=== PATIENT | female | born 1975 ===

== ENCOUNTER 2024-03-19 05:33 | Emergency (ER) | payer OTHER, SELFPAY ==
--- NOTE | ~2024-03-19 | US_ITS ---
EXAMINATION: US OBSTETRICAL ULTRASOUND CLINICAL INFORMATION: Pain. Rule out ectopic . COMPARISON: None available. LMP: 01/27/2024 . Gestational age by maternal dates is 7 weeks 3 days . Estimated date of delivery by maternal dates is 11/02/2024. TECHNIQUE: Transabdominal and transvaginal pelvic ultrasound was performed. Transvaginal exam performed for better visualization of the uterus and ovaries. FINDINGS: The uterus is anteverted and measures 9.5 x 5.2 x 6.9 cm in dimension. The endometrium is abnormally thickened measuring 2.9 cm with small cystic areas. No intrauterine is seen. There is a linear echogenic density in the posterior myometrium of the uterine body compatible with patient history of a broken IUD. No other focal uterine lesion. The right ovary is normal and measures 2.2 x 0.8 x 2 cm. The left ovary measures 3.5 x 2.3 x 2.2 cm. There is a complex left ovarian cyst that measures 2.4 x 0.9 x 1.2 cm. This is irregularly-shaped and a 4 x 6 mm echogenic solid component. Ectopic cannot be excluded. There is no fluid in the pelvis. US/US OB pelvic and transvaginal IMPRESSION: No intrauterine seen. Abnormally thickened heterogeneous endometrium. 2.4 x 0.9 x 1.2 cm complex left ovarian cyst. Ectopic cannot be excluded. Correlation with serial quantitative beta hCG and short-term imaging follow-up recommended. Broken IUD in the posterior uterine body myometrium.
[2024-03-19 05:45] VITALS: BP 129/73; PULSE 79; RESP 16; TEMP 36.7; O2SAT 97; BMI 25.1
--- NOTE | 2024-03-19 06:39 | ED.ABDPAIN ---
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 Admits to 3 episodes of diarrhea since this time. Endorses associated decreased PO intake secondary to nausea. Denies known sick contacts. Denies recent travel. Denies recent abx use. Endorses history appendectomy. No other abdominal surgeries. LMP 01/27/24. Denies fever, chills, vomiting, hematemesis, hematochezia, melena, bright red blood per rectum, dysuria, flank pain, hematuria. bowling alley attendant utilized throughout visit to communicate with patient. Related Data Previous Rx's ?Medication ?Instructions ?Recorded pyridoxine (vitamin B6) 25 mg 25 mg PO TID PRN nausea and 03/19/24 tablet vomiting #10 tabs vancomycin 125 mg capsule 125 mg PO Q6H 10 days #40 caps 03/20/24 Allergies Allergy/AdvReac Type Severity Reaction Status Date / Time No Known Allergies Allergy Verified 03/20/24 04:38 Review of Systems Review of Systems Constitutional: No fever, chills, fatigue, night sweats, weight changes ENT/Mouth: No ear pain, hearing loss, nasal congestion, sinus pain, rhinorrhea, sore throat Eyes: No eye pain, swelling, redness, vision changes, discharge Cardio: No chest pain, palpitations, CARRERA, orthopnea, peripheral edema Pulm: No SOB, cough, sputum, wheezing, dyspnea, hemoptysis GI: No vomiting, hematemesis, constipation, hematochezia, melena, +abdominal pain, +nausea, +diarrhea : No irregular bleeding, dysuria, frequency, urgency, hesitancy, hematuria, flank pain, urinary flow changes, urinary incontinence or retention MSK: No back pain, neck pain, joint pain, myalgias Skin: No lesions, rashes Neuro: No weakness, numbness, paresthesias, LOC, dizziness, headache Psych: No anxiety/panic, depression, SI/HI, AH/VH All other systems reviewed and are negative. [facility] Past Medical History Attestation statement: The following information was validated with the patient. Source: old records reviewed and nursing notes reviewed Social History Social History Advance Directives: No Advance Directives Information Provided: Yes Do you have a plan to hurt others: No Plan Physical Exam ED Vital Signs: Vital Signs - 24 hr 03/19/24 05:45 Temperature 98.0 F Pulse Rate 79 Respiratory Rate 16 Blood Pressure 129/73 Pulse Oximetry 97 Oxygen Delivery Method Room Air BMI result Body Mass Index 25.1 Vital signs stable, afebrile Const General: cooperative, healthy appearing, comfortable and no acute distress Orientation/consciousness: patient oriented x3 Limitations: no limitations HENMT Head: Yes normal to inspection, Yes No palpable skull fracture present, Yes normocephalic and Yes atraumatic Eyes General: appearance normal, both eyes and all related structures Conjunctivae: conjunctivae normal Sclerae: sclerae normal Pupils: Equal, round and reactive pupils present Neck Neck: Yes normal visual inspection, Yes full ROM, Yes no lymphadenopathy and Yes no meningeal signs Resp Effort & Inspection: normal respiratory effort and able to speak in complete sentences Auscultation: clear to auscultation bilaterally Cardio Rate: regular rate Rhythm: regular rhythm GI Other: Abdomen soft, nondistended, mildly tender to palpation of the suprapubic abdomen, no rebound tenderness or guarding, normoactive bowel sounds x4. Other: Sensitive exam performed with Tiffany archives technician present in room to cement side laster. External genitalia is normal in appearance without lesions, swelling, masses or tenderness. Vaginal canal is pink and moist without lesions or discharge. Cervix is non-tender without lesions or erosions. Uterus is anteflexed, non-tender and normal in size. Ovaries are non-tender without palpable masses or enlargement. No cervical motion tenderness on bimanual exam. General: Yes no CVA tenderness Back/Spine/Pelvis Back: no CVA tenderness Skin General skin exam: no rashes or lesions noted Neuro General: patient oriented x3 and no meningeal signs Cranial nerves: Yes Equal, round and reactive pupils present Extrem General: Yes normal to inspection Course Course Course Narrative: 0815-- CBC without leukocytosis or left shift. No anemia. H&H stable. Chemistry without acute electrolyte abnormality requiring intervention. Normal renal function. Normal liver function. Lipase WNL. she has tested negative for covid and flu. Quantitative beta HCG noted to be 10. On questioning, patient states that over the last 6 months her period has been irregular. Her last menstrual period was on January 26. She did not get her period this month. She does report chance of . I did discuss this with my attending physician Dr. Locke who recommends pelvic/transvaginal US to r/o intrauterine vs ectopic. > awaiting UA. 0950-- pelvic/transvaginal ultrasound without evidence of intrauterine visualized. There is abnormally thickened heterogeneous endometrium. There is a 2.4 x 0.9 x 1.2 cm complex ovarian cyst. Ectopic can not be excluded. Correlation with serial beta HCGs and short-term imaging follow-up is recommended. There is note of broken IUD within the posterior uterine body of the myometrium. Patient tells me she had IUD placed approximately 12 years ago. The IUD broke off of the string when her physician was attempting to remove the IUD 5 years ago and there have been no further attempts at removing the IUD. she has had no issues with it up to this point. > these findings were discussed with on-call bed laborer, Dr. Tidwell who has also reviewed US results. He is recommending pelvic with cultures for BV/ trich/ CT/NG. UA pending. > on re-evaluation, patient reports improvement in pain with tylenol. 1035-- Pelvic exam performed with [facility] in room to cement side laster. exam unremarkable. no CMT to suggest PID. no visible IUD string from cervical os. Cultures for trich/BV/CT/NG sent. UA negative for infection/ blood. > discussed further with Dr. Tidwell who will be down to the ED to evaluate patient. 1214-- All lab, urine, and ultrasound results were discussed with patient by both Dr. Tidwell and I. > doctor Tidwell would like to have patient follow-up in his office in 48 hours for repeat HCG. He has placed an outpatient order for this. We discussed worrisome signs and symptoms and when to return to the ED including fever, heavy vaginal bleeding. Regarding retained IUD, patient will continue to follow-up with OB Gy[facility] outpatient for this. Regarding complex ovarian cyst on left ovary identified by ultrasound, patient has suprapubic tenderness likely secondary to this. Dr. Tidwell will discuss treatment options for this in his office in 48 hours. > given unremarkable workup in the ED, I suspect viral gastroenteritis as cause of patient's diarrhea. she reports significant improvement in abdominal pain with tylenol. Will send patient home with vitamin B6 for nausea. Advised to take tylenol as needed for discomfort. Patient has remained stable throughout ED visit today. All questions answered at this time. Patient is agreeable with disposition and stable for discharge. Medical Decision Making Medical Decision Making [facility] [place] Narrative: 49 year old Libyan speaking female presents to the ED today for evaluation of intermittent suprapubic abdominal pain, nausea, and diarrhea which began abruptly at 0200 this morning. Vital signs stable. Afebrile. She is nontoxic appearing in no acute distress. Skin warm, dry, intact. Abdomen is soft, nondistended, mildly tender to palpation of the suprapubic abdomen without rebound tenderness or guarding. Normoactive bowel sounds x4. No CVAT bilaterally. On pelvic exam, External genitalia is normal in appearance without lesions, swelling, masses or tenderness. Vaginal canal is pink and moist without lesions or discharge. Cervix is non-tender without lesions or erosions. Uterus is anteflexed, non-tender and normal in size. Ovaries are non-tender without palpable masses or enlargement. No cervical motion tenderness on bimanual exam. Differential diagnosis includes viral syndrome, gastroenteritis, diverticulosis/diverticulitis, anemia, electrolyte abnormality, urinary tract infection, renal colic, nephrolithiasis, early , ectopic , falsely elevated HCG due to perimenopause. Unlikely appendicitis, cholecystitis, pancreatitis, SBO, ischemic bowel. Plan for labs, UA, CT, pain control, re-evaluation. Differential Diagnosis Differential Diagnoses: The differential diagnosis associated with the presentation includes as above. Admission/Observation Consideration of admission/observation: Escalation of care including admission/observation considered Admission considered on presentation. Consult Healthcare Provider Management of the patient was discussed with: Pharmacy Helper (Dr. Tidwell, OBGYN) Lab Data MDM Lab Attestation statement: I reviewed the patient's lab results. as above. 03/19/24 06:47 03/19/24 06:47 Labs: Lab Results 03/19/24 03/19/24 03/19/24 Range/Units 06:47 07:29 09:45 WBC 8.9 (4.8-10.8) X10*3/uL RBC 4.53 (4.20-5.50) X10*6/uL Hgb 13.4 (12.0-16.0) g/dl Hct 39.8 (37.0-47.0) % MCV 87.9 (80.0-98.0) fL MCH 29.6 (27.0-33.0) pg MCHC 33.7 (31.0-35.0) g/dl RDW 13.6 (11.0-16.0) % Plt Count 229 (160-400) X10*3/uL MPV 8.9 L (9.4-12.3) fL Immature Gran % (Auto) 0.2 (0.0-0.4) % Neut % (Auto) 73.6 H (45-73) % Lymph % (Auto) 16.1 L (20-40) % Carlton % (Auto) 8.0 (2-11) % Eos % (Auto) 1.7 (0-4) % Baso % (Auto) 0.4 (0-2) % Lymph # (Auto) 1.4 (1.2-4.9) X10*3/uL Carlton # (Auto) 0.7 (0.1-1.2) X10*3/uL Eos # (Auto) 0.2 (0.0-0.4) X10*3/uL Baso # (Auto) 0.0 (0.0-0.2) X10*3/uL Abs Immat Gran (auto) 0.02 (0.00-0.03) X10*3/uL Absolute Neuts (auto) 6.5 (2.0-8.3) x10*3/uL Absolute Nucleated RBC 0.000 (0.0-0.012) X10*3/uL Nucleated RBC % (auto) 0.0 (0.0-0.2) /100WBC Sodium 139 (135-145) mmol/L Potassium 3.9 (3.3-5.1) mmol/L Chloride 110 H (96-108) mmol/L Carbon Dioxide 21 L (22-29) mmol/L Anion Gap 12 (12-20) BUN 12 (9-16) mg/dL Creatinine 0.65 (0.5-1.4) mg/dL Estim Creat Clear Calc 94.2 Estimated GFR > 60 Random Glucose 108 (60-115) mg/dL Calcium 8.8 (8.4-10.2) mg/dL Magnesium 1.7 (1.6-2.6) mg/dL Total Bilirubin 0.7 (0.0-1.0) mg/dL AST 18 (5-31) U/L ALT 17 (0-31) U/L Alkaline Phosphatase 63 (39-117) U/L Total Protein 6.8 (6.5-8.0) g/dL Albumin 3.8 (3.5-5.0) g/dL Lipase 25 (8-78) U/L Beta HCG, Quant 10 mIU/mL Urine Color Yellow Urine Appearance Clear Urine pH 6.0 (5.0-9.0) Ur Specific [place] <= 1.005 (1.005-1.025) Urine Protein Negative (Neg-Trace) mg/dL Urine Glucose (UA) Negative (Negative) mg/dL Urine Ketones Negative (Negative) mg/dL Urine Blood Negative (Negative) Urine Nitrite Negative (Negative) Ur Leukocyte Esterase Negative (Negative) Urine Test NEGATIVE (NEGATIVE) Chlam trachomat DNA PCR (Not Detect.) COVID-19 (SONI) Negative (Negative) COVID-19 Clin Com See Note Influenza Type A (PRESTON) Negative (Negative) Influenza Type B (PRESTON) Negative (Negative) Influenza A & B Note See Note N.gonorrhoeae DNA (PCR) (Not Detect.) T. vaginalis (PCR) (Not Detect) Bact Vaginosis (PCR) (Negative) C. krusei/glabrata (PCR) (Not Detect) Ruthie group (PCR) (Not Detect) 03/19/24 Range/Units 10:18 WBC (4.8-10.8) X10*3/uL RBC (4.20-5.50) X10*6/uL Hgb (12.0-16.0) g/dl Hct (37.0-47.0) % MCV (80.0-98.0) fL MCH (27.0-33.0) pg MCHC (31.0-35.0) g/dl RDW (11.0-16.0) % Plt Count (160-400) X10*3/uL MPV (9.4-12.3) fL Immature Gran % (Auto) (0.0-0.4) % Neut % (Auto) (45-73) % Lymph % (Auto) (20-40) % Carlton % (Auto) (2-11) % Eos % (Auto) (0-4) % Baso % (Auto) (0-2) % Lymph # (Auto) (1.2-4.9) X10*3/uL Carlton # (Auto) (0.1-1.2) X10*3/uL Eos # (Auto) (0.0-0.4) X10*3/uL Baso # (Auto) (0.0-0.2) X10*3/uL Abs Immat Gran (auto) (0.00-0.03) X10*3/uL Absolute Neuts (auto) (2.0-8.3) x10*3/uL Absolute Nucleated RBC (0.0-0.012) X10*3/uL Nucleated RBC % (auto) (0.0-0.2) /100WBC Sodium (135-145) mmol/L Potassium (3.3-5.1) mmol/L Chloride (96-108) mmol/L Carbon Dioxide (22-29) mmol/L Anion Gap (12-20) BUN (9-16) mg/dL Creatinine (0.5-1.4) mg/dL Estim Creat Clear Calc Estimated GFR Random Glucose (60-115) mg/dL Calcium (8.4-10.2) mg/dL Magnesium (1.6-2.6) mg/dL Total Bilirubin (0.0-1.0) mg/dL AST (5-31) U/L ALT (0-31) U/L Alkaline Phosphatase (39-117) U/L Total Protein (6.5-8.0) g/dL Albumin (3.5-5.0) g/dL Lipase (8-78) U/L Beta HCG, Quant mIU/mL Urine Color Urine Appearance Urine pH (5.0-9.0) Ur Specific [place] (1.005-1.025) Urine Protein (Neg-Trace) mg/dL Urine Glucose (UA) (Negative) mg/dL Urine Ketones (Negative) mg/dL Urine Blood (Negative) Urine Nitrite (Negative) Ur Leukocyte Esterase (Negative) Urine Test (NEGATIVE) Chlam trachomat DNA PCR NOT DETECTED (Not Detect.) COVID-19 (SONI) (Negative) COVID-19 Clin Com Influenza Type A (PRESTON) (Negative) Influenza Type B (PRESTON) (Negative) Influenza A & B Note N.gonorrhoeae DNA (PCR) NOT DETECTED (Not Detect.) T. vaginalis (PCR) NOT DETECTED (Not Detect) Bact Vaginosis (PCR) NEGATIVE (Negative) C. krusei/glabrata (PCR) NOT DETECTED (Not Detect) Ruthie group (PCR) DETECTED A (Not Detect) Independent Interpretation I performed an independent interpretation of an: Ultrasound Interpretation: pelvic us without IUP, agree with ragiologist's interpretation. Radiology Impression Discussion of test interpretation with radiology: I have reviewed the radiologist's reading. Radiologist Impression: EXAMINATION: US OBSTETRICAL ULTRASOUND CLINICAL INFORMATION: Pain. Rule out ectopic . COMPARISON: None available. LMP: 01/27/2024 . Gestational age by maternal dates is 7 weeks 3 days . Estimated date of delivery by maternal dates is 11/02/2024. TECHNIQUE: Transabdominal and transvaginal pelvic ultrasound was performed. Transvaginal exam performed for better visualization of the uterus and ovaries. FINDINGS: The uterus is anteverted and measures 9.5 x 5.2 x 6.9 cm in dimension. The endometrium is abnormally thickened measuring 2.9 cm with small cystic areas. No intrauterine is seen. There is a linear echogenic density in the posterior myometrium of the uterine body compatible with patient history of a broken IUD. No other focal uterine lesion. The right ovary is normal and measures 2.2 x 0.8 x 2 cm. The left ovary measures 3.5 x 2.3 x 2.2 cm. There is a complex left ovarian cyst that measures 2.4 x 0.9 x 1.2 cm. This is irregularly-shaped and a 4 x 6 mm echogenic solid component. Ectopic cannot be excluded. There is no fluid in the pelvis. US/US OB pelvic and transvaginal IMPRESSION: No intrauterine seen. Abnormally thickened heterogeneous endometrium. 2.4 x 0.9 x 1.2 cm complex left ovarian cyst. Ectopic cannot be excluded. Correlation with serial quantitative beta hCG and short-term imaging follow-up recommended. Broken IUD in the posterior uterine body myometrium. Independent Historian Clinical information obtained from an independent historian. History obtained from or confirmed by: Spouse () External Record Review External record reviewed: Inpatient record, Office record, Outpatient record, Prior outpatient labs, Prior outpatient radiology, Primary care record and Outside ED record Prescription Management I considered prescription management with: Other (vit b6) Social Determinants Patient?s care significantly limited by Social Determinants of Health including: Other Social Determinant of Health Medications Administered Discontinued Medications Generic Name Dose Route Start Last Admin Trade Name Freq PRN Reason Stop Dose Admin Acetaminophen 975 mg 03/19/24 07:59 03/19/24 08:07 Acetaminophen 325 Mg Tablet PO 03/19/24 08:00 975 mg ONCE ONE Administration Sodium Chloride 1,000 mls @ 999 mls/hr 03/19/24 06:45 03/19/24 08:08 Ns IV 03/19/24 07:45 Infused .Q1H1M DONNA Infusion Critical Care Time Critical Care Time Critical Care Time: No Discharge Plan Discharge Clinical Impression: Pelvic pain with positive beta-human chorionic gonadotropin (BhCG) in female, Complex cyst of left ovary, Retained intrauterine contraceptive device (IUD) Patient Disposition: Home, Self-Care Instructions: Ectopic (DC), Ovarian Cyst (ED), Pelvic Pain in Women (ED) Additional Instructions: Your labs today are reassuring. You tested negative for covid and flu. During your pelvic exam, cultures were sent to the lab to check for STDs. You will be contacted with any positive results. Your urine is negative for infection, blood and . Your blood hcg ( hormone) was elevated to 10 today. You were evaluated by OBGYN Dr. Tidwell and have plans to follow up in his office out patient in 48 hours to repeat these levels. As discussed, your pelvic/transvaginal ultrasound shows a complex cyst on your left ovary and a retained IUD within the uterine wall. It is possible that this cyst is causing your lower abdominal pain. Dr. Tidwell will be following up with you outpatient in 48 hours to discussed treatment options. You have been provided with the contact information for his office if you need to get in touch with them. Vitamin B6 has been sent to your pharmacy for you to take as needed for nausea. You may also take Tylenol at home for pain/ discomfort. As discussed, please return with new or worsening symptoms of increasing abdominal pain, fevers, heavy vaginal bleeding. In the case of an emergency call 911. Prescriptions: New pyridoxine (vitamin B6) 25 mg tablet 25 mg PO TID PRN (Reason: nausea and vomiting) Qty: 10 0RF No Action vancomycin 125 mg capsule 125 mg PO Q6H 10 Days Qty: 40 0RF Referrals: Herb Tidwell MD [Physician] - 2 days (beta hcg 10. repeat levels in 48 hours.) Interventions: ED Discharge Assessment Last Done: 03/19/24 12:29 Discharge Date/Time: 03/19/24 12:30 Print Language: Libyan
[2024-03-19] MEDS: 0.9 % Sodium Chloride 1,000 ML 999 ML IV (06:49)
[2024-03-19 06:51] LABS: Basophils Percent Auto 0.4 % (0-2); Eosinophils Absolute Auto 0.2 X10*3/uL (0.0-0.4); Eosinophils Percent Auto 1.7 % (0-4); Hematocrit 39.8 % (37.0-47.0); Hemoglobin 13.4 g/dl (12.0-16.0); Imm Gran Abs Auto 0.02 X10*3/uL (0.00-0.03); Imm Gran Pct Auto 0.2 % (0.0-0.4); Lymphocytes Absolute Auto 1.4 X10*3/uL (1.2-4.9); Lymphocytes Percent Auto 16.1 % (20-40); MANUAL DIFF FLAG NO; Mean Corpuscular HGB Conc 33.7 g/dl (31.0-35.0); Mean Corpuscular Hemoglobin 29.6 pg (27.0-33.0); Mean Corpuscular Volume 87.9 fL (80.0-98.0); Mean Platelet Volume 8.9 fL (9.4-12.3); Monocytes Absolute Auto 0.7 X10*3/uL (0.1-1.2); Neutrophils Absolute Auto 6.5 x10*3/uL (2.0-8.3); Neutrophils Percent Auto 73.6 % (45-73); Platelet Count 229 X10*3/uL (160-400); Red Blood Count 4.53 X10*6/uL (4.20-5.50); Red Cell Distribution Width 13.6 % (11.0-16.0); White Blood Count 8.9 X10*3/uL (4.8-10.8)
--- OUTSIDE RECORDS SUMMARY | 2024-03-19 07:03 | XMS_ITS | Patient Health Record ---
Author Organization [facility] Address [address], [place] [id number] Care Team Providers Care Integration Architect Name Role Phone Terry Vasquez Primary Care Provider [phone] [facility], Nursing Unavailable [phone] CardonaZayda holloway Unavailable [phone] [facility], [facility] Unavailable [phone] CasUlises finkeliza Unavailable [phone] ALLERGIES No Known Allergies RESULTS Component Value Reference Range Notes CBC Reviewed date:09/01/2023 07:57:02 PM Interpretation:Normal Performing Lab: Notes/Report: WBC 8.5 4.8-10.8 x10-3/uL RBC 4.6 3.8-4.8 x10-6/uL HEMOGLOBIN 13.9 11.5-16.0 g/dL HEMATOCRIT 42.3 35-47 % MCV 91.4 79-98 fL MCH 30.0 27-32 pg MCHC 32.9 32-37 g/dL RDW 14.0 11-15 % PLT COUNT 262 130-400 x10-3/uL MEAN PLATELET VOLUME 10.2 7-11 fL NRBC % AUTO 0.0 <1 % NRBC # AUTO 0.00 <0.1 x10-3/uL LIPID PROFILE Reviewed date:09/15/2023 09:57:06 AM Interpretation:LDL 141; ASCVD 1% Performing Lab: Notes/Report: CHOLESTEROL 221 0-200 mg/dL TRIGLYCERIDES 72 0-150 mg/dL HDL CHOLESTEROL 66 >40 mg/dL LDL CALCULATED 141 0-100 mg/dL TC-HDLC RATIO 3.4 0-4.4 mg/dL QUANTIFERON(R)-TB GOLD PLUS, 1 TUBE Reviewed date:02/25/2024 03:25:35 PM Interpretation:Negative Performing Lab:NL2, [facility] [id number] [id number] Reji Alcazar Notes/Report: NON-FASTING QUANTIFERON(R)-TB GOLD PLUS, 1 TUBE NEGATIVE NEGATIVE Negative test result. M. tuberculosis complex infection unlikely. NIL 0.02 MITOGEN-NIL >10.00 TB1-NIL 0.00 TB2-NIL 0.00 The Nil tube value reflects the background interferon gamma immune response of the patient's blood sample. This value has been subtracted from the patient's displayed TB and Mitogen results. Lower than expected results with the Mitogen tube prevent false-negative Quantiferon readings by detecting a patient with a potential immune suppressive condition and/or suboptimal pre-analytical specimen handling. The TB1 Antigen tube is coated with the M. tuberculosis-specific antigens designed to elicit responses from TB antigen primed CD4+ helper T-lymphocytes. The TB2 Antigen tube is coated with the M. tuberculosis-specific antigens designed to elicit responses from TB antigen primed CD4+ helper and CD8+ cytotoxic T-lymphocytes. 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 Dereck carrero Ligia 01/27/2024 03:03:50 PM > [facility] told pt [facility] are not taking new pt, so , [facility] went [facility] and they did the Eye exam and set the glasses and contacts. Referral Priority Routine IMMUNIZATIONS Vaccine Route Administration Date Status Comme nts hepatitis B IM Intramuscular 09/16/2021 Administered Tdap IM Intramuscular 12/20/2019 Administered Moderna Covid-19 Vaccine Administration - First Dose (Single Dose 100MCG/0.5ML 1ST) IM Intramuscular 02/18/2021 Administered Moderna Covid-19 Vaccine Administration - Second Dose (Single Dose 100 MCG/0.5ML 2ND) IM Intramuscular 03/19/2021 Administered Moderna Covid-19 Booster Administration - Third Dose (Single Dose 50 mcg/0.25 mL IM Intramuscular 12/03/2021 Administered Influenza IM Intramuscular 08/18/2023 Administered PCV 20 IM Intramuscular 08/18/2023 Administered Hepatitis B (20 or more) IM Intramuscular 09/01/2023 Administered Hepatitis B (20 or more) IM Intramuscular 02/02/2024 Administered [facility] [id number] SOCIAL HISTORY Sex Assigned At : Social History Observation Description Sex Assigned At Unknown PROBLEMS Problem Type ICD Code Onset Dates Problem Status W/U Status Risk SNOMED Code Notes Problem Body mass index [BMI] 28.0-28.9, adult (Z68.28) Active confirmed Body mass index 25-29 - overweight (787666581) Problem Presence of spectacles and contact lenses (Z97.3) Active confirmed Abnormal vision (7302432) Problem Keratoconus, stable, 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) Active confirmed Keratoconus, stable condition (297096488) VITAL SIGNS Temperature 98.4 degrees Fahrenheit 08/18/2023 Blood pressure diastolic 75 08/18/2023 Oximetry 98 08/18/2023 Height 60 in 08/18/2023 Blood pressure systolic 124 08/18/2023 Weight 144.8 lbs 08/18/2023 BMI 28.28 kg/m2 08/18/2023 Encounters Encounter Location Date Provider Diagnosis [address] [id number] 07/16/2023 Lauren Carr Encounter for screening for infectious and parasitic diseases, unspecified Z11.[address] [id number] 08/18/2023 Zayda Cardona [address] [id number] 05/29/2023 Nursing [facility] Other specified counseling Z71.[address] [id number] 08/18/2023 Terry Vasquez Encounter for screening for COVID-19 Z11.52 ; Encounter for general adult medical examination without abnormal findings Z00.00 ; Encounter for screening for depression Z13.31 ; Encounter for screening mammogram for malignant neoplasm of breast Z12.31 ; Presence of spectacles and contact lenses Z97.3 ; Encounter for immunization Z23 and Body mass index [BMI] 28.0-28.9, adult Z68.[address] [id number] 09/01/2023 Nursing [facility] Body mass index [BMI] 28.0-28.9, adult Z68.28 and Encounter for immunization Z23 [address] [id number] 02/02/2024 Nursing [facility] Encounter for immunization Z23 [address] [id number] 02/11/2024 [facility] Encounter for screening for respiratory tuberculosis Z11.1 [facility] [address] [place] [id number] 06/15/[address] [id number] 08/28/2023 Terry Vasquez [address] [id number] 02/11/2024 [facility] Encounter for screening for respiratory tuberculosis Z11.[address] [id number] 02/16/2024 [facility] ASSESSMENTS Encounter Date Diagnosis Assessment Notes Treatment Notes Treatment Clinical Notes 07/16/2023 Encounter for screening for infectious and parasitic diseases, unspecified (ICD-10 - Z11.9) Covid screening is negative. Discussed in detail with patient how to practice social distancing by avoiding public spaces and crowds now, wearing a mask in public to keep nose and mouth covered, and washing hands frequently especially before eating and after using the bathroom. Return to clinic if you develop any symtpoms of concern to be rescreened or go to the emergency room if you are having concerning symptoms for COVID-19. 05/29/2023 Other specified counseling (ICD-10 - Z71.89) Medical and social history reviewed and documented in ECW. pt do not report any issues or concerns at time of call. MIIS reviewed immunizations updated in chart. pt informed clinic staff will contact pt by phone to schedule appt with care provider. pt encouraged to contact office if any medical problems arise prior to schedule appt 08/18/2023 Encounter for general adult medical examination without abnormal findings (ICD-10 - Z00.00) [facility] ststus good. We will gte records form [facility] before doing any further labs here. Same with PAP OProvided basic advice and system guidance 08/18/2023 Encounter for screening for COVID-19 (ICD-10 - Z11.52) Covid screening is negative. Discussed in detail with patient how to practice social distancing by avoiding public spaces and crowds now, wearing a mask in public to keep nose and mouth covered, and washing hands frequently especially before eating and after using the bathroom. Return to clinic if you develop any symtpoms of concern to be rescreened or go to the emergency room if you are having concerning symptoms for COVID-19. 09/01/2023 Body mass index [BMI] 28.0-28.9, adult (ICD-10 - Z68.28) 02/02/2024 Encounter for immunization (ICD-10 - Z23) Screening performed for vaccine contraindications prior to administration. See scanned document. VIS reviewed. No contraindications for vaccine administration. Hepatitis B #3 vaccine given per protocol. No adverse outcome with administration of vaccine. Hepatitis B immunization complete. 02/11/2024 Encounter for screening for respiratory tuberculosis (ICD-10 - Z11.1) 02/11/2024 Encounter for screening for respiratory tuberculosis (ICD-10 - Z11.1) 08/18/2023 Encounter for screening for depression (ICD-10 - Z13.31) PHQ-9 assessed score was 1 - not interested in referral to [facility] mental health 09/01/2023 Encounter for immunization (ICD-10 - Z23) 08/18/2023 Encounter for screening mammogram for malignant neoplasm of breast (ICD-10 - Z12.31) had some sort of benign biopsy 06/09. Ordereing screening mammo but hope to get records soon 08/18/2023 Presence of spectacles and contact lenses (ICD-10 - Z97.3) insurance an issue. She will contact [address] [place] [address] eye care first 08/18/2023 Encounter for immunization (ICD-10 - Z23) flu vax; Hep B2 08/18/2023 Body mass index [BMI] 28.0-28.9, adult (ICD-10 - Z68.28) Would love to see her drop afew p[ouds. right now not interetsed but shjeis active 05/29/2023 Other mental health referral offer pt declined NOTE : TIME SPENT ON VISIT: 45 mins 08/18/2023 Other 09/01/2023 Other Diagnostic labs drawn as ordered per protocol using aseptic technique. We will attempt to reach you by telephone to discuss the test results. If we cannot reach you by telephone, we will mail you your results to the address we have on file. In all cases, results will be reviewed at your next office visit. We will contact you sooner if you have a telephone or address where we can reach you for abnormal test results requiring immediate action. Labs drawn by: CB 02/11/2024 Other Diagnostic labs drawn as ordered per protocol using aseptic technique. We will attempt to reach you by telephone to discuss the test results. If we cannot reach you by telephone, we will mail you your results to the address we have on file. In all cases, results will be reviewed at your next office visit. We will contact you sooner if you have a telephone or address where we can reach you for abnormal test results requiring immediate action. Labs drawn by: .BRANDO pt signed a Realease form to fax the results to the office of immigration that is requesting this lab. PLAN OF TREATMENT Pending Test Test Name Order Date David Screening Digital 08/18/2023 Next Appt Details Provider Name:Terry Vasquez, 08/23/2024 03:20:00 PM, [address] [place] [address], [place], [place], [id number], Insurance Providers Payer Name Payer Address Payer Phone Subscriber Number Group Number Insured Name Patient Relationship to Insured Coverage Start Date Coverage End Date [place] Medicaid Limited [address] [place], [place] [id number] MITRA ALANIS Self - patient is the insured 3 MEDICAL (GENERAL) HISTORY Surgical History Surgery Date(Month/Year) appendectomy 06/2009
[2024-03-19 07:18] LABS: Alanine Aminotransferase 17 U/L (0-31); Albumin Level 3.8 g/dL (3.5-5.0); Alkaline Phosphatase 63 U/L (39-117); Anion Gap 12 (12-20); Aspartate Amino Transferase 18 U/L (5-31); Bilirubin Total 0.7 mg/dL (0.0-1.0); Blood Urea Nitrogen 12 mg/dL (9-16); Calcium 8.8 mg/dL (8.4-10.2); Carbon Dioxide 21 mmol/L (22-29); Chloride 110 mmol/L (96-108); Creatinine Clr Calc Pharmacy 94.2; Estimated Glomerular Filt Rate > 60; Glucose Random 108 mg/dL (60-115); Lipase 25 U/L (8-78); Magnesium 1.7 mg/dL (1.6-2.6); Potassium 3.9 mmol/L (3.3-5.1); Sodium 139 mmol/L (135-145); Total Protein 6.8 g/dL (6.5-8.0)
[2024-03-19 07:21] LABS: HCG Quantitative 10 mIU/mL
[2024-03-19 07:48] LABS: COVID-19 Test Negative (Negative); IDNOW Serial# 08D9AD1C
[2024-03-19 07:50] LABS: IDNOW Serial# 152EDE1D
[2024-03-19 07:51] LABS: Influenza A Negative (Negative); Influenza B2 Negative (Negative)
[2024-03-19] MEDS: Acetaminophen 325 MG TABLET 975 MG PO (08:07)
--- NOTE | 2024-03-19 09:46 | PM.GYNCN ---
EMPLOYEE COMMUNICATIONS INTERN - CN: HPI Data of Consult Consult date: 03/19/24 Primary Care Provider: Unknown Physician Consult Narrative Narrative: I was consulted on Bea Haro who is a 49 year old female presented to emergency room with intermittent suprapubic pelvic pain associated with nausea, and diarrhea which began abruptly at 0200 a.m and she had 3 episodes of diarrhea since this time. No fever, chills, vomiting, no vaginal discharge or bleeding or any other symptoms. The patient gives a history of an IUD inserted 12 years ago an attempt for removal and depth with retained portion of the IUD 5 years ago since then the patient did not have any symptoms. LMP 4/10. In the emergency. HCG was 10 cc:: CC: OB [facility] Social History Social History Smoked in Last 30 Days: No Use of substances other than those prescribed or required for medical reasons: No Advance Directives: No Do you have a plan to hurt others: No Plan Meds Allergies Allergy/AdvReac Type Severity Reaction Status Date / Time No Known Allergies Allergy Verified 03/19/24 05:46 [employer]OYEE [employer] INTERN Physical Exam Vitals Vital signs: Temp Pulse Resp BP Pulse Ox O2 Del Method 98.0 F 79 16 129/73 97 Room Air 03/19/24 05:45 03/19/24 05:45 03/19/24 05:45 03/19/24 05:45 03/19/24 05:45 03/19/24 05:45 BMI result Body Mass Index 25.1 Abdomen Auscultation/Inspection/Palpation: Normal bowel sounds, Soft, Non-distended and No tenderness Female Genitalia (Pelvic) Bladder/Urethra: Normal meatus Vulva: No lesions Vagina: Nontender Cervix: Grossly normal and No cervical motion tenderness Uterus: Normal size and Nontender Adnexa/Parametria: Adnexal Tenderness: None, Adnexal Mass: None and Parametrial Tenderness: None EMPLOYEE COMMUNICATIONS INTERN - Results Labs 03/19/24 06:47 03/19/24 06:47 Labs: Short CBC 03/19/24 Range/Units 06:47 WBC 8.9 (4.8-10.8) X10*3/uL Hgb 13.4 (12.0-16.0) g/dl Hct 39.8 (37.0-47.0) % Plt Count 229 (160-400) X10*3/uL BMP 03/19/24 06:47 Sodium 139 Potassium 3.9 Chloride 110 H Carbon Dioxide 21 L BUN 12 Creatinine 0.65 Calcium 8.8 Liver Function 03/19/24 Range/Units 06:47 Total Bilirubin 0.7 (0.0-1.0) mg/dL AST 18 (5-31) U/L ALT 17 (0-31) U/L Alkaline Phosphatase 63 (39-117) U/L Albumin 3.8 (3.5-5.0) g/dL Imaging US - abdomen: Radiologist's impression: ITS Impressions Pelvic/Transvag US 03/19/24 08:37 IMPRESSION: No intrauterine seen. Abnormally thickened heterogeneous endometrium. 2.4 x 0.9 x 1.2 cm complex left ovarian cyst. Ectopic cannot be excluded. Correlation with serial quantitative beta hCG and short-term imaging follow-up recommended. Broken IUD in the posterior uterine body myometrium. Assessment and Plan (1) Elevated serum hCG: Status: Acute Discussed with the patient hCG level is 10, the differential diagnosis includes early , ectopic , or falsely elevated hCG due to elevated LH possibly due to perimenopause . Instructions given to patient to Repeat hCG in 48 hours( outpatient order placed), to call or come to the emergency room in case of any of the following occurs: persistent or worsening of her pain, fever above 100.4, heavy vaginal bleeding and to schedule a follow-up appointment in the office for an evaluation within 48 hours with an hCG quantitative level. The phone number of the office was given to the patient, explained to the patient the importance of follow-up in 48 hours in an effort to make an accurate diagnosis in timely manner , prevent any delay in the treatment and its potential negative consequences including ruptured ectopic . All questions answered, the patient verbalized understanding. (2) Complex ovarian cyst: Status: Acute Discussed with the patient the complex ovarian cyst by ultrasound. Discussed with the patient the Ultrasound findings, the main limitation of transvaginal ultrasonography alone as a diagnostic tool to distinguish benign from malignant masses relates to its lack of specificity and low positive predictive value for cancer. The differential diagnosis discussed with the patient includes the following but not limited to: benign and malignant gynecological and non-gynecological causes. Will discuss options of treatment in the office in 2 days. (3) IUD mechanical complication: Status: Acute Discussed with the patient that there are limited data on the consequences of leaving a broken IUD fragment in situ, including abnormal bleeding, pain, infertility, and infection. If asymptomatic patients counseled the patient that exterminator termite sequela of leaving an IUD fragment in utero has unknown possible future consequences. If the patient desires removal Options for removal of retained fragments include manual vacuum aspiration, an IUD hook, narrow tip forceps, and hysteroscopic-assisted extraction . For myometrial IUD fragments that cannot be easily removed with hysteroscopy, review of the medical literature showed that one author advises leaving the fragment in place as it is unlikely to impact fertility, although the data to inform this approach are limited. The patient decided to think about the different options of treatment and will get back to me next visit.
[2024-03-19 09:58] LABS: Appearance Urine Clear; Color Urine Yellow; Glucose Urine UA Negative (Negative); Leukocyte Esterase Urine Negative (Negative); Nitrite Urine Negative (Negative); Specific Gravity - Urine <= 1.005 (1.005-1.025); Urine Blood Negative (Negative); Urine Ketones Negative (Negative); Urine Protein Negative (Neg-Trace)
[2024-03-19 10:03] LABS: UPreg QC Valid YES; Urine Pregnancy NEGATIVE (NEGATIVE)
[2024-03-19 11:56] LABS: Bacterial Vaginosis PCR NEGATIVE (Negative); Candida Group PCR DETECTED (Not Detect); Candida glab krusei PCR NOT DETECTED (Not Detect); Trichomonas vaginalis PCR NOT DETECTED (Not Detect)
[2024-03-19 12:29] VITALS: BP 129/73; PULSE 79; RESP 18; TEMP 36.6; O2SAT 97
[2024-03-19 12:30] LABS: CT PCR NOT DETECTED (Not Detect.); NG PCR NOT DETECTED (Not Detect.)
== END 2024-03-19 12:30 | disposition home or self-care (01) ==
PROVIDERS: Physician Assistant Medical; Emergency Provider Emergency Medicine
DX: R10.2 Pelvic and perineal pain (principal); R79.89 Other specified abnormal findings of blood chemistry; N83.292 Other ovarian cyst, left side; T19.3XXA Foreign body in uterus, initial encounter; T83.39XA Other mechanical complication of intrauterine contraceptive device, initial encounter; Y82.8 Other medical devices associated with adverse incidents; Y92.9 Unspecified place or not applicable
CPT/HCPCS: 0352U; 0353U; 36415; 76801; 76817; 80053; 81003; 81025; 83690; 83735; 84702; 85025; 87502; 87635; 96360; 99284; 99285

== ENCOUNTER → 2024-03-19 06:56 | Outpatient (BNV) | payer OTHER, SELFPAY | PROVIDERS: Emergency Provider Emergency Medicine; Visit Provider Obstetrics & Gynecology | DX: R79.89 Other specified abnormal findings of blood chemistry (principal); N83.299 Other ovarian cyst, unspecified side; T83.39XA Other mechanical complication of intrauterine contraceptive device, initial encounter | CPT/HCPCS: 99283 ==

== ENCOUNTER 2024-03-20 04:13 | Emergency (ER) | payer OTHER, SELFPAY ==
--- NOTE | ~2024-03-20 | US_ITS ---
EXAMINATION: US ABDOMEN LIMITED CLINICAL INFORMATION: Epigastric and right upper quadrant pain. Rule out cholecystitis.. COMPARISON: None available. TECHNIQUE: Real-time imaging of the right upper quadrant abdominal viscera. FINDINGS: PANCREAS: Normal. LIVER: Small cysts in the left lobe measuring 6 mm and 8 x 10 mm. The liver is normal in size. The liver contour is normal. Liver echotexture is slightly increased. There is no intrahepatic biliary duct dilatation seen. GALLBLADDER: Normal. The gallbladder is physiologically distended without evidence of stones, sludge, polyps, wall thickening or pericholecystic fluid. COMMON BILE DUCT: Normal in caliber measuring 0.4 cm in diameter. RIGHT KIDNEY: Normal. No hydronephrosis. No renal calculi or focal parenchymal lesions. The kidney measures 10 cm in maximum dimension. FREE FLUID: None. US/US abdomen limited IMPRESSION: Normal-appearing gallbladder. Slightly echogenic liver probably representing fatty infiltration. Small liver cysts.
[2024-03-20 04:38] VITALS: BP 126/70; PULSE 76; RESP 18; TEMP 37.2; O2SAT 98; BMI 24.3
[2024-03-20 07:32] VITALS: BP 106/66; PULSE 74; RESP 17; TEMP 37.1; O2SAT 100
[2024-03-20 08:53] LABS: MANUAL DIFF FLAG NO
[2024-03-20 09:08] LABS: Basophils Percent Auto 0.4 % (0-2); Eosinophils Absolute Auto 0.1 X10*3/uL (0.0-0.4); Eosinophils Percent Auto 1.9 % (0-4); Hematocrit 41.1 % (37.0-47.0); Imm Gran Abs Auto 0.04 X10*3/uL (0.00-0.03); Imm Gran Pct Auto 0.6 % (0.0-0.4); Lymphocytes Absolute Auto 1.9 X10*3/uL (1.2-4.9); Lymphocytes Percent Auto 27.4 % (20-40); Mean Corpuscular HGB Conc 34.1 g/dl (31.0-35.0); Mean Corpuscular Hemoglobin 29.5 pg (27.0-33.0); Mean Corpuscular Volume 86.7 fL (80.0-98.0); Mean Platelet Volume 9.1 fL (9.4-12.3); Monocytes Absolute Auto 0.7 X10*3/uL (0.1-1.2); Monocytes Percent Auto 9.9 % (2-11); Neutrophils Percent Auto 59.8 % (45-73); Platelet Count 241 X10*3/uL (160-400); Red Blood Count 4.74 X10*6/uL (4.20-5.50); Red Cell Distribution Width 13.5 % (11.0-16.0); White Blood Count 6.7 X10*3/uL (4.8-10.8)
[2024-03-20 09:11] LABS: Alanine Aminotransferase 24 U/L (0-31); Alkaline Phosphatase 65 U/L (39-117); Anion Gap 15 (12-20); Aspartate Amino Transferase 27 U/L (5-31); Bilirubin Total 0.6 mg/dL (0.0-1.0); Blood Urea Nitrogen 5 mg/dL (9-16); Calcium 8.7 mg/dL (8.4-10.2); Carbon Dioxide 23 mmol/L (22-29); Chloride 108 mmol/L (96-108); Creatinine Clr Calc Pharmacy 94.2; Estimated Glomerular Filt Rate > 60; Glucose Random 104 mg/dL (60-115); Potassium 3.5 mmol/L (3.3-5.1); Sodium 142 mmol/L (135-145); Total Protein 7.2 g/dL (6.5-8.0)
--- NOTE | 2024-03-20 11:10 | ED_ITS ---
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 >3 episodes of diarrhea yesterday which has continued today. Denies known sick contacts. Denies reent travel. Denies recent abx. Endorses history appendectomy. No other abdominal surgeries. LMP 01/27/24. Denies fever, chills, vomiting, hematemesis, hematochezia, melena, bright red blood per rectum, dysuria, flank pain, hematuria. Related Data Previous Rx's ?Medication ?Instructions ?Recorded pyridoxine (vitamin B6) 25 mg 25 mg PO TID PRN nausea and 03/19/24 tablet vomiting #10 tabs vancomycin 125 mg capsule 125 mg PO Q6H 10 days #40 caps 03/20/24 Allergies Allergy/AdvReac Type Severity Reaction Status Date / Time No Known Allergies Allergy Verified 03/21/24 09:20 Review of Systems Review of Systems Constitutional: No fever, chills, fatigue, night sweats, weight changes ENT/Mouth: No ear pain, hearing loss, nasal congestion, sinus pain, rhinorrhea, sore throat Eyes: No eye pain, swelling, redness, vision changes, discharge Cardio: No chest pain, palpitations, CARRERA, orthopnea, peripheral edema Pulm: No SOB, cough, sputum, wheezing, dyspnea, hemoptysis GI: No nausea, vomiting, hematemesis, constipation, hematochezia, melena, + abdominal pain, +diarrhea : No irregular bleeding, dysuria, frequency, urgency, hesitancy, hematuria, flank pain, urinary flow changes, urinary incontinence or retention MSK: No back pain, neck pain, joint pain, myalgias Skin: No lesions, rashes Neuro: No weakness, numbness, paresthesias, LOC, dizziness, headache Psych: No anxiety/panic, depression, SI/HI, AH/VH All other systems reviewed and are negative. [facility] Past Medical History Attestation statement: The following information was validated with the patient. Source: old records reviewed and nursing notes reviewed Physical Exam ED Vital Signs: Vital Signs - 24 hr 03/20/24 04:38 03/20/24 07:32 03/20/24 12:05 Temperature 99 F 98.7 F 97.7 F Pulse Rate 76 74 70 Respiratory Rate 18 17 18 Blood Pressure 126/70 106/66 111/64 Pulse Oximetry 98 100 97 Oxygen Delivery Method Room Air Room Air Room Air BMI result Body Mass Index 24.3 vital signs stable Const General: cooperative, healthy appearing, comfortable and no acute distress Orientation/consciousness: patient oriented x3 Limitations: no limitations HENMT Head: Yes normal to inspection, Yes No palpable skull fracture present, Yes normocephalic and Yes atraumatic Eyes General: appearance normal, both eyes and all related structures Pupils: Equal, round and reactive pupils present Neck Neck: Yes normal visual inspection, Yes full ROM, Yes no lymphadenopathy and Yes no meningeal signs Resp Effort & Inspection: normal respiratory effort and able to speak in complete sentences Auscultation: clear to auscultation bilaterally Cardio Rate: regular rate Rhythm: regular rhythm GI Other: abdomen soft, nondistended, ttp of ruq and epigastric region without rebound or guarding, normoactive bs x4 Inspection: Yes normal to inspection General: Yes no CVA tenderness Back/Spine/Pelvis Back: no CVA tenderness Skin General skin exam: no rashes or lesions noted Neuro General: patient oriented x3, gait normal and no meningeal signs Cranial nerves: Yes Equal, round and reactive pupils present Extrem General: Yes normal to inspection Course Course Course Narrative: 1450-- cbc without leukocytosis or left shift. no anemia. h&h stable. chemistry without acute electrolyte abnormality requiring intervention. lipase wnl, unlikely pancreatitis. normal bilirubin. RUQ US unremarkable. cdiff gene positive. gi panel positive for EAEC and enterotoxigenic e. Discussed all findings with patient. > I did reach out to Dr. Tidwell regarding treatment of cdiff. she was noted to have an elevated bhcg yesterday (bhcg 10). her pelvic ultrasound did not demonstrate IUP. she has an appointment scheduled with OBGYN tomorrow for serial bHCG although unlikely. repeat bhcg today unchanged. I also reached out to ID (Dr. Salmeron) who recommends treatment wtih vanco as is unlikely. > I did discuss all side effects of taking vanco during possible first trimester as it has been shown to cross the placenta - we discussed effects including sensorineural hearing loss, nephrotoxicity. she verbalized understanding and would like to be treated with vancomycin. rx sent to pharmacy for treatment of cdiff. she is tolerating PO intake at this time. > Patient has remained stable throughout ED visit today. Discussed worrisome signs and symptoms and when to return to the ED. All questions answered at this time. Patient is agreeable with disposition and stable for discharge. Medical Decision Making Medical Decision Making MDM Narrative: 49 year old Gabonese speaking female presents to the ED today for evaluation of continued abdominal pain and diarrhea x 2 days. VSS. Afebrile. Nontoxic appearing and in NAD. Skin warm, dry, intact. Abdomen is soft, nondistended, TTP of RUQ and epigastric region. no rebound tenderness or guarding. no masses. normoactive bs x4. no cvat b/l. Differential diagnosis includes viral gastroenteritis, diverticulosis/ diverticulitis, cholecystitis, biliary colic, infectious diarrhea, cdiff, uti. unlikely SBO, toxic megacolon, ischemic bowel, appendicitis. Plan for labs, GI panel/ c diff test, RUQ US, UA. Differential Diagnosis Differential Diagnoses: The differential diagnosis associated with the presentation includes as above. Admission/Observation Not indicated. Consult Healthcare Provider Management of the patient was discussed with: Permit Specialist (Dr. Tidwell (OBGYN), Dr. Potts (ID)) Lab Data [facility] Lab Attestation statement: I reviewed the patient's lab results. as above. 03/20/24 08:38 03/20/24 08:38 Labs: Lab Results 03/20/24 03/20/24 Range/Units 08:38 11:25 WBC 6.7 (4.8-10.8) X10*3/uL RBC 4.74 (4.20-5.50) X10*6/uL Hgb 14.0 (12.0-16.0) g/dl Hct 41.1 (37.0-47.0) % MCV 86.7 (80.0-98.0) fL MCH 29.5 (27.0-33.0) pg MCHC 34.1 (31.0-35.0) g/dl RDW 13.5 (11.0-16.0) % Plt Count 241 (160-400) X10*3/uL MPV 9.1 L (9.4-12.3) fL Immature Gran % (Auto) 0.6 H (0.0-0.4) % Neut % (Auto) 59.8 (45-73) % Lymph % (Auto) 27.4 (20-40) % [place] % (Auto) 9.9 (2-11) % Eos % (Auto) 1.9 (0-4) % Baso % (Auto) 0.4 (0-2) % Lymph # (Auto) 1.9 (1.2-4.9) X10*3/uL [place] # (Auto) 0.7 (0.1-1.2) X10*3/uL Eos # (Auto) 0.1 (0.0-0.4) X10*3/uL Baso # (Auto) 0.0 (0.0-0.2) X10*3/uL Abs Immat Gran (auto) 0.04 H (0.00-0.03) X10*3/uL Absolute Neuts (auto) 4.0 (2.0-8.3) x10*3/uL Absolute Nucleated RBC 0.000 (0.0-0.012) X10*3/uL Nucleated RBC % (auto) 0.0 (0.0-0.2) /100WBC Sodium 142 (135-145) mmol/L Potassium 3.5 (3.3-5.1) mmol/L Chloride 108 (96-108) mmol/L Carbon Dioxide 23 (22-29) mmol/L Anion Gap 15 (12-20) BUN 5 L (9-16) mg/dL Creatinine 0.65 (0.5-1.4) mg/dL Estim Creat Clear Calc 94.2 Estimated GFR > 60 Random Glucose 104 (60-115) mg/dL Calcium 8.7 (8.4-10.2) mg/dL Magnesium 1.9 (1.6-2.6) mg/dL Total Bilirubin 0.6 (0.0-1.0) mg/dL AST 27 (5-31) U/L ALT 24 (0-31) U/L Alkaline Phosphatase 65 (39-117) U/L Total Protein 7.2 (6.5-8.0) g/dL Albumin 4.0 (3.5-5.0) g/dL Lipase 17 (8-78) U/L Beta HCG, Quant 10 mIU/mL Urine Color Yellow Urine Appearance Clear Urine pH 6.0 (5.0-9.0) Ur Specific [place] <= 1.005 (1.005-1.025) Urine Protein Negative (Neg-Trace) mg/dL Urine Glucose (UA) Negative (Negative) mg/dL Urine Ketones Negative (Negative) mg/dL Urine Blood Large (3+) H (Negative) Urine Nitrite Negative (Negative) Ur Leukocyte Esterase Negative (Negative) Urine RBC >20 H (0-2) /HPF Urine WBC 0-5 (0-5) /HPF Ur Squamous Epith Cells 0-2 (0-2) /HPF Urine Bacteria None Seen (None Seen) Hyaline Casts 0-2 (0-2) /LPF Urine Test NEGATIVE (NEGATIVE) Stl C. cayetanensis PCR Not Detected (Not Detect.) Stool Rotavirus A PCR Not Detected (Not Detect.) Stl Adenov F 40/41 PCR Not Detected (Not Detect.) Stool Astrovirus (PCR) Not Detected (Not Detect.) Stool Campylobacter PCR Not Detected (Not Detect.) Stool Cryptosporidium PCR Not Detected (Not Detect.) Stl Sh Tox Pr E STEC PCR Not Detected (Not Detect.) Stool E coli O157 PCR Not applicable (Not Detect.) Stl Enterotoxigenic E PCR Detected A (Not Detect.) Stool EPEC (PCR) Not Detected (Not Detect.) Stool EAEC (PCR) Detected A (Not Detect.) Stl E. histolytica PCR Not Detected (Not Detect.) Stool Giardia Lamblia PCR Not Detected (Not Detect.) Stl P. shigelloides PCR Not Detected (Not Detect.) Stool Salmonella PCR Not Detected (Not Detect.) Stool Sapovirus (PCR) Not Detected (Not Detect.) Stl Shigella/EIEC PCR Not Detected (Not Detect.) St Y.enterocolitica PCR Not Detected (Not Detect.) Stool Vibrio (PCR) Not Detected (Not Detect.) Stl Vibrio cholerae PCR Not Detected (Not Detect.) Stl Norovirus GI/GII PCR Not Detected (Not Detect.) C. difficile Tox B Gene POSITIVE A* (Negative) C. difficile Toxin A&B Negative (Negative) C. difficile Interpret SEE NOTE Independent Interpretation I performed an independent interpretation of an: Ultrasound Interpretation: RUQ US without thickening of the GB wall, agree with radiologist's interpretation. Radiology Impression Discussion of test interpretation with radiology: I have reviewed the radiologist's reading. Radiologist Impression: EXAMINATION: US ABDOMEN LIMITED CLINICAL INFORMATION: Epigastric and right upper quadrant pain. Rule out cholecystitis.. COMPARISON: None available. TECHNIQUE: Real-time imaging of the right upper quadrant abdominal viscera. FINDINGS: PANCREAS: Normal. LIVER: Small cysts in the left lobe measuring 6 mm and 8 x 10 mm. The liver is normal in size. The liver contour is normal. Liver echotexture is slightly increased. There is no intrahepatic biliary duct dilatation seen. GALLBLADDER: Normal. The gallbladder is physiologically distended without evidence of stones, sludge, polyps, wall thickening or pericholecystic fluid. COMMON BILE DUCT: Normal in caliber measuring 0.4 cm in diameter. RIGHT KIDNEY: Normal. No hydronephrosis. No renal calculi or focal parenchymal lesions. The kidney measures 10 cm in maximum dimension. FREE FLUID: None. US/US abdomen limited IMPRESSION: Normal-appearing gallbladder. Slightly echogenic liver probably representing fatty infiltration. Small liver cysts. Independent Historian Clinical information obtained from an independent historian. History obtained from or confirmed by: Spouse () External Record Review External record reviewed: Inpatient record, Office record, Outpatient record, Prior outpatient labs, Prior outpatient radiology, Primary care record and Outside ED record Prescription Management I considered prescription management with: Pain Medication and Antibiotic (vanco) Social Determinants Patient?s care significantly limited by Social Determinants of Health including: Other Social Determinant of Health Medications Administered Discontinued Medications Generic Name Dose Route Start Last Admin Trade Name Freq PRN Reason Stop Dose Admin Acetaminophen 975 mg 03/20/24 11:13 03/20/24 11:18 Acetaminophen 325 Mg Tablet PO 03/20/24 11:14 975 mg ONCE ONE Administration Critical Care Time Critical Care Time Critical Care Time: No Discharge Plan Discharge Clinical Impression: C. difficile diarrhea Patient Disposition: Home, Self-Care Instructions: C. Diff (Clostridioides Difficile) Infection (ED) Additional Instructions: Your labs today are reassuring. The ultrasound of your gallbladder does not show acute infection. Your stool returned positive for a bacteria called c diff (clostridium dificile toxin). Treatment for this is with antibiotics. Vancomycin is an antibiotic that has been sent to your pharmacy for you to take twice a day for 10 days. As discussed, this antibiotic has been shown to cross the placenta during . Keep your follow up appointment with Dr. Tidwell tomorrow for repeat hcg. Make sure you are staying hydrated. You may take supplemental probiotics to help normalize the bacteria within your intestines. Cdiff is very contagious. Practice good hand hygiene and make sure you are keeping things sanitary at home. May take Tylenol at home as needed for pain/discomfort. Return with new or worsening symptoms. The case of an emergency call 911. Prescriptions: New vancomycin 125 mg capsule 125 mg PO Q6H 10 Days Qty: 40 0RF No Action pyridoxine (vitamin B6) 25 mg tablet 25 mg PO TID PRN (Reason: nausea and vomiting) Qty: 10 0RF Referrals: [facility] G[facility] [Provider Group] [facility] [place] Family Medicine [Provider Group] [facility] [place] Primary CareJose G [Provider Group] [facility] [place] Primary CareJimmy [Provider Group] Interventions: ED Discharge Assessment Last Done: 03/20/24 15:23 Discharge Date/Time: 03/20/24 15:23 Print Language: Gabonese
[2024-03-20] MEDS: Acetaminophen 325 MG TABLET 975 MG PO (11:18)
[2024-03-20 11:33] LABS: Appearance Urine Clear; Color Urine Yellow; Glucose Urine UA Negative (Negative); Leukocyte Esterase Urine Negative (Negative); Nitrite Urine Negative (Negative); Specific Gravity - Urine <= 1.005 (1.005-1.025); UMIC TRIGGER UACC YES; Urine Blood Large (3+) (Negative); Urine Ketones Negative (Negative); Urine Protein Negative (Neg-Trace)
[2024-03-20 11:38] LABS: Bacteria Urine None Seen (None Seen); Hyaline Casts Urine 0-2 /LPF (0-2); RBC Urine >20 /HPF (0-2); Squamous Epithelial Cell Urine 0-2 /HPF (0-2); WBC Urine 0-5 /HPF (0-5)
[2024-03-20 11:39] LABS: UPreg QC Valid YES; Urine Pregnancy NEGATIVE (NEGATIVE)
[2024-03-20 12:05] VITALS: BP 111/64; PULSE 70; RESP 18; TEMP 36.5; O2SAT 97
[2024-03-20 13:19] LABS: Lipase 17 U/L (8-78); Magnesium 1.9 mg/dL (1.6-2.6)
[2024-03-20 13:26] LABS: Adenovirus F 40/41 Not Detected (Not Detect.); Astrovirus Not Detected (Not Detect.); Campylobacter Not Detected (Not Detect.); Cryptosporidium Not Detected (Not Detect.); Cyclospora cayetanensis Not Detected (Not Detect.); E. coli EAEC Detected (Not Detect.); E. coli EPEC Not Detected (Not Detect.); E. coli ETEC Detected (Not Detect.); E. coli STEC Not Detected (Not Detect.); Entamoeba histolytica Not Detected (Not Detect.); Giardia lamblia Not Detected (Not Detect.); Norovirus GI/GII Not Detected (Not Detect.); Plesiomonas shigelloides Not Detected (Not Detect.); Rotavirus A Not Detected (Not Detect.); Salmonella Not Detected (Not Detect.); Sapovirus Not Detected (Not Detect.); Shigella sp./EIEC Not Detected (Not Detect.); Vibrio Not Detected (Not Detect.); Vibrio Cholerae Not Detected (Not Detect.); Yersinia enterocolitica Not Detected (Not Detect.)
[2024-03-20 13:27] LABS: HCG Quantitative 10 mIU/mL
[2024-03-20 13:49] LABS: CDIFF Internal ctrl Dots and bkg OK (V); CDiff Toxin Negative (Negative)
[2024-03-20 13:54] LABS: CDiff Gene PCR POSITIVE (Negative)
[2024-03-20 15:08] VITALS: BP 113/72; PULSE 71; RESP 18; TEMP 36.8; O2SAT 97
[2024-03-20 15:23] VITALS: BP 113/72; PULSE 71; RESP 18; TEMP 36.8; O2SAT 97
--- OUTSIDE RECORDS SUMMARY | 2024-03-25 08:55 | XMS_ITS | Patient Health Record ---
Author Organization [facility] Address [address], [place] [id number] Care Team Providers Care Lithographic Proofer Apprentice Name Role Phone Terry Vasquez Primary Care Provider [facility], Nursing Unavailable [phone] CardonaZayda holloway Unavailable [phone] [facility], CHW Unavailable [phone] CasUlises finkeliza Unavailable [phone] ALLERGIES No Known Allergies RESULTS Component Value [...] 03:25:35 PM Interpretation:Negative Performing Lab:NL2, [facility] [id number] [id number] Reji Alcazar Notes/Report: NON-FASTING QUANTIFERON(R)-TB GOLD PLUS, [...] T-lymphocytes. For additional information, please refer to [email or web address]/faq/[email or web address] (This link is being provided for informational/ educational purposes only.) CBC Reviewed date:03/22/2024 05:14:04 PM Interpretation:Normal Performing Lab: Notes/Report: Normal HEMATOCRIT 41 HEMOGLOBIN 14.0 MCH MCHC MCV 87 MEAN PLATELET VOLUME NRBC # AUTO DIFF NRBC % AUTO DIFF PLT COUNT 241 RBC RDW WBC 6.7 BASIC METABOLIC PANEL Reviewed date:03/22/2024 05:15:23 PM Interpretation:Normal Performing Lab: Notes/Report: Normal GLUCOSE 104 UREA NITROGEN (BUN) 5 CREATININE 0.65 eGFR NON-AFR. GREEK eGFR BUN/CREATININE RATIO SODIUM 142 POTASSIUM 3.5 CHLORIDE 108 CARBON DIOXIDE 23 CALCIUM EGFR CLOSTRIDIUM DIFFICILE TOXIN/ GDH W/REFL TO PCR Reviewed date:03/22/2024 05:16:12 PM Interpretation:Positive Performing Lab: Notes/Report: Positive SOURCE: stool CLOSTRIDIUM DIFFICILE POS US Abdomen Reviewed date:03/22/2024 05:17:34 PM Interpretation:Positive Performing Lab: Notes/Report: Positive REASON FOR REFERRAL Reason Will follow up with [facility] - pt given info to see if they take her insurance Says contacts have to be renewed every 6 months Diagnosis 1 Presence of spectacl es and contact lenses (Z97.3) Referral Organization [facility] Referring Provider First Name Terry Referring Provider Last Name Zaybrooke Referring Provider Speciality Internal M edicine Referred Provider Specialty Cell Operation Supervisor General Notes TravisClaudian 01/21/2024 09:02:20 PM > does pt still have limited insurance?, Chyna Adame 01/26/2024 11:33:41 AM > Yes., Joanna Harden 01/27/2024 10:43:35 AM > called pt to see if she had an appt with them and no answer. lvmDereck Ligia 01/27/2024 03:03:50 PM > [facility] told pt they are not taking new pt, so , she went to [facility] ([facility]) and they did the Eye exam and [...] (20 or more) IM Intramuscular 02/02/2024 Administered [facility] [id number] SOCIAL HISTORY Sex Assigned At : Social History Observation Description Sex Assigned At Unknown PROBLEMS Problem Type ICD Code Onset Dates Problem Status W/U Status Risk SNOMED Code Notes Problem Body mass index [BMI] 28.0-28.9, adult (Z68.28) Active confirmed Body mass index 25-29 - overweight (583733060) Problem Presence of spectacles and contact lenses (Z97.3) Active confirmed Abnormal vision (7191581) Problem Keratoconus, stable, 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) Active confirmed Keratoconus, stable condition (088521494) VITAL SIGNS Temperature 98.4 degrees Fahrenheit 08/18/2023 Blood pressure diastolic 75 08/18/2023 Oximetry 98 08/18/2023 Height 60 in 08/18/2023 Blood pressure systolic 124 08/18/2023 Weight 144.8 lbs 08/18/2023 BMI 28.28 kg/m2 08/18/2023 Encounters Encounter Location Date Provider Diagnosis [address] [id number] 07/16/2023 Lauren Carr Encounter for screening for infectious and parasitic diseases, unspecified Z11.[address] [id number] 08/18/2023 Zayda Cardona [address] [id number] 05/29/2023 Nursing [facility] Other specified counseling Z71.[address] [id number] 08/18/2023 Terry Vasquez Encounter for screening for COVID-19 Z11.52 ; Encounter for general adult medical examination without abnormal findings Z00.00 ; Encounter for screening for depression Z13.31 ; Encounter for screening mammogram for malignant neoplasm of breast Z12.31 ; Presence of spectacles and contact lenses Z97.3 ; Encounter for immunization Z23 and Body mass index [BMI] 28.0-28.9, adult Z68.[address] [id number] 09/01/2023 Nursing [facility] Body mass index [BMI] 28.0-28.9, adult Z68.28 and Encounter for immunization Z23 [address] [id number] 02/02/2024 Nursing [facility] Encounter for immunization Z23 [address] [id number] 02/11/2024 W [facility] Encounter for screening for respiratory tuberculosis Z11.[facility] [address] [place] [id number] 06/15/[address] [id number] 08/28/2023 Terry Vasquez [address] [id number] 02/11/2024 Nursing [facility] Encounter for screening for respiratory tuberculosis Z11.1 [facility] [address], [place] [id number] 02/16/[address] [id number] 03/21/2024 Terry Vasquez ASSESSMENTS Encounter Date Diagnosis Assessment Notes Treatment [...] examination without abnormal findings (ICD-10 - Z00.00) [facility] good. We will gte records form [place] before doing any further labs here. Same [...] 1 - not interested in referral to [facility] mental health 09/01/2023 Encounter for immunization (ICD-10 - Z23) 08/18/2023 Encounter for screening mammogram for malignant neoplasm of breast (ICD-10 - Z12.31) had some sort of benign biopsy 06/09. Ordereing screening mammo but hope to get records soon 08/18/2023 Presence of spectacles and contact lenses (ICD-10 - Z97.3) insurance an issue. She will contact [address] [place] [address] eye care first 08/18/2023 Encounter for immunization [...] 08/18/2023 Next Appt Details Provider Name:Terry Vasquez, 04/08/2024 10:40:00 AM, [address] [place] [address], [phone], Provider Name:Terry Vasquez, 08/23/2024 03:20:00 PM, [address] [place] [address], [id number], Insurance Providers Payer Name Payer Address Payer Phone Subscriber Number Group Number Insured Name Patient Relationship to Insured Coverage Start Date Coverage End Date [place] Medicaid Limited [address] [place], [place] [id number] MITRA ALANIS Self - patient is the insured 3 MEDICAL (GENERAL) HISTORY Surgical History Surgery Date(Month/Year) appendectomy 06/2009
== END 2024-03-20 15:23 | disposition home or self-care (01) ==
PROVIDERS: Physician Assistant Medical; Emergency Provider Emergency Medicine
DX: A04.72 Enterocolitis due to Clostridium difficile, not specified as recurrent (principal); R10.11 Right upper quadrant pain; R10.13 Epigastric pain; R19.7 Diarrhea, unspecified
CPT/HCPCS: 36415; 76705; 80053; 81001; 81025; 83690; 83735; 84702; 85025; 87324; 87493; 87507; 99283; 99284

== ENCOUNTER 2024-03-21 08:19 | Outpatient (REF) | payer OTHER, SELFPAY ==
[2024-03-21 09:35] LABS: HCG Quantitative 8 mIU/mL
== END 2024-03-21 08:20 | disposition home or self-care (01) ==
LOC: HO.LAB 08:19
PROVIDERS: Visit Provider Obstetrics & Gynecology
DX: R79.89 Other specified abnormal findings of blood chemistry (principal); N83.299 Other ovarian cyst, unspecified side; N93.9 Abnormal uterine and vaginal bleeding, unspecified; T83.39XD Other mechanical complication of intrauterine contraceptive device, subsequent encounter
CPT/HCPCS: 36415; 84702; 99212

== ENCOUNTER 2024-03-21 09:11 | Outpatient (AMB) | payer OTHER, SELFPAY ==
--- NOTE | 2024-03-21 09:20 | A.OFFVIS_ITS ---
Vital Signs 03/21/24 09:40 Height 5 in Weight 146 lb BMI 4105.5 BP 120/76 Blood Pressure Location Lt brachial Position Sitting Intake Visit Reasons: HCG Follow up per Allergies No Known Allergies Allergy (Verified 03/21/24 09:20) Is last menstrual period known: Yes Last menstrual period: 03/20/24 HPI Comments Details: The patient is presenting for follow-up after emergency room visit. The patient went to the ER on 03/19/2024 complaining of intermittent suprapubic pelvic pain associated with nausea, and diarrhea which began abruptly at 0200 a.m and she had 3 episodes of diarrhea since this time. No fever, chills, vomiting, no vaginal discharge or bleeding or any other symptoms. The patient gives a history of an IUD inserted 12 years ago an attempt for removal and depth with retained portion of the IUD 5 years ago since then the patient did not have any symptoms. LMP 4/10. In the emergency. HCG was 10. GC/CT were negative Pelvic ultrasound done in the emergency room showed the following: The uterus is anteverted and measures 9.5 x 5.2 x 6.9 cm in dimension. The endometrium is abnormally thickened measuring 2.9 cm with small cystic areas. No intrauterine is seen. There is a linear echogenic density in the posterior myometrium of the uterine body compatible with patient history of a broken IUD. No other focal uterine lesion. The right ovary is normal and measures 2.2 x 0.8 x 2 cm. The left ovary measures 3.5 x 2.3 x 2.2 cm. There is a complex left ovarian cyst that measures 2.4 x 0.9 x 1.2 cm. This is irregularly-shaped and a 4 x 6 mm echogenic solid component. Ectopic cannot be excluded. There is no fluid in the pelvis. The patient was counseled about the differential diagnosis of a mildly elevated hCG and was asked to follow-up in the office in 48 hours, today with repeat hCG which was done today and is 8 The patient went to the emergency room yesterday with the same complaints was diagnosed with C diff diarrhea and was treated with vancomycin. Since then the patient's diarrhea and her abdominal/pelvic discomfort has improved markedly . PFSH Female Reproductive History Menstrual Duration of menses: 3-5 days Date of last menstrual period: 03/20/24 control method: none Total pregnancies: 5 Full term: 4 Number of Living Children: 4 Ab spontaneous: 1 Physical Exam GI Palpation (GI): Soft to palpation and nontender Assessment & Plan Assessment & Plan (1) Elevated serum hCG: Code(s): R79.89 - Other specified abnormal findings of blood chemistry Category: Medical Plan: Discussed with the patient the results of hCG being 8, will repeat hCG with FSH/ LH in 48 hours. Differential diagnosis discussed with the patient of elevated hCG included but not limited to early , SAB, ectopic or false elevated hCG to to elevated LH in perimenopause . Instructions given to the patient to call or go to emergency room in case of pelvic pain and or vaginal bleeding and schedule a follow-up appointment in 48 hours (2) Complex ovarian cyst: Code(s): N83.299 - Other ovarian cyst, unspecified side Category: Medical Plan: Discussed with the patient the complex ovarian cyst by ultrasound. Discussed with the patient the Ultrasound findings, the main limitation of transvaginal ultrasonography alone as a diagnostic tool to distinguish benign from malignant masses relates to its lack of specificity and low positive predictive value for cancer. The differential diagnosis discussed with the patient includes the following but not limited to: benign and malignant gynecological and non-gynecological causes. Will order ovarian cancer tumor markers including CA 125, CA 19-9, CEA and pelvic MRI Instructions given the patient to schedule a 2 week follow-up MRI appointment. All questions were answered & the patient verbalized understanding and agreed with the plan. (3) IUD mechanical complication: Comment: History of broken IUD with retained fragment Code(s): T83.39XA - Other mechanical complication of intrauterine contraceptive device, initial encounter Category: Medical Plan: Will order pelvic MRI to evaluate the location of the IUD in the endometrium or myometrium and possibility of its removal. (4) Abnormal uterine bleeding (AUB): Code(s): N93.9 - Abnormal uterine and vaginal bleeding, unspecified Category: Medical Plan: CBC, TSH, FSH/LH, prolactin, HCG, ordered. Discussed with the patient the different causes of abnormal bleeding including thyroid disorders, uterine and ovarian pathology, endometrial hyperplasia, carcinoma and other potential causes. Discussed with the patient the work up including CBC (to r/o anemia), TSH, prolactin, pelvic Ultrasound, endometrial biopsy to r/o endometrial pathology. All questions answered and the patient verbalized understanding. Instructed the patient to schedule an appointment for an endometrial biopsy with co testing in 2 weeks. Orders: Orders Carbohydrate Antigen 19-9 Today N83.299 - Other ovarian cyst, unspecified side Carcinoembryonic Antigen Today N83.299 - Other ovarian cyst, unspecified side HCG Quantitative 03/23/24 R79.89 - Other specified abnormal findings of blood chemistry HCG Quantitative Today R79.89 - Other specified abnormal findings of blood chemistry CA-125 Today N83.299 - Other ovarian cyst, unspecified side MR pelvis wo/w con Today N83.299 - Other ovarian cyst, unspecified side Lutenizing Hormone Today R79.89 - Other specified abnormal findings of blood chemistry Follicle Stimulating Hormone Today R79.89 - Other specified abnormal findings of blood chemistry TSH reflex Free T4 Today N91.2 - Amenorrhea, unspecified Prolactin Today N91.2 - Amenorrhea, unspecified MM screening mammo BI Today Z12.31 - Encounter for screening mammogram for malignant neoplasm of breast Coding Level of Care Code Est Pt Level 3 (45743) Diagnoses Elevated serum hCG R79.89 Complex ovarian cyst N83.299 IUD mechanical complication T83.39XA Abnormal uterine bleeding (AUB) N93.9
[2024-03-21 09:40] VITALS: BP 120/76; BMI 4105.5
== END 2024-03-21 10:09 | disposition home or self-care (01) ==
LOC: HO.HWS 09:12
PROVIDERS: Visit Provider Obstetrics & Gynecology
DX: R79.89 Other specified abnormal findings of blood chemistry (principal); N83.299 Other ovarian cyst, unspecified side; T83.39XA Other mechanical complication of intrauterine contraceptive device, initial encounter; N93.9 Abnormal uterine and vaginal bleeding, unspecified
CPT/HCPCS: 99213

== ENCOUNTER 2024-03-23 13:58 | Outpatient (REF) | payer OTHER, SELFPAY ==
[2024-03-23 15:33] LABS: Carcinoembryonic Antigen < 1.73 ng/mL; HCG Quantitative < 2 mIU/mL; TSH reflex Free T4 0.82 uIU/mL (0.32-4.0)
[2024-03-24 11:48] LABS: Carbohydrate Antigen 19-9 19 U/mL (<34)
[2024-03-24 13:52] LABS: Follicle Stimulating Hormone 27.6 mIU/mL; Lutenizing Hormone 6.2 mIU/mL
[2024-03-26 10:08] LABS: CA-125 40 U/mL (<35)
== END 2024-03-23 13:59 | disposition home or self-care (01) ==
LOC: HO.LAB 13:58
PROVIDERS: Visit Provider Obstetrics & Gynecology
DX: N83.299 Other ovarian cyst, unspecified side (principal); N91.2 Amenorrhea, unspecified; R79.89 Other specified abnormal findings of blood chemistry
CPT/HCPCS: 36415; 82378; 83001; 83002; 84146; 84443; 84702; 86301; 86304; 99212

== ENCOUNTER 2024-03-23 14:56 | Outpatient (AMB) | payer OTHER, SELFPAY ==
[2024-03-23 15:42] VITALS: BP 118/74
--- NOTE | 2024-03-23 15:42 | MHC.OFFVIS ---
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 HCG was done on 03/20 and 03/19 was 10, went down to 8 on 03/21, and today hCG is less than 2. The patient is doing well with no complaint Review of Systems Const All systems reviewed & are unremarkable except as noted in HPI and below Reports as per HPI and Reports no additional complaints GI Reports no additional complaints Reports no additional complaints Physical Exam Vital Signs: Last Vital Signs BP 118/74 03/23/24 15:42 Assessment & Plan Assessment & Plan (1) Elevated serum hCG: Code(s): R79.89 - Other specified abnormal findings of blood chemistry Category: Medical Plan: Discussed with the patient the results of hCG being less than 2, instructions given the patient to call in case of vaginal bleeding, pelvic pain or any other concerns, follow-up in 2 weeks for EMB . All questions answered, the patient verbalized understanding Coding Level of Care Code Est Pt Level 3 (64654) Diagnoses Elevated serum hCG R79.89
== END 2024-03-23 15:46 | disposition home or self-care (01) ==
PROVIDERS: Visit Provider Obstetrics & Gynecology
DX: R79.89 Other specified abnormal findings of blood chemistry (principal)
CPT/HCPCS: 99213

== ENCOUNTER 2024-03-28 16:07 | Outpatient (AMB) | payer OTHER, SELFPAY ==
--- NOTE | 2024-03-28 16:09 | A.OFFVIS_ITS ---
Vital Signs 03/28/24 16:11 Height 5 ft Weight 146 lb BMI 28.5 BP 116/72 Intake Visit Reasons: Labs results River Driver Required: Yes River Driver Language: Insulation And Flooring Assembler Name: Toya NIETO Information Interpreted: non-clinical & clinical Project Management Specialist: Project Management Specialist Present (Toya) Accompanied by: Allergies No Known Allergies Allergy (Verified 03/28/24 16:12) Is last menstrual period known: Yes Last menstrual period: 03/20/24 Post menopausal: No HPI Comments Details: Presenting to discuss the results of ovarian cancer tumor markers to MRI was ordered but not done yet. CA 125 was elevated at 40, CEA and CA 19-9 within normal. PFSH Female Reproductive History Menstrual Date of last menstrual period: 03/20/24 control method: none Review of Systems Const All systems reviewed & are unremarkable except as noted in HPI and below Reports as per HPI and Reports no additional complaints GI Reports no additional complaints Reports no additional complaints Physical Exam Vital Signs: Last Vital Signs BP 116/72 03/28/24 16:11 BMI result Body Mass Index 28.5 Assessment & Plan Assessment & Plan (1) Complex ovarian cyst: Comment: elevated Ca 125 Code(s): N83.299 - Other ovarian cyst, unspecified side Category: Medical Plan: Discussed with the patient the results CEA and CA 19-9 in normal and the results of of CA 125 being elevated, differential diagnosis includes but not limited to ovarian cancer, other benign clinical liaison and non clinical liaison conditions. Will proceed with MRI of the pelvis with and without contrast. Instructions given the patient to schedule an MRI and a follow-up appointment. All questions answered, the patient verbalized understanding Orders: Orders MR pelvis wo/w con Today N83.299 - Other ovarian cyst, unspecified side Coding Level of Care Code Est Pt Level 3 (96617) Diagnoses Complex ovarian cyst N83.299
--- OUTSIDE RECORDS SUMMARY | 2024-03-28 16:10 | XMS_ITS | Patient Health Record ---
Author Organization [facility] Address [address] [place] [address], [place] [id number] Care Team Providers Care Metal Room Dental Technician Name Role Phone Terry Vasquez Primary Care Provider [phone] [facility], Nursing Unavailable [phone] CardonaZayda holloway Unavailable [phone] [facility], CHW Unavailable [phone] CasUlises finkeliza Unavailable [phone] ALLERGIES No Known Allergies RESULTS Component Value [...] 03:25:35 PM Interpretation:Negative Performing Lab:NL2, [facility] [id number] [id number] Reji Alcazar Notes/Report: NON-FASTING QUANTIFERON(R)-TB GOLD PLUS, [...] T-lymphocytes. For additional information, please refer to https://education.Loogla.CamioCam/faq/[email or web address] (This link is being provided for informational/ [...] NITROGEN (BUN) 5 CREATININE 0.65 eGFR NON-AFR. LUXEMBOURGER eGFR BUN/CREATININE RATIO SODIUM 142 POTASSIUM 3.5 CHLORIDE 108 CARBON DIOXIDE 23 CALCIUM EGFR CLOSTRIDIUM DIFFICILE TOXIN/ GDH W/REFL TO PCR Reviewed date:03/22/2024 05:16:12 PM Interpretation:Positive Performing Lab: Notes/Report: Positive SOURCE: stool CLOSTRIDIUM DIFFICILE POS US Abdomen Reviewed date:03/22/2024 05:17:34 PM Interpretation:Positive Performing Lab: Notes/Report: Positive REASON FOR REFERRAL Reason [facility] pt given info to see if they take her insurance Says contacts have to be renewed every 6 months Diagnosis 1 Presence of spectacl es and contact lenses (Z97.3) Referral Organization [facility] Referring Provider First Name Terry Referring Provider Last Name Zaybrooke Referring Provider Speciality Internal M edicine Referred Provider Specialty Elevators Inspector General Notes TravisClaudian 01/21/2024 09:02:20 PM > does pt still have limited insurance?, Chyna Adame 01/26/2024 11:33:41 AM > Yes., Joanna Harden 01/27/2024 10:43:35 AM > called pt to see if she had an appt with them and no answer. lvmDereck Ligia 01/27/2024 03:03:50 PM > [facility] told pt they are not taking new pt, so , she went to [facility] ([facility]) and they did the Eye exam [...] (20 or more) IM Intramuscular 02/02/2024 Administered [facility] [id number] SOCIAL HISTORY Sex Assigned At : Social History Observation Description Sex Assigned At Unknown PROBLEMS Problem Type ICD Code Onset Dates Problem Status W/U Status Risk SNOMED Code Notes Problem Body mass index [BMI] 28.0-28.9, adult (Z68.28) Active confirmed Body mass index 25-29 - overweight (896067607) Problem Presence of spectacles and contact lenses (Z97.3) Active confirmed Abnormal vision (6901193) Problem Keratoconus, stable, 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) Active confirmed Keratoconus, stable condition (465131230) VITAL SIGNS Temperature 98.4 degrees Fahrenheit 08/18/2023 Blood pressure diastolic 75 08/18/2023 Oximetry 98 08/18/2023 Height 60 in 08/18/2023 Blood pressure systolic 124 08/18/2023 Weight 144.8 lbs 08/18/2023 BMI 28.28 kg/m2 08/18/2023 Encounters Encounter Location Date Provider Diagnosis [address] [id number] 07/16/2023 Lauren Carr Encounter for screening for infectious and parasitic diseases, unspecified Z11.[address] [id number] 08/18/2023 Zayda Cardona [address] [id number] 05/29/2023 Nursing [facility] Other specified counseling Z71.[address] [id number] 08/18/2023 Terry Vasquez Encounter for screening for COVID-19 Z11.52 ; Encounter for general adult medical examination without abnormal findings Z00.00 ; Encounter for screening for depression Z13.31 ; Encounter for screening mammogram for malignant neoplasm of breast Z12.31 ; Presence of spectacles and contact lenses Z97.3 ; Encounter for immunization Z23 and Body mass index [BMI] 28.0-28.9, adult Z68.[address] [id number] 09/01/2023 Nursing [facility] Body mass index [BMI] 28.0-28.9, adult Z68.28 and Encounter for immunization Z23 [address] [id number] 02/02/2024 Nursing [facility] Encounter for immunization Z23 [address] [id number] 02/11/2024 W [facility] Encounter for screening for respiratory tuberculosis Z11.1 [facility] [address] [place] [id number] 06/15/[address] [id number] 08/28/2023 Terry Vasquez [address] [id number] 02/11/2024 Nursing [facility] Encounter for screening for respiratory tuberculosis Z11.1 [facility] [address] [place], [place] [id number] 02/16/[address] [id number] 03/21/2024 Terry Vasquez ASSESSMENTS Encounter Date Diagnosis [...] examination without abnormal findings (ICD-10 - Z00.00) [facility] We will gte records form [place] before doing any further labs here. Same [...] 1 - not interested in referral to [facility] mental health 09/01/2023 Encounter for immunization (ICD-10 - Z23) 08/18/2023 Encounter for screening mammogram for malignant neoplasm of breast (ICD-10 - Z12.31) had some sort of benign biopsy 06/09. Ordereing screening mammo but hope to get records soon 08/18/2023 Presence of spectacles and contact lenses (ICD-10 - Z97.3) insurance an issue. She will contact [address] [place] [address] eye care first 08/18/2023 Encounter for immunization [...] Details Provider Name:Terry Vasquez, 04/08/2024 10:40:00 AM, [address] [place] [address], [id number], Provider Name:Terry Vasquez, 08/23/2024 03:20:00 PM, [address] [place] [address], [id number], Insurance Providers Payer Name Payer Address Payer Phone Subscriber Number Group Number Insured Name Patient Relationship to Insured Coverage Start Date Coverage End Date [place] Medicaid Limited [address] [place], [place] [id number] MITRA ALANIS Self - patient is the insured 3 MEDICAL (GENERAL) HISTORY Surgical History Surgery Date(Month/Year) appendectomy 06/2009
[2024-03-28 16:11] VITALS: BP 116/72; BMI 28.5
== END 2024-03-29 09:15 | disposition home or self-care (01) ==
LOC: HO.HWS 16:07
PROVIDERS: Visit Provider Obstetrics & Gynecology
DX: N83.299 Other ovarian cyst, unspecified side (principal)
CPT/HCPCS: 99213

== ENCOUNTER → 2024-03-28 16:07 | Outpatient (BNVA) | payer OTHER, SELFPAY | PROVIDERS: Visit Provider Obstetrics & Gynecology | DX: N83.299 Other ovarian cyst, unspecified side (principal) | CPT/HCPCS: 99212 ==

== ENCOUNTER 2024-04-07 09:05 | Outpatient (AMB) | payer OTHER, SELFPAY ==
--- NOTE | 2024-04-07 09:07 | MHC.OFFVIS ---
Vital Signs 04/07/24 09:08 Height 5 ft Weight 146 lb BMI 28.5 BP 120/64 Blood Pressure Location Lt brachial Position Sitting Intake Visit Reasons: EMB/co-test per Allergies No Known Allergies Allergy (Verified 04/07/24 09:10) HPI Comments Details: Presenting for EMB and co testing. MRI scheduled Review of Systems Const All systems reviewed & are unremarkable except as noted in HPI and below Reports as per HPI and Reports no additional complaints GI Reports no additional complaints Reports no additional complaints Physical Exam Vital Signs: Last Vital Signs BP 120/64 04/07/24 09:08 BMI result Body Mass Index 28.5 Office Procedures Endometrial Biopsy Details: The patient was counseled regarding the indication and benefits of endometrial sampling to rule out endometrial pathology including not limited to endometrial hyperplasia or endometrial cancer and others; The alternatives (Either do nothing vs. hysteroscopy D&C) & the risks were discussed with the patient including but not limited: pain, uterine perforation, bleeding, infection, possible injury to bladder, bowel, ureter, possible need for blood transfusion with all its possible risks. The patient verbalized understanding all questions answered and signed consent. The patient was placed into the dorsal lithotomy position; a speculum was inserted in the vagina. Using aseptic technique for the procedure, the cervix was cleansed with Betadine. The anterior lip of the cervix was grasped with a single tooth tenaculum. The uterus was sounded to 9 cm with a 4 mm Pipelle was used. Tissues samples were obtained and placed in formalin, in a patient labeled container and sent to the pathology department. At the end of the procedure, there was minimal bleeding noted The patient tolerated the procedure well and was discharged in good condition with the following instructions: Nothing in the vagina until the bleeding stops. No sex until the bleeding stops, to call if any of the following occurs: fever (>100.4), flu-like symptoms, abdominal pain, heavy bleeding, four smelling vaginal discharge. The patient was instructed to schedule a Follow up appointment in 2 weeks to discuss pathology results of the biopsy and treatment options. This note was generated with a voice recognition program. Some errors may have been overlooked during the review of this note. Sometimes these errors may affect the content or meaning of a given sentence. [id number] Biopsy Results AMB Test Urine AMB Test Urine Negative Last Edit by Alondra Black CMA on 04/07/24 09:22 Assessment & Plan Assessment & Plan (1) Abnormal uterine bleeding (AUB): Comment: Thickened cystic endometrium by ultrasound Code(s): N93.9 - Abnormal uterine and vaginal bleeding, unspecified Category: Medical Plan: Co testing done. EMB done, see procedure note Orders: Orders AMB Endometrial Biopsy Today N93.9 - Abnormal uterine and vaginal bleeding, unspecified AMB HCG Urine Test Today Z32.02 - Encounter for test, result negative Coding Level of Care Code Procedure Only Diagnoses Abnormal uterine bleeding (AUB) N93.9 CPT Codes Endometrial Biopsy - CPT: 84325-Otdbnswpzaw Biopsy ([id number])
[2024-04-07 09:08] VITALS: BP 120/64; BMI 28.5
--- OUTSIDE RECORDS SUMMARY | 2024-04-14 06:10 | XMS_ITS | Patient Health Record ---
Author Organization [facility] Address [address] [place], [place] [id number] Care Team Providers Care Sider Name Role Phone Terry Vasquez Primary Care Provider [phone] [facility], Nursing Unavailable [phone] CardonaZayda holloway Unavailable [phone] [facility], CHW Unavailable [phone] CasUlises finkeliza Unavailable [phone] ALLERGIES No Known Allergies RESULTS Component Value [...] 03:25:35 PM Interpretation:Negative Performing Lab:NL2, [facility] [id number] [id number] Reji Alcazar Notes/Report: NON-FASTING QUANTIFERON(R)-TB GOLD [...] T-lymphocytes. For additional information, please refer to [email or web address].Dispop.CSL DualCom/[email or web address] (This link is being provided for informational/ [...] NITROGEN (BUN) 5 CREATININE 0.65 eGFR NON-AFR. KOSOVAN eGFR BUN/CREATININE RATIO SODIUM 142 POTASSIUM 3.5 CHLORIDE 108 CARBON DIOXIDE 23 CALCIUM EGFR CLOSTRIDIUM DIFFICILE TOXIN/ GDH W/REFL TO PCR Reviewed date:03/22/2024 05:16:12 PM Interpretation:Positive Performing Lab: Notes/Report: Positive SOURCE: stool CLOSTRIDIUM DIFFICILE POS US Abdomen Reviewed date:03/22/2024 05:17:34 PM Interpretation:Positive Performing Lab: Notes/Report: Positive REASON FOR REFERRAL Reason [facility] follow up [facility] - pt given info to see if they take her insurance Says contacts have to be renewed every 6 months Diagnosis 1 Presence of spectacl es and contact lenses (Z97.3) Referral Organization [facility] Referring Provider First Name Terry Referring Provider Last Name Zaybrooke Referring Provider Speciality Internal M edicine Referred Provider Specialty Manager Transmission General Notes TravisClaudian 01/21/2024 09:02:20 PM > does pt still have limited insurance?, Chyna Adame 01/26/2024 11:33:41 AM > Yes., Joanna Harden 01/27/2024 10:43:35 AM > called pt to see if she had an appt with them and no answer. lvmDereck Ligia 01/27/2024 03:03:50 PM > [facility] told pt they are not taking new pt, so , she went to [place] ([facility]) and they did the Eye exam [...] (20 or more) IM Intramuscular 02/02/2024 Administered [facility] [id number] Tdap Unknown 03/27/2010 Administered H1N1 Influenza Unknown 10/26/2009 Administered Influenza Unknown 02/11/2018 Administered Afluria Unknown 02/07/2019 Administered Flu-IIV4, p-free Unknown 07/25/2022 Administered SOCIAL HISTORY Sex Assigned At : Social History Observation Description Sex Assigned At Unknown PROBLEMS Problem Type ICD Code Onset Dates Problem Status W/U Status Risk SNOMED Code Notes Problem Body mass index [BMI] 28.0-28.9, adult (Z68.28) Active confirmed Body mass ind ex 25-29 - overweight (614718341) Problem Presence of spectacles and contact lenses (Z97.3) Active confirmed Abnormal vision (9133811) Problem Keratoconus, stable, 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) Active confirmed Keratoconus, stable condition (190099954) Problem Abnormal level of hormones in specimens from other organs, systems and tissues (R89.1) Active confirmed Hormone abnormality (52831239) VITAL SIGNS Temperature 98.4 degrees Fahrenheit 04/08/2024 Blood pressure diastolic 77 04/08/2024 Oximetry 97 04/08/2024 Height 60 in 04/08/2024 Blood pressure systolic 116 04/08/2024 Weight 143.4 lbs 04/08/2024 BMI 28 kg/m2 04/08/2024 Encounters Encounter Location Date Provider Diagnosis [address] [id number] 07/16/2023 Lauren Carr Encounter for screening for infectious and parasitic diseases, unspecified Z11.[address] [id number] 08/18/2023 Zayda Cardona [address] [id number] 05/29/2023 Nursing [facility] Other specified counseling Z71.[address] [id number] 08/18/2023 Terry Vasquez Encounter for screening for COVID-19 Z11.52 ; Encounter for general adult medical examination without abnormal findings Z00.00 ; Encounter for screening for depression Z13.31 ; Encounter for screening mammogram for malignant neoplasm of breast Z12.31 ; Presence of spectacles and contact lenses Z97.3 ; Encounter for immunization Z23 and Body mass index [BMI] 28.0-28.9, adult Z68.[address] [id number] 09/01/2023 Nursing [facility] Body mass index [BMI ] 28.0-28.9, adult Z68.28 and Encounter for immunization Z23 [address] [id number] 02/02/2024 Nursing [facility] Encounter for immunization Z23 [address] [id number] 02/11/2024 [facility] Encounter for screening for respiratory tuberculosis Z11.[address] [id number] 04/08/2024 Terry Vasquez Encounter for screening for COVID-19 Z11.52 ; Abnormal level of hormones in specimens from other organs, systems and tissues R89.1 and Infectious gastroenteritis and colitis, unspecified [facility] [address] [place] [id number] 06/15/[address] [id number] 04/08/[address] [id number] 08/28/[address] [id number] 02/11/2024 [facility] Encounter for screening for respiratory tuberculosis Z11.[address] [id number] 02/16/[address] [id number] 03/21/2024 Terry Vasquez ASSESSMENTS Encounter Date Diagnosis [...] examination without abnormal findings (ICD-10 - Z00.00) [facility] stsbahmanus good. We will gte records form [facility] before doing any further labs here. Same [...] screening for respiratory tuberculosis (ICD-10 - Z11.1) 04/08/2024 Abnormal level of hormones in specimens from other organs, systems and tissues (ICD-10 - R89.1) Interestingstory and we do not have whole oicture. Was gynthinking about choriocarcinoma? or other. We are reqeusting records to be of any assisatnce to her. does not suggets familial syndrome support 04/08/2024 Encounter for screening for COVID-19 (ICD-10 - [...] you are having concerning symptoms for COVID-19. 02/11/2024 Encounter for screening for respiratory tuberculosis (ICD-10 - Z11.1) 08/18/2023 Encounter for screening for depression (ICD-10 - Z13.31) PHQ-9 assessed score was 1 - not interested in referral to [facility] mental health 09/01/2023 Encounter for immunization (ICD-10 - Z23) 04/08/2024 Infectious gastroenteritis and colitis, unspecified (ICD-10 - A09) c. dif better Says also had it 08/18/2023 Encounter for screening mammogram for malignant neoplasm of breast (ICD-10 - Z12.31) had some sort of benign biopsy 06/09. Ordereing screening mammo but hope to get records soon 08/18/2023 Presence of spectacles and contact lenses (ICD-10 - Z97.3) insurance an issue. She will contact [address] [place] [address] eye care first 08/18/2023 Encounter for immunization [...] results requiring immediate action. Labs drawn by: .LF pt signed a Realease form to fax the results to the office of immigration that is requesting this lab. 04/08/2024 Other will await PAP nd mammo from [facility] Pending Test Test Name Order Date David Screening Digital 08/18/2023 Next Appt Details Provider Name:Terry Vasquez, 08/23/2024 03:20:00 PM, [address] [facility], [place], [place], [id number], Insurance Providers Payer Name Payer Address Payer Phone Subscriber Number Group Number Insured Name Patient Relationship to Insured Coverage Start Date Coverage End Date [place] [employer] [address] [place], [place] [id number] MITRA ALANIS Self - patient is the insured 3 MEDICAL (GENERAL) HISTORY Surgical History Surgery Date(Month/Year) appendectomy 06/2009
--- OUTSIDE RECORDS SUMMARY | 2024-04-14 06:10 | XMS_ITS | Continuity of Care Document ---
Author Organization [facility] Address [address] [place] [id number] Care Team Providers Care E Commerce Web Developer Name Role Phone Not on Staff, PCP Primary Care Physician Unavail able Encounter [facility] Date(s): 04/24/23 - 04/24/[address] [address]- Discharge Disposition: A-D/C Walkout Attending Physician: Not on Staff, Attending MD Admitting Physician: Not on Staff, Admitting MD Referring Physician: Not on Staff, Referring MD Vital Signs Most recent to oldest [Reference Range]: 1 2 Height 153 cm (04/24/23 7:56 PM) Weight 64.5 kg (04/24/23 7:56 PM) Oxygen Saturation [94-100 %] 100 % (04/24/23 7:56 PM) 99 % (04/24/23 7:52 PM) Pulse Rate [55-90 bpm] 75 bpm (04/24/23 7:56 PM) 84 bpm (04/24/23 7:52 PM) Body Mass Index [18.5-24.99 kg/m2] 27.55 kg/m2 *H* (04/24/23 7:56 PM) Blood Pressure [90-138/55-84 mm Hg] 117/ 80mm Hg (04/24/23 7:56 PM) Respiratory Rate [16-30 br/min] 18 br/mi n (04/24/23 7:56 PM) Temperature [96.8-100.4 DegF] 99.1 DegF (04/24/23 7:56 PM) Mode of Delivery (Oxygen) Room air (04/24/23 7:56 PM) Blood pressure sites Arm, left (04/24/23 7:56 PM) Temperature Route Oral (04/24/23 7:56 PM) Weight Obtained Via Patient/family state d (7/7/23 7:56 PM) Patient Care team information Care Team Personnel Name: Not on Staff, PCP Position: S Physician (General Medicine) Member Role: PCP
== END 2024-04-07 09:33 | disposition home or self-care (01) ==
LOC: HO.HWS 09:05
PROVIDERS: Visit Provider Obstetrics & Gynecology
DX: N93.9 Abnormal uterine and vaginal bleeding, unspecified (principal); Z32.02 Encounter for pregnancy test, result negative
CPT/HCPCS: 58100

== ENCOUNTER 2024-04-07 09:05 | Outpatient (REF) | payer OTHER, SELFPAY ==
[2024-04-12 10:44] LABS: HPV mRNA E6/E7 Not Detected (Not Detected)
== END 2024-04-07 09:06 | disposition home or self-care (01) ==
LOC: HO.LNP 09:05
PROVIDERS: Visit Provider Obstetrics & Gynecology
DX: N93.9 Abnormal uterine and vaginal bleeding, unspecified (principal)
CPT/HCPCS: 58100; 81025; 87624; 88142; 88175; 88305

== ENCOUNTER 2024-04-08 08:57 | Outpatient (REF) | payer OTHER, SELFPAY ==
--- NOTE | ~2024-04-08 | MR_ITS ---
EXAMINATION: MRI PELVIS WITH AND WITHOUT CONTRAST CLINICAL INFORMATION: Reason for Exam N83.299 - Other ovarian cyst, unspecified side COMPARISON: OB ultrasound 03/19/2024 TECHNIQUE: Multiple routine MRI sequences through the pelvis were obtained before and after the uneventful administration of 6.5 mL of Gadavist gadolinium-based IV contrast. FINDINGS: UTERUS: Anteverted uterus has a normal configuration and is normal in size. Endometrium is uniform and measures 1.2 cm in thickness. Junctional zone is normal in signal and thickness. No focal uterine mass seen. CERVIX: Nabothian cysts in the cervix. VAGINA: Unremarkable. OVARIES: The ovaries are unremarkable. No suspicious solid or cystic adnexal lesion. KIDNEYS AND VISUALIZED UPPER ABDOMEN: Two normally positioned kidneys are seen. No hydronephrosis. VISUALIZED GI TRACT: Unremarkable. BLADDER: Unremarkable. PELVIC FREE FLUID: No free fluid or ascites. LYMPH NODES: No pathologically enlarged lymph nodes. OSSEOUS STRUCTURES: No acute or suspicious osseous abnormalities. SOFT TISSUES: Nonspecific soft tissue stranding in the right gluteal soft tissues. MR/MR pelvis wo/w con IMPRESSION: 1. Unremarkable appearance of the ovaries. No suspicious solid or cystic adnexal lesion. 2. Endometrium is uniform and measures 1.2 cm in thickness. 3. Nonspecific soft tissue stranding in the right gluteal soft tissues, differential considerations could include but are not limited to soft tissue hematoma or scarring.
[2024-04-08] MEDS: gadobutroL 7.5 ML VIAL IVPUSH (10:28)
== END 2024-04-08 08:58 | disposition home or self-care (01) ==
LOC: HO.MRI 08:57
PROVIDERS: Visit Provider Obstetrics & Gynecology
DX: N83.299 Other ovarian cyst, unspecified side (principal)
CPT/HCPCS: 72197; A9585

== ENCOUNTER 2024-04-12 08:06 | Outpatient (REF) | payer OTHER, SELFPAY ==
--- NOTE | ~2024-04-12 | MM_ITS ---
EXAMINATION: MM SCREENING DIGITAL BREAST TOMOSYNTHESIS, BILATERAL CLINICAL INFORMATION: Screening. Asymptomatic. COMPARISON: Mammography: This study is compared with prior exams dating back to 2019. TECHNIQUE: Digital breast tomosynthesis is performed in both the craniocaudal and mediolateral oblique views along with computer-aided detection (CAD). Synthesized 2D images are generated from the tomosynthesis. FINDINGS: The breasts are heterogeneously dense, which may obscure small masses (ACR BI-RADS breast composition Category c). There are no significant masses, abnormal calcifications, or other abnormalities. There is a biopsy tissue marker in the left breast. MM/MM tomosynthesis screening BI IMPRESSION: No mammographic evidence of malignancy. ASSESSMENT: BI-RADS BI-RADS 2 - Benign Findings RECOMMENDATION: Routine annual mammography screening. 1 year F/U This examination should not preclude the clinical evaluation of a suspicious palpable abnormality. This patient's information was entered into a reminder system with a target due date for their next mammogram.
== END 2024-04-12 08:07 | disposition home or self-care (01) ==
LOC: HO.MAMMO 08:06
PROVIDERS: Visit Provider Obstetrics & Gynecology
DX: Z12.31 Encounter for screening mammogram for malignant neoplasm of breast (principal)
CPT/HCPCS: 77063; 77067

== ENCOUNTER → 2024-04-12 08:15 | Outpatient (BNV) | payer OTHER, SELFPAY | PROVIDERS: Visit Provider Radiology Diagnostic Radiology | DX: Z12.31 Encounter for screening mammogram for malignant neoplasm of breast (principal) | CPT/HCPCS: 77063; 77067 ==

== ENCOUNTER 2024-04-27 10:42 | Outpatient (AMB) | payer OTHER, SELFPAY ==
--- NOTE | 2024-04-27 11:28 | MHC.OFFVIS ---
Vital Signs 04/27/24 11:29 Height 5 ft Weight 145 lb 8.081 oz BMI 28.4 Intake Visit Reasons: EMB/MRI results Atmospheric Chemist Required: Yes Atmospheric Chemist Language: Solvent Recoverer Services: Atmospheric Chemist Present (in person) Atmospheric Chemist Name: Toya NIETO Information Interpreted: non-clinical & clinical Accompanied by: Self / Same As Patient Allergies No Known Allergies Allergy (Verified 04/27/24 11:29) HPI Comments Details: The patient is presenting for follow-up to discuss the results of her abnormal uterine bleeding workup and options of treatment. The following workup was done.: H&H= 14/41.1 TSH, prolactin, hCG, GC and chlamydia were negative. FSH/LH was 27.6/6.2, FSH in the menopausal range Endometrial biopsy pathology showed the following: Endometrium, biopsy: Benign proliferative endometrium with focal ectatic vessels; no atypia or carcinoma Mammogram was done on 04/12/2024, the report is still pending Pelvic ultrasound showed the following: IMPRESSION: No intrauterine seen. Abnormally thickened heterogeneous endometrium. 2.4 x 0.9 x 1.2 cm complex left ovarian cyst. Ectopic cannot be excluded. Correlation with serial quantitative beta hCG and short-term imaging follow-up recommended. Broken IUD in the posterior uterine body myometrium. CA 125 came back at 40, CEA and CA 19-9 was within normal Pelvic MRI of the pelvis showed the following: IMPRESSION: 1. Unremarkable appearance of the ovaries. No suspicious solid or cystic adnexal lesion. 2. Endometrium is uniform and measures 1.2 cm in thickness. 3. Nonspecific soft tissue stranding in the right gluteal soft tissues, differential considerations could include but are not limited to soft tissue hematoma or scarring. ADDENDUMAgain seen is a linear low attenuation lesion in the posterior myometrium measuring 1.4 cm which may correspond to the previously seen IUD fragment, better characterized on pelvic ultrasound. Review of Systems Const All systems reviewed & are unremarkable except as noted in HPI and below Reports as per HPI and Reports no additional complaints GI Reports no additional complaints Reports no additional complaints Physical Exam Vital Signs: BMI result Body Mass Index 28.4 Assessment & Plan Assessment & Plan (1) Abnormal uterine bleeding (AUB): Comment: perimenopause, proliferative endo Code(s): N93.9 - Abnormal uterine and vaginal bleeding, unspecified Category: Medical Plan: Co testing done. Discussed with the patient the results of the work up done and options of treatment including but not limited to BCP's, cyclic Progesterone, Mirena IUD, endometrial ablation and hysterectomy. All pros, cons, risks and benefits of each option were discussed with the patient and the patient decided to go ahead with cyclic Provera, so a more detailed discussion re: Progesterone treatment including mechanism of action, benefits (regular menses, endometrial protection form unopposed estrogen and reduction in the risk of endometrial hyperplasia and/or cancer ...), risks (Thrombosis, mood changes, weight gain, breast soreness, ? increased breast ca, others). Instructions were given to use a back- up method for contraception since this is not a method control, take the medication 1 tablet daily starting day 15-24 and to schedule a 3 months follow-up appointment; patient verbalized understanding and agreed with the plan. (2) IUD mechanical complication: Comment: History of broken IUD with retained fragment Code(s): T83.39XA - Other mechanical complication of intrauterine contraceptive device, initial encounter Category: Medical Plan: Discussed with the patient that there are limited data on the consequences of leaving an IUD fragment in situ, including abnormal bleeding, pain, infertility, and infection. If asymptomatic patients counseled the patient that termite technician sequela of leaving an IUD fragment in utero has unknown possible future consequences. If the patient desires removal Options for removal of retained fragments for myometrial IUD fragments that cannot be easily removed with hysteroscopy, review of the medical literature showed that one author advises leaving the fragment in place as it is unlikely to impact fertility, although the data to inform this approach are limited. Alternative management options discussed with the patient included referral to a minimally invasive gynecologic surgeon for an attempt to remove hysteroscopically the retained IUD arm embedded in the endometrium/myometrium or hysterectomy, discussed with the patient the pros being to decrease unknown future risk including bleeding pain or infection, but the risks of hysteroscopy include but not limited to risk of infection, bleeding, uterine perforation and injury of the bladder, bowel, ureter, blood vessels, possible need for laparoscopy or hysterectomy. In addition discussed with the patient the risks of hysterectomy include but not limited to bleeding, infection, risk of injury to bladder, bowel, ureter, blood vessels, the patient decided to think about it and get back to us (3) Complex ovarian cyst: Comment: elevated Ca 125 Code(s): N83.299 - Other ovarian cyst, unspecified side Category: Medical Plan: Discussed with the patient the results of the tumor markers normal CA 19-9 and CEA but mildly elevated CA 125 and the results of the MRI showing no abnormalities in bilateral ovaries and resolution of the complex ovarian cyst. Discussed with the patient the possible cause of falsely elevated CA 125 including but not limited Tiara benign gynecological conditions, non gynecologic conditions, menstruations, and others. Explained to the patient that In the presence of normal bilateral ovaries the risk of ovarian pathology is negligible. All questions answered, the patient verbalized understanding. Orders: Orders PAP Smear Today N93.9 - Abnormal uterine and vaginal bleeding, unspecified Medications: New medroxyprogesterone (Provera) start Provera 1 tablet daily from day 15-24 cyclically every months, day 1 being 1st day of menses 10 mg PO DAILY 10 days 30 tabs 0RF Coding Level of Care Code Est Pt Level 3 (76558) Diagnoses Abnormal uterine bleeding (AUB) N93.9 IUD mechanical complication T83.39XA Complex ovarian cyst N83.299
[2024-04-27 11:29] VITALS: BMI 28.4
== END 2024-04-27 12:01 | disposition home or self-care (01) ==
LOC: HO.HWS 10:42
PROVIDERS: Visit Provider Obstetrics & Gynecology
DX: N93.9 Abnormal uterine and vaginal bleeding, unspecified (principal); T83.39XA Other mechanical complication of intrauterine contraceptive device, initial encounter; N83.299 Other ovarian cyst, unspecified side
CPT/HCPCS: 99213

== ENCOUNTER 2024-04-27 10:42 | Outpatient (REF) | payer OTHER, SELFPAY | END 2024-04-27 10:43 | disposition home or self-care (01) | LOC: HO.LNP 10:42 | PROVIDERS: Visit Provider Obstetrics & Gynecology | DX: Z12.4 Encounter for screening for malignant neoplasm of cervix (principal); N93.9 Abnormal uterine and vaginal bleeding, unspecified; N83.299 Other ovarian cyst, unspecified side; T83.39XA Other mechanical complication of intrauterine contraceptive device, initial encounter | CPT/HCPCS: 88175; 99212 ==

== ENCOUNTER 2024-05-11 15:18 | Outpatient (REF) | payer OTHER, SELFPAY ==
[2024-05-11 19:10] LABS: Lipase 22 U/L (8-78)
[2024-05-11 19:19] LABS: TSH reflex Free T4 1.03 uIU/mL (0.32-4.0)
[2024-05-11 19:40] LABS: Folate 13.5 ng/mL (> or = 4.0); Vitamin B12 560 pg/mL (200-900)
[2024-05-12 20:09] LABS: Transglutaminase Ab IgG <1.0 U/mL; Transglutaminase IgA <1.0 U/mL
[2024-05-15 16:33] LABS: Vitamin D 25-OH, D2 <4 ng/mL; Vitamin D 25-OH, D3 22 ng/mL; Vitamin D 25-OH, Total 22 ng/mL (30-100)
== END 2024-05-11 15:19 | disposition home or self-care (01) ==
LOC: HO.LAB 15:18
PROVIDERS: Visit Provider Nurse Practitioner Family
DX: R10.9 Unspecified abdominal pain (principal); E55.9 Vitamin D deficiency, unspecified; R19.7 Diarrhea, unspecified; R14.0 Abdominal distension (gaseous); K21.9 Gastro-esophageal reflux disease without esophagitis; K59.01 Slow transit constipation; Z86.19 Personal history of other infectious and parasitic diseases
CPT/HCPCS: 36415; 82306; 82607; 82746; 83690; 84443; 86364; 99202

== ENCOUNTER 2024-05-11 15:18 | Outpatient (AMB) | payer OTHER, SELFPAY ==
--- NOTE | 2024-05-11 15:21 | A.OFFVIS_ITS ---
Vital Signs 05/11/24 15:37 Height 5 ft Weight 145 lb 8.081 oz BMI 28.4 BP 126/78 Blood Pressure Location Rt brachial Position Sitting Pulse 76 Pulse Source Pulse Oximeter Pulse Oximetry (%) 98 Oxygen Delivery Method Room Air Intake Visit Reasons: ER F/U Intake Note: Bea presents in office today for a scheduled initial assessment. CC; Pt was seen in ED on - 03/20/2024 for abdominal pain. Pt was diagnosed with c.diff following + test results including GI panel. RUQ US was unremarkable per radiology. Pt had been rx'd vancomycin for treatment of c.diff. Pt states that their pain is gone, however; they are finding difficulties with constipation now. Pt states that they are typically having bowel movements approximately every 2-3 days. Pt states that, when they do have a movement, it is typically very small. Pt also has hx of gastritis within the last 4 years which was diagnosed by their primary care provider. It has been well controlled up until the last few months. Pt had been taking omeprazole but has not been able to get it rx'd recently. Pt also reports having sx related to GERD which involve possible dysphagia and a feeling of choking. Retail Merchandising Specialist Required: Yes Retail Merchandising Specialist Services: Retail Merchandising Specialist Present Retail Merchandising Specialist Name: Elizabeth Davenport460 Information Interpreted: non-clinical & clinical Accompanied by: Self / Same As Patient Allergies No Known Allergies Allergy (Verified 05/11/24 15:23) HPI HPI ER F/U: Details: 49-year-old female with past medical history of GERD, history of H pylori infection, history of C diff, postprandial abdominal bloating, is here today for initial consultation. Patient was seen in the ER back in March where was found to have C diff. and Enterococcus infection. Patient was sent home on vancomycin and she finished the treatment. Patient reports that recently she has been more constipated. Bowel movements every 2-3 days. Occasional abdominal pain in the left lower quadrant if no bowel movement. Patient also reports abdominal bloating. Patient denies any melena, hematochezia. Patient reports history of H pylori. Patient was on omeprazole, however unable to get a prescription from pharmacy. Patient reports occasional acid reflux without dyspepsia, dysphagia or odynophagia. [facility] Medical History (Updated 05/11/24 @ 15:54 by [facility] History of Helicobacter pylori infection History of Clostridioides difficile infection Dysphagia GERD (gastroesophageal reflux disease) Gastritis Surgical History (Updated 05/11/24 @ 15:23 by TESS Martinez) Hx of appendectomy Family History (Updated 05/11/24 @ 15:32 by TESS Martinez) Mother Hepatic cancer Father Bladder cancer Social History (Updated 05/11/24 @ 15:35 by TESS Martinez) Alcohol intake: never Patient Tobacco Use Status: Never used Tobacco Review of Systems Const Denies weight gain and Denies weight loss ENT Reports no additional complaints, Denies dysphagia and Denies odynophagia Card Reports no additional complaints Resp Reports no additional complaints GI Reports abdominal pain (If no bowel movement for few days), Denies belching, Denies melena, Reports bloating, Denies change in bowel habits, Reports constipation, Denies dysphagia, Denies excessive flatus, Reports dyspepsia, Reports heartburn, Denies diarrhea, Denies loose stools, Denies nausea, Denies odynophagia and Denies vomiting Reports no additional complaints Musc Reports no additional complaints Neuro Reports no additional complaints Psych Reports no additional complaints Endo Reports no additional complaints Physical Exam Vital Signs: Last Vital Signs Pulse 76 05/11/24 15:37 BP 126/78 05/11/24 15:37 Pulse Ox 98 05/11/24 15:37 Oxygen Delivery Method Room Air 05/11/24 15:37 BMI result Body Mass Index 28.4 Const General: healthy appearing, no acute distress and well developed Nutritional Appearance: well nourished Orientation/consciousness: patient oriented x3 Resp Effort & Inspection: normal respiratory effort, able to speak in complete sentences, no tracheal deviation and symmetric chest movement Auscultation: clear to auscultation bilaterally Cardio Rate: regular rate GI Inspection: Yes normal to inspection and No distended Palpation (GI): Soft to palpation, not firm, nontender and No hepatosplenomegaly present Auscultation: normal bowel sounds General: Yes no CVA tenderness Back/Spine/Pelvis Back: no CVA tenderness Skin General skin exam: elasticity normal, turgor normal and dry skin Neuro General: patient oriented x3 Psych Appearance: grossly normal Mental Status: mental status grossly normal Results Reviewed Results Reviewed: ABDOMINAL ULTRASOUND IMPRESSION: Normal-appearing gallbladder. Slightly echogenic liver probably representing fatty infiltration. Small liver cysts. Laboratory Tests 03/20/24 03/20/24 08:38 11:25 WBC 6.7 RBC 4.74 Hgb 14.0 Hct 41.1 Stl Enterotoxigenic E PCR Detected A Stool EAEC (PCR) Detected A C. difficile Tox B Gene POSITIVE A* C. difficile Toxin A&B Negative Assessment & Plan Assessment & Plan (1) Postprandial abdominal bloating: Code(s): R14.0 - Abdominal distension (gaseous) Category: Medical (2) History of Clostridioides difficile infection: Code(s): Z86.19 - Personal history of other infectious and parasitic diseases Category: Medical (3) History of Helicobacter pylori infection: Code(s): Z86.19 - Personal history of other infectious and parasitic diseases Category: Medical (4) GERD (gastroesophageal reflux disease): Code(s): K21.9 - Gastro-esophageal reflux disease without esophagitis Qualifiers: Esophagitis presence: esophagitis presence not specified Qualified Code(s): K21.9 - Gastro-esophageal reflux disease without esophagitis (5) Constipation: Code(s): K59.00 - Constipation, unspecified Qualifiers: Constipation type: slow transit constipation Qualified Code(s): K59.01 - Slow transit constipation Plan H pylori breath test, will check transglutaminase to rule out celiac. Lipase. Patient does report epigastric pain postprandially. Check vitamin-D, B12, folate. Will recheck C diff although unlikely as patient does have constipation right now. Will check thyroid study as well. Patient will start taking pantoprazole in the morning half an hour before breakfast. Avoid dietary triggers and late night snacking. Staying upright for minimum 3 hours after meals discussed with patient. Patient will start taking senna. Increase fluid intake and activity to promote better bowel motility. Patient will return to the office in 2-3 months, sooner on as needed basis. She is agreeable to this plan and verbalizes understanding of instructions. She was given the opportunity to ask questions and all questions answered. Thank you for allowing me to participate in her care Orders: Orders H Pylori Breath Test 05/12/24 K21.9 - Gastro-esophageal reflux disease without esophagitis Transglutaminase Ab IgG 05/11/24 R10.9 - Unspecified abdominal pain Transglutaminase IgA 05/11/24 R10.9 - Unspecified abdominal pain Lipase 05/11/24 R10.9 - Unspecified abdominal pain Vitamin D 25-OH (D2 and D3) 05/11/24 E55.9 - Vitamin D deficiency, unspecified Vitamin B12 and Folate 05/11/24 R19.7 - Diarrhea, unspecified CDiff Gene PCR 05/12/24 R19.7 - Diarrhea, unspecified TSH reflex Free T4 05/11/24 K59.00 - Constipation, unspecified Medications: New sennosides (Natural Senna Laxative) 17.2 mg (2 x 8.6 mg) PO BEDTIME 180 tabs 3RF constipation K59.00 - Constipation, unspecified pantoprazole take one tablet half an hour before breakfast 40 mg PO DAILY 30 tabs 2RF K21.9 - Gastro-esophageal reflux disease without esophagitis Coding Level of Care Code New Pt Level 4 (87879) Diagnoses Postprandial abdominal bloating R14.0 History of Clostridioides difficile infection Z86.19 History of Helicobacter pylori infection Z86.19 Gastroesophageal reflux disease, unspecified whether esophagitis present K21.9 Esophagitis presence: esophagitis presence not specified Slow transit constipation K59.01 Constipation type: slow transit constipation Time Spent (min) 45 Comment 30 minutes spent with patient and additional 15 minutes spent reviewing her records
[2024-05-11 15:37] VITALS: BP 126/78; PULSE 76; O2SAT 98; BMI 28.4
== END 2024-05-11 16:20 | disposition home or self-care (01) ==
PROVIDERS: Visit Provider Nurse Practitioner Family
DX: R14.0 Abdominal distension (gaseous) (principal); Z86.19 Personal history of other infectious and parasitic diseases; K21.9 Gastro-esophageal reflux disease without esophagitis; K59.01 Slow transit constipation
CPT/HCPCS: 99204

== ENCOUNTER 2024-05-12 12:28 | Outpatient (REF) | payer OTHER, SELFPAY ==
[2024-05-12 13:31] LABS: CDiff Gene PCR NEGATIVE (Negative)
[2024-05-13 11:31] LABS: H Pylori Breath Test Negative (Negative)
== END 2024-05-12 12:29 | disposition home or self-care (01) ==
LOC: HO.LNP 12:28
PROVIDERS: Visit Provider Nurse Practitioner Family
DX: R19.7 Diarrhea, unspecified (principal); K21.9 Gastro-esophageal reflux disease without esophagitis
CPT/HCPCS: 83013; 87493

== ENCOUNTER 2024-08-02 14:53 | Outpatient (AMB) | payer OTHER, SELFPAY ==
[2024-08-02 14:55] VITALS: BP 118/76; BMI 28.4
--- NOTE | 2024-08-02 14:55 | MHC.OFFVIS ---
Vital Signs 08/02/24 14:55 Height 5 ft Weight 145 lb 8.081 oz BMI 28.4 BP 118/76 Intake Visit Reasons: 3 month follow up medication Water Softener Service Supervisor Required: Yes Water Softener Service Supervisor Language: Finding Fastener Services: Water Softener Service Supervisor Present (in person) Water Softener Service Supervisor Name: Toya NIETO Information Interpreted: non-clinical & clinical Appellate Conferee: Appellate Conferee Present Accompanied by: Self / Same As Patient Allergies No Known Allergies Allergy (Verified 05/11/24 15:23) Is last menstrual period known: Yes Last menstrual period: 08/16/20 Post menopausal: No Patient : No Do you need a note to return to daycare/school/sports/work: Yes (for surgery on thursday) HPI Comments Details: The patient is presenting 3 months post Provera trial. Took Provera in March did not have a menstrual cycle till end of June Pelvic ultrasound in 04/10 showed the endometrium is abnormally thickened measuring 2.9 cm with small cystic areas. FSH/LH 27.6/6.2 PFSH Medical History (Updated 08/02/24 @ 15:28 by Herb Tidwell MD) History of Helicobacter pylori infection History of Clostridioides difficile infection Dysphagia GERD (gastroesophageal reflux disease) Gastritis Surgical History (Updated 05/11/24 @ 15:23 by TESS Martinez) Hx of appendectomy Family History (Updated 05/11/24 @ 15:32 by TESS Martinez) Mother Hepatic cancer Father Bladder cancer Social History (Updated 05/11/24 @ 15:35 by TESS Martinez) Alcohol intake: never Patient Tobacco Use Status: Never used Tobacco Female Reproductive History Menstrual Date of last menstrual period: 08/16/20 Total pregnancies: 2 Full term: 2 Review of Systems Card Reports as per HPI and Reports no additional complaints Resp Reports as per HPI and Reports no additional complaints GI Reports as per HPI and Reports no additional complaints Reports as per HPI Physical Exam Vital Signs: Last Vital Signs BP 118/76 08/02/24 14:55 BMI result Body Mass Index 28.4 Const General: cooperative, healthy appearing and comfortable Resp Effort & Inspection: normal respiratory effort Auscultation: clear to auscultation bilaterally Percussion: percussion normal Cardio Palpation: normal PMI Rate: regular rate Rhythm: regular rhythm Heart sounds: no murmurs and no rubs Peripheral pulses: Peripheral pulses 2+ throughout GI Inspection: Yes normal to inspection Palpation (GI): Soft to palpation, nontender, no guarding, not rigid and No hepatosplenomegaly present Percussion: Yes normal to percussion Auscultation: normal bowel sounds Rectal Exam - Female: deferred Assessment & Plan Assessment & Plan (1) Abnormal uterine bleeding (AUB): Comment: Persistent AUB on cyclic Provera Perimenopause, proliferative endo abn endo by us Code(s): N93.9 - Abnormal uterine and vaginal bleeding, unspecified Category: Medical Plan: Since AUB is persistent on cyclic Provera, the patient is perimenopausal with elevated FSH in the menopausal range and LH in the premenopausal range with the abnormal endometrial finding by ultrasound recommended hysteroscopy D&C possible polypectomy/myomectomy as the next step in the management Discussed with the patient the procedure , all benefits and risks including but not limited to inability to complete the procedure , insufficient endometrial tissue for a complete evaluation of the endometrial cavity , bleeding, infection, possible need for blood transfusion with all its risk ( HIV,syphilis, Hepatitis, anaphylaxis shock, others..), injury to bladder, rectum, possible need for laparoscopy/laparotomy or hysterectomy. The patient verbalized understanding and signed the consent. Instructions given the patient to stay NPO after midnight the day prior to the procedure and to take only the specific medication (s) discussed the morning of the surgical procedure and to schedule a 2 week postoperative appointment Coding Level of Care Code Est Pt Level 3 (15463) Diagnoses Abnormal uterine bleeding (AUB) N93.9
== END 2024-08-02 15:36 | disposition home or self-care (01) ==
PROVIDERS: Visit Provider Obstetrics & Gynecology
DX: N93.9 Abnormal uterine and vaginal bleeding, unspecified (principal)
CPT/HCPCS: 99213

== ENCOUNTER → 2024-08-02 14:53 | Outpatient (BNVA) | payer OTHER, SELFPAY | PROVIDERS: Visit Provider Obstetrics & Gynecology | DX: N93.9 Abnormal uterine and vaginal bleeding, unspecified (principal) | CPT/HCPCS: 99212 ==

== ENCOUNTER 2024-08-10 11:35 | Outpatient (AMB) | payer OTHER, SELFPAY ==
--- NOTE | 2024-08-10 11:43 | A.OFFVIS_ITS ---
Vital Signs 08/10/24 11:50 Height 5 ft Weight 145 lb 15.136 oz BMI 28.5 BP 116/70 Blood Pressure Location Rt brachial Position Sitting Pulse 70 Pulse Source Pulse Oximeter Pulse Oximetry (%) 98 Oxygen Delivery Method Room Air Intake Visit Reasons: f/u GERD Intake Note: Relevant Flags or Indicators ? Requires Commercial Shrimping Captain? Ez Figueredo presents in office today for a scheduled FUV CC; Since last visit; labs ordered ? done as of 04/2024. Rx ordered ? no. Diagnostics/images ordered -- None Relevant GI Sx as reported per pt? Bloating -- Excessive gas production ? Hx of any recent surgeries? None Pt has been taking the pantoprazole, and senna with very positive therapeutic effect. Commercial Shrimping Captain Required: Yes Commercial Shrimping Captain Services: Commercial Shrimping Captain Present Commercial Shrimping Captain Name: [id number] - Cheyanne Information Interpreted: non-clinical & clinical Accompanied by: Self / Same As Patient Allergies No Known Allergies Allergy (Verified 08/10/24 11:45) HPI HPI f/u GERD: Details: LAST VISIT Postprandial abdominal bloating History of Clostridioides difficile infection History of Helicobacter pylori infection GERD (gastroesophageal reflux disease) Constipation Plan H pylori breath test, will check transglutaminase to rule out celiac. Lipase. Patient does report epigastric pain postprandially. Check vitamin-D, B12, folate. Will recheck C diff although unlikely as patient does have constipation right now. Will check thyroid study as well. Patient will start taking pantoprazole in the morning half an hour before breakfast. Avoid dietary triggers and late night snacking. Staying upright for minimum 3 hours after meals discussed with patient. Patient will start taking senna. Increase fluid intake and activity to promote better bowel motility. Patient will return to the office in 2-3 months, sooner on as needed basis. She is agreeable to this plan and verbalizes understanding of instructions. She was given the opportunity to ask questions and all questions answered. ? Thank you for allowing me to participate in her care Orders Orders H Pylori Breath Test 05/12/24 K21.9 Transglutaminase Ab IgG 05/11/24 R10.9 Transglutaminase IgA 05/11/24 R10.9 Lipase 05/11/24 R10.9 Vitamin D 25-OH (D2 and D3) 07/24/24 E55.9 Vitamin B12 and Folate 05/11/24 R19.7 CDiff Gene PCR 05/12/24 R19.7 TSH reflex Free T4 05/11/24 K59.00 Medications New sennosides (Natural Senna Laxative) 17.2 mg (2 x 8.6 mg) PO BEDTIME 180 tabs 3RF constipation K59.00 pantoprazole take one tablet half an hour before breakfast 40 mg PO DAILY 30 tabs 2RF K21.9 TODAY'S VISIT Patient is here today for follow-up and to discuss lab results. Lab results discussed with patient. Everything came back normal except for low vitamin-D level. Negative H pylori testing. Patient is taking pantoprazole and reports that her symptoms for the most part are suppressed. Patient does admit that occasionally she will have epigastric pain depending on what she eats and when she is constipated. Patient states that she is taking senna, however she does not feel like she empties well. Sometimes no bowel movement for 4-5 days and that is when she has worsening cramping as well as abdominal bloating. Patient denies any melena, hematochezia, unintentional weight loss or ribbon like stools. Patient denies dyspepsia, dysphagia or odynophagia. Patient reports that she will have procedure next month hysteroscopy D&C for abnormal vaginal bleeding, thickened and cystic endometrium. [facility] Medical History History of Helicobacter pylori infection History of Clostridioides difficile infection Dysphagia GERD (gastroesophageal reflux disease) Gastritis Surgical History Hx of appendectomy Family History Mother Hepatic cancer Father Bladder cancer Social History Alcohol intake: never Patient Tobacco Use Status: Never used Tobacco Review of Systems Const Denies weight gain and Denies weight loss ENT Reports no additional complaints, Denies dysphagia and Denies odynophagia Card Reports no additional complaints Resp Reports no additional complaints GI Reports abdominal pain (If no bowel movement for few days), Denies belching, Denies melena, Reports bloating, Denies change in bowel habits, Denies constipation, Denies dysphagia, Denies excessive flatus, Reports dyspepsia, Reports heartburn, Denies diarrhea, Denies loose stools, Denies nausea, Denies odynophagia and Denies vomiting Reports no additional complaints Musc Reports no additional complaints Neuro Reports no additional complaints Psych Reports no additional complaints Endo Reports no additional complaints Physical Exam Vital Signs: Last Vital Signs Pulse 70 08/10/24 11:50 BP 116/70 08/10/24 11:50 Pulse Ox 98 08/10/24 11:50 Oxygen Delivery Method Room Air 08/10/24 11:50 BMI result Body Mass Index 28.5 Const General: healthy appearing, no acute distress and well developed Nutritional Appearance: well nourished Orientation/consciousness: patient oriented x3 Resp Effort & Inspection: normal respiratory effort, able to speak in complete sentences, no tracheal deviation and symmetric chest movement Auscultation: clear to auscultation bilaterally Cardio Rate: regular rate GI Inspection: Yes normal to inspection and No distended Palpation (GI): Soft to palpation, not firm, nontender and No hepatosplenomegaly present Auscultation: normal bowel sounds General: Yes no CVA tenderness Back/Spine/Pelvis Back: no CVA tenderness Skin General skin exam: elasticity normal, turgor normal and dry skin Neuro General: patient oriented x3 Psych Appearance: grossly normal Mental Status: mental status grossly normal Results Reviewed Results Reviewed: Laboratory Tests 05/11/24 16:49 Lipase 22 Vitamin B12 560 25-OH Vitamin D Total 22 L Folate 13.5 TSH 1.03 Tiss Transglutamin IgG <1.0 Tiss Transglutamin IgA <1.0 Assessment & Plan Assessment & Plan (1) Postprandial abdominal bloating: Code(s): R14.0 - Abdominal distension (gaseous) Category: Medical (2) History of Clostridioides difficile infection: Code(s): Z86.19 - Personal history of other infectious and parasitic diseases Category: Medical (3) History of Helicobacter pylori infection: Code(s): Z86.19 - Personal history of other infectious and parasitic diseases Category: Medical (4) GERD (gastroesophageal reflux disease): Code(s): K21.9 - Gastro-esophageal reflux disease without esophagitis Qualifiers: Esophagitis presence: esophagitis presence not specified Qualified Code(s): K21.9 - Gastro-esophageal reflux disease without esophagitis (5) Constipation: Code(s): K59.00 - Constipation, unspecified Qualifiers: Constipation type: slow transit constipation Qualified Code(s): K59.01 - Slow transit constipation Plan Patient will continue on pantoprazole daily. Avoid dietary triggers and late ni ght snacking. Staying upright for minimum 3 hours after meals discussed with patient. Patient's constipation could be related to her pelvic floor abnormality, caleb is not working, will send a script for Dulcolax. Increase fluid intake and activity to promote better bowel motility. Patient will follow-up in 3 months, sooner on as needed basis. She is agreeable to this plan and verbalizes understanding of instructions. She was given the opportunity to ask questions and all questions answered. Thank you for allowing me to participate in her care Medications: New bisacodyl (Dulcolax (bisacodyl)) 10 mg (2 x 5 mg) PO BEDTIME 180 tabs 4RF Refilled cholecalciferol (vitamin D3) 50 mcg PO DAILY 90 caps 3RF R79.89 - Other specified abnormal findings of blood chemistry Discontinued sennosides Discontinued Reason: Doctor's Order 17.2 mg (2 x 8.6 mg) PO BEDTIME 180 tabs 3RF constipation K59.00 - Constipation, unspecified Coding Level of Care Code Est Pt Level 4 (75087) Diagnoses Postprandial abdominal bloating R14.0 History of Clostridioides difficile infection Z86.19 History of Helicobacter pylori infection Z86.19 Gastroesophageal reflux disease, unspecified whether esophagitis present K21.9 Esophagitis presence: esophagitis presence not specified Slow transit constipation K59.01 Constipation type: slow transit constipation Time Spent (min) 35 Comment 20 minutes spent with patient and additional 15 minutes spent reviewing her records
[2024-08-10 11:50] VITALS: BP 116/70; PULSE 70; O2SAT 98; BMI 28.5
== END 2024-08-10 12:32 | disposition home or self-care (01) ==
PROVIDERS: Visit Provider Nurse Practitioner Family
DX: R14.0 Abdominal distension (gaseous) (principal); Z86.19 Personal history of other infectious and parasitic diseases; K21.9 Gastro-esophageal reflux disease without esophagitis; K59.01 Slow transit constipation
CPT/HCPCS: 99214

== ENCOUNTER → 2024-08-10 11:35 | Outpatient (BNVA) | payer OTHER, SELFPAY | PROVIDERS: Visit Provider Nurse Practitioner Family | DX: K21.9 Gastro-esophageal reflux disease without esophagitis (principal); K59.01 Slow transit constipation; R14.0 Abdominal distension (gaseous); Z86.19 Personal history of other infectious and parasitic diseases | CPT/HCPCS: 99212 ==

== ENCOUNTER 2024-08-26 08:45 | Day surgery (SDC) | payer OTHER, SELFPAY ==
--- NOTE | 2024-08-24 14:05 | P.CONAN_ITS ---
Documented by User: Nessa Molina NP 08/24/24 14:06 HPI - Anesthesia Eval Consult details Narrative: 49yo F for D&C Hysteroscopy,possible myomectomy,possible polypectomy, [facility] Active Problems Active Problems: All Active Problems History of Helicobacter pylori infection (Acute) History of Clostridioides difficile infection (Acute) Postprandial abdominal bloating (Acute) Abnormal uterine bleeding (AUB) (Acute) IUD mechanical complication (Acute) Complex ovarian cyst (Acute) Elevated serum hCG (Acute) Past Medical History Medical History History of Helicobacter pylori infection History of Clostridioides difficile infection Dysphagia GERD (gastroesophageal reflux disease) Gastritis Family History Family History Mother Hepatic cancer Father Bladder cancer Surgical History Surgical History Hx of appendectomy Social History Social History Are you a primary patient centered care specialist to a significant other at home: No Do you presently have visiting nurse or other home services: No Alcohol intake: never Patient Tobacco Use Status: Never used Tobacco Meds Allergies Allergy/AdvReac Type Severity Reaction Status Date / Time No Known Allergies Allergy Verified 08/26/24 09:23 Assessment and Plan Assessment Anesthesia Assessment: Chart Reviewed Documented by User: Jean Claude Putnam MD 08/26/24 10:19 [facility] Past Medical History Medical History History of Helicobacter pylori infection History of Clostridioides difficile infection Dysphagia GERD (gastroesophageal reflux disease) Gastritis Patient : No Family History Family History Mother Hepatic cancer Father Bladder cancer Family history of problems with anesthesia: No Surgical History Surgical History Hx of appendectomy History of Problems with Anesthesia: No Social History Social History Are you a primary patient centered care specialist to a significant other at home: No Do you presently have visiting nurse or other home services: No Alcohol intake: never Patient Tobacco Use Status: Never used Tobacco Meds Allergies Allergy/AdvReac Type Severity Reaction Status Date / Time No Known Allergies Allergy Verified 08/26/24 09:23 Exam Airway Mallampati Class: II TM Dist: <=3cm Neck ROM: Full Denture: Upper and Lower Heart: ok Lungs: ok Assessment and Plan Assessment Anesthesia Assessment: Anesthesia Plan Discussed Final Anesthetic Review Family History of Problems with Anesthesia: No History of Problems with Anesthesia: No NPO: Yes ASA Class: II Final Preanesthetic Review: No Changes in Pt Med Stat, Meds/Allgs Chart Reviewed, Consent Obtained/Reviewed and Anes Risks/Benef Reviewed Patient Risk: Low Procedure Risk: Low Anesthetic Plan Anesthetic Plan: GA and Agree w/ Assess. and Plan Disposition: Standard PACU
[2024-08-24 14:22] VITALS: BMI 28.4
[2024-08-26 09:25] VITALS: BMI 28.7
[2024-08-26 09:48] LABS: UPreg QC Valid YES; Urine Pregnancy NEGATIVE (NEGATIVE)
[2024-08-26] MEDS: Lactated Ringers 1,000 ML 100 ML IVCONT (09:48)
[2024-08-26 09:50] VITALS: BP 117/64; PULSE 60; RESP 14; TEMP 36.4; O2SAT 98
--- NOTE | 2024-08-26 10:10 | MHC.SHP ---
Pre-Procedural Eval Section A - 24 Hr Update-Section A only Date of Service: 08/26/24 Section B - Complete if H&P > 30 days Chief Complaint: Abnormal uterine and vaginal bleeding, unspecified Allergies: Allergies Allergy/AdvReac Type Severity Reaction Status Date / Time No Known Allergies Allergy Verified 08/26/24 09:23 Plan I have reviewed the history and physical and performed a pertinent physical examination on my patient. No changes have occurred unless specified. Time Spent With Patient Time: Total time managing care of this patient today ____ minutes.
[2024-08-26 11:03] VITALS: BP 104/70; PULSE 64; RESP 14; TEMP 36.4; O2SAT 97
--- NOTE | 2024-08-26 11:07 | P.OP_ITS ---
Operative Note Operative Note Date of Service: 08/26/24 Narrative: Preop Diagnosis: Abnormal uterine bleeding Operation: Diagnostic Hysteroscopy, Dilataion & Curettage and polypectomy Post Op Diagnosis: Endometrial Polyp QBL: Minimal Anesthesia: GLMA Surgeon: Herb Tidwell MD Munitions Factory Worker: None Complication: None Pathology: Endometrial Scrapings, Endometrial polyp Procedure: The patient was put in the dorsal lithotomy position, scrubbed, and draped in the usual manner. A sterile speculum was inserted in the patient's vagina. The anterior lip of the cervix was grasped with a single tooth tenaculum. The cervix was dilated up to 5 mm, then the scope was inserted in the patient's uterus. Inspection revealed endometrial polyp. The Myosure Reach device was used; it was introduced through the operative channel and polypectomy done with no complications. The scope was then taken out from the uterine cavity, sharp curettings was carried on with minimal to moderate amount of tissues retrieved. At the end of the procedure, all instruments were taken out of the patient uterine and vaginal cavity. The single tooth tenaculum was removed and homeostasis was assured using pressure,. The patient tolerated the procedure well and was transferred to the PACU in a stable condition.
--- NOTE | 2024-08-26 11:07 | PM.OP ---
Brief Operative Note Date of Service: 08/26/24 Pre-op diagnosis: Abnormal uterine bleeding Post-op diagnosis: same (Endometrial polyp) Procedure: Hysteroscopy D&C, Polypectomy Surgeon: Herb Tidwell MD Anesthesia: GLMA Was an Professional Programmer Analyst used for this Procedure?: No Estimated blood loss (mL): 0 Pathology: other (Endometrial Scrapping. Polyp) Condition: stable Disposition: PACU
[2024-08-26 11:08] VITALS: BP 103/64; PULSE 65; RESP 14; O2SAT 97
[2024-08-26 11:13] VITALS: BP 106/65; PULSE 56; RESP 16; O2SAT 97
[2024-08-26 11:18] VITALS: BP 109/67; PULSE 61; RESP 16; O2SAT 98
[2024-08-26 11:33] VITALS: BP 114/59; PULSE 55; RESP 16; TEMP 36.6; O2SAT 99
--- NOTE | 2024-08-26 12:03 | PC.NURSE ---
tube bender services present during discharge paperwork.
== END 2024-08-26 12:04 | disposition home or self-care (01) ==
PROVIDERS: Visit Provider Obstetrics & Gynecology
PROC: 0UDB8ZZ Extraction of Endometrium, Via Natural or Artificial Opening Endoscopic (ICD-10-PCS; CPT 58558; principal; 2024-08-26 10:30)
DX: N93.9 Abnormal uterine and vaginal bleeding, unspecified (principal); N84.0 Polyp of corpus uteri; Z79.899 Other long term (current) drug therapy; Z86.19 Personal history of other infectious and parasitic diseases; Z98.890 Other specified postprocedural states
CPT/HCPCS: 58558; 81025; 88305; J1885; J2003; J2371; J2405; J2704; J3010

== ENCOUNTER → 2024-08-26 08:45 | Outpatient (BNV) | payer OTHER, SELFPAY | PROVIDERS: Visit Provider Obstetrics & Gynecology | DX: N84.0 Polyp of corpus uteri (principal); N93.9 Abnormal uterine and vaginal bleeding, unspecified | CPT/HCPCS: 58558 ==

== ENCOUNTER 2024-09-27 09:44 | Outpatient (AMB) | payer OTHER, SELFPAY ==
--- NOTE | 2024-09-27 09:46 | A.OFFVIS_ITS ---
Intake Visit Reasons: post op Dusting And Brushing Machine Operator Required: Yes Dusting And Brushing Machine Operator Language: Face Worker Services: Dusting And Brushing Machine Operator Present (in person) Dusting And Brushing Machine Operator Name: EMILIA Smith Information Interpreted: non-clinical & clinical Meat Packager: Meat Packager Present (EMILIA Smith) Accompanied by: Self / Same As Patient Allergies No Known Allergies Allergy (Verified 09/27/24 09:47) HPI Comments Details: The patient is presenting post hysteroscopy D&C no complaints minimal vaginal bleeding no feverishness chills or abdominal pain. The pathology showed the following: A. Endometrial polyp, resection: Fragments of benign endometrial polyp and fragments of benign proliferative endometrium; no atypia or carcinoma. B. Endometrium, curettage: Benign proliferative endometrium, fragments of benign endometrial polyp, and scant benign endocervical glandular mucosa; no atypia or carcinoma Intraoperative finding endometrial polyp The following workup was done.: H&H= 14/41.1 TSH, prolactin, hCG, GC and chlamydia were negative. FSH/LH= elevated at 27.6 / 6.2 Endometrial biopsy pathology showed no evidence of hyperplasia and/or malignancy. Mammogram was BI-RADS 1 Pelvic ultrasound showed the following: The uterus is anteverted and measures 9.5 x 5.2 x 6.9 cm in dimension. The endometrium is abnormally thickened measuring 2.9 cm with small cystic areas. No intrauterine is seen. There is a linear echogenic density in the posterior myometrium of the uterine body compatible with patient history of a broken IUD. No other focal uterine lesion. The right ovary is normal and measures 2.2 x 0.8 x 2 cm. The left ovary measures 3.5 x 2.3 x 2.2 cm. There is a complex left ovarian cyst that measures 2.4 x 0.9 x 1.2 cm. This is irregularly-shaped and a 4 x 6 mm echogenic solid component. Ectopic cannot be excluded. There is no fluid in the pelvis. Pelvic MRI followed showed the following: IMPRESSION: 1. Unremarkable appearance of the ovaries. No suspicious solid or cystic adnexal lesion. 2. Endometrium is uniform and measures 1.2 cm in thickness. 3. Nonspecific soft tissue stranding in the right gluteal soft tissues, differential considerations could include but are not limited to soft tissue hematoma or scarring. The patient took Provera since 04/11 had regular menstrual cycles for 2 months and then had amenorrhea afterwards [facility] Medical History History of Helicobacter pylori infection History of Clostridioides difficile infection Dysphagia GERD (gastroesophageal reflux disease) Gastritis Surgical History Hx of appendectomy Family History Mother Hepatic cancer Father Bladder cancer Social History Are you a primary career services coordinator to a significant other at home: No Do you presently have visiting nurse or other home services: No Alcohol intake: never Patient Tobacco Use Status: Never used Tobacco Review of Systems Const All systems reviewed & are unremarkable except as noted in HPI and below Reports as per HPI and Reports no additional complaints GI Reports no additional complaints Reports no additional complaints Assessment & Plan Assessment & Plan (1) Abnormal uterine bleeding (AUB): Comment: Perimenopause, proliferative endo abn endo by us s/p polypectomy Code(s): N93.9 - Abnormal uterine and vaginal bleeding, unspecified Category: Medical Plan: Discussed with the patient the results of the work up done and options of treatment including but not limited to BCP's, cyclic Progesterone, Mirena IUD, endometrial ablation and hysterectomy. All pros, cons, risks and benefits of each option were discussed with the patient and the patient decided to go ahead with cyclic Provera, so a more detailed discussion re: Progesterone treatment including mechanism of action, benefits (regular menses, endometrial protection form unopposed estrogen and reduction in the risk of endometrial hyperplasia and/or cancer ...), risks (Thrombosis, mood changes, weight gain, breast soreness, ? increased breast ca, others). Instructions were given to use a back- up method for contraception since this is not a method control, take the medication 1 tablet daily starting day 15-24 and to schedule a 3 months follow- up appointment; patient verbalized understanding and agreed with the plan. Medications: New medroxyprogesterone (Provera) start Provera 1 tablet daily from day 15-24 cyclically every months, day 1 being 1st day of menses 10 mg PO DAILY 10 days 30 tabs 0RF Coding Level of Care Code Est Pt Level 3 (39979) Diagnoses Abnormal uterine bleeding (AUB) N93.9
--- OUTSIDE RECORDS SUMMARY | 2024-09-28 19:33 | XMS_ITS | Patient Health Record ---
Author Organization [facility] Address [address], [place] [id number] Care Team Providers Care Completions Engineer Name Role Phone Terry Vasquez Primary Care Provider [facility], Nursing Unavailable [phone] [facility], CHW Unavailable [phone] Allergies No Known Allergies Results Component Value Reference Range Notes BASIC METABOLIC PANEL Reviewed date:09/22/2024 05:28:49 PM Interpretation:Normal Performing Lab: Notes/Report: Sodium 139 133-145 mmol/L Potassium 4.3 3.5-5.5 mmol/L Chloride 109 96-110 mmol/L CO2 26 21-32 mmol/L Anion Gap 4 3-11 Glucose 120 70-100 mg/dL BUN 10 5-25 mg/dL Creatinine 0.72 0.50-1.10 mg/dL eGFR 103 >=60 mL/min/1.73m2 Calculati on based on the?Chronic Kidney Disease Epidemiology Collaboration (CKD-EPI) equation refit?without adjustment for race. BUN/Creatinine Ratio 13.9 Calcium 9.2 8.5-10.5 mg/dL VITAMIN D 25 HYDROXY Reviewed date:09/23/2024 10:44:36 AM Interpretation:28.5 Performing Lab: Notes/Report: Vit D, 25-Hydroxy 28.5 30.0-80.0 ng/mL QUANTIFERON(R)-TB GOLD PLUS, 1 TUBE Reviewed date:02/25/2024 03:25:35 PM Interpretation:Negative Performing Lab:NL2, [facility] [id number] [id number] Reji Alcazar Notes/Report: NON-FASTING QUANTIFERON(R)-TB GOLD [...] T-lymphocytes. For additional information, please refer to https://education.drop.io/faq/LLO622 (This link is being provided for informational/ educational purposes only.) CBC Reviewed date:03/22/2024 05:14:04 PM Interpretation:Normal Performing Lab: Notes/Report: Normal HEMATOCRIT 41 HEMOGLOBIN 14.0 MCV 87 PLT COUNT 241 WBC 6.7 BASIC METABOLIC PANEL Reviewed date:03/22/2024 05:15:23 PM Interpretation:Normal Performing Lab: Notes/Report: Normal GLUCOSE 104 UREA NITROGEN (BUN) 5 CREATININE 0.65 SODIUM 142 POTASSIUM 3.5 CHLORIDE 108 CARBON DIOXIDE 23 CLOSTRIDIUM DIFFICILE TOXIN/ GDH W/REFL TO PCR Reviewed date:03/22/2024 05:16:12 PM Interpretation:Positive Performing Lab: Notes/Report: Positive SOURCE: stool CLOSTRIDIUM DIFFICILE POS US Abdomen Reviewed date:03/22/2024 05:17:34 PM Interpretation:Positive Performing Lab: Notes/Report: Positive Reason For Referral No Information Medications Medication SIG (Take, Route, Frequency, Duration) Notes Start Date End Date Status naproxen 375 mg 1 tab(s) orally 2 ti mes a day for 21 days 09/20/2024 Active ofloxacin ophthalmic 0.3% 1 gtt in left eye 4 times a day for 5 days 09/20/2024 Active Vitamin D3 10 mcg 1 tab(s) orally once a day Active Immunizations Vaccine Route Administration Date Status Comme nts [...] (20 or more) IM Intramuscular 02/02/2024 Administered [facility] 99408-217-63 Tdap Unknown 03/27/2010 Administered H1N1 Influenza Unknown 10/26/2009 Administered Influenza Unknown 02/11/2018 Administered Afluria Unknown 02/07/2019 Administered Flu-IIV4, p-free Unknown 07/25/2022 Administered Influenza IM Intramuscular 09/22/2024 Administered Problems Problem Type SNOMED Code ICD Code Onset Dates Problem Status W/U Status Risk Notes Problem Keratoconus, stable condition (118010105) Keratoconus, stable, 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) Active confirmed Problem Conductive hearing loss, bilateral (322740158) Conductive hearing loss, bilateral (H90.0) Active confirmed Problem Hormone abnormality (62572571) Abnormal level of hormones in specimens from other organs, systems and tissues (R89.1) Active confirmed Problem Abnormal vision (6833344) Presence of spectacles and contact lenses (Z97.3) Active confirmed Problem Body mass index 25-29 - overweight (082558099) Body mass index [BMI] 28.0-28.9, adult (Z68.28) Active confirmed Vital Signs Temperature 97.3 degrees Fahrenheit 09/22/2024 Blood pressure diastolic 75 09/20/2024 Oximetry 99 09/20/2024 Height 60 in 09/22/2024 Blood pressure systolic 117 09/20/2024 Weight 147.4 lbs 09/20/2024 BMI 28.78 kg/m2 09/20/2024 Encounters Encounter Location Date Provider Diagnosis [address] [id number] 02/02/2024 Nursing [facility] Encounter for immunization Z23 [address] [id number] 02/11/2024 [facility] Encounter for screening for respiratory tuberculosis Z11.[address] [id number] 04/08/2024 Terry Vasquez Encounter for screening for COVID-19 Z11.52 ; Abnormal level of hormones in specimens from other organs, systems and tissues R89.1 and Infectious gastroenteritis and colitis, unspecified A09 [address] [id number] 09/20/2024 Terry Vasquez Abnormal level of hormones in specimens from other organs, systems and tissues R89.1 ; Injury of conjunctiva and corneal abrasion without foreign body, left eye, initial encounter S05.02XA ; Encounter for screening for COVID-19 Z11.52 ; Other bursitis, not elsewhere classified, left ankle and foot M71.572 and Leiomyoma of uterus, unspecified D25.[address] [id number] 09/22/2024 Nursing [facility] Encounter for screening for COVID-19 Z11.52 and Encounter for screening, unspecified Z13.[address] [id number] 09/22/2024 Nursing [facility] Encounter for immunization Z23 [address] [id number] 02/11/2024 Nursing [facility] Encounter for screening for respiratory tuberculosis Z11.[address] [id number] 02/16/[address] [id number] 03/21/2024 Terry Vasquez [address] [id number] 04/08/2024 Terry Vasquez Assessments Encounter Date Diagnosis (ICD Code) Assessment Notes Treatment Notes Treatment Clinical Notes 02/02/2024 Encounter for immunization (ICD-10 - Z23) [...] to be of any assisatnce to her. FH does not suggets familial syndrome support 04/08/2024 [...] you are having concerning symptoms for COVID-19. 09/20/2024 Abnormal level of hormones in specimens from other organs, systems and tissues (ICD-10 - R89.1) w/u at obstetrics gyn 09/20/2024 Injury of conjunctiva and corneal abrasion without foreign body, left eye, initial encounter (ICD-10 - S05.02XA) conjunctivalbrasion scondary to lens in keratoconus Oflox gtts and she is to call [facility] first thing tomorrow 09/22/2024 Encounter for screening, unspecified (ICD-10 - Z13.9) Diagnostic labs drawn as ordered per protocol [...] test results requiring immediate action. Labs drawn by:TRIN[facility] . Reviewed by: . 09/22/2024 Encounter for screening for COVID-19 (ICD-10 - [...] you are having concerning symptoms for COVID-19. Covid screening is negative. Discussed in detail [...] you are having concerning symptoms for COVID-19. 09/22/2024 Encounter for immunization (ICD-10 - Z23) Screening performed for vaccine contraindications prior to administration. See scanned document. VIS reviewed. No contraindications for vaccine administration. Infuenza vaccine given per protocol. No adverse outcome with administration of vaccine. 02/11/2024 Encounter for screening for respiratory tuberculosis (ICD-10 - Z11.1) 04/08/2024 Infectious gastroenteritis and colitis, unspecified (ICD-10 - A09) c. dif better Says also had it 09/20/2024 Encounter for screening for COVID-19 (ICD-10 - [...] you are having concerning symptoms for COVID-19. 09/20/2024 Other bursitis, not elsewhere classified, left ankle and foot (ICD-10 - M71.572) I dpubt gout and looks more like bursal inflammation at MTP. Start SNSIAd, ice and f/u i a mnth 09/20/2024 Leiomyoma of uterus, unspecified (ICD-10 - D25.9) sonds lie fibroid but bx pendign-sees obstetrics gyn in a week 02/11/2024 Other Diagnostic labs drawn as ordered [...] Other will await PAP nd mammo from [facility] 09/20/2024 Other 09/22/2024 Other Plan Of Treatment Pending Test Test Name Order Date David Screening Digital 08/18/2023 Next Appt Details Provider Name:Terry Vasquez, 11/11/2024 09:20:00 AM, [address] [place] [address], [phone], Insurance Providers Payer Name Payer Address Payer Phone Subscriber Number Group Number Insured Name Patient Relationship to Insured Coverage Start Date Coverage End Date [place] Limited [address] [place], [place] [id number] MITRA ALANIS Self - patient is the insured 3 Medical (General) History Surgical History Surgery Date(Month/Year) appendectomy 06/2009
--- OUTSIDE RECORDS SUMMARY | 2024-09-28 19:33 | XMS_ITS ---
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; hearing; keratoconus, Symptom screening by [facility] staff pre entrance to clinic Medications Medication SIG (Take, Route, Frequency, Duration) Notes Start Date End Date Status Vitamin D3 10 mcg 1 tab(s) orally once a day Active ofloxacin ophthalmic 0.3% 1 gtt in left eye 4 times a day for 5 days 09/20/2024 Active naproxen 375 mg 1 tab(s) orally 2 ti mes a day for 21 days 09/20/2024 Active Problems Problem Type SNOMED Code ICD Code Onset Dates Problem Status W/U Status Risk Notes Problem Conductive hearing loss, bilateral (146573798) Conductive hearing loss, bilateral (H90.0) Active confirmed Vital Signs Temperature 97.8 degrees Fahrenheit 09/20/20 24 Height 60 in 09/20/2024 Weight 147.4 lbs 09/20/2024 BMI 28.78 kg/m2 09/20/2024 Oximetry 99 09/20/2024 Blood pressure systolic 117 09/20/20 24 Blood pressure diastolic 75 024 Encounters Encounter Location Date Provider Diagnosis [address] [id number] 09/20/2024 Terry Vasquez Abnormal level of hormones in specimens from other organs, systems and tissues R89.1 ; Injury of conjunctiva and corneal abrasion without foreign body, left eye, initial encounter S05.02XA ; Encounter for screening for COVID-19 Z11.52 ; Other bursitis, not elsewhere classified, left ankle and foot M71.572 and Leiomyoma of uterus, unspecified D25.9 Assessments Encounter Date Diagnosis (ICD Code) Assessment Notes Treatment Notes Treatment Clinical Notes 09/20/2024 Abnormal level of hormones in specimens from other organs, systems and tissues (ICD-10 - R89.1) 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 09/20/2024 Injury of conjunctiva and corneal abrasion without foreign body, left eye, initial encounter (ICD-10 - S05.02XA) conjunctivalbrasion scondary to lens in keratoconus Oflox gtts and she is to call [facility] first thing tomorrow 09/20/2024 Encounter for screening for COVID-19 (ICD-10 [...] D25.9) sonds lie fibroid but bx pendign-sees meat department manager in a week 09/20/2024 Other Plan Of Treatment Medication Medication Name Sig Start Date Stop Date Notes ofloxacin ophthalmic 0.3% 1 gtt in left eye 4 times a day for 5 days 09/20/2024 naproxen 375 mg 1 tab(s) orally 2 ti mes a day for 21 days 09/20/2024 Treatment Notes Assessment Notes Abnormal level of hormones i n specimens from other organs, systems and tissues 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 Discussed in detail with [...] you are having concerning symptoms for COVID-19. Other bursitis, not elsewher e classified, left ankle and foot I dpubt gout and looks more like bursal inflammation at MTP. Start SNSIAd, ice and f/u i a mnth Leiomyoma of uterus, unspecified sonds l ie fibroid but bx pendign-sees meat department manager in a week Next Appt Details Follow Up: 4 Weeks, Reason: AB: foot Provider Name:Terry Pedro, 11/11/2024 09:20:00 AM, [address] [place] [address], [place], [place], [phone], Progress Notes * MARGARET ALANIS: [birth year] (49 yo F)Acc No.[id number]:09/20/2024 Progress Notes Patient:?MITRA ALANIS Provider:?Terry Vasquez MD :1975???Age:49 Y???Sex:Female D ate:09/20/2024 Address:[address] [place], [place] [phone] Subjective: * Chief Complaints: * ???1. office: CPE. 2. 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 3. 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 4. Symptom screening by [facility] staff pre entrance to clinic. * HPI: ???General:? Symptom Screen: - Fever in the last 1 week? Patient denies - New or worsening cough in the last 1 week? Patient denies. - Contact will known COVID exposure in last 5 days? Patient denies -new rash within last 3 weeks? Patient denies - Have you received the COVID-19 vaccine? - Have you received COVID-19 booster? - Have you been tested positive for COVID -19 in the last 7 days? If so where and why? RN/MA: pt went to meat department manager on 08/26/2024 for a procedure, she have a f/u appt with them on 09/27/2024 for the results for the biopsia .? pt went 2 weeks ago to an appt with Rosario for a pain in her L eye and redness, pt said it was better but get worst again last thursday .? pt also wants to be check on her L foot, she said she went for X rays at [facility] around 3 wks ago and she was schedule to see an ortho there but they didnt take her due to insurance issues. AB: seen with translator/interpreter. 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 Hurt all? 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 Using some rub on her foot EYE: 2-3 months ago or so went to hospital with irritated left eye and sent to [facility].? Rx an ointment at first.? small incision and rx eye drops and got better. 4 days ago started again with redness left eye and some photophobia.? (relatively new) Has lens for keratoconus that she has to wear. Asked her about vision:? 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 for 15 days for mentruatiopn but took only briefly as had no further menses.? US in March probably fibroid.? (??)? So last month had biopsy and goes back for results on 09/27.? LMP last month-probably normal.? Lower back also some pain - lower vertebrae.?? HEARING:Slight loss on testing? in [place].? Not enough for device. * ROS:?No acute C/P no acute SOB, No problem with urine, No heartburn or abdominal pain. Endorses being able to climb one fight of stairs without stopping due to SOB, Mood: stable, appetite: good, sleeping well. Denies new skin rashes. * Medical History:? * Surgical History:?appendecto my 06/2009. * Family History:?Mother: dece ased 72 yrs, diabetes.?Father: 78 yrs, bladder cancer.?1 brother(s) , 3 sister(s) . 4 son(s) - healthy. .? 1 brother and 1 sister with diabetes. * Social History:?Housing/living arrangements: Feels safe with current living arrangement. ???SDoH Screening?Entered Date?05/29/2023 ?How is this screening being conducted today??By phone ?What is your housing situation today??I have housing lives with with and children ?Think about the place you live. Do you have problems with any of the following? (Check all that apply)?None of the above ?Within the past 12 months, you worried that your food would run out before you got money to buy more?Never true ?Within the past 12 months, the food you bought just didn't last and you didn't have enough money to get more?Never true ?In the past 12 months, has lack of transportation kept you from medical appointments, meetings, work or from getting things needed for daily living? (Check all that apply)?No ?In the past 12 months has the [place], gas, oil, or water [employer] threatened to shut off services in your home??No ?Do you want help finding or keeping work or a job??Yes, help finding work ???Tobacco Use Assessment MU?Annual Tobacco assessment completed?05/29/2023 nonsmoker ?Tobacco assessment completed?05/29/2023 ?Dip use?05/29/2023 no ?Vaping?05/29/2023 no ???Drug use?Date of history:?05/29/2023 Denies ???Opiate Use Hx?Ever taken opiates?No ???Alcohol Use: denies. ???Sexual Orientation?Heterosexual?05/29/2023 ???Sexual Health history?Sexual History completed on:?05/29/2023 ?Identifies as currently having sexual contact?Yes ?Identifies sexual preference as?Men ?Number of sexual partners in the last year?1 ?Number of lifetime sexual partners?one ?What types of protection do you use with your partner(s) against STI/?pull out/rhythm/timing ?What type of control do you currenlty use?none ?Last tested for STIs?Tested within the last three months ?Offered STI testing today?05/29/2023 accepts ???Mental Health: No hx of mental health issues, Denies mental health treatment. ???School?Last grade completed?6 elementary school ?Reading/Writing competent?Date: 05/29/2023 ???Work Hx: Unemployed. ???Income: No income. ???Legal issues/Incarcerations: denies. ???PCP/last visit: last visit 09/2022 at [facility]. ???Transportation: Pt has access to vehicle. ???Marital Status: . ???Next of Kin/Emerg. Contact & Community Supports: Emergency contact: . ???Family relationships/conflicts: denies. ???Childhood experience?In fostercare/DYS for a portion of childhood?No ?Victim of physical abuse?No ?Victim of sexual abuse?No ?Adults at home using drugs/drinking excessivly?No ?Witness to violence/DV in childhood?No ???Children: son(s) 4. ???Mormonism: Denominational. ???Social hx: Born in: [facility]. * Medications:?Taking Vitamin D3 10 mcg tablet 1 tab(s) orally once a day , Medication List reviewed and reconciled with the patient Objective: * Vitals:?BP Generic: 117/75, Ht: 60, Wt: 147.4, BMI:28.78, HR: 78, Oxygen sat %: 99, Temp: 97.8. * Physical Examination:?VS noted nervous left foot has pain with 1st MTP motion; slight valgus; redness superior and medial area with some tenderness left eye injected peirlimbal inferolaterally PERRLA; consensual normal EOMI photohobic left fluorosecein revels small area upake on corneal left at 5:00 mild tenderness left lumbar SLR neg decreased lumbar extension' flexion normal. Assessment: * Assessment: 1.?Injury of conjunctiva and corneal abrasion without foreign body, left eye, initial encounter - S05.02XA (Primary)???2.?Abnormal level of hormones in specimens from other organs, systems and tissues - R89.1???3.?Encounter for screening for COVID-19 - Z11.52???4.?Other bursitis, not elsewhere classified, left ankle and foot - M71.572???5.?Leiomyoma of uterus, unspecified - D25.9??? 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 3.?Encounter for screening f or COVID-19? Notes:Covid screening is negative. Discussed in detail with [...] if you are having concerning symptoms for COVID-19.?? 4.?Other bursitis, not elsew here classified, left ankle and foot? Start naproxen tablet, 375 mg, 1 tab(s), orally, 2 times a day, 21 days, 42 Tablet, Refills 0.?? Notes: I dpubt gout and looks more like bursal inflammation at MTP. Start SNSIAd, ice and f/u i a mnth?? 5.?Leiomyoma of uterus, unsp ecified? Notes: sonds lie fibroid but bx pendign-sees meat department manager in a week?? * Procedure Codes:?T1015 CLINI C VST/ENCOUNTER ALL-INCLUSIVE, 90903 Non Billable Level 4 * Follow Up:?4 Weeks (Reason: AB: foot) * Images: Billing Information: * Visit Code:? * Procedure Codes:? T1015 CLINIC VST/ENCOUNTER ALL-INCLUSIVE. 63899 Non Billable Level 4. Care Plan Details* * Sign off status: Completed Addendum: * ? true * Provider:?Terry Vasquez MD Date:?2023 Generated for Ed ferrari/Mike/eTkarthiksmitting on:?09/28/2024 07:32 PM EST
--- OUTSIDE RECORDS SUMMARY | 2024-09-28 19:33 | XMS_ITS ---
Author Organization [facility] Address [address] [place] [phone] Care Team Providers Care Director Of Corporate Sponsorships Name Role Phone Terry Vasquez Primary Care Provider [phone] [facility], Nursing [facility] [phone] REASON FOR VISIT Flu Vac Medications Medication SIG (Take, Route, Frequency, Duration) [...] Vaccine Route Administration Date Status Comme nts Influenza IM Intramuscular 09/22/2024 Administered Encounters Encounter Location Date Provider Diagnosis [address] [id number] 09/22/2024 Nursing [facility] Encounter for immunization Z23 Assessments Encounter Date Diagnosis (ICD Code) Assessment Notes Treatment Notes Treatment Clinical Notes 09/22/2024 Encounter for immunization (ICD-10 - Z23) Screening performed for vaccine contraindications prior to administration. See scanned document. VIS reviewed. No contraindications for vaccine administration. Infuenza vaccine given per protocol. No adverse outcome with administration of vaccine. Plan Of Treatment Treatment Notes Assessment Notes Encounter for immunization Screening per formed for vaccine contraindications prior to administration. See scanned document. VIS reviewed. No contraindications for vaccine administration. Infuenza vaccine given per protocol. No adverse outcome with administration of vaccine. Next Appt Details Follow Up: prn, Reason: Provider Name:Terry Pedro, 11/11/2024 09:20:00 AM, [address] [place] [address], [phone], Progress Notes * MITRA ALANISDOB: [birth year] (49 yo F)Acc No.[id number]:09/22/2024 Immunization Visit Patient:?MITRA ALANIS Provider:?Provider [facility] :1975???Age:49 Y???Sex:Female D ate:09/22/2024 Address:[address] [place], [place] [phone] Pcp:Terry Vasquez Subjective: * Chief Complaints: * ???1. Flu Vac. * HPI: ???General:? Client in for labs earlier then returned for Flu vac. * Medical History:? * Medications:?Taking Vitamin D3 10 mcg tablet 1 tab(s) orally once a day , Taking ofloxacin ophthalmic 0.3% solution 1 gtt in left eye 4 times a day , Taking naproxen 375 mg tablet 1 tab(s) orally 2 times a day Objective: * Vitals:? Assessment: * Assessment: 1.?Encounter for immunizatio n - Z23??? Plan: * Treatment: * Immunizations:? Influenza : 0.5 mL (Route: Intramuscular) given by Shaneka Edwards (Encounter for immunization) * Procedure Codes:?05447 Influ [facility] [id number], 48449 Admin single vacc * Follow Up:?prn * Images: Billing Information: * Visit Code:? * Procedure Codes:? 16321 Influenza, [facility] [id number]. 68831 ADMIN SINGLE VACC. * Sign off status: Completed true * Provider:?Provider [facility] Date:?09/22/2024 Generated for Ed ferrari/Mike/eTransmitting on:?09/28/2024 07:32 PM EST
--- OUTSIDE RECORDS SUMMARY | 2024-09-28 19:33 | XMS_ITS ---
Author Organization [facility] Address [address] [place], [place] [id number] Care Team Providers Care Art Preparator Name Role Phone ZayTerry cox Primary Care Provider [phone] [facility], Nursing Unavailable [phone] REASON FOR VISIT office: lab drawn, Symptom screening by [facility] staff pre entrance to clinic, Symptom screening by [facility] staff pre entrance to clinic Medications Medication SIG (Take, Route, Frequency, Duration) Notes Start Date End Date Status ofloxacin ophthalmic 0.3% 1 gtt in left eye 4 times a day for 5 days 09/20/2024 Active Vitamin D3 10 mcg 1 tab(s) orally once a day Active naproxen 375 mg 1 tab(s) orally 2 ti mes a day for 21 days 09/20/2024 Active Vital Signs Temperature 97.3 degrees Fahrenheit 09/22/20 24 Height 60 in 09/22/2024 Encounters Encounter Location Date Provider Diagnosis [address] [id number] 09/22/2024 Nursing [facility] Encounter for screening for COVID-19 Z11.52 and Encounter for screening, unspecified Z13.9 Assessments Encounter Date Diagnosis (ICD Code) Assessment Notes Treatment Notes Treatment Clinical Notes 09/22/2024 Encounter for screening for COVID-19 (ICD-10 [...] concerning symptoms for COVID-19. 09/22/2024 Encounter for screening, unspecified (ICD-10 - [...] drawn by:TRINH . Reviewed by: . 09/22/2024 Other Plan Of Treatment Treatment Notes Assessment Notes Encounter for screening for COVID-19 Cov id [...] you are having concerning symptoms for COVID-19. Encounter for screening, unspecified Veda gnostic labs drawn as ordered per protocol using [...] Labs drawn by:TRINH . Reviewed by: . Next Appt Details Follow Up: prn, Reason: Provider Name:Terry Vasquez, 11/11/2024 09:20:00 AM, [address] [place], [place], [id number], Progress Notes * MITRA ALANISDOB: [birth year] (49 yo F)Acc No.[id number]:09/22/2024 Progress Notes Patient:?MITRA ALANIS Provider:?Provider [facility] :1975???Age:49 Y???Sex:Female D ate:09/22/2024 Address:[address] [place], [place] [id number] Pcp:Terry Vasquez Subjective: * Chief Complaints: * ???1. Office: lab drawn. 2. Symptom screening by [facility] staff pre entrance to clinic. 3. Symptom screening by [facility] staff pre entrance to clinic. * HPI: ???General:? Symptom Screen: - Fever in the last 1 week? Patient denies - New or worsening cough in the last 1 week? Patient denies. - Contact will known COVID exposure in last 5 days? Patient denies -new rash within last 3 weeks? Patient denies - Have you received the COVID-19 vaccine?x2 - Have you received COVID-19 booster?x1 - Have you been tested positive for COVID -19 in the last 7 days? If so where and why? RN/MA:. * Medications:?Taking Vitamin D3 10 mcg tablet 1 tab(s) orally once a day , Taking ofloxacin ophthalmic 0.3% solution 1 gtt in left eye 4 times a day , Taking naproxen 375 mg tablet 1 tab(s) orally 2 times a day , Medication List reviewed and reconciled with the patient Objective: * Vitals:?Ht: 60, Temp: 97.3. Assessment: * Assessment: 1.?Encounter for screening f or COVID-19 - Z11.52 (Primary)???2.?Encounter for screening, unspecified - Z13.9??? Plan: * Treatment: 2.?Encounter for screening, unspecified? Notes: Diagnostic labs drawn as ordered per protocol [...] action. Labs drawn by:TRINH . Reviewed by: .?? * Procedure Codes:?97640 VENIP UNCT, ROUTINE*, 45552 SPECIMEN HANDLING * Follow Up:?prn * Images: Billing Information: * Visit Code:? * Procedure Codes:? 18313 VENIPUNCT, ROUTINE*. 85109 SPECIMEN HANDLING. * Sign off status: Completed Addendum: * ? true * Provider:?Provider [facility] Date:?09/22/2024 Generated for Ed ferrari/Mike/Pascualitting on:?09/28/2024 07:32 PM EST
== END 2024-09-27 10:00 | disposition home or self-care (01) ==
LOC: HO.HWS 09:44
PROVIDERS: Visit Provider Obstetrics & Gynecology
DX: N93.9 Abnormal uterine and vaginal bleeding, unspecified (principal)
CPT/HCPCS: 99213

== ENCOUNTER → 2024-09-27 09:44 | Outpatient (BNVA) | payer OTHER, SELFPAY | PROVIDERS: Visit Provider Obstetrics & Gynecology | DX: N93.9 Abnormal uterine and vaginal bleeding, unspecified (principal) | CPT/HCPCS: 99212 ==

== ENCOUNTER 2024-11-16 12:20 | Outpatient (AMB) | payer OTHER, SELFPAY ==
--- NOTE | 2024-11-16 12:22 | A.OFFVIS_ITS ---
Vital Signs 11/16/24 12:23 Height 5 ft Weight 145 lb 15.136 oz BMI 28.5 BP 90/50 L Blood Pressure Location Rt radial Position Sitting Pulse 70 Pulse Source Pulse Oximeter Pulse Oximetry (%) 98 Oxygen Delivery Method Room Air Intake Visit Reasons: gerd ibs constipation Intake Note: ESTABLISHED PATIENT for GERD mgmt Chief Complaint; Reflux has improved since last visit but still bothers her occasionally. Pt is taking medications as instructed and following dietary suggestions. No other GI concerns per pt. Child And Family Services Specialist Required: Yes Child And Family Services Specialist Services: Child And Family Services Specialist Present Child And Family Services Specialist Name: [id number] [place] Information Interpreted: clinical only Accompanied by: Self / Same As Patient Allergies No Known Allergies Allergy (Verified 11/16/24 12:23) HPI HPI gerd ibs constipation: Details: LAST VISIT Postprandial abdominal bloating History of Clostridioides difficile infection History of Helicobacter pylori infection GERD (gastroesophageal reflux disease) Constipation Plan Patient will continue on pantoprazole daily. Avoid dietary triggers and late night snacking. Staying upright for minimum 3 hours after meals discussed with patient. Patient's constipation could be related to her pelvic floor abnormality, caleb is not working, will send a script for Dulcolax. Increase fluid intake and activity to promote better bowel motility. Patient will follow- up in 3 months, sooner on as needed basis. She is agreeable to this plan and verbalizes understanding of instructions. She was given the opportunity to ask questions and all questions answered. ? Thank you for allowing me to participate in her care Medications New bisacodyl (Dulcolax (bisacodyl)) 10 mg (2 x 5 mg) PO BEDTIME 180 tabs 4RF Refilled cholecalciferol (vitamin D3) 50 mcg PO DAILY 90 caps 3RF R79.89 Discontinued sennosides Discontinued Reason: Doctor's Order 17.2 mg (2 x 8.6 mg) PO BEDTIME 180 tabs 3RF constipation K59.00 TODAY'S VISIT Patient is here today for follow-up. Patient reports that she is moving her bowels better now that she is taking Dulcolax. Patient is taking pantoprazole and her symptoms of acid reflux are suppressed for the most part. She however continues to have acid reflux and epigastric pain postprandially frequently. Previously took omeprazole and did not have good effects. History of H pylori and colitis per patient. Patient was treated and had upper endoscopy and colonoscopy done at [facility]. Will request medical records. Patient reports that she never saw GI provider, sent by her PCP at that time. Patient denies any dyspepsia, dysphagia or odynophagia. Denies melena, hematochezia, unintentional weight loss or ribbon like stools. [facility] Medical History History of Helicobacter pylori infection History of Clostridioides difficile infection Dysphagia GERD (gastroesophageal reflux disease) Gastritis Surgical History Hx of appendectomy Family History Mother Hepatic cancer Father Bladder cancer Social History Are you a primary medication care manager to a significant other at home: No Do you presently have visiting nurse or other home services: No Alcohol intake: never Patient Tobacco Use Status: Never used Tobacco Review of Systems Const Denies weight gain and Denies weight loss ENT Reports no additional complaints, Denies dysphagia and Denies odynophagia Card Reports no additional complaints Resp Reports no additional complaints GI Denies abdominal pain, Denies belching, Denies melena, Denies bloating, Denies change in bowel habits, Denies dysphagia, Denies excessive flatus, Denies dyspepsia, Denies heartburn, Denies diarrhea, Denies loose stools, Denies nausea, Denies odynophagia and Denies vomiting Musc Reports no additional complaints Neuro Reports no additional complaints Psych Reports no additional complaints Endo Reports no additional complaints Physical Exam Vital Signs: Last Vital Signs Pulse 70 11/16/24 12:23 BP 90/50 L 11/16/24 12:23 Pulse Ox 98 11/16/24 12:23 Oxygen Delivery Method Room Air 11/16/24 12:23 BMI result Body Mass Index 28.5 Const General: healthy appearing, no acute distress and well developed Nutritional Appearance: well nourished Orientation/consciousness: patient oriented x3 Resp Effort & Inspection: normal respiratory effort, able to speak in complete sentences, no tracheal deviation and symmetric chest movement Auscultation: clear to auscultation bilaterally Cardio Rate: regular rate GI Inspection: Yes normal to inspection and No distended Palpation (GI): Soft to palpation, not firm, nontender and No hepatosplenomegaly present Auscultation: normal bowel sounds General: Yes no CVA tenderness Back/Spine/Pelvis Back: no CVA tenderness Skin General skin exam: elasticity normal, turgor normal and dry skin Neuro General: patient oriented x3 Psych Appearance: grossly normal Mental Status: mental status grossly normal Assessment & Plan Assessment & Plan (1) Postprandial abdominal bloating: Code(s): R14.0 - Abdominal distension (gaseous) Category: Medical (2) History of Clostridioides difficile infection: Code(s): Z86.19 - Personal history of other infectious and parasitic diseases Category: Medical (3) History of Helicobacter pylori infection: Code(s): Z86.19 - Personal history of other infectious and parasitic diseases Category: Medical (4) GERD (gastroesophageal reflux disease): Code(s): K21.9 - Gastro-esophageal reflux disease without esophagitis Qualifiers: Esophagitis presence: esophagitis presence not specified Qualified Code(s): K21.9 - Gastro-esophageal reflux disease without esophagitis (5) Constipation: Code(s): K59.00 - Constipation, unspecified Qualifiers: Constipation type: slow transit constipation Qualified Code(s): K59.01 - Slow transit constipation Plan Medical records from [facility] requested, awaiting to review. Change PPI to Nexium. Avoid dietary triggers and late night snacking. Staying upright for minimum 3 hours after meals discussed with patient. Patient will continue taking Dulcolax daily. Increase fluid intake and activity to promote better bowel motility. Patient will return in 3 months, sooner on as needed basis. She is agreeable to this plan and verbalizes understanding of instructions. She was given the opportunity to ask questions and all questions answered. Thank you for allowing me to participate in her care Medications: New esomeprazole magnesium (Nexium) 40 mg PO DAILY 30 caps 5RF K21.9 - Gastro- esophageal reflux disease without esophagitis Discontinued pantoprazole Discontinued Reason: Doctor's Order 40 mg PO QAM 90 tabs 0RF K21.9 - Gastro-esophageal reflux disease without esophagitis Coding Level of Care Code Est Pt Level 4 (95946) Complex EM visit Add On G2211 Diagnoses Postprandial abdominal bloating R14.0 History of Clostridioides difficile infection Z86.19 History of Helicobacter pylori infection Z86.19 Gastroesophageal reflux disease, unspecified whether esophagitis present K21.9 Esophagitis presence: esophagitis presence not specified Slow transit constipation K59.01 Constipation type: slow transit constipation Time Spent (min) 35 Comment 20 minutes spent with patient and additional 15 minutes spent reviewing her records
[2024-11-16 12:23] VITALS: BP 90/50; PULSE 70; O2SAT 98; BMI 28.5
--- OUTSIDE RECORDS SUMMARY | 2024-11-16 14:37 | XMS_ITS | Encounter Summary ---
Author Organization [employer] Address [address] [place] [address] [address] [address] Care Team Providers Care Head Of Marketing Name Role Phone Vera Johnson PRINTING ROLLER POLISHER Primary Care Provider Corina Mcintyre PRINTING ROLLER POLISHER Primary Care Provider [phone] Encounter Details Date Type Department Care Team (Late st Contact Info) Description 02/23/2023 Orders Only [address] [address] Ban Rosa DMD [address] [place] [address] Social History Tobacco Use Types Packs/Day Years Used Date Smoking Tobacco: Never Smokeless Tobacco: Never Alcohol Use Standard Drinks/Week Comments Not Currently 0 (1 standard drink = 0.6 oz pur e alcohol) Comments Unknown Sex and Gender Information Value Date Recorded Sex Assigned at Female 08/15/2022 3:58 PM EDT Legal Sex Female 3:58 PM EDT Gender Identity Female 08/15/2022 3:58 PM EDT Sexual Orientation Straight 08/15/2022 3: 58 PM EDT COVID-19 Exposure Response Date Recorded In the last 10 days, have yo u been in contact with someone who was confirmed or suspected to have Coronavirus/COVID-19? No / Unsure 02/17/2023 2:30 PM EDT documented as of this encounter Plan of Treatment Not on file documented as of this encounter Visit Diagnoses Not on filedocumented in this encounter Care Teams Head Of Marketing Relationship Specialty Start Date End Date Vera Johnson NP PCP - General 06/25/22 09/01/23 Corian Shields NP [address] [place] [address] [address] [place] [address] PCP - General Family Medicine 09/02/23 documented as of this encounter
--- OUTSIDE RECORDS SUMMARY | 2024-11-16 14:37 | XMS_ITS | Patient Health Record ---
Author Organization [facility] Address [address] [place], [place] [id number] Care Team Providers Care Supervisor Grounds Name Role Phone Terry Vasquez Primary Care Provider [phone] [facility], Nursing Unavailable [phone] [facility], [facility] Unavailable [phone] Allergies No Known Allergies Results Component Value [...] 03:25:35 PM Interpretation:Negative Performing Lab:NL2, [facility] [id number] [id number] Reji Alcazar Notes/Report: NON-FASTING QUANTIFERON(R)-TB GOLD [...] T-lymphocytes. For additional information, please refer to https://education.BuyBox/faq/XBM427 (This link is being provided for informational/ [...] ti mes a day for 21 days Active Immunizations Vaccine Route Administration Date Status [...] (20 or more) IM Intramuscular 02/02/2024 Administered [facility] [id number] Tdap Unknown 03/27/2010 Administered H1N1 Influenza Unknown 10/26/2009 Administered Influenza Unknown 02/11/2018 Administered Afluria Unknown 02/07/2019 Administered Flu-IIV4, p-free Unknown 07/25/2022 Administered Influenza IM Intramuscular 09/22/2024 Administered Problems Problem Type SNOMED Code ICD Code Onset Dates Problem Status W/U Status Risk Notes Problem Keratoconus, stable condition (960387194) Keratoconus, stable, 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) Active confirmed Problem Conductive hearing loss, bilateral (084761102) Conductive hearing loss, bilateral (H90.0) Active confirmed Problem Hormone abnormality (21556235) Abnormal level of hormones in specimens from other organs, systems and tissues (R89.1) Active confirmed Problem Abnormal vision (8844004) Presence of spectacles and contact lenses (Z97.3) Active confirmed Problem Body mass index 25-29 - overweight (242878628) Body mass index [BMI] 28.0-28.9, adult (Z68.28) Active confirmed Vital Signs Temperature 97.3 degrees Fahrenheit 09/22/2024 Blood pressure diastolic 75 09/20/2024 Oximetry 99 09/20/2024 Height 60 in 09/22/2024 Blood pressure systolic 117 09/20/2024 Weight 147.4 lbs 09/20/2024 BMI 28.78 kg/m2 09/20/2024 Encounters Encounter Location Date Provider Diagnosis [address] [id number] 02/02/2024 Nursing [facility] Encounter for immunization Z23 [address] [id number] 02/11/2024 W [facility] Encounter for screening for respiratory tuberculosis Z11.[address] [id number] 04/08/2024 Terry Vasquez Encounter for screening for COVID-19 Z11.52 ; Abnormal level of hormones in specimens from other organs, systems and tissues R89.1 and Infectious gastroenteritis and colitis, unspecified A09 [address] [id number] 09/20/2024 Terry Vasquez Abnormal level of hormones in specimens from other organs, systems and tissues R89.1 ; Injury of conjunctiva and corneal abrasion without foreign body, left eye, initial encounter S05.02XA ; Encounter for screening for COVID-19 Z11.52 ; Other bursitis, not elsewhere classified, left ankle and foot M71.572 and Leiomyoma of uterus, unspecified D25.[address] [id number] 09/22/2024 Nursing [facility] Encounter for screening for COVID-19 Z11.52 and Encounter for screening, unspecified Z13.[address] [id number] 09/22/2024 Nursing [facility] Encounter for immunization Z23 [address] [id number] 02/11/2024 Nursing [facility] Encounter for screening for respiratory tuberculosis Z11.[address] [id number] 02/16/[address] [id number] 03/21/2024 Terry Vasquez [address] [id number] 04/08/2024 Terry Vasquez [address] [id number] 11/11/2024 Terry Vasquez Assessments Encounter Date Diagnosis (ICD [...] and tissues (ICD-10 - R89.1) w/u at obstetrician/gynecologist 09/20/2024 Injury of conjunctiva and corneal abrasion [...] gastroenteritis and colitis, unspecified (ICD-10 - A09) irvin wright better Says also had it 09/20/2024 Encounter [...] D25.9) sonds lie fibroid but bx pendign-sees obstetrician/gynecologist in a week 11/11/2024 Other 02/11/2024 Other Diagnostic labs drawn as ordered [...] Other will await PAP nd mammo from [facility] 09/20/2024 Other 09/22/2024 Other Plan Of Treatment Pending Test Test Name Order Date David Screening Digital 08/18/2023 Next Appt Details Provider Name:Terry Vasquez, 12/06/2024 03:20:00 PM, [facility] [place], [place], [id number], Insurance Providers Payer Name Payer Address Payer Phone Subscriber Number Group Number Insured Name Patient Relationship to Insured Coverage Start Date Coverage End Date [place] [employer] [address] [place], [place] [id number] MITRA ALANIS Self - patient is the insured 3 Medical (General) History Surgical History Surgery Date(Month/Year) appendectomy 06/2009
--- OUTSIDE RECORDS SUMMARY | 2024-11-16 14:37 | XMS_ITS | Clinical Summary ---
Author Organization [facility] Address [address] [place] [address] Phone Care Team Providers Care Software Quality Specialist Name Role Phone Physician, Pcp Unknown Primary Care Provider Sonya vailable Encounters Date Type Department Care Team Description 09/22/2024 Lab Requisition [facility] [address] [facility] [place] [address] [place] [phone] Terry Vasquez MD Abnormal level of hormones in specimens from other organs, systems and tissues from Last 3 Months Social History Tobacco Use Types Packs/Day Years Used Date Smoking Tobacco: Never Assessed Sex and Gender Information Value Date Recorded Sex Assigned at Not on file Gender Identity Not on file Sexual Orientation Not on file Job Start Date Occupation Industry Not on file Not on file Not on file Plan of Treatment Health Maintenance Due Date Last Done Comments Breast Cancer Screening 1975 DTaP,Tdap,and Td Vaccines (1 - Tdap) 1994 Hepatitis B Vaccines (1 of 3 - 19+ 3-dose series) 1994 Cervical Cancer Screening: P ap Smear 1996 Colorectal Cancer Screening: Colonoscopy 11/13/2023 Depression Screening 11/13/2023 HIV Screening 11/13/2023 Hepatitis C Screening 11/13/2023 Social Influencers of Health Screening 11/13/2023 COVID-19 Vaccine ( - 2023-2 5 season) 2024 Influenza Vaccine (#1) 2024 HIB Vaccines Aged Out No longer eligi ble based on patient's age to complete this topic HPV Vaccines Aged Out No longer eligi ble based on patient's age to complete this topic Hepatitis A Vaccines Aged Out No long er eligible based on patient's age to complete this topic IPV Vaccines Aged Out No longer eligi ble based on patient's age to complete this topic MMR Vaccines Aged Out No longer eligi ble based on patient's age to complete this topic Meningococcal ACWY Vaccine Aged Out N o longer eligible based on patient's age to complete this topic Pneumococcal Vaccine: Pediat rics (0 to 5 Years) and At-Risk Patients (6 to 64 Years) Aged Out No longer eligible b ased on patient's age to complete this topic RSV Immunization Patients Un brooke 20 months Aged Out No longer eligible b ased on patient's age to complete this topic Varicella Vaccines Aged Out No longer eligible based on patient's age to complete this topic Procedures Procedure Name Priority Date/Time Associated Diagnosis Comments VITAMIN D 25 HYDROXY Routine 09/22/2024 11:37 AM EST Abnormal level of hormones in specimens from other organs, systems and tissues BASIC METABOLIC PANEL Routine 09/22/2024 11:37 AM EST Abnormal level of hormones in specimens from other organs, systems and tissues from Last 3 Months Results * (ABNORMAL) Vitamin D 25 hydroxy (09/22/2024 11:37 AM EST) Vit D, 25-Hydroxy 28.5(L) 30.0 - 80.0 ng/mL LAB CHEMISTRY METHOD 09/22/2024 5:[address] [facility] Blood Venous blood specimen / Unknown 09/22/2024 11:37 AM EST 09/22/2024 4:24 PM EST Terry Vasquez MD LAB BLOOD ORDERABLES [facility] [address] [place] [address], * (ABNORMAL) Basic metabolic panel (09/22/2024 11:37 AM EST) Sodium 139 133 - 145 mmol/L LAB CHEMISTRY METHOD 09/22/2024 5:[address] [facility] Potassium 4.3 3.5 - 5.5 mmol/L LAB CHEMISTRY METHOD 09/22/2024 5:12 PM [facility] Chloride 109 96 - 110 mmol/L LAB CHEMISTRY METHOD 09/22/2024 5:12 PM [facility] CO2 26 21 - 32 mmol/L LAB CHEMISTRY METHOD 09/22/2024 5:12 PM [facility] Anion Gap 4 3 - 11 LAB CHEMISTRY METHOD 09/22/2024 5:12 PM [facility] Glucose 120(H) 70 - 100 mg/dL LAB CHEMISTRY METHOD 09/22/2024 5:12 PM [facility] BUN 10 5 - 25 mg/dL LAB CHEMISTRY METHOD 09/22/2024 5:12 PM [facility] Creatinine 0.72 0.50 - 1.10 mg/dL LAB CHEMISTRY METHOD 09/22/2024 5:12 PM [facility] eGFR 103 >=60 mL/min/1. 73m2 LAB CHEMISTRY METHOD 09/22/2024 5:12 PM [facility] Comment:Calculation based on the??Chronic Kidney Disease Epidemiology Collaboration (CKD-EPI) equation refit??without adjustment for race. BUN/Creatinine Ratio 13.9 LAB CHEMISTRY METHOD 09/22/2024 5:12 PM [facility] Calcium 9.2 8.5 - 10.5 mg/dL LAB CHEMISTRY METHOD 09/22/2024 5:12 PM [facility] Blood Venous blood specimen / Unknown 09/22/2024 11:37 AM EST 09/22/2024 4:24 PM EST Terry Vasquez MD LAB BLOOD ORDERABLES [facility] [address] [place] [address], from Last 3 Months Care Teams Software Quality Specialist Relationship Specialty Start Date End Date Physician, Pcp Unknown PCP - General 08/31/24
--- OUTSIDE RECORDS SUMMARY | 2024-11-16 14:37 | XMS_ITS ---
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 Medications Medication SIG (Take, Route, Frequency, Duration) Notes Start Date End Date Status ofloxacin ophthalmic 0.3% 1 gtt in left eye 4 times a day for 5 days 09/20/2024 Active Vitamin D3 10 mcg 1 tab(s) orally once a day Active naproxen 375 mg 1 tab(s) orally 2 ti mes a day for 21 days Active Encounters Encounter Location Date Provider Diagnosis [address] [id number] 11/11/2024 Terry Vasquez Encounter for screening for COVID-19 Z11.52 Assessments Encounter Date Diagnosis (ICD Code) Assessment Notes Treatment Notes Treatment Clinical Notes 11/11/2024 Encounter for screening for COVID-19 (ICD-10 - [...] you are having concerning symptoms for COVID-19. 11/11/2024 Other Plan Of Treatment Treatment Notes Assessment [...] you are having concerning symptoms for COVID-19. Next Appt Details Provider Name:Terry Vasquez, 12/06/2024 03:20:00 PM, [address] [place] [address], [phone], Progress Notes * ANNABELLECTBRYANDOB: [birth year] (49 yo F)Acc No.[id number]:11/11/2024 Progress Notes Patient:?ALANIS MITRA Provider:?Terry Vasquez MD :1975???Age:49 Y???Sex:Female D ate:11/11/2024 Address:[address] [place], [place] [id number] Subjective: * Chief Complaints: * ???1. Office: 1 mon f/u. 2. Symptom screening by [facility] staff pre entrance to clinic. 3. HUDDLE: COVID vax(MIISx3); doid she get rogerio done?(No-Has IndexTank) can she?; SDOH; PHQ-9. 4. 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 * HPI: ???General:? Symptom Screen: - Fever [...] If so where and why? RN/MA:. * ROS:?No acute C/P no acute SOB, [...] ?In the past 12 months has the [employer], gas, oil, or water BM[employer] threatened to shut off services in your [...] denies. ???PCP/last visit: last visit 09/2022 at [facility]. ???Transportation: Pt has access to vehicle. ???Marital Status: . ???Next of Kin/Emerg. Contact & Community Supports: Emergency contact: . ???Family relationships/conflicts: denies. ???Childhood experience?In fostercare/DYS for a portion of childhood?No ?Victim of physical abuse?No ?Victim of sexual abuse?No ?Adults at home using drugs/drinking excessivly?No ?Witness to violence/DV in childhood?No ???Children: son(s) 4. ???Druze: Faith. ???Social hx: Born in: [facility]. * Medications:?Taking Vitamin D3 10 mcg tablet 1 tab(s) orally once a day , Taking ofloxacin ophthalmic 0.3% solution 1 gtt in left eye 4 times a day , Taking naproxen 375 mg tablet 1 tab(s) orally 2 times a day * Allergies:?N.K.D.A. Objective: * Vitals:? Assessment: * Assessment: 1.?Encounter for screening f or COVID-19 - Z11.52 (Primary)??? Plan: * Treatment: * Images: Billing Information: * Visit Code:? * Procedure Codes:? Care Plan Details* * Electronic signature of Jackson Vasquez MD on 11/16/2024 at 02:37 PM EST Sign off status: Pending * Provider:?Terry Vasquez MD Date:?2024 Generated for Ed ferrari/Mike/Kim on:?11/16/2024 02:37 PM EST
--- OUTSIDE RECORDS SUMMARY | 2024-11-16 14:37 | XMS_ITS | Clinical Summary ---
Author Organization [facility] Address [address] [place] [address] [address] [place] [address] Care Team Providers Care Machine Adjuster Helper Name Role Phone Corina Shields CIVIL PROJECT ENGINEER Primary Care Provider Allergies No known active allergies Medications No known medications Active Problems Problem Noted Date Diagnosed Date Gastritis 06/24/2022 TMJ (temporomandibular joint disorder) Overview (11/04/2022): Last Assessment & Plan: Encouraged to continue use of mouth guard, will take time to adjust Counseled on reducing stressors as this can impact grinding at night Follow up prn Immunizations Name Administration Dates Next Due HepB-CpG 09/16/2021 Influenza injectable quadriv alent preservative free 07/25/2022 Influenza, IIV3, injectable 05/10/2019,0 02/11/2018,08/26/2014,2008,08/15/2008 Influenza, seasonal, injecta ble, preservative free 02/07/2019 Tdap 12/20/2019,03/27/2010 Social History Tobacco Use Types Packs/Day Years Used Date Smoking Tobacco: Never Smokeless Tobacco: Never Tobacco Cessation:Counseling Given: Not Answered Alcohol Use Standard Drinks/Week Comments Not Currently 0 (1 standard drink = 0.6 oz pur e alcohol) Comments Unknown Sex and Gender Information Value Date Recorded Sex Assigned at Female 08/15/2022 3:58 PM EDT Legal Sex Female 3:58 PM EDT Gender Identity Female 08/15/2022 3:58 PM EDT Sexual Orientation Straight 08/15/2022 3: 58 PM EDT Last Filed Vital Signs Vital Sign Reading Time Taken Comments Blood Pressure 120/79 11/04/2022 10:47 AM EST Pulse 86 11/04/2022 10:47 AM EST Temperature - - Respiratory Rate - - Oxygen Saturation 99% 07/25/2022 3:36 PM EDT Inhaled Oxygen Concentration - - Weight 64.9 kg (143 lb) 07/25/2022 3:36 PM EDT Height 149.9 cm (4' 11 ) 07/25/2022 3:36 PM EDT Body Mass Index 28.88 07/25/2022 3:36 PM EDT Plan of Treatment Health Maintenance Due Date Last Done Comments CT Colonography 1975 Colonoscopy 1975 Colorectal Cancer Screening 1975 Dental X-Ray: Bitewings 1975 Depression Screening 1975 FIT DNA/Cologuard 1975 FIT 1975 FOBT 1975 HIV Screening 1975 SDOH Screening 1975 Sigmoidoscopy 1975 Alcohol/Substance Use Screening 1987 Family Planning (PISQ) 1990 Hepatitis C Screening 1993 HPV/Cotest 2005 Hepatitis B Vaccines (2 of 2 - CpG 2-dose series) 10/14/2021 09/16/2021 Dental Oral Exam 05/05/2023 11/04/2022 Dental Prophylaxis 11/06/2023 05/05/2023, 11/04/2022 Tobacco Screening 05/05/2024 05/05/2023 Mammogram 05/13/2024 05/13/2022, 04/18, 03/28/2022, Additional history exists COVID-19 Vaccine ( season) 2024 12/03/2021, 03/19/2021, 02/18/2021 Influenza Vaccine (#1) 2024 , 05/10/2019, 02/07/2019, Additional history exists Zoster Vaccines (1 of 2) 2025 Cervical Cancer Screening 07/25/2025 Pap Smear 07/25/2025 07/25/2022 Dental X-Ray: Full Mouth 11/05/2025 11/04/2022 DTaP/Tdap/Td Vaccines (3 - Td or Tdap) 12/19/2029 12/20/2019, 03/27/2010 RSV Patients and Patients Aged 60 years or older (1 - 1-dose 75+ series) 2050 HIB Vaccines Aged Out No longer eligi [...] patient's age to complete this topic Meningococcal Vaccine Aged Out No flavia loki eligible based on patient's age to complete this topic Pneumococcal Vaccine: Pediatrics (0 to 5 Years) and At-Risk Patients (6 to 49) Years) Aged Out No longer eligible based on patient's age to complete this topic RSV under 20 months Aged Out No longe r eligible based on patient's age to complete this topic Rotavirus Vaccines Aged Out No longer eligible based on patient's age to complete this topic Procedures Procedure Name Priority Date/Time Associated Diagnosis Comments PROPHYLAXIS - ADULT Routine 05/05/2023 1 1:15 AM EDT PANORAMIC RADIOGRAPHIC IMAGE Routine 11/04/2022 10:45 AM EST Encounter for dental examination and cleaning with abnormal findings COMPREHENSIVE ORAL EVALUATION - NEW OR ESTABLISHED PATIENT Routine 11/04/2022 10:45 AM EST Encounter for dental examination and cleaning with abnormal findings ZZZ HISTORICAL FREDI LAB RESULT Routine 07/25/2022 4:05 PM EDT from Last 3 Months or Most Recently Relevant to Health Maintenance Results * HISTORICAL FREDI LAB RESULT (07/25/2022 4:05 PM EDT) Chlamydia Trachomatis RNA, TNA NOT DETECTED NOT DETECTED CONVERTED LEGACY LABS Neisseria Gonorrhoeae DNA, PCR NOT DETECTED NOT DETECTED CONVERTED LEGACY LABS trichomonal vaginitis NOT DETECTED NOT DETECTED CONVERTED LEGACY LABS pap smear, clinical information None given CONVERTED LEGACY LABS LMP (last menstrual period) onset date NONE GIVEN CONVERTED LEGACY LABS date of last PAP smear test NONE GIVEN CONVERTED LEGACY LABS Pap smear, previous biopsy NONE GIVEN CONVERTED LEGACY LABS Pap smear, source None given C ONVERTED LEGACY LABS PAP smear statement of adequacy Satisfactory for evaluation. Endocervical/bruce sformation zone component present. Age and/or menstrual status not provided CONVERTED LEGACY LABS Pap smear, thin prep, done Negative for intraepithelial lesion or malignancy. CONVERTED LEGACY LABS Pap smear comments This case could not be evaluated with computer assisted technology. The slide was manually screened according to routine procedures. CONVERTED LEGACY LABS Pap, packaging designer MXD, CT (ASCP) CT screening location: [place] [address] CONVERTED LEGACY LABS Pap smear review, packaging designer DCR, CT(ASCP) CT screening location: [place] [address] CONVERTED LEGACY LABS Human Papillomavirus test result Not Detected Not Detected CONVERTED LEGACY LABS 07/25/2022 4:0 5 PM EDT Vera Johnson NP HISTORICAL/NON ORDERABLE LABS F inal Result CONVERTED LEGACY LABS from Last 3 Months or Most Recently Relevant to Health Maintenance Insurance [employer] DENTAL - HSN PARTIAL (MEDICAID) Care Teams Machine Adjuster Helper Relationship Specialty Start Date End Date Corina Shields NP [address] [place] [address] [address] [place] [address] PCP - General Family Medicine 09/02/23
--- OUTSIDE RECORDS SUMMARY | 2024-11-16 14:38 | XMS_ITS | Encounter Summary ---
Author Organization [facility] [place] [address] Care Team Providers Care Glass Carrier Name Role Phone Physician, Pcp Unknown Primary Care Provider Sonya vailable Encounter Details Date Type Department Care Team (Late st Contact Info) Description 09/22/2024 Lab Requisition [facility] [address] [place] [phone] Terry Vasquez MD [address] [place] [address] Abnormal level of hormones in specimens from other organs, systems and tissues Social History Tobacco Use Types Packs/Day Years Used Date Smoking Tobacco: Never Assessed Sex and Gender Information Value Date Recorded Sex Assigned at Not on file Gender Identity Not on file Sexual Orientation Not on file Job Start Date Occupation Industry Not on file Not on file Not on file documented as of this encounter Plan of Treatment Not on file documented as of this encounter Procedures Procedure Name Priority Date/Time Associated Diagnosis Comments VITAMIN D 25 HYDROXY Routine 09/22/2024 11:37 AM EST Abnormal level of hormones in specimens from other organs, systems and tissues BASIC METABOLIC PANEL Routine 09/22/2024 11:37 AM EST Abnormal level of hormones in specimens from other organs, systems and tissues documented in this encounter Results * (ABNORMAL) Vitamin D 25 hydroxy (09/22/2024 11:37 AM EST) Vit D, 25-Hydroxy 28.5(L) 30.0 - 80.0 ng/mL LAB CHEMISTRY METHOD 09/22/2024 5:22 PM [facility] Blood Venous blood specimen / Unknown 09/22/2024 11:37 AM EST 09/22/2024 4:24 PM EST Terry Vasquez MD LAB BLOOD ORDERABLES [facility] [address] [place] [address], * (ABNORMAL) Basic metabolic panel (09/22/2024 11:37 AM EST) Sodium 139 133 - 145 mmol/L LAB CHEMISTRY METHOD 09/22/2024 5:12 PM [facility] Potassium 4.3 3.5 - 5.5 mmol/L LAB CHEMISTRY METHOD 09/22/2024 5:12 PM [facility] Chloride 109 96 - 110 mmol/L LAB CHEMISTRY METHOD 09/22/2024 5:12 PM [facility] CO2 26 21 - 32 mmol/L LAB CHEMISTRY METHOD 09/22/2024 5:12 PM [facility] Anion Gap 4 3 - 11 LAB CHEMISTRY METHOD 09/22/2024 5:12 PM [facility] Glucose 120(H) 70 - 100 mg/dL LAB CHEMISTRY METHOD 09/22/2024 5:12 PM [facility] BUN 10 5 - 25 mg/dL LAB CHEMISTRY METHOD 09/22/2024 5:12 PM [facility] Creatinine 0.72 0.50 - 1.10 mg/dL LAB CHEMISTRY METHOD 09/22/2024 5:12 PM [facility] eGFR 103 >=60 mL/min/1. 73m2 LAB CHEMISTRY METHOD 09/22/2024 5:12 PM [facility] Comment:Calculation based on the??Chronic Kidney Disease Epidemiology Collaboration (CKD-EPI) equation refit??without adjustment for race. BUN/Creatinine Ratio 13.9 LAB CHEMISTRY METHOD 09/22/2024 5:12 PM EST [facility] Calcium 9.2 8.5 - 10.5 mg/dL LAB CHEMISTRY METHOD 09/22/2024 5:12 PM EST [facility] Blood Venous blood specimen / Unknown 09/22/2024 11:37 AM EST 09/22/2024 4:24 PM EST Terry Vasquez MD LAB BLOOD ORDERABLES [facility] [address] [place] [address], documented in this encounter Visit Diagnoses Diagnosis Abnormal level of hormones in specimens from other organs, systems and tissues documented in this encounter Care Teams Glass Carrier Relationship Specialty Start Date End Date Physician, Pcp Unknown PCP - General 08/31/24 documented as of this encounter
--- OUTSIDE RECORDS SUMMARY | 2024-11-16 14:38 | XMS_ITS | Clinical Summary ---
Author Organization [facility] Address [address] [place] [address] Care Team Providers Care Press Setup Operator Name Role Phone Unavailable Primary Care Provider Unavailabl e Source Comments PLEASE NOTE, if this patient is a minor, it may be UNLAWFUL to discuss sensitive information that is contained in these records (such as FAMILY PLANNING, MENTAL HEALTH or SUBSTANCE ABUSE) with the minor patient's parent or other person without the patient's specific authorization.[facility] Allergies No known active allergies Medications naproxen (NAPROSYN) 500 mg tabletIndicatio ns:Shoulder impingement syndrome, right Take 1 Tab by mouth 2 (two) times daily with a meal 60 Tab 1 0 Active docusate sodium (COLACE) 100 mg capsuleIndicati ons:RLQ abdominal pain Take 1 Capsule by mouth once daily as needed for constipation 20 Capsule 1 Active acetaminophen (TYLENOL) 500 mg tabletIndicatio ns:RLQ abdominal pain Take 1 Tablet by mouth every 6 (six) hours as needed for pain 60 Tablet 1 Active hydrocortisone 2.5 % creamIndication s:External hemorrhoid Apply topically 2 (two) times daily 30 g 1 Active fexofenadine (ANDER) 180 mg tabletIndicatio ns:Allergic rhinitis, unspecified seasonality, unspecified trigger Take 1 Tablet by mouth once daily 90 Tablet 1 Active fluticasone propionate (FLONASE) 50 mcg/actuation nasal sprayIndication s:Allergic rhinitis, unspecified seasonality, unspecified trigger Place 1 [place] in both nostrils once daily 16 g 2 1 Active vitamin B complex capsuleIndicati ons:Restless leg syndrome Take 1 Capsule by mouth once daily 30 Capsule 1 Active multivitamin tabletIndicatio ns:Restless leg syndrome Take 1 Tablet by mouth once daily 30 Tablet 1 Active cholecalciferol , vitamin D3, (VITAMIN D3) 1,250 mcg (50,000 unit) tab tablet Take 1 Tablet by mouth once a week 12 Tablet 1 Active famotidine (PEPCID) 20 mg tabletIndicatio ns:Gastroesopha geal reflux disease without esophagitis TOME JOSE RAMON TABLETA DOS VECES AL YAMINI 180 Tablet 1 2 Active Active Problems Problem Noted Date Diagnosed Date Sensorineural hearing loss (SNHL) of both ears 1 11/19/2020 Overview (09/18/2021): Minimal Assessment & Plan (09/18/2021 1:54 PM EST): Aware to f/u with ENT if notices any decrease in hearing TMJ (temporomandibular joint disorder) 1 Assessment & Plan (09/18/2021 1:52 PM EST): Encouraged to continue use of mouth guard, will take time to adjust Counseled on reducing stressors as this can impact grinding at night Follow up prn Impingement syndrome of shoulder region 09/18/20 21 Assessment & Plan (09/18/2021 1:54 PM EST): 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 Pylori and trial omeprazole Discussed dietary modifications, lifestyle changes Follow up in 3 weeks History of COVID-19 10/06/2020 SAB (spontaneous ) 02/14/2019 Overview (02/25/2019): PLAN: Pt to RTO if pain does not improve 02/21/2019 - pt c/o pelvic and back pain since approx. yesterday. Bleeding has been improving. No other /GI sxs, no F/C, no other complaints. On PE, pain is best reproduced with palpation of the bladder. D/w pt empiric tx for possible UTI. Erx sent. Urine cx and SureSwab neg. 02/14/2019: office visit today, bleeding like a period 02/13/19: began having heavy bleeding and passing clots, ED eval revealed miscarriage Assessment & Plan (02/14/2019 5:10 PM EDT): -Appropriately sad today -Reviewed possible etiologies and explained the flu shot as cause was unlikely, see plan under Retained IUD -Asked about future fertility plans and she is uncertain at this time, advised no need to decide now. Recommended continuing PNV and waiting until next normal menstrual period before attempting -Pt expressed understanding and agreement with plan of care Carpal tunnel syndrome of right wrist 03/07/2018 Assessment & Plan (03/25/2018 3:22 PM EDT): S: pt reports improvement of CTS with PT, less pain bilaterally, using wrist splints but still has numbness and mild pain. Saw improvement with flexiril. O: see PE. A/P: continue PT, home exercises, NSAIDs for pain control and will see after ortho appointment. Assessment & Plan (03/07/2018 10:45 PM EDT): S: pt reports some increased dropping of objects, has never been given wrist splints, reports her decreased sensation and paresthesias occur over the entire palms and fingers (not isolated to the median nerve distribution). Feels mostly at night while sleeping. Had prior NCS showing CTS. O: see PE. A/P: rx for wrist splints sent, ortho referral to evaluate for steroid vs surgical intervention. Carpal tunnel syndrome of left wrist 03/07/2018 Assessment & Plan (03/25/2018 3:23 PM EDT): S: pt reports improvement of CTS with PT, less pain bilaterally, using wrist splints but still has numbness and mild pain. Saw improvement with flexiril. O: see PE. A/P: continue PT, home exercises, NSAIDs for pain control and will see after ortho appointment. Assessment & Plan (03/07/2018 10:45 PM EDT): S: pt reports some increased dropping of objects, has never been given wrist splints, reports her decreased sensation and paresthesias occur over the entire palms and fingers (not isolated to the median nerve distribution). Feels mostly at night while sleeping. Had prior NCS showing CTS. O: see PE. A/P: rx for wrist splints sent, ortho referral to evaluate for steroid vs surgical intervention. Keratoconus of both eyes 10/14/2016 Assessment & Plan (04/03/2020 1:26 PM EDT): Continues follow up with Dr. Mercedes Has appt with ophthalmology in May Aware to keep using contact lenses Mechanical breakdown of intrauterine contracepti ve device 08/17/2015 Overview (02/14/2019): 02/14/2019: pt wonders if this caused her SAB; noted on ED US 02/13 but not prior US on 01/24; Tim Joseph emailed to see if radiologist can compare US and comment 10/2017: US confirmation that there is still a piece of the IUD in the uterus>no need to attempt to remove it again if it is not causing issues per Dr. Wheeler 10/08/2017 using rhythm method. Today with new uterine ttp and discharge, tx'd presumptively for PID, obtain US, fu in one month for plan, discussed go to ED if fevers or worsening pain. hcg neg today PLAN: RTO for further discussion of contraceptive options at pt's convenience 11/06/15 - pt's partner changed mind about vasectomy, concerned that It will make me unable to have relations . D/w pt anatomy, physiology involved in vasectomy. Pt opted for Nuvaring for now and she will d/w partner again. 09/24/15 - D/w pt R/B/A of repeat attempted removal (would give Depo Provera or even Lupron to thin endometrium first), vs. Hysterectomy, vs. Expectant management. D/w pt rare, but possible risk of migration and subsequent rare risk of perforation of other intrabdominal structure such as intestines. Pt to consider options and discuss again. My recommendation was for expectant management due to inherent small but real risks with repeat procedures, that are probably larger than risk of further problems with IUD arm if left in-situ, although exact magnitude of different risks difficult to estimate. 09/18/15 - Dx Hysteroscopy - unable to visualize retained IUD arm - visualization was complicated by lush endometrium. Post-op plain film demonstrated what appears to be c/w arm in pelvis 08/17/15 - One arm broke during removal on (probably L arm) and is still inside the uterus. IUD was removed due to malposition found on U/S Assessment & Plan (02/14/2019 4:56 PM EDT): -informed pt that I was unsure as at the time of her visit, I had not seen the full US report -explained that given the change in size of her uterus that may have impacted the ability to visualize it and I would contact the radiologist for further information -recommended f/u to discuss further and she agrees Resolved Problems Problem Noted Date Diagnosed Date Resolved Date Abnormal mammogram of left breast 02/23/2019 11/06/2020 Overview (02/23/2019): ( ) F/U 02/23/19: Focal asymetry in left breast sub-areolar. Mammogram dept contacting the pt for f/u studies Hx of appendectomy 02/09/2019 Overview (02/09/2019): 2005 AMA>40 02/09/2019 04/03/2020 Overview (02/09/2019): [ ] BPPs at 36 wga 02/07/2019: counseled and declined aneuploidy screening. Told there's was a problem with her 3rd child and termination recommended, he's healthy. 02/07/2019 02/14/2019 Overview (02/14/2019): SAB 02/13/19 Routine PCP Mom: Kwame Medina MD PCP Baby: Regular OB provider: Expects: Circ: Support: Pain management: Feeding: PPBC: OB Checklist 02/07/2019 02/14/2019 Overview (02/09/2019): [] PHQ9 & SDH [x] Flu Vaccine [] Zika screen & counseling [x] Obesity added to problem list (or N/A) and early 1hr GTT done [x] Aspirin? (see .LOBASPIRINGUIDELINES) [x] Surgical History reviewed and added to the problem list [x] Genetic screen addressed. Details: declined [x] Genetics Screening results reviewed [] OB Intake & OB History reviewed (after CM entered) [x] OBPE heart/lungs @IPV [] Breast/pelvic [] TB Blood Test or PPD [] HIV results [] Initial labs reviewed [] Genetic carrier screening [] STU finalized in Dating module of chart [] OB Anatomy Survey ordered (13+) [] OB Anatomy Survey reviewed (18+) [] Tubal ligation addressed (24+) [] 26+ week labs ordered (26'0+) [] 26+ week labs reviewed [] TDaP (28+) [] Rhogam given if Rh neg (28) [] GBS sent (36'0+) [] Presentation confirmed (36+) by Subchorionic hematoma in first trimester 02/07/2019 02/14/2019 Overview (02/09/2019): 01/24/19: one episode of bleeding, hematoma noted on US Assessment & Plan (02/14/2019 5:05 PM EDT): -Reviewed with pt that this could be the cause of her SAB Adhesive capsulitis of right shoulder 03/07/2018 09/18/2021 Overview (11/06/2020): aw pain management on 11/02 for right shoulder adhesice capsulitis and subacromial bursitis. Given steroid injection in right subacromial space. Advised to cont with PT and chiropractor. Use OTC Bengay or BioFreeze. Repeat Corticosteroid injection in 3-4 months. Assessment & Plan (11/06/2020 1:01 PM EST): Some discomfort today;unable to tell if helping Has f/u appt in January Assessment & Plan (08/16/2020 2:10 PM EDT): Completed PT as directed, no improvement noted Hesitant to have steroid injection for pain, concerned about side effects, attempted to reassure however requesting a second opinion Rec to trial voltaren gel, alternate heat and ice Referral placed for ortho Assessment & Plan (03/07/2018 10:50 PM EDT): S: pt reports to have c/o chronic right shoulder pain described as achy and worse in all ROM, TTP over the lateral aspect but also with abduction. O: see PE. Negative NEERs/Hawkings signs A/P: shoulder not c/w impingement but still worrisome due to chronic pain and neuro symptoms. Pt to use tylenol, cyclobenzaprine, go to PT in preparation for orthopedic referral. Acute cystitis without hematuria 02/06/2017 03/25/2018 Assessment & Plan (02/06/2017 12:25 PM EDT): ASSESSMENT: UTI uncomplicated without evidence of pyelonephritis. 2-week hx of dysuria that have become severe PLAN: Treatment per orders - also push fluids, may use Pyridium OTC prn. Call or return to clinic prn if these symptoms worsen or fail to improve as anticipated. Gynecologic History 09/24/2015 02/12/20 18 Overview (09/24/2015): GynHx: 14/qmonth, reg/6-7d, nl paps, no STDs Immunizations Name Administration Dates Next Due Hep B,adult,adjuvanted (HEPLISAV) 09/16/2021 INFLUENZA VIRUS VACCINE P&EM IC FORMULATION 10/26/2009 INFLUENZA, SEASONAL, INJECTABLE 05/10/20 19,02/11/2018,08/26/2014,2008,08/15/2008 INFLUENZA, SEASONAL, INJECTA BLE, PRESERVATIVE FREE 02/07/2019 Moderna COVID-19 Vaccine, re d cap blue label, 12+ Primary Series 12/03/2021,03/19/2021,02/18/2021 TDAP 12/20/2019,03/27/2010 Family History Medical History Relation Name Comments Alzheimer's Disease Father Cancer Father urinary cancer Cancer Mother Cancer, pancrea tic Relationship: Mother Diabetes Mother D M Type II Rel ationship: Mother Vision Problems Mother Glaucoma Rel ationship: Mother Vision Problems Other Blindness Re lationship: Uncle Diabetes Sister Blindness Neg Glaucoma Neg Macular degeneration Neg Relation Name Status Comments Father Mother Other Sister Social History Tobacco Use Types Packs/Day Years Used Date Smoking Tobacco: Never Smokeless Tobacco: Never Tobacco Cessation:Counseling Given: No Alcohol Use Standard Drinks/Week Comments No 0 (1 standard drink = 0.6 oz pur e alcohol) Social Connections Answer Date Recorded Connectedness 0 06/25/2024 Financial Resource Strain Answer Date R ecorded Financial Resource Strain 0 2018 Stress Answer Date Recorded Stress 0 06/12/2019 Physical Activity Answer Date Recorded Physical Activity 0 06/12/2019 Food Insecurity Answer Date Recorded Food 0 11/06/2020 Transportation Needs Answer Date Record ed Transportation 0 11/06/2020 Housing Stability Answer Date Recorded Housing 0 11/06/2020 Safety and Environment Answer Date Delmar rded Safety 0 06/12/2019 Utilities Answer Date Recorded Utilities 0 11/06/2020 Employment Answer Date Recorded Stress 0 11/06/2020 Comments No Sex and Gender Information Value Date Recorded Sex Assigned at Female 10/07/2017 10:48 AM PST Legal Sex Female 8:34 PM PDT Gender Identity Female 10/07/2017 10:48 AM PST Sexual Orientation Straight 10/07/2017 10 :48 AM PST Last Filed Vital Signs Vital Sign Reading Time Taken Comments Blood Pressure 102/67 01/25/2022 8:49 AM EDT Pulse 71 01/25/2022 8:49 AM EDT Temperature 35.7 ??C (96.3 ??F) 01/25/2022 8:49 AM ED T Respiratory Rate 16 01/25/2022 8:49 AM EDT Oxygen Saturation 99% 11/19/2021 11:49 AM EST Inhaled Oxygen Concentration - - Weight 61.2 kg (135 lb) 01/25/2022 8:49 AM EDT Height 152 cm (4' 11.84 ) 11/19/2020 11:14 AM ES T Body Mass Index 26.51 11/19/2020 11:14 AM EST Plan of Treatment Health Maintenance Due Date Last Done Comments HPV Screening 1975 Hepatitis C Screening [address] Colonography 2020 FIT/gFOBT 2020 Fecal DNA 2020 Flexible Sigmoidoscopy 2020 Annual Preventive Care Visit 12/19/202012/2019, 07/28/2018, 12/19/2016, Additional history exists Pap Smear 07/27/2021 07/27/2018, 07/27/2018 Imm-Hepatitis B (2 of 2 - Cp G 2-dose series) 10/14/2021 09/16/2021 Relationship Safety Screening/Counseling 09/16/2022 09/16/2021, 12/20/2019, 02/11/2018 Hypertension Screening (#1) 01/25/2023 Cervical Cancer Screening 07/28/2023 Pap + HPV 07/28/2023 07/28/2018, 06/2018, 07/27/2018, Additional history exists Breast Cancer Screening (Mammogram) 05/13/2024 05/13/2022, 05/13/2022, 05/13/2022, Additional history exists Aed-MNGIW-83 ( season) 2024 12/03/2021, 03/19/2021, 02/18/2021 Imm-Influenza (#1) 2024 05/10/2019, 0 02/07/2019, 02/11/2018, Additional history exists Diabetes Screening 08/20/2024 08/20/2021, 0 07/11/2021, 04/15/2021, Additional history exists Alcohol and Drug Screen 10/19/2024 07/11/20 21, 11/06/2020, 11/06/2020, Additional history exists Depression Annual Screen 10/19/202407/11/2 021, 11/06/2020, 12/20/2019, Additional history exists Lipid Screening 12/19/2024 12/20/2019, 12/2019, 12/22/2016 Imm-DTaP/Tdap/Td (3 - Td or Tdap) 12/19/2029 020, 03/27/2010 Colonoscopy 08/26/2032 08/26/2022 Colorectal Cancer Screening 08/26/2032 HIV Screening Completed 02/11/2018 Hepatitis B Screening Completed 12/20/2019 Cervical Ablation/Cold-Knife Conization Discontinued Cervical Cryotherapy Discontinued Colposcopy Discontinued Endometrial Biopsy Discontinued Excision/Leep Discontinued HPV Genotyping Discontinued Vaginal Pap Discontinued Vulvoscopy Discontinued Procedures Procedure Name Priority Date/Time Associated Diagnosis Comments HISTORIC COLONOSCOPY 08/26/2022 3:00 AM EST HISTORIC MAMMOGRAM 05/13/2022 3: 00 AM EDT COMPREHENSIVE METABOLIC PANEL Routine 07/11/2021 11:20 AM EDT Nonintractable episodic headache, unspecified headache type HEPATITIS B SURFACE AG Routine 12/20/2019 3:51 PM EST Encounter for well adult exam without abnormal findings LIPID PANEL Routine 12/20/2019 3:51 PM EST Encounter for well adult exam without abnormal findings PAP WITH AGE-BASED SCREENING PROTOCOLS Routine 07/27/2018 8:00 PM EDT Encounter for Papanicolaou smear for cervical cancer screening HIV 1/2 AG & AB W/RFLX (4TH GEN) Routine 02/11/2018 3:41 PM EDT Screening examination for STD (sexually transmitted disease) from Last 3 Months or Most Recently Relevant to Health Maintenance Results * HISTORIC COLONOSCOPY (08/26/2022 3:00 AM EST) 08/26/2022 3:00 AM EST us Sidra Lockett NP PROCEDURES Final Result * HISTORIC MAMMOGRAM (05/13/2022 3:00 AM EDT) 05/13/2022 3:00 AM EDT Sidra Lockett SHEET TURNER IMG MAMMO Final Result * COMPREHENSIVE METABOLIC PANEL (07/11/2021 11:20 AM EDT) SODIUM 139 136 - 145 mmol/L [facility] POTASSIUM 4.3 3.6 - 5.1 mmol/L [facility] CHLORIDE 102 98 - 107 mmol/L [facility] CARBON DIOXIDE 27 22 - 32 mmol/L [facility] BUN 10 6 - 20 mg/dL [facility] CREATININE 0.61 0.4 - 1.0 mg/dL [facility] GLUCOSE 92 65 - 99 mg/dL [facility] ALBUMIN 4.4 3.5 - 5.2 g/dL [facility] TOTAL PROTEIN 7.2 6.1 - 8.1 g/dL [facility] CALCIUM 9.3 8.9 - 10.3 mg/dL [facility] ALK PHOS 66 32 - 100 U/L [facility] TOTAL BILIRUBIN 0.5 0.0 - 1.2 mg/dL [facility] AST 17 15 - 41 U/L [facility] ALT 24 10 - 35 U/L [facility] GLOBULIN 2.8 1.9 - 4.1 g/dL [facility] EGFR 109 60 - 128 mL/min/1.7 3m2 [facility] Comment:Estimated glomerular filtration rate calculated using the CKD-EPI equation. ANION GAP 10 3 - 17 mmol/L [facility] Comment:Processed and/or per formed at [address] [place] [address] Blood Blood / Unknown 07/11/2021 1 1:20 AM EDT Jose Bob MD LAB - BLOOD DRAW Final Resul t [address]?? [place] [address], [place] [phone] * HEPATITIS B SURFACE AG (12/20/2019 3:51 PM EST) Pathologist [facility] HBV SURFACE ANTIGEN Negative Negative [facility] Comment:Processed and/or per formed at [facility], [address] [place] [address] Blood specimen (specimen) Blood / Unknown 12/20/2019 3:51 PM EST Sidra Lockett NP LAB - BLOOD DRAW Final Result Performing Organization Address [facility]/ZIP Co de Phone Number [address]?? [place] [address], [place] [phone] * (ABNORMAL) LIPID PANEL (12/20/2019 3:51 PM EST) HDL 43 >39 mg/dL [facility] CHOLESTEROL 194 0 - 200 mg/dL [facility] TRIGLYCERIDE 233(H) 0 - 150 mg/dL [facility] LDL 104 40 - 130 mg/dL [facility] CARDIAC RISK RATIO 4.5 <5 [facility] NON HDL CHOL 151 mg/dL [facility] Comment: Reference Range: The non-HDL Cholesterol value should not exceed the desired LDL-C by more than 30 mg/dl. Processed and/or performed at [facility], [address] [place] [address] Blood specimen (specimen) Blood / Unknown 12/20/2019 3:51 PM EST Sidra Lockett NP LAB - BLOOD DRAW Final Result Performing Organization Address [facility] Co de Phone Number [address]?? [place] [address], [place] [phone] * PAP WITH AGE-BASED SCREENING PROTOCOLS (07/27/2018 8:00 PM EDT) COMMENT See Below [employer] Comment: This order for age-based cervical cancer and STI screening follows ACOG guidelines(PB 168, 140, LMD419). See individual assays for performing site location. Cytologic material (specimen) Cervix uteri structure / Unknown 07/27/2018 8:00 PM EDT 07/29/2018 2:33 AM EDT Narrative [employer] - 08/02/2018 11:43 AM EDT Performing Organization Information: [[id number]] ??: ??[facility], [address] [place] [phone] Director: TAYLOR PINEDO MD Lorenzo Adames CNM LAB - NO BLOOD DRAW Final Res ult Performing Organization Address [facility]/ZIP Co de Phone Number [employer] [address] [address], * HIV 1/2 AG & AB W/RFLX (4TH GEN) (02/11/2018 3:41 PM EDT) HIV AG/AB, 4TH GEN NON-REACT BRAYDEN NON-REACT BRAYDEN [employer] Comment: HIV-1 antigen and HIV-1/HIV-2 antibodies were not detected. There is no laboratory evidence of HIV infection. PLEASE NOTE: This information has been disclosed to you from records whose confidentiality may be protected by state law. ??If your state requires such protection, then the state law prohibits you from making any further disclosure of the information without the specific written consent of the person to whom it pertains, or as otherwise permitted by law. A general authorization for the release of medical or other information is NOT sufficient for this purpose. ?? For additional information please refer to http://education.[employer]/faq/GOQ114 (This link is being provided for informational/ educational purposes only.) The performance of this assay has not been clinically validated in patients less than 2 years old. Blood specimen (specimen) Blood / Unknown 02/11/2018 3:41 PM EDT 02/12/2018 4:15 AM EDT Narrative [employer] - 02/12/2018 7:33 AM EDT Performing Organization Information: [[id number]] ??: ??[facility], [address] [place] [phone] Director: TAYLOR PINEDO MD Kwame Medina MD LAB - BLOOD DRAW Final Result [facility] [address] [address], [place] from Last 3 Months or Most Recently Relevant to Health Maintenance
--- OUTSIDE RECORDS SUMMARY | 2024-11-16 14:38 | XMS_ITS ---
Author Organization [facility] Address [address] [place] [id number] Care Team Providers Care Tax Examining Technician Name Role Phone Terry Vasquez Primary Care Provider [facility], Nursing [facility] [phone] REASON FOR VISIT Flu Vac Medications Medication [...] Administered Encounters Encounter Location Date Provider Diagnosis [address] [id number] 09/22/2024 Nursing [facility] Encounter for immunization Z23 Assessments Encounter Date [...] Follow Up: prn, Reason: Provider Name:Terry Pedro, 12/06/2024 03:20:00 PM, [address] [place] [address], [phone], Progress Notes * MITRA ALANISDOB: [birth year] (49 yo F)Acc No.[id number]:09/22/2024 Immunization Visit Patient:?MITRA ALANIS Provider:?Provider [facility] :1975???Age:49 Y???Sex:Female D ate:09/22/2024 Address:[address] [place], [place] [phone] Pcp:Terry Vasquez Subjective: * Chief Complaints: * [...] Shaneka Edwards (Encounter for immunization) * Procedure Codes:?17893 Influ lucas [facility] [id number], [id number] Admin single vacc * Follow Up:?prn * Images: Billing Information: * Visit Code:? * Procedure Codes:? 32133 Influenza, [facility] [id number]. 94172 ADMIN SINGLE VACC. * Sign off status: Completed true * Provider:?Provider [facility] Date:?09/22/2024 Generated for Ed ferrari/Mike/eTransmitting on:?11/16/2024 02:37 PM EST
--- OUTSIDE RECORDS SUMMARY | 2024-11-16 14:38 | XMS_ITS ---
Author Organization [facility] Address [address] [place] [address] [phone] Care Team Providers Care Clerical Proofreader Name Role Phone Terry Vasquez Primary Care Provider [phone] REASON FOR VISIT Cancellation Note Encounters Encounter Location Date Provider Diagnosis [address] [id number] 11/11/2024 Terry Vasquez Plan Of Treatment Next Appt Details Provider Name:Terry Vasquez, 12/06/2024 03:20:00 PM, [address] [place] [address], [phone], Progress Notes * MITRA ALANISDOB: [birth year] (49 yo F)Acc No.[id number]:11/11/2024 Patient:?MITRA ALANIS :1975???Age:49 Y???Sex:Female Address:[address] [place] [address] * true * Date:? Generated for Ed ferrari/Mike/eTransmitting on:?11/16/2024 02:37 PM EST
== END 2024-11-16 13:26 | disposition home or self-care (01) ==
PROVIDERS: Visit Provider Nurse Practitioner Family
DX: R14.0 Abdominal distension (gaseous) (principal); Z86.19 Personal history of other infectious and parasitic diseases; K21.9 Gastro-esophageal reflux disease without esophagitis; K59.01 Slow transit constipation
CPT/HCPCS: 99214; G2211

== ENCOUNTER → 2024-11-16 12:20 | Outpatient (BNVA) | payer OTHER, SELFPAY | PROVIDERS: Visit Provider Nurse Practitioner Family | DX: K21.9 Gastro-esophageal reflux disease without esophagitis (principal); K58.1 Irritable bowel syndrome with constipation; K59.01 Slow transit constipation; R14.0 Abdominal distension (gaseous); Z86.19 Personal history of other infectious and parasitic diseases | CPT/HCPCS: 99212 ==

== ENCOUNTER 2025-01-24 15:34 | Outpatient (AMB) | payer OTHER, SELFPAY ==
--- NOTE | 2025-01-24 15:39 | MHC.OFFVIS ---
Vital Signs 01/24/25 15:50 Height 5 ft Weight 145 lb BMI 28.3 BP 120/70 Intake Visit Reasons: medication follow up Log Yard Derrick Operator Required: Yes Log Yard Derrick Operator Language: Skills Instructor Services: Log Yard Derrick Operator Present (in person) Log Yard Derrick Operator Name: Toya NIETO Information Interpreted: non-clinical & clinical Accompanied by: Self / Same As Patient Allergies No Known Allergies Allergy (Verified 01/24/25 15:51) HPI Comments Details: Presenting for Provera follow-up doing well with no complaints, taking Provera 10 mg p.o. q.d. day 15-24 cyclicly, her menstrual cycles are regular and light. [facility] Medical History History of Helicobacter pylori infection History of Clostridioides difficile infection Dysphagia GERD (gastroesophageal reflux disease) Gastritis Surgical History Hx of appendectomy Family History Mother Hepatic cancer Father Bladder cancer Social History Are you a primary family day care worker to a significant other at home: No Do you presently have visiting nurse or other home services: No Alcohol intake: never Patient Tobacco Use Status: Never used Tobacco Review of Systems Const All systems reviewed & are unremarkable except as noted in HPI and below Reports as per HPI and Reports no additional complaints GI Reports no additional complaints Reports no additional complaints Physical Exam Vital Signs: Last Vital Signs BP 120/70 01/24/25 15:50 BMI result Body Mass Index 28.3 Assessment & Plan Assessment & Plan (1) Abnormal uterine bleeding (AUB): Comment: Perimenopause, proliferative endo abn endo by us s/p polypectomy Code(s): N93.9 - Abnormal uterine and vaginal bleeding, unspecified Category: Medical Plan: Provera 10 mg p.o. q.d. day 15-24 sent to the patient's pharmacy, instructions given to patient to schedule next screening mammogram in 04/12 and to call in case of abnormal uterine bleeding. All questions answered the patient verbalized understand Medications: Refilled medroxyprogesterone (Provera) start Provera 1 tablet daily from day 15-24 cyclically every months, day 1 being 1st day of menses 10 mg PO DAILY 10 days 30 tabs 3RF Coding Level of Care Code Est Pt Level 3 (54807) Diagnoses Abnormal uterine bleeding (AUB) N93.9
[2025-01-24 15:50] VITALS: BP 120/70; BMI 28.3
--- OUTSIDE RECORDS SUMMARY | 2025-01-24 18:32 | XMS_ITS ---
Author Organization [facility] Address [address] [place] [address] [phone] Care Team Providers Care Vp Packaging Name Role Phone Terry Vasquez Primary Care Provider REASON FOR VISIT Cancellation Note Encounters Encounter Location Date Provider Diagnosis [address] [id number] 11/11/2024 Terry Vasquez Plan Of Treatment Next Appt Details Provider Name:Terry Vasquez, 02/14/2025 03:40:00 PM, [address] [place] [address], [phone], Progress Notes * MITRA ALANISDOB: [birth year] (49 yo F)Acc No.[id number]:11/11/2024 Patient:?MITRA ALANIS :1975???Age:49 Y???Sex:Female Address:[address] [place] [address] * true * Date:? Generated for Candidai vega/Mike/eTransmitting on:?01/24/2025 06:32 PM EDT
--- OUTSIDE RECORDS SUMMARY | 2025-01-24 18:32 | XMS_ITS | Clinical Summary ---
Author Organization [facility] Address [address] [place] [address] Phone Care Team Providers Care Energy Trading Analyst Name Role Phone Physician, Pcp Unknown Primary Care Provider Sonya vailable Social History Tobacco Use Types Packs/Day Years Used Date Smoking Tobacco: Never Assessed Comments Unknown Sex and Gender Information Value Date Recorded Sex Assigned at Female 12/16/2024 10:29 PM EST Legal Sex Female 9:01 PM EST Gender Identity Female 12/16/2024 10:29 PM EST Sexual Orientation Not on file Plan of Treatment Health [...] patient's age to complete this topic Meningococcal B Vaccine Aged Out No l onger eligible based on patient's age to complete [...] on patient's age to complete this topic Insurance [place] Care Teams Energy Trading Analyst Relationship Specialty Start Date End Date Physician, Pcp Unknown PCP - General 12/16/24
--- OUTSIDE RECORDS SUMMARY | 2025-01-24 18:32 | XMS_ITS | Clinical Summary ---
Author Organization [facility] Address [address] [place] [address] Care Team Providers Care Java Tech Lead Name Role Phone Unavailable Primary Care Provider [...] rhinitis, unspecified seasonality, unspecified trigger Place 1 [place] in both nostrils once daily 16 g [...] History of COVID-19 10/06/2020 SAB (spontaneous ) ([facility]) 02/14/2019 Overview (02/25/2019): PLAN: Pt to RTO [...] 3rd child and termination recommended, he's healthy. ([facility]) 02/07/2019 02/15/20 19 Overview (02/14/2019): SAB 02/13/19 Routine PCP Mom: [...] Presentation confirmed (36+) by Subchorionic hematoma in fir st trimester ([facility]) 02/07/2019 02/14/2019 Overview (02/09/2019): 01/24/19: one episode [...] 14/qmonth, reg/6-7d, nl paps, no STDs Immunizations Immunization Administration Dates Next Due Hep B,adult,adjuvanted (HEPLISAV) [...] Health Maintenance Due Date Last Done Comments Anxiety Screening 1975 HPV Screening 1975 Hepatitis C Screening 1975 [...] Screening 07/28/2023 Pap + HPV 07/28/2023 07/28/2018, 1006/2018, 07/27/2018, Additional history exists Breast Cancer Screening (Mammogram) 05/13/2024 05/13/2022, 05/13/2022, 05/13/2022, Additional history exists [id number] ( season) 2024 12/03/2021, 03/19/2021, 02/18/2021 Imm-Influenza (#1) 2024 05/10/2019, 0 02/07/2019, 02/11/2018, Additional history exists Diabetes Screening 08/20/2024 08/20/2021, 0 07/11/2021, 04/15/2021, Additional history exists Alcohol and Drug Screen 10/19/202420 21, 11/06/2020, 11/06/2020, Additional history exists Depression Annual Screen 10/19/2024 021, 11/06/2020, 12/20/2019, Additional history exists Lipid Screening 12/19/2024 12/20/2019, 12/2019, 12/22/2016 Imm-DTaP/Tdap/Td (3 - Td or Tdap) 12/19/2029 020, 03/27/2010 Colonoscopy 08/26/2032 08/26/2022 Colorectal Cancer Screening 08/26/2032 HIV Screening Completed 02/11/2018 Cervical Ablation/Cold-Knife Conization Discontinued Cervical Cryotherapy Discontinued Colposcopy Discontinued Endometrial Biopsy Discontinued Excision/Leep Discontinued HPV Genotyping Discontinued Vaginal Pap Discontinued Vulvoscopy Discontinued Procedures Procedure Name Priority Date/Time Associated Diagnosis Comments HISTORIC COLONOSCOPY 08/26/2022 3:00 AM EST HISTORIC MAMMOGRAM 05/13/2022 3: 00 AM EDT COMPREHENSIVE METABOLIC PANEL Routine 07/11/2021 11:20 AM EDT Nonintractable episodic headache, unspecified headache type LIPID PANEL Routine 12/20/2019 3:51 PM EST [...] 3:00 AM EDT) 05/13/2022 3:00 AM EDT us Sidra Lockett NP IMG MAMMO Final Result * COMPREHENSIVE METABOLIC PANEL (07/11/2021 11:20 AM EDT) SODIUM 139 136 - 145 mmol/L [facility] POTASSIUM 4.3 3.6 - 5.1 mmol/L [facility] CHLORIDE 102 98 - 107 mmol/L [facility] CARBON DIOXIDE 27 22 - 32 mmol/L [facility] BUN 10 6 - 20 mg/dL [facility] CREATININE 0.61 0.4 - 1.0 mg/dL [facility] GLUCOSE 92 65 - 99 mg/dL [facility] ALBUMIN 4.4 3.5 - 5.2 g/dL [facility] TOTAL PROTEIN 7.2 6.1 - 8.1 g/dL [facility] CALCIUM 9.3 8.9 - 10.3 mg/dL [facility] ALK PHOS 66 32 - 100 U/L [facility] TOTAL BILIRUBIN 0.5 0.0 - 1.2 mg/dL [facility] AST 17 15 - 41 U/L [facility] ALT 24 10 - 35 U/L [facility] GLOBULIN 2.8 1.9 - 4.1 g/dL [facility] EGFR 109 60 - 128 mL/min/1.7 3m2 [facility] Comment:Estimated glomerular filtration rate calculated using the CKD-EPI equation. ANION GAP 10 3 - 17 mmol/L [facility] Comment:Processed and/or per formed at [address] [place] [address] Blood Blood / Unknown 07/11/2021 1 1:20 AM EDT us Jose Bob MD LAB - BLOOD DRAW Final Resul t [address]?? [facility] [place] [address], [place] [phone] * (ABNORMAL) LIPID PANEL (12/20/2019 3:51 PM EST) HDL 43 >39 mg/dL [facility] CHOLESTEROL 194 0 - 200 mg/dL [facility] TRIGLYCERIDE 233(H) 0 - 150 mg/dL [facility] LDL 104 40 - 130 mg/dL [facility] CARDIAC RISK RATIO 4.5 <5 [facility] NON HDL CHOL 151 mg/dL [facility] Comment: Reference Range: The non-HDL Cholesterol value should not exceed the desired LDL-C by more than 30 mg/dl. Processed and/or performed at [facility], [address] [place] [address] Blood specimen (specimen) Blood / Unknown 12/20/2019 3:51 PM EST us Sidra Lockett NP LAB - BLOOD DRAW Final Result [address] [place] [address], [place] [phone] * PAP WITH AGE-BASED SCREENING PROTOCOLS (07/27/2018 8:00 PM EDT) COMMENT See Below [facility] Comment: This order for age-based cervical cancer and STI screening follows ACOG guidelines(PB 168, 140, ETH081). See individual assays for performing site location. Cytologic material (specimen) Cervix uteri structure / Unknown 07/27/2018 8:00 PM EDT 07/29/2018 2:33 AM EDT Narrative [facility] - 08/02/2018 11:43 AM EDT Performing Organization Information: [927] ??: ??[employer], [address] [place] [address],[address], [place] [address] Director: TAYLOR PINEDO MD us Lorenzo Adames CNM LAB - NO BLOOD DRAW Final Res ult [facility] [address] [place] [address], * HIV 1/2 AG & AB W/RFLX (4TH GEN) (02/11/2018 3:41 PM EDT) HIV AG/AB, 4TH GEN NON-REACT BRAYDEN NON-REACT BRAYDEN [facility] Comment: HIV-1 antigen and HIV-1/HIV-2 antibodies were [...] ?? For additional information please refer to http://education.[employer]/faq/TKP406 (This link is being provided for informational/ educational purposes only.) The performance of this assay has not been clinically validated in patients less than 2 years old. Blood specimen (specimen) Blood / Unknown 02/11/2018 3:41 PM EDT 02/12/2018 4:15 AM EDT Narrative [facility] - 02/12/2018 7:33 AM EDT Performing Organization Information: [927] ??: ??[employer], [address] [place] [address],[address], [place] [address] Director: TAYLOR PINEDO MD Kwame Medina MD LAB - BLOOD DRAW Final Result [facility] [address] [place] [address], from Last 3 Months or Most Recently Relevant to Health Maintenance
--- OUTSIDE RECORDS SUMMARY | 2025-01-24 18:32 | XMS_ITS ---
Author Organization [facility] Address [address] [place] [phone] Care Team Providers Care Conveyor Installer Name Role Phone ZayNaif coxw Primary Care Provider REASON FOR VISIT Office; f/u, Symptom screening by [facility] staff pre entrance to clinic, HUDDLE: COVID vaxl; SDOH; PHQ-9, VIST: discuss lipids; eye care Encounters Encounter Location Date Provider Diagnosis [address] [id number] 12/06/2024 Terry Vasquez Encounter for screening for COVID-19 Z11.52 Assessments Encounter Date Diagnosis (ICD Code) Assessment Notes Treatment Notes Treatment Clinical Notes 12/06/2024 Encounter for screening for COVID-19 (ICD-10 - [...] you are having concerning symptoms for COVID-19. 12/06/2024 Other Plan Of Treatment Treatment Notes Assessment [...] COVID-19. Next Appt Details Provider Name:Terry Vasquez, 02/14/2025 03:40:00 PM, [address] [facility], [place], [place], [phone], Progress Notes * MITRA ALANISDOB: [birth year] (49 yo F)Acc No.[id number]:12/06/2024 Progress Notes Patient:?MITRA ALANIS Provider:?Terry Vasquez MD :1975???Age:49 Y???Sex:Female D ate:12/06/2024 Address:[address] [place], [place] [phone] Subjective: * Chief Complaints: * ???1. Office; f/u. 2. Sympto m screening by [facility] staff pre entrance to clinic. 3. HUDDLE: COVID vaxl; SDOH; PHQ-9. 4. VIST: discuss lipids; eye care. * HPI: ???General:? Symptom Screen: - Fever [...] Denies new skin rashes. * Medical History:? Objective: * Vitals:? Assessment: * Assessment: 1.?Encounter for screening f or COVID-19 - Z11.52 (Primary)??? Plan: * Treatment: * Images: Billing Information: * Visit Code:? * Procedure Codes:? Care Plan Details* * Electronic signature of Andmonica Vasquez MD on 01/24/2025 at 06:31 PM EDT Sign off status: Pending * Provider:?Terry Vasquez MD Date:?2024 Generated for Ed ferrari/Mike/Kim on:?01/24/2025 06:31 PM EDT
--- OUTSIDE RECORDS SUMMARY | 2025-01-24 18:32 | XMS_ITS | Clinical Summary ---
Author Organization [facility] Address [address] [place] [address] 7 [place] [address] Care Team Providers Care Telesales Manager Name Role Phone Unavailable Primary Care Provider Unavailabl e Allergies No known active allergies Medications No known medications Active Problems Problem Noted Date Diagnosed Date Gastritis 06/24/2022 TMJ (temporomandibular joint disorder) 1 Overview (11/04/2022): Last Assessment & Plan: Encouraged [...] Planning (PISQ) 1990 Hepatitis C Screening 1993 Hepatitis A Vaccines (1 of 2 - Risk 2-dose series) 1994 HPV/Cotest 2005 Hepatitis B Vaccines (2 of [...] to routine procedures. CONVERTED LEGACY LABS Pap, log hauler MXD, CT (ASCP) CT screening location: [address] [address] CONVERTED LEGACY LABS Pap smear review, log hauler DCR, CT(ASCP) CT screening location: [address] [address] CONVERTED LEGACY LABS Human Papillomavirus test result Not Detected Not Detected CONVERTED LEGACY LABS 07/25/2022 4:05 PM EDT Vera Johnson CATHODE WASHER HISTORICAL/NON ORDERABLE LABS F inal Result CONVERTED LEGACY LABS from Last 3 Months or Most Recently Relevant to Health Maintenance Insurance [employer] DENTAL - HSN PARTIAL (MEDICAID)
--- OUTSIDE RECORDS SUMMARY | 2025-01-24 18:32 | XMS_ITS ---
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, Symptom screening by [facility] staff pre entrance to clinic Problems Problem Type SNOMED Code ICD Code Onset Dates Problem Status W/U Status Risk Notes Problem Fatty liver (352978658) Fatty (change of) liver, not elsewhere classified (K76.0) Active confirmed Encounters Encounter Location Date Provider Diagnosis [address] [id number] 12/30/2024 Terry Vasquez Fatty (change of) liver, not elsewhere classified K76.0 and Encounter for screening for COVID-19 Z11.52 Assessments Encounter Date Diagnosis (ICD Code) Assessment Notes Treatment Notes Treatment Clinical Notes 12/30/2024 Fatty (change of) liver, not elsewhere classified (ICD-10 - K76.0) 12/30/2024 Encounter for screening for COVID-19 (ICD-10 - [...] you are having concerning symptoms for COVID-19. 12/30/2024 Other Plan Of Treatment Treatment Notes Assessment [...] you are having concerning symptoms for COVID-19. Pending Test Test Name Order Date CBC 12/30/2024 COMPREHENSIVE METABOLIC PANEL 12/30/2024 Next Appt Details Provider Name:Terry Pedro, 02/14/2025 03:40:00 PM, [address] [place] [address], [phone], Progress Notes * MITRA ALANISDOB: [birth year] (49 yo F)Acc No.[id number]:12/30/2024 Progress Notes Patient:?MITRA ALANIS Provider:?Terry Vasquez MD :1975???Age:49 Y???Sex:Female D ate:12/30/2024 Address:[address] [place], [place] [phone] Subjective: * Chief Complaints: * ???1. Office; f/u. 2. HUDDLE : COVID vax(MIIS x3); SDOH; PHQ-9; mammogram; labs today. 3. 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 4. Symptom screening by [facility] staff pre entrance to clinic. * HPI: [...] ?In the past 12 months has the [employer], gas, oil, or water [employer] threatened to shut off services in your [...] denies. ???PCP/last visit: last visit 09/2022 at [facility]. ???Transportation: Pt has access to vehicle. ???Marital Status: . ???Next of Kin/Emerg. Contact & Community Supports: Emergency contact: . ???Family relationships/conflicts: denies. ???Childhood experience?In fostercare/DYS for a portion of childhood?No ?Victim of physical abuse?No ?Victim of sexual abuse?No ?Adults at home using drugs/drinking excessivly?No ?Witness to violence/DV in childhood?No ???Children: son(s) 4. ???Anabaptist: Muslim. ???Social hx: Born in: [facility]. * Allergies:?N.K.D.A. Objective: * Vitals:? Assessment: * Assessment: 1.?Fatty (change of) liver, not elsewhere classified - K76.0 (Primary)???2.?Encounter for screening for COVID-19 - Z11.52??? Plan: * Treatment: 2.?Encounter for screening f or COVID-19? Notes:Covid screening [...] you are having concerning symptoms for COVID-19.?? * Images: Billing Information: * Visit Code:? * Procedure Codes:? Care Plan Details* * Electronic signature of Andr parag Vasquez MD on 01/24/2025 at 06:31 PM EDT Sign off status: Pending * Provider:?Terry Vasquez MD Date:?2024 Generated for Ed ferrari/Mike/eTransmitting on:?01/24/2025 06:31 PM EDT
--- OUTSIDE RECORDS SUMMARY | 2025-01-24 18:32 | XMS_ITS | Patient Health Record ---
Author Organization [facility] Address [address] [place], [place] [phone] Care Team Providers Care Metallographic Technician Name Role Phone Terry Vasquez Primary Care Provider [facility], Nursing Unavailable [phone] [facility], CH[facility] Unavailable [phone] Allergies No Known Allergies Results Component Value [...] 03:25:35 PM Interpretation:Negative Performing Lab:NL2, [facility] [id number] [id number] Reji Alcazar Notes/Report: NON-FASTING QUANTIFERON(R)-TB GOLD [...] T-lymphocytes. For additional information, please refer to https://education.[employer]/faq/HAJ043 (This link is being provided for informational/ [...] (20 or more) IM Intramuscular 02/02/2024 Administered [facility] [id number] Tdap Unknown 03/27/2010 Administered H1N1 Influenza Unknown 10/26/2009 Administered Influenza Unknown 02/11/2018 Administered Afluria Unknown 02/07/2019 Administered Flu-IIV4, p-free Unknown 07/25/2022 Administered Influenza IM Intramuscular 09/22/2024 Administered Problems Problem Type SNOMED Code ICD Code Onset Dates Problem Status W/U Status Risk Notes Problem Keratoconus, stable condition (087453389) Keratoconus, stable, 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) Active confirmed Problem Conductive hearing loss, bilateral (095694151) Conductive hearing loss, bilateral (H90.0) Active confirmed Problem Fatty liver (899139664) Fatty (change of) liver, not elsewhere classified (K76.0) Active confirmed Problem Hormone abnormality (56196369) Abnormal level of hormones in specimens from other organs, systems and tissues (R89.1) Active confirmed Problem Abnormal vision (7644671) Presence of spectacles and contact lenses (Z97.3) Active confirmed Problem Body mass index 25-29 - overweight (818644052) Body mass index [BMI] 28.0-28.9, adult (Z68.28) Active confirmed Vital Signs Temperature 97.3 degrees Fahrenheit 09/22/2024 Blood pressure diastolic 75 09/20/2024 Oximetry 99 09/20/2024 Height 60 in 09/22/2024 Blood pressure systolic 117 09/20/2024 Weight 147.4 lbs 09/20/2024 BMI 28.78 kg/m2 09/20/2024 Encounters Encounter Location Date Provider Diagnosis [address] [id number] 02/02/2024 Nursing [facility] Encounter for immunization Z23 [address] [id number] 02/11/2024 [facility] Encounter for screening for respiratory tuberculosis Z11.[address] [id number] 04/08/2024 Terry Vasquez Encounter for screening for COVID-19 Z11.52 ; Abnormal level of hormones in specimens from other organs, systems and tissues R89.1 and Infectious gastroenteritis and colitis, unspecified A09 [address] [id number] 09/20/2024 Terry Vasquez Abnormal level of hormones in specimens from other organs, systems and tissues R89.1 ; Injury of conjunctiva and corneal abrasion without foreign body, left eye, initial encounter S05.02XA ; Encounter for screening for COVID-19 Z11.52 ; Other bursitis, not elsewhere classified, left ankle and foot M71.572 and Leiomyoma of uterus, unspecified D25.[address] [id number] 09/22/2024 Nursing [facility] Encounter for screening for COVID-19 Z11.52 and Encounter for screening, unspecified Z13.[address] [id number] 09/22/2024 [facility] Encounter for immunization Z23 [address] [id number] 02/11/2024 [facility] Encounter for screening for respiratory tuberculosis Z11.[address] [id number] 02/16/[address] [id number] 03/21/2024 Terry Vasquez [address] [id number] 04/08/2024 Terry Vasquez [address] [id number] 11/11/2024 Terry Vasquez Assessments Encounter Date Diagnosis [...] and tissues (ICD-10 - R89.1) w/u at integrity director 09/20/2024 Injury of conjunctiva and corneal abrasion [...] gastroenteritis and colitis, unspecified (ICD-10 - A09) cAna María dif better Says also had it 09/20/2024 [...] D25.9) sonds lie fibroid but bx pendign-sees integrity director in a week 11/11/2024 Other 12/06/2024 Other 12/30/2024 Other 02/11/2024 Other Diagnostic labs drawn as [...] will await PAP nd mammo from [facility] 09/20/2024 Other 09/22/2024 Other Plan Of Treatment Pending Test Test Name Order Date David Screening Digital 08/18/2023 Next Appt Details Provider Name:Terry Vasquez, 02/14/2025 03:40:00 PM, [address] [place] [address], [place], [place], [phone], Insurance Providers Payer Name Payer Address Payer Phone Subscriber Number Group Number Insured Name Patient Relationship to Insured Coverage Start Date Coverage End Date [place] [employer] [address] [place], [place] [id number] MITRA ALANIS Self - patient is the insured 3 Medical (General) History Surgical History Surgery Date(Month/Year) appendectomy 06/2009
--- OUTSIDE RECORDS SUMMARY | 2025-01-24 18:32 | XMS_ITS | Encounter Summary ---
Author Organization [email or web address] Address [address] [place] [address], [place] [address] Care Team Providers Care Manager Research Development Name Role Phone Vera Johnson TYPO MACHINE OPERATOR Primary Care Provider Corina Mcintyre TYPO MACHINE OPERATOR Primary Care Provider [phone] Encounter Details Date Type Department Care Team (Late st Contact Info) Description 02/23/2023 Orders Only [address] [address] Ban Rosa DMD [address] [place] [address] Social History Tobacco Use Types Packs/Day Years [...] on filedocumented in this encounter Care Teams Manager Research Development Relationship Specialty Start Date End Date Vera Johnson NP PCP - General 06/25/22 09/01/23 Corina Shields NP [address] [place] [address] [address] [place] [address] PCP - General Family Medicine 09/02/23 01/19/25 documented as of this encounter
--- OUTSIDE RECORDS SUMMARY | 2025-01-24 18:32 | XMS_ITS | Encounter Summary ---
Author Organization [facility] [place] [address] Care Team Providers Care Director Trial Name Role Phone Physician, Pcp Unknown Primary Care Provider Sonya vailable Encounter Details Date Type Department Care Team (Late st Contact Info) Description 09/22/2024 Lab Requisition [facility] - Main Lab [address] [facility] [place] [phone] Terry Vasquez MD [address] [place] [address] Abnormal level of hormones in specimens from other organs, systems and tissues Social History Tobacco Use Types Packs/Day Years Used Date Smoking Tobacco: Never Assessed Comments Unknown Sex and Gender Information Value Date Recorded Sex Assigned at Female 12/16/2024 10:29 PM EST Legal Sex Female 9:01 PM EST Gender Identity Female 12/16/2024 10:29 PM EST Sexual Orientation Not on file documented as of this [...] ng/mL LAB CHEMISTRY METHOD 09/22/2024 5:22 PM [facility] Blood Venous blood specimen / Unknown 09/22/2024 11:37 AM EST 09/22/2024 4:24 PM EST us Terry Vasquez MD LAB BLOOD ORDERABLES Final Re sult [facility] [address] [place] [address], [place] [phone] * (ABNORMAL) Basic metabolic panel (09/22/2024 11:37 AM EST) Sodium 139 133 - 145 mmol/L LAB CHEMISTRY METHOD 09/22/2024 5:12 PM [facility] Potassium 4.3 3.5 - 5.5 mmol/L LAB CHEMISTRY METHOD 09/22/2024 5:12 PM [facility] Chloride 109 96 - 110 mmol/L LAB CHEMISTRY METHOD 09/22/2024 5:12 PM [facility] CO2 26 21 - 32 mmol/L LAB CHEMISTRY METHOD 09/22/2024 5:12 PM [facility] Anion Gap 4 3 - 11 LAB CHEMISTRY METHOD 09/22/2024 5:12 PM [facility] Glucose 120(H) 70 - 100 mg/dL LAB CHEMISTRY METHOD 09/22/2024 5:12 PM [facility] BUN 10 5 - 25 mg/dL LAB CHEMISTRY METHOD 09/22/2024 5:12 PM [facility] Creatinine 0.72 0.50 - 1.10 mg/dL LAB CHEMISTRY METHOD 09/22/2024 5:12 PM [facility] eGFR 103 >=60 mL/min/1. 73m2 LAB CHEMISTRY METHOD 09/22/2024 5:12 PM [facility] Comment:Calculation based on the??Chronic Kidney Disease Epidemiology Collaboration (CKD-EPI) equation refit??without adjustment for race. BUN/Creatinine Ratio 13.9 LAB CHEMISTRY METHOD 09/22/2024 5:[address] [facility] Calcium 9.2 8.5 - 10.5 mg/dL LAB CHEMISTRY METHOD 09/22/2024 5:[address] [facility] Blood Venous blood specimen / Unknown 09/22/2024 11:37 AM EST 09/22/2024 4:24 PM EST us Terry Vasquez MD LAB BLOOD ORDERABLES Final Re sult [facility] [address] [place] [address], documented in this encounter Visit Diagnoses Diagnosis Abnormal level of hormones in specimens from other organs, systems and tissues documented in this encounter Care Teams Director Trial Relationship Specialty Start Date End Date Physician, Pcp Unknown PCP - General 12/16/24 documented as of this encounter
== END 2025-01-24 15:57 | disposition home or self-care (01) ==
LOC: HO.HWS 15:34
PROVIDERS: Visit Provider Obstetrics & Gynecology
DX: N93.9 Abnormal uterine and vaginal bleeding, unspecified (principal)
CPT/HCPCS: 99213

== ENCOUNTER → 2025-01-24 15:34 | Outpatient (BNVA) | payer OTHER, SELFPAY | PROVIDERS: Visit Provider Obstetrics & Gynecology | DX: N93.9 Abnormal uterine and vaginal bleeding, unspecified (principal) | CPT/HCPCS: 99212 ==

== ENCOUNTER 2025-02-13 15:37 | Outpatient (AMB) | payer OTHER, SELFPAY ==
[2025-02-13 15:41] VITALS: BP 114/68; PULSE 74; O2SAT 97; BMI 28.5
--- NOTE | 2025-02-13 15:41 | A.OFFVIS_ITS ---
Vital Signs 02/13/25 15:41 Height 5 ft Weight 146 lb BMI 28.5 BP 114/68 Blood Pressure Location Rt brachial Position Sitting Pulse 74 Pulse Source Pulse Oximeter Pulse Oximetry (%) 97 Oxygen Delivery Method Room Air Intake Visit Reasons: GERD, history of Hpylori & C diff, abd cramping. Intake Note: ESTABLISHED PATIENT for GERD, fecal abn, and abd cramping. Chief Complaint; Medications are still working well per pt. Pt denies any GI sx or concerns at this time. Cellophane Press Operator Required: Yes Cellophane Press Operator Services: Cellophane Press Operator Present Cellophane Press Operator Name: [facility] Zina Tee [id number] Information Interpreted: clinical only Accompanied by: Self / Same As Patient Allergies No Known Allergies Allergy (Verified 02/13/25 15:45) HPI HPI GERD, history of Hpylori & C diff, abd cramping.: Details: LAST VISIT: Postprandial abdominal bloating History of Clostridioides difficile infection History of Helicobacter pylori infection GERD (gastroesophageal reflux disease) Constipation Plan Medical records from [facility] requested, awaiting to review. Change PPI to Nexium. Avoid dietary triggers and late night snacking. Staying upright for minimum 3 hours after meals discussed with patient. Patient will continue taking Dulcolax daily. Increase fluid intake and activity to promote better bowel motility. Patient will return in 3 months, sooner on as needed basis. She is agreeable to this plan and verbalizes understanding of instructions. She was given the opportunity to ask questions and all questions answered. ? Thank you for allowing me to participate in her care Medications New esomeprazole magnesium (Nexium) 40 mg PO DAILY 30 caps 5RF K21.9 Discontinued pantoprazole Discontinued Reason: Doctor's Order 40 mg PO QAM 90 tabs 0RF K21.9 TODAY'S VISIT: Patient is here today for follow-up. Patient is accompanied by her patient reports that her symptoms of acid reflux and dyspepsia have been controlled with Nexium. Patient no longer is having any epigastric pain or trouble swallowing. Patient is taking Dulcolax daily and reports that she is able to move her bowels better, however she still feels like she is unable to empty her bowels well. She continues to have a postprandial abdominal bloating worse in the afternoon. Patient reports that this happens with almost anything that she eats. Patient denies melena, hematochezia, unintentional weight loss or ribbon like stools. Patient denies dyspepsia, dysphagia odynophagia. Patient usually eats Lithuanian food. She reports that she is drinking a fair amount of water. Denies any abdominal pain or cramping. [facility] Medical History History of Helicobacter pylori infection History of Clostridioides difficile infection Dysphagia GERD (gastroesophageal reflux disease) Gastritis Surgical History Hx of appendectomy Family History Mother Hepatic cancer Father Bladder cancer Social History Are you a primary intensive care nurse to a significant other at home: No Do you presently have visiting nurse or other home services: No Alcohol intake: never Patient Tobacco Use Status: Never used Tobacco Review of Systems Const Denies weight gain and Denies weight loss ENT Reports no additional complaints, Denies dysphagia and Denies odynophagia Card Reports no additional complaints Resp Reports no additional complaints GI Denies abdominal pain, Denies belching, Denies melena, Denies bloating, Denies change in bowel habits, Denies dysphagia, Denies excessive flatus, Denies dyspepsia, Denies heartburn, Denies diarrhea, Denies loose stools, Denies nausea, Denies odynophagia and Denies vomiting Reports no additional complaints Musc Reports no additional complaints Neuro Reports no additional complaints Psych Reports no additional complaints Endo Reports no additional complaints Physical Exam Vital Signs: Last Vital Signs Pulse 74 02/13/25 15:41 BP 114/68 02/13/25 15:41 Pulse Ox 97 02/13/25 15:41 Oxygen Delivery Method Room Air 02/13/25 15:41 BMI result Body Mass Index 28.5 Const General: healthy appearing, no acute distress and well developed Nutritional Appearance: well nourished Orientation/consciousness: patient oriented x3 Resp Effort & Inspection: normal respiratory effort, able to speak in complete sentences, no tracheal deviation and symmetric chest movement Auscultation: clear to auscultation bilaterally Cardio Rate: regular rate GI Inspection: Yes normal to inspection and No distended Palpation (GI): Soft to palpation, not firm, nontender and No hepatosplenomegaly present Auscultation: normal bowel sounds General: Yes no CVA tenderness Back/Spine/Pelvis Back: no CVA tenderness Skin General skin exam: elasticity normal, turgor normal and dry skin Neuro General: patient oriented x3 Psych Appearance: grossly normal Mental Status: mental status grossly normal Assessment & Plan Assessment & Plan (1) Postprandial abdominal bloating: Code(s): R14.0 - Abdominal distension (gaseous) Category: Medical (2) History of Clostridioides difficile infection: Code(s): Z86.19 - Personal history of other infectious and parasitic diseases Category: Medical (3) History of Helicobacter pylori infection: Code(s): Z86.19 - Personal history of other infectious and parasitic diseases Category: Medical (4) GERD (gastroesophageal reflux disease): Code(s): K21.9 - Gastro-esophageal reflux disease without esophagitis Qualifiers: Esophagitis presence: without esophagitis Qualified Code(s): K21.9 - Gastro-esophageal reflux disease without esophagitis (5) Constipation: Code(s): K59.00 - Constipation, unspecified Qualifiers: Constipation type: slow transit constipation Qualified Code(s): K59.01 - Slow transit constipation Plan Continue Nexium daily. Avoid dietary triggers and like that is acute. Staying upright for minimum 3 hours after meals discussed with patient. Patient can stop Dulcolax and we will start her on Linzess. Patient is to call the office if she will have diarrhea or still will be constipated. Increase fluid intake and activity to promote better bowel motility. Low FODMAP diet recommended due to her bloating although patient reports that her symptoms are worse in the afternoon and does not matter what she eats. This might be related to her being constipated. Denies any abdominal pain or discomfort otherwise. Follow-up in 3-4 months, sooner on as needed basis. Patient is to call the office if she will have any GI concerning symptoms. She is agreeable to this plan and verbalizes understanding of instructions. She was given the opportunity to ask questions and all questions answered. Thank you for allowing me to participate in her care Medications: New linaclotide (Linzess) 145 mcg PO DAILY 30 caps 4RF K59.04 - Chronic idiopathic constipation Refilled esomeprazole magnesium (Nexium) 40 mg PO DAILY 90 caps 3RF K21.9 - Gastro- esophageal reflux disease without esophagitis On Hold bisacodyl (Dulcolax (bisacodyl)) Hold Comment: Doctor's Order 10 mg (2 x 5 mg) PO BEDTIME 180 tabs 4RF Coding Level of Care Code Est Pt Level 4 (49615) Complex EM visit Add On G2211 Diagnoses Postprandial abdominal bloating R14.0 History of Clostridioides difficile infection Z86.19 History of Helicobacter pylori infection Z86.19 Gastroesophageal reflux disease without esophagitis K21.9 Esophagitis presence: without esophagitis Slow transit constipation K59.01 Constipation type: slow transit constipation Time Spent (min) 35 Comment 25 minutes of spent with patient and additional 10 minutes spent reviewing her records
--- OUTSIDE RECORDS SUMMARY | 2025-02-13 18:27 | XMS_ITS | Clinical Summary ---
Author Organization [facility] Address [address] [place] [address] [address] [place] [address] Care Team Providers Care Transportation Security Screener Name Role Phone Unavailable Primary Care Provider [...] to routine procedures. CONVERTED LEGACY LABS Pap, material control specialist MXD, CT (ASCP) CT screening location: [address] [address] CONVERTED LEGACY LABS Pap smear review, material control specialist DCR, CT(ASCP) CT screening location: [address] [address] CONVERTED LEGACY LABS Human Papillomavirus test result Not Detected Not Detected CONVERTED LEGACY LABS 07/25/2022 4:05 PM EDT Vera Johnson LEGISLATIVE ASSISTANT HISTORICAL/NON ORDERABLE LABS F inal Result CONVERTED LEGACY LABS from Last 3 Months or Most Recently Relevant to Health Maintenance Insurance [employer] DENTAL - HSN PARTIAL (MEDICAID)
--- OUTSIDE RECORDS SUMMARY | 2025-02-13 18:27 | XMS_ITS | Clinical Summary ---
Author Organization [facility] Address [address] [place] [address] Phone Care Team Providers Care Metal Wire Technician Name Role Phone Physician, Pcp Unknown Primary [...] - 2023-2 5 season) 2024 Influenza Vaccine (Season Ended) 2025 HIB Vaccines Aged Out No longer eligi [...] to complete this topic Insurance MEDICA[place] - [place] MEDICA[place] - [place] Care Teams Metal Wire Technician Relationship Specialty Start Date End Date Physician, Pcp Unknown PCP - General 12/16/24
--- OUTSIDE RECORDS SUMMARY | 2025-02-13 18:27 | XMS_ITS | Encounter Summary ---
Author Organization [employer] Address [address] [place] [address] [address], [place] [address] Care Team Providers Care Software Configuration Manager Name Role Phone Vera Johnson CLUTCH REBUILDER Primary Care Provider Corina Mcintyre CLUTCH REBUILDER Primary Care Provider [phone] Encounter Details Date Type Department Care Team (Late st Contact Info) Description 02/23/2023 Orders Only [address] [address] Ban Rosa DMD [address] [place] [address] Social History Tobacco Use Types Packs/Day Years [...] on filedocumented in this encounter Care Teams Software Configuration Manager Relationship Specialty Start Date End Date Vera Johnson NP PCP - General 06/25/22 09/01/23 Corina Shields NP [address] [place] [address] [address] [place] [address] PCP - General Family Medicine 09/02/23 01/19/25 documented as of this encounter
--- OUTSIDE RECORDS SUMMARY | 2025-02-13 18:28 | XMS_ITS | Encounter Summary ---
Author Organization [facility] [place] [address] Care Team Providers Care Associate Professor Of Violin Name Role Phone Physician, Pcp Unknown Primary Care Provider Sonya vailable Encounter Details Date Type Department Care Team (Late st Contact Info) Description 09/22/2024 Lab Requisition [facility] - Main Lab [address] [facility] [place] [phone] Terry Vasquez MD [address] [place] [address] Abnormal level of hormones in specimens from [...] ng/mL LAB CHEMISTRY METHOD 09/22/2024 5:22 PM [facility] Blood Venous blood specimen / Unknown 09/22/2024 11:37 AM EST 09/22/2024 4:24 PM EST us Terry Vasquez MD LAB BLOOD ORDERABLES Final Re sult [facility] [address] [place] [address], [place] [phone] * (ABNORMAL) Basic metabolic panel (09/22/2024 11:37 AM EST) Sodium 139 133 - 145 mmol/L LAB CHEMISTRY METHOD 09/22/2024 5:12 PM [facility] Potassium 4.3 3.5 - 5.5 mmol/L LAB CHEMISTRY METHOD 09/22/2024 5:12 PM [facility] Chloride 109 96 - 110 mmol/L LAB CHEMISTRY METHOD 09/22/2024 5:12 PM [facility] CO2 26 21 - 32 mmol/L LAB CHEMISTRY METHOD 09/22/2024 5:12 PM [facility] Anion Gap 4 3 - 11 LAB CHEMISTRY METHOD 09/22/2024 5:12 PM [facility] Glucose 120(H) 70 - 100 mg/dL LAB CHEMISTRY METHOD 09/22/2024 5:12 PM [facility] BUN 10 5 - 25 mg/dL LAB CHEMISTRY METHOD 09/22/2024 5:12 PM [facility] Creatinine 0.72 0.50 - 1.10 mg/dL LAB CHEMISTRY METHOD 09/22/2024 5:12 PM [facility] eGFR 103 >=60 mL/min/1. 73m2 LAB CHEMISTRY METHOD 09/22/2024 5:12 PM [facility] Comment:Calculation based on the??Chronic Kidney Disease Epidemiology Collaboration (CKD-EPI) equation refit??without adjustment for race. BUN/Creatinine Ratio 13.9 LAB CHEMISTRY METHOD 09/22/2024 5:12 PM EST [facility] Calcium 9.2 8.5 - 10.5 mg/dL LAB CHEMISTRY METHOD 09/22/2024 5:12 PM EST [facility] Blood Venous blood specimen / Unknown 09/22/2024 11:37 AM EST 09/22/2024 4:24 PM EST us Terry Vasquez MD LAB BLOOD ORDERABLES Final Re sult [facility] [address] [place] [address], documented in this encounter Visit Diagnoses Diagnosis Abnormal level of hormones in specimens from other organs, systems and tissues documented in this encounter Care Teams Associate Professor Of Violin Relationship Specialty Start Date End Date Physician, Pcp Unknown PCP - General 12/16/24 documented as of this encounter
--- OUTSIDE RECORDS SUMMARY | 2025-02-13 18:28 | XMS_ITS | Clinical Summary ---
Author Organization [facility] Address [address] [place] [address] Care Team Providers Care Environmental Health Safety Engineer Name Role Phone Unavailable Primary Care Provider [...] rhinitis, unspecified seasonality, unspecified trigger Place 1 Coleman in both nostrils once daily 16 g [...] History of COVID-19 10/06/2020 SAB (spontaneous ) ([facility] 02/14/2019 Overview (02/25/2019): PLAN: Pt to RTO [...] 3rd child and termination recommended, he's healthy. ([facility]) 02/07/2019 02/15/20 19 Overview (02/14/2019): SAB 02/13/19 [...] by Subchorionic hematoma in fir st trimester ([facility]) 02/07/2019 02/14/2019 Overview (02/09/2019): 01/24/19: one episode [...] 05/13/2024 05/13/2022, 05/13/2022, 05/13/2022, Additional history exists [id number] ( season) 2024 12/03/2021, 03/19/2021, 02/18/2021 Imm-Influenza [...] EDT) SODIUM 139 136 - 145 mmol/L [facility] POTASSIUM 4.3 3.6 - 5.1 mmol/L [facility] CHLORIDE 102 98 - 107 mmol/L [facility] CARBON DIOXIDE 27 22 - 32 mmol/L [facility] BUN 10 6 - 20 mg/dL [facility] CREATININE 0.61 0.4 - 1.0 mg/dL [facility] GLUCOSE 92 65 - 99 mg/dL [facility] ALBUMIN 4.4 3.5 - 5.2 g/dL [facility] TOTAL PROTEIN 7.2 6.1 - 8.1 g/dL [facility] CALCIUM 9.3 8.9 - 10.3 mg/dL [facility] ALK PHOS 66 32 - 100 U/L [facility] TOTAL BILIRUBIN 0.5 0.0 - 1.2 mg/dL [facility] AST 17 15 - 41 U/L [facility] ALT 24 10 - 35 U/L [facility] GLOBULIN 2.8 1.9 - 4.1 g/dL [facility] EGFR 109 60 - 128 mL/min/1.7 3m2 [facility] Comment:Estimated glomerular filtration rate calculated using the CKD-EPI equation. ANION GAP 10 3 - 17 mmol/L [facility] Comment:Processed and/or per formed at [address] [place] [address] Blood Blood / Unknown 07/11/2021 1 1:20 AM EDT us Jose Bob MD LAB - BLOOD DRAW Final Resul t [address]?? [facility] [place] [place] [address], [place] [phone] * (ABNORMAL) LIPID PANEL (12/20/2019 3:51 PM EST) HDL 43 >39 mg/dL [facility] CHOLESTEROL 194 0 - 200 mg/dL [facility] TRIGLYCERIDE 233(H) 0 - 150 mg/dL [facility] LDL 104 40 - 130 mg/dL [facility] CARDIAC RISK RATIO 4.5 <5 [facility] NON HDL CHOL 151 mg/dL [facility] Comment: Reference Range: The non-HDL Cholesterol value should not exceed the desired LDL-C by more than 30 mg/dl. Processed and/or performed at [facility], [address] [place] [address] Blood specimen (specimen) Blood / Unknown 12/20/2019 3:51 PM EST us Sidra Lockett NP LAB - BLOOD DRAW Final Result [address]?? [place] [address], [place] [phone] * PAP WITH AGE-BASED SCREENING PROTOCOLS (07/27/2018 8:00 PM EDT) COMMENT See Below [facility] Comment: This order for age-based cervical cancer and STI screening follows ACOG guidelines(PB 168, 140, QOK921). See individual assays for performing site location. Cytologic material (specimen) Cervix uteri structure / Unknown 07/27/2018 8:00 PM EDT 07/29/2018 2:33 AM EDT Narrative [facility] - 08/02/2018 11:43 AM EDT Performing Organization Information: [[id number]] ??: ??[facility], [address] [place] [address],[address], [place] [address] Director: TAYLOR PINEDO MD us Lorenzo Adames CNM LAB - NO BLOOD DRAW Final Res ult [facility] [address] [place] [address], * HIV 1/2 AG & AB W/RFLX (4TH GEN) (02/11/2018 3:41 PM EDT) HIV AG/AB, 4TH GEN NON-REACT BRAYDEN NON-REACT BRAYDEN [facility] Comment: HIV-1 antigen and HIV-1/HIV-2 antibodies were [...] ?? For additional information please refer to http://education.[employer]/faq/VEA452 (This link is being provided for informational/ educational purposes only.) The performance of this assay has not been clinically validated in patients less than 2 years old. Blood specimen (specimen) Blood / Unknown 02/11/2018 3:41 PM EDT 02/12/2018 4:15 AM EDT Narrative [facility] - 02/12/2018 7:33 AM EDT Performing Organization Information: [[id number]] ??: ??[facility], [address] [place] [address],[address], [place] [address] Director: TAYLOR PINEDO MD Kwame Medina MD LAB - BLOOD DRAW Final Result [facility] [address] [place] [address], from Last 3 Months or Most Recently Relevant to Health Maintenance
== END 2025-02-13 16:01 | disposition home or self-care (01) ==
LOC: HO.HGI 15:37
PROVIDERS: Visit Provider Nurse Practitioner Family
DX: R14.0 Abdominal distension (gaseous) (principal); Z86.19 Personal history of other infectious and parasitic diseases; K21.9 Gastro-esophageal reflux disease without esophagitis; K59.01 Slow transit constipation
CPT/HCPCS: 99214; G2211

== ENCOUNTER → 2025-02-13 15:37 | Outpatient (BNVA) | payer OTHER, SELFPAY | PROVIDERS: Visit Provider Nurse Practitioner Family | DX: K21.9 Gastro-esophageal reflux disease without esophagitis (principal); K59.01 Slow transit constipation; R14.0 Abdominal distension (gaseous); Z86.19 Personal history of other infectious and parasitic diseases | CPT/HCPCS: 99212 ==

== ENCOUNTER 2025-04-17 14:13 | Outpatient (REF) | payer OTHER, SELFPAY ==
--- OUTSIDE RECORDS SUMMARY | 2025-04-17 14:45 | XMS_ITS | Encounter Summary ---
Author Organization [facility] [place] [address] Care Team Providers Care Eyelet Cutter Name Role Phone Physician, Pcp Unknown Primary Care Provider Sonya vailable Encounter Details Date Type Department Care Team (Late st Contact Info) Description 02/17/[address] [facility] - Main Lab [address] [place] [phone] Terry Vasquez MD [address] [place] [address] Fatty (change of) liver, not elsewhere classified Social History Tobacco Use Types Packs/Day Years [...] Procedure Name Priority Date/Time Associated Diagnosis Comments COMPLETE BLOOD COUNT Routine 02/17/2025 2:35 PM EDT Fatty (change of) liver, not elsewhere classified COMPREHENSIVE METABOLIC PANEL Routine 02/17/2025 2:35 PM EDT Fatty (change of) liver, not elsewhere classified documented in this encounter Results * (ABNORMAL) Comprehensive metabolic panel (02/17/2025 2:35 PM EDT) Sodium 139 133 - 145 mmol/L LAB CHEMISTRY METHOD 02/17/2025 8:04 PM [facility] Potassium 4.2 3.5 - 5.5 mmol/L LAB CHEMISTRY METHOD 02/17/2025 8:04 PM [facility] Chloride 110 96 - 110 mmol/L LAB CHEMISTRY METHOD 02/17/2025 8:04 PM [facility] CO2 25 21 - 32 mmol/L LAB CHEMISTRY METHOD 02/17/2025 8:04 PM [facility] Anion Gap 4 3 - 11 LAB CHEMISTRY METHOD 02/17/2025 8:04 PM [facility] Glucose 108(H) 70 - 100 mg/dL LAB CHEMISTRY METHOD 02/17/2025 8:04 PM [facility] BUN 10 5 - 25 mg/dL LAB CHEMISTRY METHOD 02/17/2025 8:04 PM [facility] Creatinine 0.61 0.50 - 1.10 mg/dL LAB CHEMISTRY METHOD 02/17/2025 8:04 PM [facility] eGFR 110 >=60 mL/min/1. 73m2 LAB CHEMISTRY METHOD 02/17/2025 8:04 PM [facility] Comment:Calculation based on the Chronic Kidney Disease Epidemiology Collaboration (CKD-EPI) equation refit without adjustment for race. BUN/Creatinine Ratio 16.4 LAB CHEMISTRY METHOD 02/17/2025 8:04 PM [facility] Calcium 8.5 8.5 - 10.5 mg/dL LAB CHEMISTRY METHOD 02/17/2025 8:04 PM [facility] AST (SGOT) 17 10 - 42 unit/L LAB CHEMISTRY METHOD 02/17/2025 8:04 PM [facility] ALT (SGPT) 21 10 - 60 unit/L LAB CHEMISTRY METHOD 02/17/2025 8:04 PM [facility] Alkaline Phosphatase 75 42 - 121 unit/L LAB CHEMISTRY METHOD 02/17/2025 8:04 PM EDT [facility] Total Protein 6.7 6.0 - 8.0 g/dL LAB CHEMISTRY METHOD 02/17/2025 8:04 PM EDT [facility] Albumin 3.3 3.2 - 5.0 g/dL LAB CHEMISTRY METHOD 02/17/2025 8:04 PM EDT [facility] Total Bilirubin 0.3 0.0 - 1.4 mg/dL LAB CHEMISTRY METHOD 02/17/2025 8:04 PM EDT [facility] Blood Venous blood specimen / Unknown 02/17/2025 2:35 PM EDT 02/17/2025 7:07 PM EDT Terry Vasquez MD LAB BLOOD ORDERABLES Final Re sult [facility] [address] [place] [address], * (ABNORMAL) Complete blood count (02/17/2025 2:35 PM EDT) WBC 8.0 4.8 - 10.8 K/mcL LAB HEMETOLOGY METHOD 02/17/2025 8:23 PM EDT [facility] RBC 4.20 3.80 - 4.80 M/mcL LAB HEMETOLOGY METHOD 02/17/2025 8:23 PM EDT [facility] Hemoglobin 11.5 11.5 - 16.0 g/dL LAB HEMETOLOGY METHOD 02/17/2025 8:23 PM EDT [facility] Hematocrit 36.0 35.0 - 47.0 % LAB HEMETOLOGY METHOD 02/17/2025 8:23 PM EDT [facility] MCV 85.3 79.0 - 98.0 FL LAB HEMETOLOGY METHOD 02/17/2025 8:23 PM EDT [facility] MCH 27.3 27.0 - 32.0 pcg LAB HEMETOLOGY METHOD 02/17/2025 8:23 PM EDT [facility] MCHC 31.9(L) 32.0 - 37.0 g/dL LAB HEMETOLOGY METHOD 02/17/2025 8:23 PM EDT [facility] RDW 15.9(H) 11.0 - 15.0 % LAB HEMETOLOGY METHOD 02/17/2025 8:23 PM EDT [facility] Platelets 247 130 - 400 K/mcL LAB HEMETOLOGY METHOD 02/17/2025 8:23 PM EDT [facility] MPV 10.4 7.0 - 11.0 FL LAB HEMETOLOGY METHOD 02/17/2025 8:23 PM EDT [facility] NRBC 0.0 <1.0 % LAB HEMETOLOGY METHOD 02/17/2025 8:23 PM EDT [facility] NRBC Absolute 0.00 <0.10 K/mcL LAB HEMETOLOGY METHOD 02/17/2025 8:23 PM EDT [facility] Blood Venous blood specimen / Unknown 02/17/2025 2:35 PM EDT 02/17/2025 7:07 PM EDT us Terry Vasquez MD LAB BLOOD ORDERABLES Final Re sult [facility] [address] [place] [address], documented in this encounter Visit Diagnoses Diagnosis Fatty (change of) liver, not elsewhere classified documented in this encounter Care Teams Eyelet Cutter Relationship Specialty Start Date End Date Physician, Pcp Unknown PCP - General 12/16/24 documented as of this encounter
--- OUTSIDE RECORDS SUMMARY | 2025-04-17 14:45 | XMS_ITS | Patient Health Record ---
Author Organization [facility] Address [address] [place], [place] [id number] Care Team Providers Care Beater Engineer Helper Name Role Phone Terry Vasquez Primary Care Provider [facility], Nursing Unavailable [phone] Allergies No Known Allergies Results Component Value [...] Notes/Report: Vit D, 25-Hydroxy 28.5 30.0-80.0 ng/mL COMPREHENSIVE METABOLIC PANE L Reviewed date:02/17/2025 09:32:26 PM Interpretation:Normal Performing Lab: Notes/Report: Sodium 139 133-145 mmol/L Potassium 4.2 3.5-5.5 mmol/L Chloride 110 96-110 mmol/L CO2 25 21-32 mmol/L Anion Gap 4 3-11 Glucose 108 70-100 mg/dL BUN 10 5-25 mg/dL Creatinine 0.61 0.50-1.10 mg/dL eGFR 110 >=60 mL/min/1.73m2 Calculati on based on the Chronic Kidney Disease Epidemiology Collaboration (CKD-EPI) equation refit without adjustment for race. BUN/Creatinine Ratio 16.4 Calcium 8.5 8.5-10.5 mg/dL AST (SGOT) 17 10-42 unit/L ALT (SGPT) 21 10-60 unit/L Alkaline Phosphatase 75 42-121 unit/L Total Protein 6.7 6.0-8.0 g/dL Albumin 3.3 3.2-5.0 g/dL Total Bilirubin 0.3 0.0-1.4 mg/dL COMPLETE BLOOD COUNT Reviewed date:02/17/2025 09:32:20 PM Interpretation:Normal Performing Lab: Notes/Report: WBC 8.0 4.8-10.8 K/mcL RBC 4.20 3.80-4.80 M/mcL Hemoglobin 11.5 11.5-16.0 g/dL Hematocrit 36.0 35.0-47.0 % MCV 85.3 79.0-98.0 FL MCH 27.3 27.0-32.0 pcg MCHC 31.9 32.0-37.0 g/dL RDW 15.9 11.0-15.0 % Platelets 247 130-400 K/mcL MPV 10.4 7.0-11.0 FL NRBC 0.0 <1.0 % NRBC Absolute 0.00 <0.10 K/mcL Reason For Referral No Information Medications Medication SIG (Take, Route, Frequency, Duration) Notes Start Date End Date Status ofloxacin ophthalmic 0.3% 1 gtt in left eye 4 times a day for 5 days 09/20/2024 Not-Takin g naproxen 375 mg 1 tab(s) orally 2 times a day for 21 days Active Vitamin D3 10 mcg 1 tab(s) orally once a day Active omeprazole 40 mg 1 cap(s) orally once a day Active Linzess 145 mcg 1 cap(s) orally once a day Active medroxyPROGESTERone 10 mg 1 tab(s) orally once a day cycle day 15-24 beginning of her menses Active Immunizations Vaccine Route Administration Date Status [...] (20 or more) IM Intramuscular 02/02/[address] [facility] [id number] Tdap Unknown 03/27/2010 Administered H1N1 Influenza Unknown 10/26/2009 Administered Influenza Unknown 02/11/2018 Administered Afluria Unknown 02/07/2019 Administered Flu-IIV4, p-free Unknown 07/25/2022 Administered Influenza IM Intramuscular 09/22/2024 Administered Problems Problem Type SNOMED Code ICD Code Onset Dates Problem Status W/U Status Risk Notes Problem Keratoconus, stable condition (756031474) Keratoconus, stable, 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) Active confirmed Problem Conductive hearing loss, bilateral (095264535) Conductive hearing loss, bilateral (H90.0) Active confirmed Problem Fatty liver (380100109) Fatty (change of) liver, not elsewhere classified (K76.0) Active confirmed Problem Localized, primary osteoarthritis of the ankle and/or foot (624603040) Primary osteoarthritis , left ankle and foot (M19.072) Active confirmed Problem Hormone abnormality (76347805) Abnormal level of hormones in specimens from other organs, systems and tissues (R89.1) Active confirmed Problem Abnormal vision (7288954) Presence of spectacles and contact lenses (Z97.3) Active confirmed Problem Body mass index 25-29 - overweight (094732683) Body mass index [BMI] 28.0-28.9, adult (Z68.28) Active confirmed Vital Signs Temperature 98.3 degrees Fahrenheit 02/14/2025 Blood pressure diastolic 76 02/14/2025 Oximetry 98 02/14/2025 Height 60 in 02/14/2025 Blood pressure systolic 118 02/14/2025 Weight 146 lbs 02/14/2025 BMI 28.51 kg/m2 02/14/2025 Encounters Encounter Location Date Provider Diagnosis [address] [id number] 09/20/2024 Terry Vasquez Abnormal level of hormones in specimens from other organs, systems and tissues R89.1 ; Injury of conjunctiva and corneal abrasion without foreign body, left eye, initial encounter S05.02XA ; Encounter for screening for COVID-19 Z11.52 ; Other bursitis, not elsewhere classified, left ankle and foot M71.572 and Leiomyoma of uterus, unspecified D25.[address] [id number] 09/22/2024 Nursing [facility] Encounter for screening for COVID-19 Z11.52 and Encounter for screening, unspecified Z13.[address] [id number] 09/22/2024 Nursing [facility] Encounter for immunization Z23 [address] [id number] 02/14/2025 Terry Vasquez Encounter for screening for COVID-19 Z11.52 ; Primary osteoarthritis, left ankle and foot M19.072 ; Keratoconus, stable, bilateral H18.613 and Abnormal level of hormones in specimens from other organs, systems and tissues R89.[address] [id number] 02/17/2025 Nursing [facility] Encounter for screening, unspecified Z13.[address] [id number] 11/11/2024 Terry Vasquez [address] [id number] 02/15/2025 Terry Vasquez [address] [id number] 02/17/2025 Terry Vasquez Assessments Encounter Date Diagnosis (ICD Code) Assessment Notes Treatment Notes Treatment Clinical Notes Section Notes 09/20/2024 Abnormal level of hormones in specimens from other organs, systems and tissues (ICD-10 - R89.1) w/u at ob/gyn nurse 09/20/2024 Injury of conjunctiva and corneal abrasion [...] No adverse outcome with administration of vaccine. 02/14/2025 Primary osteoarthritis, left ankle and foot (ICD-10 - M19.072) iu thnik primary OA; does not look like gout.We are trying to get past film. She is aware fusion woudl be rx but not sure abotu footware and want to see x-tucker first 02/14/2025 Encounter for screening for COVID-19 (ICD-10 - [...] you are having concerning symptoms for COVID-19. 02/17/2025 Encounter for screening, unspecified (ICD-10 - Z13.9) Labs drawn per protocol, no difficulties, sent to lab, pt to RTC for f/u 09/20/2024 Encounter for screening for COVID-19 (ICD-10 [...] you are having concerning symptoms for COVID-19. 02/14/2025 Keratoconus, stable, bilateral (ICD-10 - H18.613) Doing well right now but waiting for [place] appt 09/20/2024 Other bursitis, not elsewhere classified, left ankle and foot (ICD-10 - M71.572) I dpubt gout and looks more like bursal inflammation at MTP. Start SNSIAd, ice and f/u i a mnth 02/14/2025 Abnormal level of hormones in specimens from other organs, systems and tissues (ICD-10 - R89.1) Followed well by ob/gyn nurse-records reviewed. On prvera 10 days amionth; PAP up todate 09/20/2024 Leiomyoma of uterus, unspecified (ICD-10 - D25.9) sonds lie fibroid but bx pendign-sees ob/gyn nurse in a week 11/11/2024 Other 12/06/2024 Other 12/30/2024 Other 09/20/2024 Other 09/22/2024 Other 02/14/2025 Other Plan Of Treatment Pending Test Test Name Order Date David Screening Digital 08/18/2023 Next Appt Details Provider Name:Terry Vasquez, 08/15/2025 02:20:00 PM, [address], [place], [phone], Provider Name:Nursing [facility], 08/17/2025 09:40:00 AM, [address], [place], [phone], Insurance Providers Payer Name Payer Address Payer Phone Subscriber Number Group Number Insured Name Patient Relationship to Insured Coverage Start Date Coverage End Date [place] Medicaid Limited [address] [place], [place] [id number] MITRA ALANIS Self - patient is the insured 3 Medical (General) History Surgical History Surgery Date(Month/Year) appendectomy 06/2009
--- OUTSIDE RECORDS SUMMARY | 2025-04-17 14:45 | XMS_ITS | Encounter Summary ---
Author Organization [employer] Address [address] [address] [place], [place] [address] Care Team Providers Care Chef Broiler Or Fry Name Role Phone Vera Johnson ORTHOPEDIC DENTIST Primary Care Provider Corina Mcintyre ORTHOPEDIC DENTIST Primary Care Provider [phone] Encounter Details Date Type Department Care Team (Late st Contact Info) Description 02/23/2023 Orders Only [address] [address] Ban Rosa DMD [address] [place] [address] Social History Tobacco Use Types Packs/Day Years [...] on filedocumented in this encounter Care Teams Chef Broiler Or Fry Relationship Specialty Start Date End Date Vera Johnson NP PCP - General 06/25/22 09/01/23 Corina Shields NP [address] [place] [address] [address] [place] [address] PCP - General Family Medicine 09/02/23 01/19/25 documented as of this encounter
--- OUTSIDE RECORDS SUMMARY | 2025-04-17 14:46 | XMS_ITS | Clinical Summary ---
Author Organization [facility] Address [address] [place] [address] Care Team Providers Care Field Organizer Name Role Phone Unavailable Primary Care Provider [...] rhinitis, unspecified seasonality, unspecified trigger Place 1 [place] in both nostrils once daily 16 g [...] History of COVID-19 10/06/2020 SAB (spontaneous ) ([facility]) 02/14/2019 Overview (02/25/2019): PLAN: Pt to RTO [...] 3rd child and termination recommended, he's healthy. ([facility]) 02/07/2019 02/15/20 19 Overview (02/14/2019): SAB 02/13/19 [...] by Subchorionic hematoma in fir st trimester ([facility]) 02/07/2019 02/14/2019 Overview (02/09/2019): 01/24/19: one episode [...] 71 01/25/2022 8:49 AM EDT Temperature 35.7 C (96.3 F) 01/25/2022 8:49 AM EDT Respiratory Rate 16 01/25/2022 8:49 AM EDT [...] Fecal DNA 2020 Flexible Sigmoidoscopy 2020 Annual Wellness (Adult): Indicated (All Coverage) 12/19/2020 12/20/2019, 07/28/2018, 12/19/2016, Additional history exists Pap Smear 07/27/2021 07/27/2018, 07/27/2018 Imm-Hepatitis B (2 of 2 - Cp G 2-dose series) 10/14/2021 09/16/2021 Hypertension Screening (#1) 01/25/2023 Cervical Cancer Screening 07/28/2023 Pap + HPV 07/28/2023 07/28/2018, 06/2018, 07/27/2018, Additional history exists Breast Cancer Screening (Mammogram) 05/13/2024 05/13/2022, 05/13/2022, 05/13/2022, Additional history exists [id number] ( season) 2024 12/03/2021, 03/19/2021, 02/18/2021 Diabetes Screening 08/20/2024 08/20/2021, 0 07/11/2021, 04/15/2021, Additional history exists Alcohol and Drug Screen 10/19/2024 07/11/20 21, 11/06/2020, 11/06/2020, Additional history exists Depression Annual Screen 10/19/2024 021, 11/06/2020, 12/20/2019, Additional history exists Lipid Screening 12/19/2024 12/20/2019, 12/2019, 12/22/2016 Imm-Zoster, Recombinant (1 of 2) 2025 Imm-Influenza (Season Ended) 2025, 02/07/2019, 02/11/2018, Additional history exists Imm-DTaP/Tdap/Td (3 - Td or Tdap) 12/19/2029 [...] EDT) SODIUM 139 136 - 145 mmol/L [facility] POTASSIUM 4.3 3.6 - 5.1 mmol/L [facility] CHLORIDE 102 98 - 107 mmol/L [facility] CARBON DIOXIDE 27 22 - 32 mmol/L [facility] BUN 10 6 - 20 mg/dL [facility] CREATININE 0.61 0.4 - 1.0 mg/dL [facility] GLUCOSE 92 65 - 99 mg/dL [facility] ALBUMIN 4.4 3.5 - 5.2 g/dL [facility] TOTAL PROTEIN 7.2 6.1 - 8.1 g/dL [facility] CALCIUM 9.3 8.9 - 10.3 mg/dL [facility] ALK PHOS 66 32 - 100 U/L [facility] TOTAL BILIRUBIN 0.5 0.0 - 1.2 mg/dL [facility] AST 17 15 - 41 U/L [facility] ALT 24 10 - 35 U/L [facility] GLOBULIN 2.8 1.9 - 4.1 g/dL [facility] EGFR 109 60 - 128 mL/min/1.7 3m2 [facility] Comment:Estimated glomerular filtration rate calculated using the CKD-EPI equation. ANION GAP 10 3 - 17 mmol/L [facility] Comment:Processed and/or per formed at [address] [place] [address] Blood Blood / Unknown 07/11/2021 1 1:20 AM EDT us Jose Bob MD LAB - BLOOD DRAW Final Resul t [address] [address], [place] [phone] * (ABNORMAL) LIPID PANEL (12/20/2019 3:51 PM EST) HDL 43 >39 mg/dL [facility] CHOLESTEROL 194 0 - 200 mg/dL [facility] TRIGLYCERIDE 233(H) 0 - 150 mg/dL [facility] LDL 104 40 - 130 mg/dL [facility] CARDIAC RISK RATIO 4.5 <5 [facility] NON HDL CHOL 151 mg/dL [facility] Comment: Reference Range: The non-HDL Cholesterol value should not exceed the desired LDL-C by more than 30 mg/dl. Processed and/or performed at [facility], [address] [place] [address] Blood specimen (specimen) Blood / Unknown 12/20/2019 3:51 PM EST us Sidra Lockett NP LAB - BLOOD DRAW Final Result [address] [address], [place] [phone] * Pap with Age-Based Screening (no STD testing) (07/27/2018 8:00 PM EDT) COMMENT See Below [facility] Comment: This order for age-based cervical cancer and STI screening follows ACOG guidelines(PB 168, 140, CXB224). See individual assays for performing site location. Cytologic material (specimen) Cervix uteri structure / Unknown 07/27/2018 8:00 PM EDT 07/29/2018 2:33 AM EDT Narrative [facility] - 08/02/2018 11:43 AM EDT Performing Organization Information: [[id number]] : [employer], [address] [place] [address],[address], [place] [address] Director: TAYLOR PINEDO MD us Lorenzo Adames CNM LAB - PATHOLOGY AND CYTOLOGY AMBULATORY Final Result [facility] [address] [place] [id number], * HIV 1/2 AG & AB W/RFLX (4TH GEN) (02/11/2018 3:41 PM EDT) HIV AG/AB, 4TH GEN NON-REACT BRAYDEN NON-REACT BRAYDEN [facility] Comment: HIV-1 antigen and HIV-1/HIV-2 antibodies were not detected. There is no laboratory evidence of HIV infection. PLEASE NOTE: This information has been disclosed to you from records whose confidentiality may be protected by state law. If your state requires such protection, then the state law prohibits you from making any further disclosure of the information without the specific written consent of the person to whom it pertains, or as otherwise permitted by law. A general authorization for the release of medical or other information is NOT sufficient for this purpose. For additional information please refer to http://education.thinktank.net/faq/TUN670 (This link is being provided for informational/ educational purposes only.) The performance of this assay has not been clinically validated in patients less than 2 years old. Blood specimen (specimen) Blood / Unknown 02/11/2018 3:41 PM EDT 02/12/2018 4:15 AM EDT Narrative [facility] - 02/12/2018 7:33 AM EDT Performing Organization Information: [[id number]] : [facility], [address] [place] [address],[address], [place] [address] Director: TAYLOR PINEDO MD us Kwame Medina MD LAB - BLOOD DRAW Final Result [facility] [address] [place] [id number], from Last 3 Months or Most Recently Relevant to Health Maintenance
== END 2025-04-17 14:14 | disposition home or self-care (01) ==
LOC: HO.MAMMO 14:13
PROVIDERS: Visit Provider Obstetrics & Gynecology
DX: Z12.31 Encounter for screening mammogram for malignant neoplasm of breast (principal)
CPT/HCPCS: 77063; 77067

== ENCOUNTER → 2025-04-17 14:15 | Outpatient (BNV) | payer OTHER, SELFPAY | PROVIDERS: Visit Provider Internal Medicine | DX: Z12.31 Encounter for screening mammogram for malignant neoplasm of breast (principal) | CPT/HCPCS: 77063; 77067 ==

== ENCOUNTER 2025-05-03 10:38 | Outpatient (AMB) | payer OTHER, SELFPAY ==
--- OUTSIDE RECORDS SUMMARY | 2025-02-09 09:30 | XMS_ITS | Continuity of Care Document ---
Author Organization [facility] Address [address] [place] [address] [address] [place] [address] Phone Care Team Providers Care Java Analyst Name Role Phone Eddie SALDIVAR, JULIO, Byron MARCUM Unavailable U navailable Procedures Procedure Date Offic Cons New/estab Mod-hi 60- CT & [place] Duplex Scan-extrem Veins; Comp- CT & [place] Advance Directives Directive Yes / No Effective Date File Name No Information Encounters Encounter Description Practice Location Reason(s) For Visit Diagnoses Date Provider Providers Copied on Encounter Offic Cons New/estab Mod-hi 60- [place] & [place] [facility], [address] [place] [address] Dr [address], [id number], [place] tel:[phone] [facility] Varicose veins of bilateral lower extremities with other complicationsPa in in right legPain in left legRestless legs syndromeVenous insufficiency (chronic) (peripheral)[employer] mp and spasmLocalized edema Apr- 5 Eddie SALDIVAR, JOSSUE KIM [address] [facility] [address], [place], [place], [id number] , [place]. tel:[phone] [facility], [address] [place] [address] Dr [address], [id number], [place] tel:[phone] [facility] Chronic venous hypertension (idiopathic) with other complications of bilateral lower extremity Apr- 5 Eddie SALDIVAR RVT, RPVI Robert. [address] [facility], [address], [place], [id number] , . tel:[phone] Referring Provider: Byron Morgan MD, RVT, JOSSUE, [address] [facility] [address], [place], [address] . tel:[phone] Family History Family Member Type Diagnosis Age At Onset No Information Payers Payer name Insurance type Covered libertarian ID Tommy mitchell(s) [facility] [id number] Social History Type Description Quantity Date Captured Comments Alcohol Use Details Unknown Caffeine Use Details Unknown Tobacco Use Status Current non-smoker Smoking Status Never Smoker Non-Smoking Tobacco Use Details : No Details Available : No Details Available Sex Female Vital Signs Date / Time: Height Weight BMI Pulse Rate Blood Pressure Temperature Respiratory Rate Body Surface Area Head Circumference Head Circ. Percentile Wt./Tk. Percentile BMI percentile Pulse Ox Inhaled Ox 66.220 kg (146.00 lbs) 28.5 1 kg/m eter (2) 11/80 mm[Hg] Chief Complaint And Reason For Visit No Information Reason For Referral Reason For Referral No Information Plan Of Treatment Date Type Action Status Goal Diet education completed Referral Ordered: Weight management: Referral to physician timeframe: 3 Months (related to Body mass index (BMI) 28.0-28.9, adult) ordered Appointment Bea Haro BOOKED Appointment Bea Haro BOOKED Appointment Bea Haro BOOKED Appointment Bea Haro BOOKED Appointment Bea Haro BOOKED Appointment Bea Haro BOOKED Appointment Bea Haro BOOKED Appointment Bea Haro BOOKED Appointment Bea Haro BOOKED Appointment Bea Haro BOOKED Appointment Bea Haro BOOKED History Of Present Illness Encounter Date Complaint History Of Prese nt Illness No Information Functional Status Date Functional Assessmen t No Information Instructions Date Instruction Additional Infor mation Patient education booklet given Related to Varicose veins of bilateral lower extremities with other complications Diet education Related to Body mass index (BMI) 28.0-28.9, adult Giving Encouragement to exercise Related to Body mass index (BMI) 28.0-28.9, adult Lifestyle education Related to B clayton mass index (BMI) 28.0-28.9, adult Pre and post instruc tions reviewed and provided Related to Varicose veins of bilateral lower extremities with other complications Assessments Type Assessment Date No Information Patient Care Teams Name Effective Dates (start - stop) Status Members No Information
--- NOTE | 2025-05-03 10:43 | A.OFFVIS_ITS ---
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 No complaints. Last Pap/HPV was negative in 05/11 Last Mammogram was BI-RADS 2 in 04/12 No previous screening colonoscopy [facility] Medical History History of Helicobacter pylori infection History of Clostridioides difficile infection Dysphagia GERD (gastroesophageal reflux disease) Gastritis Surgical History Hx of appendectomy Family History Mother Hepatic cancer Father Bladder cancer Social History Household Members: Spouse and Children Housing: House Are you a primary critical care educator to a significant other at home: No Do you presently have visiting nurse or other home services: No Alcohol intake: never Patient Tobacco Use Status: Never used Tobacco Female Reproductive History Menstrual Age of Menarche: 14 Date of last menstrual period: 02/03/25 control method: none Total pregnancies: 5 Full term: 4 Number of Living Children: 4 Ab spontaneous: 1 Date of last pap smear: 04/27/24 History of abnormal pap smear: No Date of Mammogram: 04/17/25 Review of Systems Const All systems reviewed & are unremarkable except as noted in HPI and below Card Reports as per HPI Resp Reports as per HPI GI Reports as per HPI and Reports no additional complaints Reports as per HPI Physical Exam Vital Signs: BMI result Body Mass Index 28.3 Const General: cooperative, healthy appearing and comfortable Chest Chest palpation & inspection: normal inspection of the chest and normal palpation of entire chest wall Breast/axilla inspection: normal inspection of the breasts and normal inspection of the axillae Breast/axilla palpation: normal palpation of the breasts, normal palpation of the axillae and no axillary lymphadenopathy Resp Effort & Inspection: normal respiratory effort Auscultation: clear to auscultation bilaterally Percussion: percussion normal Cardio Palpation: normal PMI Rate: regular rate Rhythm: regular rhythm Heart sounds: no murmurs and no rubs Peripheral pulses: Peripheral pulses 2+ throughout GI Inspection: Yes normal to inspection Palpation (GI): Soft to palpation, nontender, no guarding, not rigid and No hepatosplenomegaly present Percussion: Yes normal to percussion Auscultation: normal bowel sounds Rectal Exam - Female: deferred General: Yes bladder normal to palpation External Female Exam: No lesion Speculum Exam - Vagina: normal appearance of the vagina, normal palpation, normal vaginal discharge and not erythematous Speculum Exam - Cervix: normal appearance of the cervix and normal palpation Bimanual exam- vagina & uterus: normal bimanual exam, normal palpation, uterine size normal, bladder normal to palpation, consistency normal and normal palpation Bimanual Exam- Adnexa, other: normal adnexae, no masses and no tenderness Assessment & Plan Assessment & Plan (1) Well woman exam: Code(s): Z01.419 - Encounter for gynecological examination (general) (routine) without abnormal findings Category: Medical Plan: Cotesting not indicated this year. Instructions given the patient to schedule next screening Mammogram in 04/13. Counseled the patient about the recommended dietary allowance of 1000 mg of Calcium & 600 IU of vitamin D. GI referral placed for screening colonoscopy The patient was instructed to perform monthly self-breast exams and to schedule an annual exam in a year; All questions answered and the patient verbalized understanding. Instructed the patient to schedule annual exam in a year Orders: Referrals Gastroenterology Referral Z12.11 - Encounter for screening for malignant neoplasm of colon Coding Level of Care Code Est Pt Prev Care 40-64y(36613) Diagnoses Well woman exam Z01.419
[2025-05-03 10:45] VITALS: BMI 28.3
--- OUTSIDE RECORDS SUMMARY | 2025-05-03 11:18 | XMS_ITS | Encounter Summary ---
Author Organization [facility] [place] [address] Care Team Providers Care Monotype Caster Name Role Phone Physician, Pcp Unknown Primary Care Provider Sonya vailable Encounter Details Date Type Department Care Team (Late st Contact Info) Description 02/17/2025 Lab Requisition [facility] - Main Lab [address] [place] [phone] Terry Vasquez MD [address] [place] [address] Fatty (change of) liver, not elsewhere classified [...] LAB CHEMISTRY METHOD 02/17/2025 8:04 PM EDT [facility] Total Protein 6.7 6.0 - 8.0 g/dL LAB CHEMISTRY METHOD 02/17/2025 8:04 PM EDT [facility] Albumin 3.3 3.2 - 5.0 g/dL LAB CHEMISTRY METHOD 02/17/2025 8:04 PM EDT [facility] Total Bilirubin 0.3 0.0 - 1.4 mg/dL LAB CHEMISTRY METHOD 02/17/2025 8:04 PM EDT [facility] Blood Venous blood specimen / Unknown 02/17/2025 2:35 PM EDT 02/17/2025 7:07 PM EDT Terry Vasquez MD LAB BLOOD ORDERABLES Final Re sult [facility] [address] [place] [address], * (ABNORMAL) Complete blood count (02/17/2025 2:35 PM EDT) WBC 8.0 4.8 - 10.8 K/mcL LAB HEMETOLOGY METHOD 02/17/2025 8:23 PM EDT [facility] RBC 4.20 3.80 - 4.80 M/mcL LAB HEMETOLOGY METHOD 02/17/2025 8:23 PM EDT [facility] Hemoglobin 11.5 11.5 - 16.0 g/dL LAB HEMETOLOGY METHOD 02/17/2025 8:23 PM EDT [facility] Hematocrit 36.0 35.0 - 47.0 % LAB HEMETOLOGY METHOD 02/17/2025 8:23 PM EDT [facility] MCV 85.3 79.0 - 98.0 FL LAB HEMETOLOGY METHOD 02/17/2025 8:23 PM EDT [facility] MCH 27.3 27.0 - 32.0 pcg LAB HEMETOLOGY METHOD 02/17/2025 8:23 PM EDT [facility] MCHC 31.9(L) 32.0 - 37.0 g/dL LAB HEMETOLOGY METHOD 02/17/2025 8:23 PM EDT [facility] RDW 15.9(H) 11.0 - 15.0 % LAB HEMETOLOGY METHOD 02/17/2025 8:23 PM EDT [facility] Platelets 247 130 - 400 K/mcL LAB HEMETOLOGY METHOD 02/17/2025 8:23 PM EDT [facility] MPV 10.4 7.0 - 11.0 FL LAB HEMETOLOGY METHOD 02/17/2025 8:23 PM EDT [facility] NRBC 0.0 <1.0 % LAB HEMETOLOGY METHOD 02/17/2025 8:23 PM EDT [facility] NRBC Absolute 0.00 <0.10 K/mcL LAB HEMETOLOGY METHOD 02/17/2025 8:23 PM EDT [facility] Blood Venous blood specimen / Unknown 02/17/2025 2:35 PM EDT 02/17/2025 7:07 PM EDT us Terry Vasquez MD LAB BLOOD ORDERABLES Final Re sult [facility] [address] [place] [address], documented in this encounter Visit Diagnoses Diagnosis Fatty (change of) liver, not elsewhere classified documented in this encounter Care Teams Monotype Caster Relationship Specialty Start Date End Date Physician, Pcp Unknown PCP - General 12/16/24 documented as of this encounter
--- OUTSIDE RECORDS SUMMARY | 2025-05-03 11:18 | XMS_ITS | Encounter Summary ---
Author Organization [employer] Address [address] [place] [address] [address] [address] Care Team Providers Care Seafood Packer Name Role Phone Vera Johnson USER EXPERIENCE TEAM LEAD Primary Care Provider Corina Mcintyre USER EXPERIENCE TEAM LEAD Primary Care Provider [phone] Encounter Details Date Type Department Care Team (Late st Contact Info) Description 02/23/2023 Orders Only [address] [address] Ban Rosa DMD [address] [place] [phone] Social History Tobacco Use Types Packs/Day Years [...] on filedocumented in this encounter Care Teams Seafood Packer Relationship Specialty Start Date End Date Vera Johnson NP PCP - General 06/25/22 09/01/23 Corina Shields NP [address] [place] [address] [address] [place] [address] PCP - General Family Medicine 09/02/23 01/19/25 documented as of this encounter
--- OUTSIDE RECORDS SUMMARY | 2025-05-03 11:18 | XMS_ITS | Clinical Summary ---
Author Organization [facility] Address [address] [place] [address] Care Team Providers Care Warehouse Supervisor Name Role Phone Unavailable Primary Care Provider [...] rhinitis, unspecified seasonality, unspecified trigger Place 1 [place] in both nostrils once daily 16 g [...] History of COVID-19 10/06/2020 SAB (spontaneous ) ([facility]) 02/14/2019 Overview (02/25/2019): PLAN: Pt [...] 3rd child and termination recommended, he's healthy. ([facility]) 02/07/2019 02/15/20 19 Overview (02/14/2019): SAB 02/13/19 [...] by Subchorionic hematoma in fir st trimester ([facility]) 02/07/2019 02/14/2019 Overview (02/09/2019): 01/24/19: [...] 05/13/2024 05/13/2022, 05/13/2022, 05/13/2022, Additional history exists Kld-[id number] ( season) 2024 12/03/2021, 03/19/2021, 02/18/2021 Diabetes Screening 08/20/2024 08/20/2021, 0 07/11/2021, 04/15/2021, Additional history exists Alcohol and Drug Screen 10/19/202420 21, 11/06/2020, 11/06/2020, Additional history exists Depression Annual Screen 10/19/20242 021, 11/06/2020, 12/20/2019, Additional history exists Lipid Screening 12/19/2024 12/20/2019, 12/2019, 12/22/2016 Imm-Pneumococcal 50+ (1 of 1 - PCV) 2025 Imm-Zoster, Recombinant (1 of 2) 2025 Imm-Influenza (#1) 2025 05/10/2019, 0 02/07/2019, 02/11/2018, Additional history exists Imm-DTaP/Tdap/Td (3 [...] 05/13/2022 3:00 AM EDT us Sidra Lockett WIRE WEAVER HELPER IMG MAMMO Final Result * COMPREHENSIVE METABOLIC PANEL (07/11/2021 11:20 AM EDT) SODIUM 139 136 - 145 mmol/L [facility] POTASSIUM 4.3 3.6 - 5.1 mmol/L [facility] CHLORIDE 102 98 - 107 mmol/L [facility] CARBON DIOXIDE 27 22 - 32 mmol/L [facility] BUN 10 6 - 20 mg/dL [facility] CREATININE 0.61 0.4 - 1.0 mg/dL [facility] GLUCOSE 92 65 - 99 mg/dL [facility] ALBUMIN 4.4 3.5 - 5.2 g/dL [facility] TOTAL PROTEIN 7.2 6.1 - 8.1 g/dL [facility] CALCIUM 9.3 8.9 - 10.3 mg/dL [facility] ALK PHOS 66 32 - 100 U/L [facility] TOTAL BILIRUBIN 0.5 0.0 - 1.2 mg/dL [facility] AST 17 15 - 41 U/L [facility] ALT 24 10 - 35 U/L [facility] GLOBULIN 2.8 1.9 - 4.1 g/dL [facility] EGFR 109 60 - 128 mL/min/1.7 3m2 [facility] Comment:Estimated glomerular filtration rate calculated using the CKD-EPI equation. ANION GAP 10 3 - 17 mmol/L [facility] Comment:Processed and/or per formed at [address] [place] [address] Blood Blood / Unknown 07/11/2021 1 1:20 AM EDT us Joes Bob MD LAB - BLOOD DRAW Final Resul t [address] [address], * (ABNORMAL) LIPID PANEL (12/20/2019 3:51 PM EST) HDL 43 >39 mg/dL [facility] CHOLESTEROL 194 0 - 200 mg/dL [facility] TRIGLYCERIDE 233(H) 0 - 150 mg/dL [facility] LDL 104 40 - 130 mg/dL [facility] CARDIAC RISK RATIO 4.5 <5 [facility] NON HDL CHOL 151 mg/dL [facility] Comment: Reference Range: The non-HDL Cholesterol value should not exceed the desired LDL-C by more than 30 mg/dl. Processed and/or performed at [facility], [address] [place] [address] Blood specimen (specimen) Blood / Unknown 12/20/2019 3:51 PM EST Sidra Lockett NP LAB - BLOOD DRAW Final Result [address] [address], [place] [phone] * Pap with Age-Based Screening (no STD testing) (07/27/2018 8:00 PM EDT) COMMENT See Below [facility] Comment: This order for age-based cervical cancer and STI screening follows ACOG guidelines(PB 168, 140, XIL359). See individual assays for performing site location. Cytologic material (specimen) Cervix uteri structure / Unknown 07/27/2018 8:00 PM EDT 07/29/2018 2:33 AM EDT Narrative [facility] - 08/02/2018 11:43 AM EDT Performing Organization Information: [[id number]] : [employer], [address] [place] [address],[address], [place] [address] Director: TAYLOR PINEDO MD us Lorenzo Adames CNM LAB - PATHOLOGY AND CYTOLOGY AMBULATORY Final Result [facility] [address] [place] [id number], * HIV 1/2 AG & AB W/RFLX (4TH GEN) (02/11/2018 3:41 PM EDT) HIV AG/AB, 4TH GEN NON-REACT BRAYDEN NON-REACT BRAYDEN [facility] Comment: HIV-1 antigen and HIV-1/HIV-2 antibodies were [...] purpose. For additional information please refer to http://education.To The Tops/faq/OOT313 (This link is being provided for informational/ educational purposes only.) The performance of this assay has not been clinically validated in patients less than 2 years old. Blood specimen (specimen) Blood / Unknown 02/11/2018 3:41 PM EDT 02/12/2018 4:15 AM EDT Narrative [facility] - 02/12/2018 7:33 AM EDT Performing Organization Information: [[id number]] : [employer], [address] [place] [address],[address], [place] [address] Director: TAYLOR PINEDO MD us Kwame Medina MD LAB - BLOOD DRAW Final Result [facility] [address] [place] [id number], from Last 3 Months or Most Recently Relevant to Health Maintenance
--- OUTSIDE RECORDS SUMMARY | 2025-05-03 11:18 | XMS_ITS | Patient Health Record ---
Author Organization [facility] Address [address], [place] [id number] Care Team Providers Care Air Shovel Operator Name Role Phone Terry Vasquez Primary Care Provider [phone] [facility], Nursing Unavailable [phone] Allergies No Known Allergies Results Component Value [...] (20 or more) IM Intramuscular 02/02/2024 Administered [facility] 34430-625-68 Tdap Unknown 03/27/2010 Administered H1N1 Influenza Unknown 10/26/2009 Administered Influenza Unknown 02/11/2018 Administered Afluria Unknown 02/07/2019 Administered Flu-IIV4, p-free Unknown 07/25/2022 Administered Influenza IM Intramuscular 09/22/2024 Administered Problems Problem Type SNOMED Code ICD Code Onset Dates Problem Status W/U Status Risk Notes Problem Keratoconus, stable condition (691811626) Keratoconus, stable, 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) Active confirmed Problem Conductive hearing loss, bilateral (348678107) Conductive hearing loss, bilateral (H90.0) Active confirmed Problem Fatty liver (762568276) Fatty (change of) liver, not elsewhere classified (K76.0) Active confirmed Problem Localized, primary osteoarthritis of the ankle and/or foot (932068089) Primary osteoarthritis , left ankle and foot (M19.072) Active confirmed Problem Hormone abnormality (68191680) Abnormal level of hormones in specimens from other organs, systems and tissues (R89.1) Active confirmed Problem Abnormal vision (6483975) Presence of spectacles and contact lenses (Z97.3) Active confirmed Problem Body mass index 25-29 - overweight (172045877) Body mass index [BMI] 28.0-28.9, adult (Z68.28) Active confirmed Vital Signs Temperature 98.3 degrees Fahrenheit 02/14/2025 Blood pressure diastolic 76 02/14/2025 Oximetry 98 02/14/2025 Height 60 in 02/14/2025 Blood pressure systolic 118 02/14/2025 Weight 146 lbs 02/14/2025 BMI 28.51 kg/m2 02/14/2025 Encounters Encounter Location Date Provider Diagnosis [address] [id number] 09/20/2024 Terry Vasquez Abnormal level of hormones in specimens from other organs, systems and tissues R89.1 ; Injury of conjunctiva and corneal abrasion without foreign body, left eye, initial encounter S05.02XA ; Encounter for screening for COVID-19 Z11.52 ; Other bursitis, not elsewhere classified, left ankle and foot M71.572 and Leiomyoma of uterus, unspecified D25.[address] [id number] 09/22/2024 Nursing [facility] Encounter for screening for COVID-19 Z11.52 and Encounter for screening, unspecified Z13.[address] [id number] 09/22/2024 Nursing [facility] Encounter for immunization Z23 [address] [id number] 02/14/2025 Terry Vasquez Encounter for screening for COVID-19 Z11.52 ; Primary osteoarthritis, left ankle and foot M19.072 ; Keratoconus, stable, bilateral H18.613 and Abnormal level of hormones in specimens from other organs, systems and tissues R89.[address] [id number] 02/17/2025 Nursing [facility] Encounter for screening, unspecified Z13.[address] [id number] 11/11/2024 Terry Vasquez [address] [id number] 02/15/2025 Terry Vasquez [address] [id number] 02/17/2025 Terry Vasquez Assessments Encounter Date Diagnosis (ICD Code) Assessment Notes Treatment Notes Treatment Clinical Notes Section Notes 09/20/2024 Abnormal level of hormones in specimens from other organs, systems and tissues (ICD-10 - R89.1) w/u at garbage man 09/20/2024 Injury of conjunctiva and corneal abrasion [...] Doing well right now but waiting for [place] appt 09/20/2024 Other bursitis, not elsewhere classified, left ankle and foot (ICD-10 - M71.572) I dpubt gout and looks more like bursal inflammation at [facility]TP. Start SNSIAd, ice and f/u i a mnth 02/14/2025 Abnormal level of hormones in specimens from other organs, systems and tissues (ICD-10 - R89.1) Followed well by garbage man-records reviewed. On prvera 10 days amionth; PAP up todate 09/20/2024 Leiomyoma of uterus, unspecified (ICD-10 - D25.9) sonds lie fibroid but bx pendign-sees garbage man in a week 11/11/2024 Other 12/06/2024 Other 12/30/2024 Other 09/20/2024 Other 09/22/2024 Other 02/14/2025 Other Plan Of Treatment Pending Test Test Name Order Date David Screening Digital 08/18/2023 Next Appt Details Provider Name:Terry Vasquez, 08/15/2025 02:20:00 PM, [address], [place], [phone], Provider Name:Nursing [facility], 08/17/2025 09:40:00 AM, [address], [place], [id number], Insurance Providers Payer Name Payer Address Payer Phone Subscriber Number Group Number Insured Name Patient Relationship to Insured Coverage Start Date Coverage End Date [place] Medicaid Limited [address] [place], [place] [id number] MITRA ALANIS Self - patient is the insured 3 Medical (General) History Surgical History Surgery Date(Month/Year) appendectomy 06/2009
== END 2025-05-03 11:35 | disposition home or self-care (01) ==
LOC: HO.HWS 10:38
PROVIDERS: Visit Provider Obstetrics & Gynecology
DX: Z01.419 Encounter for gynecological examination (general) (routine) without abnormal findings (principal)
CPT/HCPCS: 99396; 99459

== ENCOUNTER → 2025-05-03 10:38 | Outpatient (BNVA) | payer OTHER, SELFPAY | PROVIDERS: Visit Provider Obstetrics & Gynecology | DX: Z01.419 Encounter for gynecological examination (general) (routine) without abnormal findings (principal) | CPT/HCPCS: 99396 ==

== ENCOUNTER 2025-06-06 15:28 | Outpatient (AMB) | payer OTHER, SELFPAY ==
--- NOTE | 2025-06-06 15:29 | A.OFFVIS_ITS ---
Vital Signs 06/06/25 15:35 Height 5 ft Weight 147 lb BMI 28.7 BP 118/76 Blood Pressure Location Rt brachial Position Sitting Pulse 80 Pulse Source Pulse Oximeter Pulse Oximetry (%) 98 Oxygen Delivery Method Room Air Intake Visit Reasons: 4mo Intake Note: ESTABLISHED PATIENT for GERD, CIC mgmt. CC; Pt denies any GI sx or concerns at this time. Confirms that her Rx therapy is working well for her at this time. Layboy Operator Required: Yes Layboy Operator Services: Layboy Operator Present Layboy Operator Name: Jade [id number] Information Interpreted: clinical only Accompanied by: Self / Same As Patient Allergies No Known Allergies Allergy (Verified 06/06/25 15:30) HPI HPI 4mo: Details: LAST VISIT: Postprandial abdominal bloating History of Clostridioides difficile infection History of Helicobacter pylori infection GERD (gastroesophageal reflux disease) Constipation Plan Continue Nexium daily. Avoid dietary triggers and like that is acute. Staying upright for minimum 3 hours after meals discussed with patient. Patient can stop Dulcolax and we will start her on Linzess. Patient is to call the office if she will have diarrhea or still will be constipated. Increase fluid intake and activity to promote better bowel motility. Low FODMAP diet recommended due to her bloating although patient reports that her symptoms are worse in the afternoon and does not matter what she eats. This might be related to her being constipated. Denies any abdominal pain or discomfort otherwise. Follow-up in 3-4 months, sooner on as needed basis. Patient is to call the office if she will have any GI concerning symptoms. She is agreeable to this plan and verbalizes understanding of instructions. She was given the opportunity to ask questions and all questions answered. ? Thank you for allowing me to participate in her care New linaclotide (Linzess) 145 mcg PO DAILY 30 caps 4RF K59.04 Refilled esomeprazole magnesium (Nexium) 40 mg PO DAILY 90 caps 3RF K21.9 On Hold bisacodyl (Dulcolax (bisacodyl)) Hold Comment: Doctor's Order 10 mg (2 x 5 mg) PO BEDTIME 180 tabs 4RF TODAY'S VISIT: Patient is here today for follow-up. Patient reports that she started taking Linzess and had diarrhea 1-2 hours immediately. Patient states that she was unable to take it. Patient reports that she was doing better when she was taking the Dulcolax. Patient currently is not taking anything. She is drinking papaya and John seeds and is moving her bowels, however not every day and does not feel like she empties her bowels completely. Patient denies melena, hematochezia, unintentional weight loss or ribbon like stools. Patient had colonoscopy in 2021 that showed no polyps. Recommendation was for 10 years for colonoscopy screening. Patient had procedure in [facility]. Patient reports occasional abdominal bloating when she is constipated. Patient reports that acid reflux has been suppressed for the most part. Patient denies dyspepsia, dysphagia or odynophagia. [facility] Medical History (Updated 06/06/25 @ 17:00 by [facility]) History of Helicobacter pylori infection History of Clostridioides difficile infection Dysphagia GERD (gastroesophageal reflux disease) Gastritis Surgical History Hx of appendectomy Family History Mother Hepatic cancer Father Bladder cancer Social History Household Members: Spouse and Children Housing: House Are you a primary hemodialysis patient care specialist to a significant other at home: No Do you presently have visiting nurse or other home services: No Alcohol intake: never Patient Tobacco Use Status: Never used Tobacco Female Reproductive History Menstrual Age of Menarche: 14 Review of Systems Const Denies weight gain and Denies weight loss ENT Reports no additional complaints, Denies dysphagia and Denies odynophagia Card Reports no additional complaints Resp Reports no additional complaints GI Reports abdominal pain, Denies belching, Denies melena, Reports bloating, Denies change in bowel habits, Reports constipation, Denies dysphagia, Denies excessive flatus, Denies dyspepsia, Denies heartburn, Denies diarrhea, Denies loose stools, Denies nausea, Denies odynophagia and Denies vomiting Reports no additional complaints Musc Reports no additional complaints Neuro Reports no additional complaints Psych Reports no additional complaints Endo Reports no additional complaints Physical Exam Vital Signs: Last Vital Signs Pulse 80 06/06/25 15:35 BP 118/76 06/06/25 15:35 Pulse Ox 98 06/06/25 15:35 Oxygen Delivery Method Room Air 06/06/25 15:35 BMI result Body Mass Index 28.7 Const General: healthy appearing, no acute distress and well developed Nutritional Appearance: well nourished Orientation/consciousness: patient oriented x3 Resp Effort & Inspection: normal respiratory effort, able to speak in complete sentences, no tracheal deviation and symmetric chest movement Auscultation: clear to auscultation bilaterally Cardio Rate: regular rate GI Inspection: Yes normal to inspection and No distended Palpation (GI): Soft to palpation, not firm, nontender and No hepatosplenomegaly present Auscultation: normal bowel sounds General: Yes no CVA tenderness Back/Spine/Pelvis Back: no CVA tenderness Skin General skin exam: elasticity normal, turgor normal and dry skin Neuro General: patient oriented x3 Psych Appearance: grossly normal Mental Status: mental status grossly normal Assessment & Plan Assessment & Plan (1) Postprandial abdominal bloating: Code(s): R14.0 - Abdominal distension (gaseous) Category: Medical (2) History of Helicobacter pylori infection: Code(s): Z86.19 - Personal history of other infectious and parasitic diseases Category: Medical (3) GERD (gastroesophageal reflux disease): Code(s): K21.9 - Gastro-esophageal reflux disease without esophagitis Category: Medical Qualifiers: Esophagitis presence: esophagitis presence not specified Qualified Code(s): K21.9 - Gastro-esophageal reflux disease without esophagitis (4) Constipation: Code(s): K59.00 - Constipation, unspecified Qualifiers: Constipation type: slow transit constipation Qualified Code(s): K59.01 - Slow transit constipation Plan Patient will continue taking Nexium daily. Avoid dietary triggers in late night snacking. Staying upright for minimum 3 hours after meals discussed with patient. Patient will stop Linzess and take Dulcolax. Patient will also increase fluid intake and activity to promote bowel motility. Patient can take [id number] fiber with pre and probiotics. Follow-up in 3-4 months, sooner on as needed basis. Patient is agreeable to this plan and verbalizes understanding of instructions. She was given the opportunity to ask questions and all questions answered. Thank you for allowing me to participate in her care Medications: Refilled esomeprazole magnesium (Nexium) 40 mg PO DAILY 90 caps 3RF K21.9 - Gastro- esophageal reflux disease without esophagitis Discontinued linaclotide (Linzess) Discontinued Reason: Doctor's Order 145 mcg PO DAILY 30 caps 4RF K59.04 - Chronic idiopathic constipation Resumed bisacodyl (Dulcolax (bisacodyl)) 10 mg (2 x 5 mg) PO BEDTIME 180 tabs 4RF Coding Level of Care Code Est Pt Level 4 (99605) Complex EM visit Add On G2211 Diagnoses Postprandial abdominal bloating R14.0 History of Helicobacter pylori infection Z86.19 Gastroesophageal reflux disease, unspecified whether esophagitis present K21.9 Esophagitis presence: esophagitis presence not specified Slow transit constipation K59.01 Constipation type: slow transit constipation Time Spent (min) 35 Comment 25 minutes spent with patient and additional 10 minutes spent reviewing her records
[2025-06-06 15:35] VITALS: BP 118/76; PULSE 80; O2SAT 98; BMI 28.7
--- OUTSIDE RECORDS SUMMARY | 2025-06-06 16:45 | XMS_ITS | Encounter Summary ---
Author Organization [employer] Address [address] [place] [address] [address] [address] Care Team Providers Care Leadership Development Manager Name Role Phone Vera Johnson PAINTER SUPERVISOR Primary Care Provider Corina Mcintyre PAINTER SUPERVISOR Primary Care Provider [phone] Encounter Details Date Type Department Care Team (Late st Contact Info) Description 02/23/2023 Orders Only [address] [address] Ban Rosa DMD [address] [place] [address] Social History Tobacco Use Types Packs/Day Years [...] on filedocumented in this encounter Care Teams Leadership Development Manager Relationship Specialty Start Date End Date Vera Johnson NP PCP - General 06/25/22 09/01/23 Corina Shields NP [address] [place] [address] [address] [place] [address] PCP - General Family Medicine 09/02/23 01/19/25 documented as of this encounter
--- OUTSIDE RECORDS SUMMARY | 2025-06-06 16:45 | XMS_ITS | Patient Health Record ---
Author Organization [facility] Address [address] [place], [place] [id number] Care Team Providers Care Collar Stitcher Name Role Phone Terry Vasquez Primary Care Provider [phone] [facility], Nursing Unavailable [phone] Allergies No Known Allergies Results Component Value [...] 02/02/2024 Administered [facility] 54731-550-78 Tdap Unknown 03/27/2010 Administered H1N1 Influenza Unknown 10/26/2009 Administered Influenza Unknown 02/11/2018 Administered Afluria Unknown 02/07/2019 Administered Flu-IIV4, p-free Unknown 07/25/2022 Administered Influenza IM Intramuscular 09/22/2024 Administered Problems Problem Type SNOMED Code ICD Code Onset Dates Problem Status W/U Status Risk Notes Problem Keratoconus, stable condition (914513147) Keratoconus, stable, 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) Active confirmed Problem Conductive hearing loss, bilateral (483617147) Conductive hearing loss, bilateral (H90.0) Active confirmed Problem Fatty liver (354906274) Fatty (change of) liver, not elsewhere classified (K76.0) Active confirmed Problem Localized, primary osteoarthritis of the ankle and/or foot (105342483) Primary osteoarthritis , left ankle and foot (M19.072) Active confirmed Problem Hormone abnormality (60280095) Abnormal level of hormones in specimens from other organs, systems and tissues (R89.1) Active confirmed Problem Abnormal vision (3057279) Presence of spectacles and contact lenses (Z97.3) Active confirmed Problem Body mass index 25-29 - overweight (526600360) Body mass index [BMI] 28.0-28.9, adult (Z68.28) Active confirmed Vital Signs Temperature 98.3 degrees Fahrenheit 02/14/2025 Blood pressure diastolic 76 02/14/2025 Oximetry 98 02/14/2025 Height 60 in 02/14/2025 Blood pressure systolic 118 02/14/2025 Weight 146 lbs 02/14/2025 BMI 28.51 kg/m2 02/14/2025 Encounters Encounter Location Date Provider Diagnosis [address] [id number] 09/20/2024 Terry Vasquez Abnormal level of hormones in specimens from other organs, systems and tissues R89.1 ; Injury of conjunctiva and corneal abrasion without foreign body, left eye, initial encounter S05.02XA ; Encounter for screening for COVID-19 Z11.52 ; Other bursitis, not elsewhere classified, left ankle and foot M71.572 and Leiomyoma of uterus, unspecified D25.[address] [id number] 09/22/2024 Nursing [facility] Encounter for screening for COVID-19 Z11.52 and Encounter for screening, unspecified Z13.[address] [id number] 09/22/2024 Nursing [facility] Encounter for immunization Z23 [address] [id number] 02/14/2025 Terry Vasquez Encounter for screening for COVID-19 Z11.52 ; Primary osteoarthritis, left ankle and foot M19.072 ; Keratoconus, stable, bilateral H18.613 and Abnormal level of hormones in specimens from other organs, systems and tissues R89.[address] [id number] 02/17/2025 Nursing [facility] Encounter for screening, unspecified Z13.[address] [id number] 11/11/2024 Terry Vasquez [address] [id number] 02/15/2025 Terry Vasquez [address] [id number] 02/17/2025 Terry Vasquez Assessments Encounter Date Diagnosis (ICD Code) Assessment Notes Treatment Notes Treatment Clinical Notes Section Notes 09/20/2024 Abnormal level of hormones in specimens from other organs, systems and tissues (ICD-10 - R89.1) w/u at personnel worker 09/20/2024 Injury of conjunctiva and corneal abrasion [...] Doing well right now but waiting for [place] appt 09/20/2024 Other bursitis, not elsewhere classified, left ankle and foot (ICD-10 - M71.572) I dpubt gout and looks more like bursal inflammation at MTP. Start SNSIAd, ice and f/u i a mnth 02/14/2025 Abnormal level of hormones in specimens from other organs, systems and tissues (ICD-10 - R89.1) Followed well by personnel worker-records reviewed. On prvera 10 days amionth; PAP up todate 09/20/2024 Leiomyoma of uterus, unspecified (ICD-10 - D25.9) sonds lie fibroid but bx pendign-sees personnel worker in a week 11/11/2024 Other 12/06/2024 Other 12/30/2024 Other 09/20/2024 Other 09/22/2024 Other 02/14/2025 Other Plan Of Treatment Pending Test Test Name Order Date David Screening Digital 08/18/2023 Next Appt Details Provider Name:Terry Vasquez, 08/15/2025 02:20:00 PM, [address], [place], [phone], Provider Name:Nursing [facility], 08/17/2025 09:40:00 AM, [address], [place], [phone], Insurance Providers Payer Name Payer Address Payer Phone Subscriber Number Group Number Insured Name Patient Relationship to Insured Coverage Start Date Coverage End Date [place] Medicaid Limited [address] [place], [place] [id number] MITRA ALANIS Self - patient is the insured 3 Medical (General) History Surgical History Surgery Date(Month/Year) appendectomy 06/2009
--- OUTSIDE RECORDS SUMMARY | 2025-06-06 16:45 | XMS_ITS | Encounter Summary ---
Author Organization [facility] [place] [address] Care Team Providers Care Cisco Network Architect Name Role Phone Physician, Pcp Unknown Primary Care Provider Sonya vailable Encounter Details Date Type Department Care Team (Late st Contact Info) Description 02/17/2025 Lab Requisition [facility] - Main Lab [address] [place] [phone] eTrry Vasquez MD [address] [place] [address] Fatty (change of) liver, not elsewhere classified [...] mmol/L LAB CHEMISTRY METHOD 02/17/2025 8:04 PM [facility] Potassium 4.2 3.5 - 5.5 mmol/L LAB CHEMISTRY METHOD 02/17/2025 8:04 PM [facility] Chloride 110 96 - 110 mmol/L LAB CHEMISTRY METHOD 02/17/2025 8:04 PM [facility] CO2 25 21 - 32 mmol/L LAB CHEMISTRY METHOD 02/17/2025 8:04 PM [facility] Anion Gap 4 3 - 11 LAB CHEMISTRY METHOD 02/17/2025 8:04 PM [facility] Glucose 108(H) 70 - 100 mg/dL LAB CHEMISTRY METHOD 02/17/2025 8:04 PM [facility] BUN 10 5 - 25 mg/dL LAB CHEMISTRY METHOD 02/17/2025 8:04 PM [facility] Creatinine 0.61 0.50 - 1.10 mg/dL LAB CHEMISTRY METHOD 02/17/2025 8:04 PM [facility] eGFR 110 >=60 mL/min/1. 73m2 LAB CHEMISTRY METHOD 02/17/2025 8:04 PM [facility] Comment:Calculation based on the Chronic Kidney Disease Epidemiology Collaboration (CKD-EPI) equation refit without adjustment for race. BUN/Creatinine Ratio 16.4 LAB CHEMISTRY METHOD 02/17/2025 8:04 PM [facility] Calcium 8.5 8.5 - 10.5 mg/dL LAB CHEMISTRY METHOD 02/17/2025 8:04 PM [facility] AST (SGOT) 17 10 - 42 unit/L LAB CHEMISTRY METHOD 02/17/2025 8:04 PM [facility] ALT (SGPT) 21 10 - 60 unit/L LAB CHEMISTRY METHOD 02/17/2025 8:04 PM [facility] Alkaline Phosphatase 75 42 - 121 unit/L LAB CHEMISTRY METHOD 02/17/2025 8:04 PM EDT [facility] Total Protein 6.7 6.0 - 8.0 g/dL LAB CHEMISTRY METHOD 02/17/2025 8:04 PM EDT [facility] Albumin 3.3 3.2 - 5.0 g/dL LAB CHEMISTRY METHOD 02/17/2025 8:04 PM EDT [facility] Total Bilirubin 0.3 0.0 - 1.4 mg/dL LAB CHEMISTRY METHOD 02/17/2025 8:04 PM EDT [facility] Blood Venous blood specimen / Unknown 02/17/2025 2:35 PM EDT 02/17/2025 7:07 PM EDT Terry Vasquez MD LAB BLOOD ORDERABLES Final Re sult [facility] [address] [place] [address], * (ABNORMAL) Complete blood count (02/17/2025 2:35 PM EDT) WBC 8.0 4.8 - 10.8 K/mcL LAB HEMETOLOGY METHOD 02/17/2025 8:23 PM EDT [facility] RBC 4.20 3.80 - 4.80 M/mcL LAB HEMETOLOGY METHOD 02/17/2025 8:23 PM EDT [facility] Hemoglobin 11.5 11.5 - 16.0 g/dL LAB HEMETOLOGY METHOD 02/17/2025 8:23 PM EDT [facility] Hematocrit 36.0 35.0 - 47.0 % LAB HEMETOLOGY METHOD 02/17/2025 8:23 PM EDT [facility] MCV 85.3 79.0 - 98.0 FL LAB HEMETOLOGY METHOD 02/17/2025 8:23 PM EDT [facility] MCH 27.3 27.0 - 32.0 pcg LAB HEMETOLOGY METHOD 02/17/2025 8:23 PM EDT [facility] MCHC 31.9(L) 32.0 - 37.0 g/dL LAB HEMETOLOGY METHOD 02/17/2025 8:23 PM EDT [facility] RDW 15.9(H) 11.0 - 15.0 % LAB HEMETOLOGY METHOD 02/17/2025 8:23 PM EDT [facility] Platelets 247 130 - 400 K/mcL LAB HEMETOLOGY METHOD 02/17/2025 8:23 PM EDT [facility] MPV 10.4 7.0 - 11.0 FL LAB HEMETOLOGY METHOD 02/17/2025 8:23 PM EDT [facility] NRBC 0.0 <1.0 % LAB HEMETOLOGY METHOD 02/17/2025 8:23 PM EDT [facility] NRBC Absolute 0.00 <0.10 K/mcL LAB HEMETOLOGY METHOD 02/17/2025 8:23 PM EDT [facility] Blood Venous blood specimen / Unknown 02/17/2025 2:35 PM EDT 02/17/2025 7:07 PM EDT us Terry Vasquez MD LAB BLOOD ORDERABLES Final Re sult [facility] [address] [place] [address], documented in this encounter Visit Diagnoses Diagnosis Fatty (change of) liver, not elsewhere classified documented in this encounter Care Teams Cisco Network Architect Relationship Specialty Start Date End Date Physician, Pcp Unknown PCP - General 12/16/24 documented as of this encounter
--- OUTSIDE RECORDS SUMMARY | 2025-06-06 16:45 | XMS_ITS | Encounter Summary ---
Author Organization [facility] Address [address] [place] [address] [place] [phone] Phone Care Team Providers Care Motor And Controls Tester Name Role Phone Daniel Hinds OD Unavailable Sidra Lockett CNP Primary Care Provider Nohemi Santa MD Primary Care Provider Encounter Details Date Type Department Care Team (Latest Contact Info) Description 05/07/2021 Transcribe Orders [facility] Central Scheduling Virtual [address] [place] [address] Belén Pena PA-C [address] [place] [address] Chronic RLQ pain (Primary Dx) Social History Tobacco Use Types Packs/Day Years Used Date Smoking Tobacco: Never Smokeless Tobacco: Never Alcohol Use Standard Drinks/Week Comments No 0 (1 standard drink = 0.6 oz pur e alcohol) Comments No Sex and Gender Information Value Date Recorded Sex Assigned at Female 05/12/2022 12:02 PM EDT Legal Sex Female 5:44 PM EST Gender Identity Female 05/12/2022 12:02 PM EDT Sexual Orientation Straight 06/22/2022 11 :42 PM EDT documented as of this encounter Plan of Treatment Not on file documented as of this encounter Visit Diagnoses Diagnosis Chronic RLQ pain- Primary Abdominal pain, right lower quadrant documented in this encounter Care Teams Motor And Controls Tester Relationship Specialty Start Date End Date Sidra Lockett CNP [address] [place] [address] [email or web address] PCP - General Family Medicine 07/13/20 2 Nohemi Santa MD [address] [place] [address] PCP - General Family Medicine 08/01/22 Daniel Hinds OD [address] [place] [address] Referring Physician 03/30/20 documented as of this encounter Additional Source Comments The information contained in this document represents components of the legal health record. It is not the complete legal health record.[facility]
--- OUTSIDE RECORDS SUMMARY | 2025-06-06 16:46 | XMS_ITS | Clinical Summary ---
Author Organization [facility] Address [address] [place] [address] Care Team Providers Care Meteorology Professor Name Role Phone Unavailable Primary Care Provider [...] rhinitis, unspecified seasonality, unspecified trigger Place 1 [place] in both nostrils once daily 16 g [...] History of COVID-19 10/06/2020 SAB (spontaneous ) ([facility]) 02/14/2019 Overview (02/25/2019): PLAN: Pt [...] and termination recommended, he's healthy. ([facility]) 02/07/2019 02/15/20 19 Overview (02/14/2019): SAB 02/13/19 [...] by Subchorionic hematoma in fir st trimester ([facility]) 02/07/2019 02/14/2019 Overview (02/09/2019): 01/24/19: [...] 05/13/2024 05/13/2022, 05/13/2022, 05/13/2022, Additional history exists [id number] ( season) 2024 12/03/2021, 03/19/2021, 02/18/2021 Diabetes [...] 05/13/2022 3:00 AM EDT us Sidra Lockett INVOICING SPECIALIST IMG MAMMO Final Result * COMPREHENSIVE METABOLIC PANEL (07/11/2021 11:20 AM EDT) SODIUM 139 136 - 145 mmol/L [facility] POTASSIUM 4.3 3.6 - 5.1 mmol/L [facility] CHLORIDE 102 98 - 107 mmol/L [facility] CARBON DIOXIDE 27 22 - 32 mmol/L [facility] BUN 10 6 - 20 mg/dL [facility] CREATININE 0.61 0.4 - 1.0 mg/dL [facility] GLUCOSE 92 65 - 99 mg/dL [facility] ALBUMIN 4.4 3.5 - 5.2 g/dL [facility] TOTAL PROTEIN 7.2 6.1 - 8.1 g/dL [facility] CALCIUM 9.3 8.9 - 10.3 mg/dL [facility] ALK PHOS 66 32 - 100 U/L [facility] TOTAL BILIRUBIN 0.5 0.0 - 1.2 mg/dL [facility] AST 17 15 - 41 U/L [facility] ALT 24 10 - 35 U/L [facility] GLOBULIN 2.8 1.9 - 4.1 g/dL [facility] EGFR 109 60 - 128 mL/min/1.7 3m2 [facility] Comment:Estimated glomerular filtration rate calculated using the CKD-EPI equation. ANION GAP 10 3 - 17 mmol/L [facility] Comment:Processed and/or per formed at [address] [place] [address] Blood Blood / Unknown 07/11/2021 1 1:20 AM EDT us Jose Bob MD LAB - BLOOD DRAW Final Resul t [address] [address], * (ABNORMAL) LIPID PANEL (12/20/2019 3:51 PM EST) HDL 43 >39 mg/dL [facility] CHOLESTEROL 194 0 - 200 mg/dL [facility] TRIGLYCERIDE 233(H) 0 - 150 mg/dL [facility] LDL 104 40 - 130 mg/dL [facility] CARDIAC RISK RATIO 4.5 <5 [facility] NON HDL CHOL 151 mg/dL [facility] Comment: Reference Range: The non-HDL Cholesterol value should not exceed the desired LDL-C by more than 30 mg/dl. Processed and/or performed at [facility], [address] [place] [address] Blood specimen (specimen) Blood / Unknown 12/20/2019 3:51 PM EST Sidra Lockett NP LAB - BLOOD DRAW Final Result [address] [address], [place] [phone] * Pap with Age-Based Screening (no STD testing) (07/27/2018 8:00 PM EDT) COMMENT See Below [facility] Comment: This order for age-based cervical cancer and STI screening follows ACOG guidelines(PB 168, 140, QGU244). See individual assays for performing site location. Cytologic material (specimen) Cervix uteri structure / Unknown 07/27/2018 8:00 PM EDT 07/29/2018 2:33 AM EDT Narrative Purple - 08/02/2018 11:43 AM EDT Performing Organization Information: [927] : [facility], [address] [place] [address],[address], [place] [address] Director: TAYLOR PINEDO MD us Lorenzo Adames CNM LAB - PATHOLOGY AND CYTOLOGY AMBULATORY Final Result [facility] [address] [place] [id number], * HIV 1/2 AG & AB W/RFLX (4TH GEN) (02/11/2018 3:41 PM EDT) HIV AG/AB, 4TH GEN NON-REACT BRAYDEN NON-REACT BRAYDEN Purple Comment: HIV-1 antigen and HIV-1/HIV-2 antibodies were [...] purpose. For additional information please refer to http://education.[employer]/faq/UTK571 (This link is being provided for informational/ educational purposes only.) The performance of this assay has not been clinically validated in patients less than 2 years old. Blood specimen (specimen) Blood / Unknown 02/11/2018 3:41 PM EDT 02/12/2018 4:15 AM EDT Narrative [facility] - 02/12/2018 7:33 AM EDT Performing Organization Information: [927] : [facility], [address] [place] [address],[address], [place] [address] Director: TAYLOR PINEDO MD us Kwame Medina MD LAB - BLOOD DRAW Final Result [facility] [address] [place] [address], from Last 3 Months or Most Recently Relevant to Health Maintenance
== END 2025-06-06 16:01 | disposition home or self-care (01) ==
LOC: HO.HGI 15:29
PROVIDERS: Visit Provider Nurse Practitioner Family
DX: R14.0 Abdominal distension (gaseous) (principal); Z86.19 Personal history of other infectious and parasitic diseases; K21.9 Gastro-esophageal reflux disease without esophagitis; K59.01 Slow transit constipation
CPT/HCPCS: 99214

== ENCOUNTER → 2025-06-06 15:28 | Outpatient (BNVA) | payer OTHER, SELFPAY | PROVIDERS: Visit Provider Nurse Practitioner Family | DX: K21.9 Gastro-esophageal reflux disease without esophagitis (principal); R14.0 Abdominal distension (gaseous); Z86.19 Personal history of other infectious and parasitic diseases; K59.01 Slow transit constipation | CPT/HCPCS: 99212 ==

== ENCOUNTER 2025-10-02 14:56 | Outpatient (AMB) | payer OTHER, SELFPAY ==
--- OUTSIDE RECORDS SUMMARY | 2025-07-01 16:00 | XMS_ITS ---
Author Organization [facility] Address [address] [place] [phone] Care Team Providers Care Production Manufacturing Worker Name Role Phone Terry Vasquez Primary Care Provider Migration, Provider Unavailable Unavailable REASON FOR VISIT [facility] Encounter Medications Medication SIG (Take, Route, Frequency, Duration) Notes Start Date End Date Status medroxyPROGESTERone Acetate 10 MG 1 tab(s) orally once a day Active Naproxen 375 MG 1 tab(s) orally 2 times a day for 21 days Active Vitamin D3 10 MCG 1 TAB(S) ORALLY ONCE A DAY *Please review and pick correct strength-formula tion from [facility] options. If intended option is not shown, discontinue and re-order from Quick Search* Active Omeprazole 40 MG 1 cap(s) orally once a day Active Ofloxacin 0.3 % 1 gtt in left eye 4 times a day for 5 days 09/20/2024 Not-Taking Linzess 145 MCG 1 cap(s) orally once a day Active Encounters Encounter Location Date Provider Diagnosis [address] [address] 07/01/2025 Provider Migration Plan Of Treatment Next Appt Details Provider Name:Terry Vasquez, 11/21/2025 02:20:00 PM, [address] [place] [address], [phone], Progress Notes * MITRA ALANISDOB: [birth year] (50 yo F)Acc No.[id number]:07/01/2025 Patient: Dorita MITRA SCHOFIELD Provider: :1975 A ge:50 Y S ex:Female Date:07/01/2025 Address:[address] [place], [place] [id number] Pcp:Terry Vasquez Subjective: * Chief Complaints: * 1 . [facility]. * Medical History: * Medications: T aking medroxyPROGESTERone Acetate 10 MG Tablet 1 tab(s) orally once a day , Taking Linzess 145 MCG Capsule 1 cap(s) orally once a day , Taking Omeprazole 40 MG Capsule Delayed Release 1 cap(s) orally once a day , Taking Vitamin D3 10 MCG TABLET 1 TAB(S) ORALLY ONCE A DAY , Notes to Pharmacist: *Please review and pick correct strength-formulation from [facility] options. If intended option is not shown, discontinue and re-order from Quick Search*, Taking Naproxen 375 MG Tablet 1 tab(s) orally 2 times a day , Not-Taking/PRN Ofloxacin 0.3 % Solution 1 gtt in left eye 4 times a day Objective: * Vitals: Assessment: Plan: * Treatment: * Images: Billing Information: * Visit Code: * Procedure Codes: * Electronic signature of Prov ider Migration on 10/02/2025 at 09:30 PM EST Sign off status: Pending * Provider: Date: 0 07/01/2025 Generated for Ed ferrari/Mike/Kim on: 12/03/2024 09:30 PM EST
--- OUTSIDE RECORDS SUMMARY | 2025-08-17 04:40 | XMS_ITS ---
Author Organization [facility] Address [address] [place] [phone] Care Team Providers Care Wood Boatbuilder Name Role Phone Pedro Terry Primary Care Provider [facility], Nursing Unavailable [phone] REASON FOR VISIT Labs Encounters Encounter Location Date Provider Diagnosis [address] [address] 08/17/2025 Nursing [facility] Plan Of Treatment Next Appt Details Provider Name:Terry Vasquez, 11/21/2025 02:20:00 PM, [address] [place] [address], [phone], Progress Notes * MITRA ALANISDOB: [birth year] (50 yo F)Acc No.[id number]:08/17/2025 Progress Notes Patient: MITRA QUILES Provider: Higinio min [facility] :1975 A ge:50 Y S ex:Female Date:08/17/2025 Address:[address] [place], [place] [id number] Pcp:Terry Vasquez Subjective: * Chief Complaints: * 1 . Labs. Objective: * Vitals: Assessment: Plan: * Treatment: * Images: Billing Information: * Visit Code: * Procedure Codes: * Electronic signature of [facility] on 10/02/2025 at 09:31 PM EST Sign off status: Pending * Provider: Higinio min [facility] Date: 1 Generated for Ed ferrari/Mike/eTransmitting on: 12/03/2024 09:31 PM EST
--- OUTSIDE RECORDS SUMMARY | 2025-09-22 09:33 | XMS_ITS | Continuity of Care Document ---
Author Organization [facility] Address [address] [place] [address] [address] [place] [address] Phone Care Team Providers Care Money Manager Name Role Phone Eddie SALDIVAR, JULIO, Byron MARCUM Unavailable U navailable Allergies, Adverse Reactions, Alerts Substance Reaction Status Criticality No Known Allergies Active No Inform ation Advance Directives Directive Yes / No Effective Date File Name No Information Encounters Encounter Description Practice Location Reason(s) For Visit Diagnoses Date Provider Encounter Disposition [facility], [address] [place] [address] Dr Márquez 1000SuTish owens [place], [id number], tel:[phone] [facility] No Information Dec-0 5 Eddie SALDIVAR RVT, RPVI Robert. [address] [place] [address], [id number] , . tel:[phone] [facility], [address] [place] [address] Dr Márquez 1000SuTish owens [place], [id number], tel:[phone] [facility] Localized edemaCramp and spasmRestless legs syndromeVenou s insufficiency (chronic) (peripheral) Oct-0 5 Eddie SALDIVAR RVT, RPVI Robert. [address] [place] [address], [id number] , [place]. tel:[phone] [facility], [address] [place] [address] Dr Márquez 1000SuTish owens MD, [id number], tel:[phone] [facility] - [facility] Chronic venous hypertension (idiopathic) with other complications of bilateral lower extremity Oct-0 5 Eddie SALDIVAR RVT, RPVI Robert. [address] [place] [address], [place] yañez [place], [id number] , [place]. tel: [phone] [facility], [address] [place] [address] Dr Márquez 1000[address] 1000Tish [place], [id number], [place] tel: [phone] [facility] [place] [facility] Encounter for follow-up examination after completed treatment for conditions other than malignant neChronic venous hypertension (idiopathic) with other complications of left lower extremity Sep-1 5 Eddie SALDIVAR RVT, RPVI Robert. [address] [place] [address], [place] yañez [place], [id number] , [place]. tel: [phone] [facility], [address] [place] [address] Dr Márquez 1000Suite Tish Mendoza [place], [id number], [place] tel:[phone] [facility] - [facility] Encounter for follow-up examination after completed treatment for conditions other than malignant neoplasmPain in left leg Sep-0 5 Eddie SALDIVAR RVT, RPVI Robert. [address] [place] [address], [place] yañez [place], [id number] , [place]. tel: [phone] [facility], [address] [place] [address] Dr Márquez 1000Suite Tish Mendoza MD, [id number], [place] tel:[phone] [facility] - [facility] Varicose veins of left lower extremity with other complications Sep-0 5 Santos Garcia . [address] [place] [address], [place] yañez [place], [id number] , [place]. tel: [phone] [facility], [address] [place] [address] Dr Márquez 1000[address] 1000Tish [place], [id number], [place] tel:[phone] [facility] - [facility] Varicose veins of left lower extremity with other complications Sep-0 5 Eddie SALDIVAR RVT, RPVI Robert. [address] [place] [address], [place] yañez [place], [id number] , [place]. tel: [phone] [facility], [address] [place] [address] Dr Márquez 1000Suite Tish Mendoza MD, [id number], [place] [phone] [facility] - [place] [facility] [place] Encounter for follow-up examination after completed treatment for conditions other than malignant neoplasmVaric ose veins of right lower extremity with pain Sep-0 5 Eddie SALDIVAR RVT, JOSSUE Matthews. [address] [facility] [address], [facility], [place], [id number] , [place]. tel: [phone] [facility], [address] [place] [address] Dr Márquez 1000Suite Tish Mendoza MD, [id number], [place] tel:[phone] [facility] - [place] [facility] [place] Varicose veins of right lower extremity with other complications 5 Santos Garcia . [address] [facility], [place] [address], [facility], [place], [id number] , [place]. tel: [phone] [facility], [address] [place] [address] Dr Márquez 1000[address] 1000Tish [place], [id number], [place] tel:[phone] [facility] - [place] [facility] Encounter for follow-up examination after completed treatment for conditions other than malignant neoplasmChron ic venous hypertension (idiopathic) with other complications of right lower extremity 5 Eddie SALDIVAR RVT, JOSSUE Matthews. [address] [facility], [address] [facility] [place], [id number] , [place]. tel: [phone] [facility], [address] [place] [address] Dr Márquez 1000[address] 1000Tish [place], [id number], [place] tel:[phone] [facility] - [place] [facility] [place] Chronic venous hypertension (idiopathic) with inflammation of right lower extremity 5 Eddie SALDIVAR RVT, JOSSUE Matthews. [address] [facility], [address], [facility] [place], [id number] , [place]. tel: [phone] [facility], [address] [place] [address] Dr Márquez 1000SuTish owens MD, [id number], tel:[phone] [facility] - [facility] No Information 5 Eddie SALDIVAR RVT, JOSSUE Matthews. [address] [place] [address], [place] yañez [place], [id number] , [place]. tel: [phone] [facility], [address] [place] [address] Dr M[address]quez 1000[facility] [address]Tish [place], [id number], tel:[phone] [facility] - [place] [facility] [place] Localized edemaCramp and spasmRestless legs syndromeVenou s insufficiency (chronic) (peripheral) 5 Eddie SALDIVAR RVT, JOSSUE Matthews. [address] [place] [address], [place] yañez [place], [id number] , [place]. tel: [phone] [facility], [address] [place] [address] Dr M[address]quez 1000[facility] Tish Mendoza [place], [id number], tel:[phone] [facility] - [facility] Varicose veins of bilateral lower extremities with other complications Pain in right legPain in left legRestless legs syndromeVenou s insufficiency (chronic) (peripheral)C ramp and spasmLocalize d edema 5 Eddie SALDIVAR RVT, RPVI Robert. [address] [place] [address], [place] yañez [place], [id number] , [place]. tel: [phone] [facility], [address] [place] [address] Dr Márquez 1000[facility] Tish Mendoza [place], [id number], [place] tel:[phone] CVR [facility] Chronic venous hypertension (idiopathic) with other complications of bilateral lower extremity 5 Eddie SALDIVAR RVT, RPVI Robert. [address] [place] [address], [place] yañez [place], [id number] , [place]. tel: [phone] Family History Family Member Type Diagnosis Age At Onset No Information Payers Payer name Insurance type Identifiers Authorization(s) Com ments [facility] r ID: [id number] Name: Coverage Status Eligibility Check on: [id number] nship to Subscriber: selfPayer Address: [address] [address], [place], [address], [place]Payer Phone: [phone] Social History Type Description Quantity Date Captured Comments Sex Female Smoking Status No Information Current Gender Female (finding) Chief Complaint And Reason For Visit No Information Plan Of Treatment Date Type Action Status Goal Diet education completed Goal Diet education completed Referral Ordered: Weight management: Referral to physician timeframe: 3 Months (related to Body mass index (BMI) 28.0-28.9, adult) ordered Referral Ordered: Weight management: Referral to physician timeframe: 3 Months (related to Body mass index (BMI) 28.0-28.9, adult) ordered Appointment Bea Haro BOOKED Appointment Bea Haro BOOKED History Of Present Illness Encounter Date Complaint History Of Prese nt Illness No Information Functional Status Date Description Comments No Information Instructions Date Instruction Additional Infor mation Patient education booklet given Related to Localized edema Lifestyle education Related to B clayton mass index (BMI) 28.0-28.9, adult Giving Encouragement to exercise Related to Body mass index (BMI) 28.0-28.9, adult Diet education Related to Body mass index (BMI) 28.0-28.9, adult Pre and post instruc tions reviewed and provided Related to Localized edema Pre and post instruc tions reviewed and provided Related to Localized edema Patient education booklet given Related to Localized edema Pre and post instruc tions reviewed and provided Related to Varicose veins of bilateral lower extremities with other complications Lifestyle education Related to B clayton mass index (BMI) 28.0-28.9, adult Giving Encouragement to exercise Related to Body mass index (BMI) 28.0-28.9, adult Diet education Related to Body mass index (BMI) 28.0-28.9, adult Patient education booklet given Related to Varicose veins of bilateral lower extremities with other complications Assessments Type Assessment Date No Information
--- NOTE | 2025-10-02 15:00 | A.OFFVIS_ITS ---
Vital Signs 10/02/25 15:04 Height 5 ft Weight 146 lb BMI 28.5 BP 132/78 Blood Pressure Location Rt brachial Position Sitting Pulse 70 Pulse Source Pulse Oximeter Pulse Oximetry (%) 98 Oxygen Delivery Method Room Air Intake Visit Reasons: 4 mo Intake Note: ESTABLISHED PATIENT for GERD, CIC mgmt. CC; Pt denies any new GI sx or concerns at this time. Confirms that she is dominick ing her currently Rx'd therapies w/o complication. Covered Button Maker Required: No Accompanied by: Self / Same As Patient Allergies No Known Allergies Allergy (Verified 10/02/25 15:01) HPI HPI 4 mo: Details: LAST VISIT: Postprandial abdominal bloating History of Helicobacter pylori infection GERD (gastroesophageal reflux disease) Constipation Plan Patient will continue taking Nexium daily. Avoid dietary triggers in late night snacking. Staying upright for minimum 3 hours after meals discussed with patient. Patient will stop Linzess and take Dulcolax. Patient will also increase fluid intake and activity to promote bowel motility. Patient can take [id number] fiber with pre and probiotics. Follow-up in 3-4 months, sooner on as needed basis. Patient is agreeable to this plan and verbalizes understanding of instructions. She was given the opportunity to ask questions and all questions answered. ? Thank you for allowing me to participate in her care Refilled esomeprazole magnesium (Nexium) 40 mg PO DAILY 90 caps 3RF K21.9 Discontinued linaclotide (Linzess) Discontinued Reason: Doctor's Order 145 mcg PO DAILY 30 caps 4RF K59.04 Resumed bisacodyl (Dulcolax (bisacodyl)) 10 mg (2 x 5 mg) PO BEDTIME 180 tabs 4RF TODAY'S VISIT: Patient is here today for follow-up. Patient reports that since last visit she has been doing fairly well. She is taking his omeprazole every morning before breakfast and her symptoms of acid reflux are suppressed. Patient denies any dyspepsia, dysphagia or odynophagia. Denies any melena, hematochezia, unintentional weight loss or ribbon like. Patient reports that she is moving her bowels better now that she is taking Dulcolax your patient taking Dulcolax every evening. Patient reports drinking 3-4 in a bowels of water daily. Patient denies any abdominal pain or discomfort. Occasional postprandial abdominal bloating depending on what she. [facility] Medical History History of Helicobacter pylori infection History of Clostridioides difficile infection Dysphagia GERD (gastroesophageal reflux disease) Gastritis Surgical History Hx of appendectomy Family History Mother Hepatic cancer Father Bladder cancer Social History Household Members: Spouse and Children Housing: House Are you a primary hospice care sales consultant to a significant other at home: No Do you presently have visiting nurse or other home services: No Alcohol intake: never Patient Tobacco Use Status: Never used Tobacco Female Reproductive History Menstrual Age of Menarche: 14 Review of Systems Const Denies weight gain and Denies weight loss ENT Reports no additional complaints, Denies dysphagia and Denies odynophagia Card Reports no additional complaints Resp Reports no additional complaints GI Denies abdominal pain, Denies belching, Denies melena, Denies bloating, Denies change in bowel habits, Denies dysphagia, Denies excessive flatus, Denies dyspepsia, Denies heartburn, Denies diarrhea, Denies loose stools, Denies nausea, Denies odynophagia and Denies vomiting Musc Reports no additional complaints Neuro Reports no additional complaints Psych Reports no additional complaints Endo Reports no additional complaints Physical Exam Vital Signs: Last Vital Signs Pulse 70 10/02/25 15:04 BP 132/78 10/02/25 15:04 Pulse Ox 98 10/02/25 15:04 Oxygen Delivery Method Room Air 10/02/25 15:04 BMI result Body Mass Index 28.5 Const General: healthy appearing, no acute distress and well developed Nutritional Appearance: well nourished Orientation/consciousness: patient oriented x3 Resp Effort & Inspection: normal respiratory effort, able to speak in complete sent ences, no tracheal deviation and symmetric chest movement Auscultation: clear to auscultation bilaterally Cardio Rate: regular rate GI Inspection: Yes normal to inspection and No distended Palpation (GI): Soft to palpation, not firm, nontender and No hepatosplenomegaly present Auscultation: normal bowel sounds General: Yes no CVA tenderness Back/Spine/Pelvis Back: no CVA tenderness Skin General skin exam: elasticity normal, turgor normal and dry skin Neuro General: patient oriented x3 Psych Appearance: grossly normal Mental Status: mental status grossly normal Assessment & Plan Assessment & Plan (1) Postprandial abdominal bloating: Code(s): R14.0 - Abdominal distension (gaseous) Category: Medical (2) History of Helicobacter pylori infection: Code(s): Z86.19 - Personal history of other infectious and parasitic diseases Category: Medical (3) GERD (gastroesophageal reflux disease): Code(s): K21.9 - Gastro-esophageal reflux disease without esophagitis Category: Medical Qualifiers: Esophagitis presence: esophagitis presence not specified Qualified Code(s): K21.9 - Gastro-esophageal reflux disease without esophagitis (4) Constipation: Code(s): K59.00 - Constipation, unspecified Qualifiers: Constipation type: slow transit constipation Qualified Code(s): K59.01 - Slow transit constipation Plan Continue current therapy with PPI. Continue avoiding dietary triggers and late night snacking. Staying upright from for minimal 3 hours after meals discussed with patient. Patient will continue taking Dulcolax daily. Increase fluid in take and activity to promote bowel motility. Patient will follow-up in our office in 6 months. Patient was encouraged to call us if she will have any GI concerning symptoms. She is agreeable to current plan of care and verbalizes understanding of instructions. She was given the opportunity to ask questions and all questions answered. Thank you for allowing me to participate in her care Medications: Refilled bisacodyl (Dulcolax (bisacodyl)) 10 mg (2 x 5 mg) PO BEDTIME 180 tabs 4RF Coding Level of Care Code Est Pt Level 4 (75901) Add On Problem Visit Only Diagnoses Postprandial abdominal bloating R14.0 History of Helicobacter pylori infection Z86.19 Gastroesophageal reflux disease, unspecified whether esophagitis present K21.9 Esophagitis presence: esophagitis presence not specified Slow transit constipation K59.01 Constipation type: slow transit constipation Time Spent (min) 35 Comment 25 minutes spent with patient and additional 10 minutes spent reviewing her records
[2025-10-02 15:04] VITALS: BP 132/78; PULSE 70; O2SAT 98; BMI 28.5
--- OUTSIDE RECORDS SUMMARY | 2025-10-02 21:29 | XMS_ITS | Encounter Summary ---
Author Organization [employer] Address [address] [place] [address] Care Team Providers Care Ui Developer With Angular Js Name Role Phone Vera Johnson ANTITANK ASSAULT GUNNER Primary Care Provider Corina Mcintyre ANTITANK ASSAULT GUNNER Primary Care Provider [phone] Encounter Details Date Type Department Care Team (Late st Contact Info) Description 02/23/2023 Orders Only [address] [address] Ban Rosa DMD [address] [place] [address] Social History Tobacco Use Types Packs/Day Years [...] on filedocumented in this encounter Care Teams Ui Developer With Angular Js Relationship Specialty Start Date End Date Vera Johnson NP PCP - General 06/25/22 09/01/23 Corina Shields NP [address] [place] [address] [address] [place] [address] PCP - General Family Medicine 09/02/23 01/19/25 documented as of this encounter
--- OUTSIDE RECORDS SUMMARY | 2025-10-02 21:29 | XMS_ITS | Encounter Summary ---
Author Organization [facility] Address [address] [place] [address] [place] [address] Phone Care Team Providers Care Hospice Registered Nurse Name Role Phone Daniel Hinds OD Unavailable Sidra Lockett CNP Primary Care Provider Nohemi Santa MD Primary Care Provider [email or web address] Encounter Details Date Type Department Care Team (Latest Contact Info) Description 05/07/2021 Transcribe Orders [facility] Central Scheduling Virtual [address] [place] [address] Belén Pena PA-C [address] [place] [address] Chronic RLQ pain (Primary Dx) Social History [...] quadrant documented in this encounter Care Teams Hospice Registered Nurse Relationship Specialty Start Date End Date Sidra Lockett CNP [address] [facility] [place] [address] [email or web address] PCP - General Family Medicine 07/13/20 2 Nohemi Santa MD PCP - General Family Medicine 08/01/22 Daniel Hinds OD [address] [place] [address] Referring Physician 03/30/20 documented as of this encounter Additional Source Comments The information contained in this document represents components of the legal health record. It is not the complete legal health record.[facility]
--- OUTSIDE RECORDS SUMMARY | 2025-10-02 21:29 | XMS_ITS | Encounter Summary ---
Author Organization [facility] Address [address] [place] [address] [place] [address] Phone Care Team Providers Care Eap Counselor Name Role Phone Daniel Hinds OD Unavailable Sidra Lockett CNP Primary Care Provider Nohemi Santa MD Primary Care Provider [email or web address] Encounter Details Date Type Department Care Team (Late st Contact Info) Description 08/06/2020 Procedure Pass [facility] - [address] [address] Social History Tobacco Use Types Packs/Day Years [...] Diagnoses Not on filedocumented in this encounter Additional Health Concerns Infection Onset Date Last Indicated Resolved Time COVID-19 10/03/2020 10/03/2020 10/23/2020 1:23 AM EST documented as of this encounter Care Teams Eap Counselor Relationship Specialty Start Date End Date Sidra Lockett CNP [address] [place] [address] [email or web address] PCP - General Family Medicine 07/13/20 2 Nohemi Santa MD [email or web address] PCP - General Family Medicine 08/01/22 Daniel Hinds OD [address] [place] [address] Referring Physician 03/30/20 documented as of this encounter Additional Source Comments The information contained in this document represents components of the legal health record. It is not the complete legal health record.[facility]
--- OUTSIDE RECORDS SUMMARY | 2025-10-02 21:29 | XMS_ITS | Encounter Summary ---
Author Organization [facility] Address [address] [place] [address] [place] [address] Phone Care Team Providers Care Mushroom Growth Media Mixer Name Role Phone Daniel Hinds OD Unavailable Sidra Lockett CNP Primary Care Provider Nohemi Santa MD Primary Care Provider [email or web address] Encounter Details Date Type Department Care Team (Late st Contact Info) Description 11/07/2020 Transcribe Orders [facility] Specimen Processing [address] [place] [address] Francheska KangC[facility], [email or web address] Social History Tobacco Use Types Packs/Day Years [...] on filedocumented in this encounter Care Teams Mushroom Growth Media Mixer Relationship Specialty Start Date End Date Sidra Lockett CNP [address] [place] [address] [email or web address] PCP - General Family Medicine 07/13/20 2 Nohemi Santa MD [email or web address] PCP - General Family Medicine 08/01/22 Daniel Hinds OD [address] [place] [address] Referring Physician 03/30/20 documented as of this encounter Additional Source Comments The information contained in this document represents components of the legal health record. It is not the complete legal health record.[facility]
--- OUTSIDE RECORDS SUMMARY | 2025-10-02 21:29 | XMS_ITS | Encounter Summary ---
Author Organization [facility] [place] [address] Care Team Providers Care Weather Strip Mechanic Name Role Phone Physician, Pcp Unknown Primary Care Provider Sonya vailable Encounter Details Date Type Department Care Team (Late st Contact Info) Description 02/17/2025 Lab Requisition [facility] Lab [address] [place] [id number] Terry Vasquez MD [address] [place] [address] Fatty (change of) liver, not elsewhere classified [...] mmol/L LAB CHEMISTRY METHOD 02/17/2025 8:04 PM [facility] Potassium 4.2 3.5 - 5.5 mmol/L LAB CHEMISTRY METHOD 02/17/2025 8:04 PM [facility] Chloride 110 96 - 110 mmol/L LAB CHEMISTRY METHOD 02/17/2025 8:04 PM [facility] CO2 25 21 - 32 mmol/L LAB CHEMISTRY METHOD 02/17/2025 8:04 PM [facility] Anion Gap 4 3 - 11 LAB CHEMISTRY METHOD 02/17/2025 8:04 PM [facility] Glucose 108(H) 70 - 100 mg/dL LAB CHEMISTRY METHOD 02/17/2025 8:04 PM [facility] BUN 10 5 - 25 mg/dL LAB CHEMISTRY METHOD 02/17/2025 8:04 PM [facility] Creatinine 0.61 0.50 - 1.10 mg/dL LAB CHEMISTRY METHOD 02/17/2025 8:04 PM [facility] eGFR 110 >=60 mL/min/1. 73m2 LAB CHEMISTRY METHOD 02/17/2025 8:04 PM [facility] Comment:Calculation based on the Chronic Kidney Disease Epidemiology Collaboration (CKD-EPI) equation refit without adjustment for race. BUN/Creatinine Ratio 16.4 LAB CHEMISTRY METHOD 02/17/2025 8:04 PM [facility] Calcium 8.5 8.5 - 10.5 mg/dL LAB CHEMISTRY METHOD 02/17/2025 8:04 PM [facility] AST (SGOT) 17 10 - 42 unit/L LAB CHEMISTRY METHOD 02/17/2025 8:04 PM [facility] ALT (SGPT) 21 10 - 60 unit/L LAB CHEMISTRY METHOD 02/17/2025 8:04 PM [facility] Alkaline Phosphatase 75 42 - 121 unit/L LAB CHEMISTRY METHOD 02/17/2025 8:04 PM EDT [facility] Total Protein 6.7 6.0 - 8.0 g/dL LAB CHEMISTRY METHOD 02/17/2025 8:04 PM EDT [facility] Albumin 3.3 3.2 - 5.0 g/dL LAB CHEMISTRY METHOD 02/17/2025 8:04 PM EDT [facility] Total Bilirubin 0.3 0.0 - 1.4 mg/dL LAB CHEMISTRY METHOD 02/17/2025 8:04 PM EDT [facility] Blood Venous blood specimen / Unknown 02/17/2025 2:35 PM EDT 02/17/2025 7:07 PM EDT Terry Vasquez MD LAB BLOOD ORDERABLES Final Re sult [facility] [address] [place] [address], * (ABNORMAL) Complete blood count (02/17/2025 2:35 PM EDT) WBC 8.0 4.8 - 10.8 K/mcL LAB HEMETOLOGY METHOD 02/17/2025 8:23 PM EDT [facility] RBC 4.20 3.80 - 4.80 M/mcL LAB HEMETOLOGY METHOD 02/17/2025 8:23 PM EDT [facility] Hemoglobin 11.5 11.5 - 16.0 g/dL LAB HEMETOLOGY METHOD 02/17/2025 8:23 PM EDT [facility] Hematocrit 36.0 35.0 - 47.0 % LAB HEMETOLOGY METHOD 02/17/2025 8:23 PM EDT [facility] MCV 85.3 79.0 - 98.0 FL LAB HEMETOLOGY METHOD 02/17/2025 8:23 PM EDT [facility] MCH 27.3 27.0 - 32.0 pcg LAB HEMETOLOGY METHOD 02/17/2025 8:23 PM EDT [facility] MCHC 31.9(L) 32.0 - 37.0 g/dL LAB HEMETOLOGY METHOD 02/17/2025 8:23 PM EDT [facility] RDW 15.9(H) 11.0 - 15.0 % LAB HEMETOLOGY METHOD 02/17/2025 8:23 PM EDT [facility] Platelets 247 130 - 400 K/mcL LAB HEMETOLOGY METHOD 02/17/2025 8:23 PM EDT [facility] MPV 10.4 7.0 - 11.0 FL LAB HEMETOLOGY METHOD 02/17/2025 8:23 PM EDT [facility] NRBC 0.0 <1.0 % LAB HEMETOLOGY METHOD 02/17/2025 8:23 PM EDT [facility] NRBC Absolute 0.00 <0.10 K/mcL LAB HEMETOLOGY METHOD 02/17/2025 8:23 PM EDT [facility] Blood Venous blood specimen / Unknown 02/17/2025 2:35 PM EDT 02/17/2025 7:07 PM EDT us Terry Vasquez MD LAB BLOOD ORDERABLES Final Re sult [facility] [address] [place] [address], documented in this encounter Visit Diagnoses Diagnosis Fatty (change of) liver, not elsewhere classified documented in this encounter Care Teams Weather Strip Mechanic Relationship Specialty Start Date End Date Physician, Pcp Unknown PCP - General 12/16/24 documented as of this encounter
--- OUTSIDE RECORDS SUMMARY | 2025-10-02 21:29 | XMS_ITS | Clinical Summary ---
Author Organization [employer] [facility] Address [address] [place] [address] 7 [place] [address] Care Team Providers Care Aeronautics Commission Director Name Role Phone Unavailable Primary Care Provider [...] grinding at night Follow up prn Immunizations Immunization Administration Dates Next Due HepB-CpG 09/16/2021 Influenza [...] Screening 1975 SDOH Screening 1975 Sigmoidoscopy 1975 Disability Screening 1975 Alcohol/Substance Use Screening 1987 Family Planning (PISQ) 1990 Hepatitis C Screening 1993 Hepatitis A Vaccines (1 of 2 - Risk 2-dose series) 1994 HPV/Cotest 2005 Hepatitis B Vaccines (2 of 2 - CpG 2-dose series) 10/14/2021 09/16/2021 Dental Oral Exam 05/05/2023 11/04/2022 Dental Prophylaxis 11/06/2023 05/05/2023, 11/04/2022 Tobacco Screening 05/05/2024 05/05/2023 Mammogram 05/13/2024 05/13/2022, 04/18, 04/29/2022, Additional history exists Pneumococcal Vaccine: 50+ Years (1 of 1 - PCV) 2025 RSV Patients and Patients Aged 60 years or older (1 - Risk 50-74 years 1-dose series) 2025 Zoster Vaccines (1 of 2) 2025 COVID-19 Vaccine ( - season) 2025 12/03/2021, 03/19/2021, 02/18/2021 Influenza Vaccine (#1) 2025 , 05/10/2019, 02/07/2019, Additional history exists Cervical Cancer Screening 07/25/2025 Pap Smear 07/25/2025 07/25/2022 Dental X-Ray: Full Mouth 11/05/2025 11/04/2022 DTaP/Tdap/Td Vaccines (3 - Td or Tdap) 12/19/2029 12/20/2019, 03/27/2010 HIB Vaccines Aged Out No longer eligi [...] to routine procedures. CONVERTED LEGACY LABS Pap, director of hemophilia MXD, CT (ASCP) CT screening location: [place] [address] CONVERTED LEGACY LABS Pap smear review, director of hemophilia DCR, CT(ASCP) CT screening location: [place] [address] CONVERTED LEGACY LABS Human Papillomavirus test result Not Detected Not Detected CONVERTED LEGACY LABS 07/25/2022 4:05 PM EDT Vera Johnson NP HISTORICAL/NON ORDERABLE LABS F inal Result CONVERTED LEGACY LABS from Last 3 Months or Most Recently Relevant to Health Maintenance Insurance [employer] DENTAL - HSN PARTIAL (MEDICAID)
--- OUTSIDE RECORDS SUMMARY | 2025-10-02 21:29 | XMS_ITS | Encounter Summary ---
Author Organization [facility] Address [address] [place] [address] [place] [address] Phone Care Team Providers Care Chief Of Planning Name Role Phone Daniel Hinds OD Unavailable Sidra Lockett CNP Primary Care Provider Nohemi Santa MD Primary Care Provider [email or web address] Encounter Details Date Type Department Care Team (Late st Contact Info) Description 11/07/2020 Transcribe Orders [facility] Specimen Processing [address] [place] [address] Bety Hussein [address] [place] [address] Social History Tobacco Use Types Packs/Day Years [...] on filedocumented in this encounter Care Teams Chief Of Planning Relationship Specialty Start Date End Date Sidra Lockett CNP [address] [place] [address] [email or web address] PCP - General Family Medicine 07/13/20 2 Nohemi Santa MD [email or web address] PCP - General Family Medicine 08/01/22 Daniel Hinds OD [address] [place] [address] Referring Physician 03/30/20 documented as of this encounter Additional Source Comments The information contained in this document represents components of the legal health record. It is not the complete legal health record.[facility]
--- OUTSIDE RECORDS SUMMARY | 2025-10-02 21:29 | XMS_ITS | Encounter Summary ---
Author Organization [facility] Address [address] [place] [address] [place] [address] Phone Care Team Providers Care Pleat Taper Name Role Phone Daniel Hinds OD Unavailable Sidra Lockett CNP Primary Care Provider Nohemi Santa MD Primary Care Provider [email or web address] Encounter Details Date Type Department Care Team (Late st Contact Info) Description 04/24/2021 Transcribe Orders [facility] [address] [place] [address] French [email or web address] Social History Tobacco Use Types Packs/Day Years [...] on filedocumented in this encounter Care Teams Pleat Taper Relationship Specialty Start Date End Date Sidra Lockett CNP [address] [place] [address] [email or web address] PCP - General Family Medicine 07/13/20 2 Nohemi Santa MD [email or web address] PCP - General Family Medicine 08/01/22 Daniel Hinds OD [address] [place] [address] Referring Physician 03/30/20 documented as of this encounter Additional Source Comments The information contained in this document represents components of the legal health record. It is not the complete legal health record.[facility]
--- OUTSIDE RECORDS SUMMARY | 2025-10-02 21:29 | XMS_ITS | Encounter Summary ---
Author Organization [facility] Address [address] [place] [address] [place] [address] Phone Care Team Providers Care Dealership General Manager Name Role Phone Daniel Hinds OD Unavailable [phone] Sidra Lockett CNP Primary Care Provider Nohemi Santa MD Primary Care Provider [email or web address] Encounter Details Date Type Department Care Team (Late st Contact Info) Description 05/10/2021 Transcribe Orders [facility] [address] [place] [address] French [email or web address] Social History Tobacco Use Types Packs/Day Years [...] on filedocumented in this encounter Care Teams Dealership General Manager Relationship Specialty Start Date End Date Sidra Lockett CNP [address] [place] [address] [email or web address] PCP - General Family Medicine 07/13/20 2 Nohemi Santa MD [email or web address] PCP - General Family Medicine 08/01/22 Daniel Hinds OD [address] [place] [address] Referring Physician 03/30/20 documented as of this encounter Additional Source Comments The information contained in this document represents components of the legal health record. It is not the complete legal health record.[facility]
--- OUTSIDE RECORDS SUMMARY | 2025-10-02 21:29 | XMS_ITS | Encounter Summary ---
Author Organization [facility] Address [address] [place] [address] [place] [address] Phone Care Team Providers Care Coal Trammer Name Role Phone Daniel Hinds OD Unavailable Sidra Lockett CNP Primary Care Provider Nohemi Santa MD Primary Care Provider [email or web address] Encounter Details Date Type Department Care Team (Late st Contact Info) Description 11/19/[address] [facility] Specimen Processing [address] [place] [address] Bety Hussein [address] [place] [address] Social History Tobacco Use Types Packs/Day Years [...] on filedocumented in this encounter Care Teams Coal Trammer Relationship Specialty Start Date End Date Sidra Lockett CNP [address] [place] [address] [email or web address] PCP - General Family Medicine 07/13/20 2 Nohemi Santa MD [email or web address] PCP - General Family Medicine 08/01/22 Daniel Hinds OD [address] [place] [address] Referring Physician 03/30/20 documented as of this encounter Additional Source Comments The information contained in this document represents components of the legal health record. It is not the complete legal health record[facility]
--- OUTSIDE RECORDS SUMMARY | 2025-10-02 21:30 | XMS_ITS | Encounter Summary ---
Author Organization [facility] Address [address] [place] [address] [place] [address] Phone Care Team Providers Care Information Technology Director Name Role Phone Daniel Hinds OD Unavailable [phone] Sidra Lockett CNP Primary Care Provider Nohemi Santa MD Primary Care Provider [email or web address] Encounter Details Date Type Department Care Team (Late st Contact Info) Description 10/03/2020 Transcribe Orders [facility] Specimen Processing [address] [place] [address] [address] [place] [address] [email or web address] Social History Tobacco Use Types Packs/Day Years [...] documented as of this encounter Care Teams Information Technology Director Relationship Specialty Start Date End Date Sidra Lockett CNP [address] [place] [address] [place] [address] [email or web address] PCP - General Family Medicine 07/13/20 2 Nohemi Santa MD PCP - General Family Medicine 08/01/22 Daniel Hinds OD [address] [place] [address] Referring Physician 03/30/20 documented as of this encounter Additional Source Comments The information contained in this document represents components of the legal health record. It is not the complete legal health record.[facility]
--- OUTSIDE RECORDS SUMMARY | 2025-10-02 21:30 | XMS_ITS | Encounter Summary ---
Author Organization [facility] Address [address] [place] [address] [place] [address] Phone Care Team Providers Care Multicraft Operator Name Role Phone Daniel Hinds OD Unavailable Sidra Lockett CNP Primary Care Provider Nohemi Santa MD Primary Care Provider [email or web address] Encounter Details Date Type Department Care Team (Late st Contact Info) Description 01/01/2021 Transcribe Orders [facility] Specimen Processing [address] [place] [address] Bety Hussein [address] [place] [address] Social History Tobacco Use Types Packs/Day Years [...] on filedocumented in this encounter Care Teams Multicraft Operator Relationship Specialty Start Date End Date Sidra Lockett CNP [address] [place] [address] [email or web address] PCP - General Family Medicine 07/13/20 2 Nohemi Santa MD [email or web address] PCP - General Family Medicine 08/01/22 Daniel Hinds OD [address] [place] [address] Referring Physician 03/30/20 documented as of this encounter Additional Source Comments The information contained in this document represents components of the legal health record. It is not the complete legal health record.[facility]
--- OUTSIDE RECORDS SUMMARY | 2025-10-02 21:30 | XMS_ITS | Encounter Summary ---
Author Organization [facility] Address [address] [place] [address] [place] [address] Phone Care Team Providers Care General Forecaster Name Role Phone Daniel Hinds OD Unavailable [phone] Nohemi Santa MD Primary Care Provider [email or web address] Encounter Details Date Type Department Care Team (Late st Contact Info) Description 08/26/2022 Procedure [facility] [address] [place] [address] Social History Tobacco Use Types Packs/Day Years [...] on filedocumented in this encounter Care Teams General Forecaster Relationship Specialty Start Date End Date Nohemi Santa MD PCP - General Family Medicine 08/01/22 Daniel Hinds OD [address] [place] [address] Referring Physician 03/30/20 documented as of this encounter Additional Source Comments The information contained in this document represents components of the legal health record. It is not the complete legal health record.[facility]
--- OUTSIDE RECORDS SUMMARY | 2025-10-02 21:30 | XMS_ITS | Encounter Summary ---
Author Organization [facility] Address [address] [place] [address] Phone Care Team Providers Care Machinist Bench Name Role Phone Kwame Medina MD Primary Care Provider + Kwame Medina MD Primary Care Provider + Daniel Hinds OD Unavailable [phone] Sidra Lockett CNP Primary Care Provider Nohemi Santa MD Primary Care Provider [email or web address] Encounter Details Date Type Department Care Team (Late st Contact Info) Description 09/03/2018 Ancillary Orders [facility] at [address] [address] Lorenzo [facility] [address] [place] [address] [email or web address] Visit for screening mammogram Social History Tobacco Use Types Packs/Day Years Used Date Smoking Tobacco: Never Comments No Sex and Gender Information Value Date Recorded Sex Assigned at Female 05/12/2022 12:02 PM EDT Legal Sex Female 5:44 PM EST Gender Identity Female 05/12/2022 12:02 PM EDT Sexual Orientation Straight 06/22/2022 11 :42 PM EDT documented as of this encounter Plan of Treatment Not on file documented as of this encounter Visit Diagnoses Diagnosis Visit for screening mammogram documented in this encounter Additional Health Concerns Infection Onset Date Last Indicated Resolved Time COVID-19 10/03/2020 10/03/2020 10/23/2020 1:23 AM EST documented as of this encounter Care Teams Machinist Bench Relationship Specialty Start Date End Date Kwame Medina MD [address] [place] [address] PCP - General Family Medicine 07/30/18 08/19/19 Kwame Medina MD [address] [place] [address] PCP - General Family Medicine 08/20/19 07/12/20 Sidra Lockett CNP [address] [place] [email or web address] PCP - General Family Medicine 07/13/20 2 Nohemi Santa MD PCP - General Family Medicine 08/01/22 Daniel Hinds OD [address] [place] [address] Referring Physician 03/30/20 documented as of this encounter Additional Source Comments The information contained in this document represents components of the legal health record. It is not the complete legal health record.[facility]
--- OUTSIDE RECORDS SUMMARY | 2025-10-02 21:30 | XMS_ITS | Clinical Summary ---
Author Organization [facility] Address [address] [place] [phone] Phone Care Team Providers Care Motor Tester Name Role Phone Daniel Hinds OD Unavailable Nohemi Santa MD Primary Care Provider [email or web address] Allergies No known active allergies Medications cyclobenzaprine (FLEXERIL) 5 MG tablet Take 1 tablet (5 mg total) by mouth 3 (three) times a day as needed. 12 tablet 8 Active Additional Information Patient not taking.Reported on 02/27/2022 diclofenac sodium (VOLTAREN) 1 % Gel APPLY TOPICALLY 2 (TWO) TIMES DAILY NEEDED FOR PAIN 0 Active acetaminophen (TYLENOL) 500 MG tablet Take 500 mg by mouth. 0 Active cholecalciferol (VITAMIN D3) 50,000 unit tablet Take 50,000 Units by mouth. 1 Active fluticasone propionate (FLONASE) 50 mcg/actuation nasal spray 1 spray by Nasal route daily. 11.1 mL 1 Active Additional Information Patient not taking.Reported on 02/27/2022 pseudoephedrine (SUDAFED) 30 MG tablet Take 1 tablet (30 mg total) by mouth every 4 (four) hours as needed for congestion. 30 tablet 1 Active Additional Information Patient not taking.Reported on 02/27/2022 amoxicillin (AMOXIL) 500 MG capsule 2 Active erythromycin (ROMYCIN) ophthalmic ointment Place 0.5 inches into the left eye 3 (three) times a day. 3.5 g 2 Active Additional Information Patient not taking.Reported on 06/22/2022 moxifloxacin (VIGAMOX) 0.5 % ophthalmic solution Place 1 drop into the right eye 4 (four) times a day. 3 mL 3 2 Active Additional Information Patient not taking.Reported on 06/22/2022 polyethylene glycol (MIRALAX) 17 gram/dose powder Take 17 g by mouth daily. 507 g 1 2 Active sodium chloride 0.9 % nebulizer solution Take 3 mL by nebulization daily. 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 Recurrent urinary tract infection 05/23/2012 Overview (12/09/2014): Recurrent UTI - urinary tract infection Immunizations Immunization Administration Dates Next Due MMR 11/25/2008(Deferred: Other) Varicella 11/25/2008(Deferred: Other) Family History Medical History Relation Comments Kidney nephrosis Father Kidney disease Liver cancer Mother Malignant neopla sm of liver Type 2 Diabetes Mother diabetes mellitu s type 2 Type 2 Diabetes Sister diabetes mellitu s type 2 Retinal detachment Unspecified Glaucoma Neg Hx Macular degeneration Neg Hx Relation Status Comments Father Mother Sister Unspecified Social History Tobacco Use Types Packs/Day Years Used Date Smoking Tobacco: Never Smokeless Tobacco: Never Tobacco Cessation:Counseling Given: Not Answered Alcohol Use Standard Drinks/Week Comments No 0 (1 standard drink = 0.6 oz pur e alcohol) Education Answer Date Recorded Are you interested in more education? Not on nuzhat e 03/01/2023 Are you concerned about learning? Not on file 03/01/2023 No 03/01/2023 No 03/01/2023 Digital Access Answer Date Recorded No 03/14/2023 No 03/14/2023 No 03/14/2023 Reliable internet access at home? Not on file 03/14/2023 Device with a working camera? Not on file Comments No Sex and Gender Information Value Date Recorded Sex Assigned at Female 05/12/2022 12:02 PM EDT Legal Sex Female 5:44 PM EST Gender Identity Female 05/12/2022 12:02 PM EDT Sexual Orientation Straight 06/22/2022 11 :42 PM EDT Last Filed Vital Signs Vital Sign Reading Time Taken Comments Blood Pressure 133/82 08/26/2022 2:45 PM EST Pulse 66 08/26/2022 2:45 PM EST Temperature 36.7 C (98 F) 08/26/2022 2:15 PM EST Respiratory Rate 16 08/26/2022 2:45 PM EST Oxygen Saturation 100% 08/26/2022 2:45 PM EST Inhaled Oxygen Concentration - - Weight 63 kg (139 lb) 08/26/2022 1:25 PM EST Height 152.4 cm (5') 08/26/2022 1:25 PM EST Body Mass Index 27.15 08/26/2022 1:25 PM EST Plan of Treatment Health Maintenance Due Date Last Done Comments DEPRESSION SCREENING 1987 PAP SMEAR 04/27/2017 04/27/2014, 0503/2011, 01/01/2009, Additional history exists COLOGUARD 2020 FIT TEST 2020 FOBT 2020 SIGMOIDOSCOPY 2020 VIRTUAL COLONOSCOPY 2020 EGD 08/26/2023 08/26/2022 MAMMOGRAM 03/28/2024 03/28/2022, 010 04/2021, 10/18/2019, Additional history exists LIPID PANEL 12/19/2024 12/20/2019, 12/2019, 12/20/2019, Additional history exists PNEUMOCOCCAL VACCINES (50+ years) (1 of 1 - PCV) 2025 ZOSTER VACCINES (1 of 2) 2025 INFLUENZA VACCINE (#1) 2025 07/25/2022 COVID-19 VACCINE ( - 2024- season) 2025 Adult Td,Tdap Booster 12/19/2029 12/20/2019, 010 COLONOSCOPY 08/26/2032 08/26/2022 COLORECTAL CANCER SCREENING 08/26/2032 RSV VACCINE (1 - 1-dose 75+ series) 2050 HIV ONE-TIME SCREENING (18-65 YEARS) Completed 05/17/2008 HEPATITIS C SCREENING Completed 12/20/2019, 020 SMOKING STATUS SCREENING (Once After 26 Yrs) Completed 08/26/2022 HEPATITIS A VACCINES Aged Out No long er eligible based on patient's age to complete this topic HIB VACCINES Aged Out No longer eligi ble based on patient's age to complete this topic MENINGOCOCCAL VACCINES (ACWY) Aged Out No longer eligible based on patient's age to complete this topic MENINGOCOCCAL VACCINES (B) Aged Out N o longer eligible based on patient's age to complete this topic Medical Devices Implanted Type Area [employer] Secretary Device Identifier Shelf Expiration Date Model / Serial / Lot Marker Ultraclip 17ga 10cm Tissue Dual Trigger Breast 108 Coil Shape Needle Sterile Disposable Cs/5ea - [id number] Implanted:Qty: 1 on 05/13/2022 by Elizabeth Potter MD at [facility] Left: Breast [employer] 11/15/2024 [id number] / / Procedures Procedure Name Priority Date/Time Associated Diagnosis Comments ENDOSCOPY, COLON 08/26/2022 1:25 PM EST BI MAMMOGRAM SCREENING WITH TOMOSYNTHESIS WITH CAD (BILATERAL) Routine 03/28/2022 9:51 AM EDT Annual physical exam LIPID PANEL Routine 12/20/2019 3:51 PM EST HEPATITIS B SURFACE ANTIGEN Routine 12/20/2019 3:51 PM EST PAP TEST Routine 04/27/2014 7:48 PM EDT from Last 3 Months or Most Recently Relevant to Health Maintenance Results * ENDOSCOPY, COLON (08/26/2022 1:25 PM EST) 08/26/2022 1:25 PM EST Narrative Transcriptions Marcela Jackson MD - 08/26/2022 1:25 PM EST Endoscopy Center Patient Name: Mitra Haro Procedure Date: 08/26/2022 1:25 PM Date of : 1975 Gender: Female Procedure: Colonoscopy Providers: Marcela Jackson MD Referring MD: Sidra Henley (Referring MD) Indications: Generalized abdominal pain, Incidental change in bowel habits noted, Incidental constipation noted Medicines: Fentanyl 150 micrograms IV, Midazolam 5 mg IV Complications: No immediate complications. Procedure: After obtaining informed consent, the endoscope was passed under direct vision. Throughout the procedure, the patient's blood pressure, pulse, and oxygen saturations were monitored continuously. The Pedi Colonoscope [id number] was introduced through the anus and advanced to the the terminal ileum. The colonoscopy was performed without difficulty. The patient tolerated the procedure well. The quality of the bowel preparation was evaluated using the BBPS ([place] Bowel Preparation Scale) with scores of: Right Colon = 3, Transverse Colon = 3 and Left Colon = 3 (entire mucosa seen well with no residual staining, small fragments of stool or opaque liquid). The total BBPS score equals 9. Scope withdrawal time was 8 minutes. Moderate Sedation: Moderate (conscious) sedation was administered by the endoscopy nurse and supervised by the endoscopist. The patient's oxygen saturation, heart rate, blood pressure and response to care were monitored. Findings: Retroflexion in the right colon was performed. The terminal ileum appeared normal. Anal papilla(e) were hypertrophied. Non-bleeding internal hemorrhoids were found during retroflexion. The hemorrhoids were moderate. The exam was otherwise without abnormality on direct and retroflexion views. The colonoscope was re-inserted a second time for re-examination of the right colon Impression: - The examined portion of the ileum was normal. - Anal papilla(e) were hypertrophied. - Non-bleeding internal hemorrhoids. - The examination was otherwise normal on direct and retroflexion views. Recommendation: - Discharge patient to home (with escort). - Resume previous diet. - Continue present medications. - Repeat colonoscopy in 10 years for surveillance. - Return to referring provider Procedure Code(s): --- Professional --- 17582, Colonoscopy, flexible; diagnostic, including collection of specimen(s) by brushing or washing, when performed (separate procedure) Diagnosis Code(s): --- Professional --- K64.8, Other hemorrhoids K62.89, Other specified diseases of anus and rectum R10.84, Generalized abdominal pain CPT copyright 2020 [employer]. All rights reserved. The codes documented in this report are preliminary and upon certified medical records coder review may be revised to meet current compliance requirements. Attending Participation: I personally performed the entire procedure. I was personally present throughout the entire procedure. I was present from the first injection of medications for sedation and continuously for the administration and monitoring of sedation. The patient's sedation level was moderate. The patient's post-sedation status at the end of the procedure was stable. Marcela Jackson MD, [id number] 08/26/2022 2:09:07 PM Number of Addenda: 0 Note Initiated On: 08/26/2022 1:25 PM CC Letter to: Sidra Henley (CC) Estimated Blood Loss: Estimated blood loss: none. Sidra Lockett [facility] PROCEDURE ORDERABLES Final Result * (ABNORMAL) BI MAMMOGRAM SCREENING WITH TOMOSYNTHESIS WITH CAD (BILATERAL) (03/28/2022 9:51 AM EDT) Anatomical Region Laterality Modality Breast Left, Breast Right, Breast Bilateral Bila teral Mammography 03/31/2022 9:54 AM EDT Impressions 03/31/2022 10:16 AM EDT Developing asymmetry in the left breast, for which diagnostic mammography will be performed. BI-RADS CATEGORY: 0 - Incomplete. Need additional imaging evaluation. RIGHT RECOMMENDATION: Right Mammography Screening on schedule LEFT RECOMMENDATION: Left Additional Imaging At This Time The mammography department will contact the patient to arrange for the additional imaging. [facility] Narrative 03/31/2022 10:16 AM EDT CLINICAL INDICATION: Screening . COMPARISON: Comparison is made to prior imaging. TECHNIQUE: Digital craniocaudal and mediolateral oblique views were obtained of both breasts. Both standard digital mammographic and tomosynthesis images were obtained and reviewed as part of this examination. Computer assisted detection was used in the interpretation of this examination. BREAST COMPOSITION: The breast tissue is heterogeneously dense, which could obscure a lesion on mammography. Right breast: There are no abnormal masses, suspicious microcalcifications or architectural distortion in the right breast. Left breast: There is a developing asymmetry in the upper outer left breast at posterior depth. There is no additional evidence of masses, clustered microcalcifications, or areas of architectural distortion. Procedure Note Francheska Chacon MD - 03/31/2022 CLINICAL INDICATION: Screening . COMPARISON: Comparison is made to prior imaging. TECHNIQUE: Digital craniocaudal and mediolateral oblique views wereobtained of both breasts. Both standard digital mammographic andtomosynthesis images were obtained and reviewed as part of thisexamination. Computer assisted detection was used in the interpretation ofthis examination. BREAST COMPOSITION: The breast tissue is heterogeneously dense, whichcould obscure a lesion on mammography. Right breast: There are no abnormal masses, suspicious microcalcificationsor architectural distortion in the right breast. Left breast: There is a developing asymmetry in the upper outer leftbreast at posterior depth. There is no additional evidence of masses, clustered microcalcifications,or areas of architectural distortion. IMPRESSION: Developing asymmetry in the left breast, for which diagnostic mammographywill be performed. BI-RADS CATEGORY: 0 - Incomplete. Need additional imaging evaluation. RIGHT RECOMMENDATION: Right Mammography Screening on schedule LEFT RECOMMENDATION: Left Additional Imaging At This Time The mammography department will contact the patient to arrange for theadditional imaging. [facility]Z Sidra Lockett CNP IMG MG EXAMS Final R esult * Hepatitis B surface antigen (12/20/2019 3:51 PM EST) HBV SURFACE ANTIGEN Negative Negative [facility] 12/20/2019 3:51 PM EST 12/20/2019 10:34 PM EST Sidra Lockett CNP LAB BLOOD BKR ORDERABLE S Final Result [address] [address], [facility] [phone] * (ABNORMAL) Lipid panel (12/20/2019 3:51 PM EST) HDL 43 >39 mg/dL [facility] CHOLESTEROL 194 0 - 200 mg/dL [facility] TRIGLYCERIDES 233(H) 0 - 150 mg/dL [facility] LDL 104 40 - 130 mg/dL [facility] CARDIAC RISK RATIO 4.5 <5 N [facility] NON-HDL CHOLESTEROL 151 mg/dL [facility] Comment:Reference Range: The non-HDL Cholesterol value should not exceed the desired LDL-C by more than 30 mg/dl. 12/20/2019 3:51 PM EST 12/20/2019 10:34 PM EST us Sidra Lockett HOME APPLIANCE WASHING MACHINE MECHANIC LAB BLOOD BKR ORDERABLE S Final Result Performing Organization Address City/State/[place] de Phone Number [place] [phone], [facility] [phone] * Pap Smear (04/27/2014 7:48 PM EDT) 04/27/2014 7:48 PM EDT Narrative [facility] - 04/27/2014 7:48 PM EDT Accession Number: [id number] Report Status: Final Type: Cytology Procedure Date: 04/27/14 Ordering Provider: RADHA WOMACK Patient Name:MITRA HARO Specimen #: [id number] Source of Specimen(s) 1: CERVICAL / VAGINAL 2: 04/05/2014 PAP DIAGNOSIS: NEGATIVE FOR INTRAEPITHELIAL LESION AND MALIGNANCY. REACTIVE CELLULAR CHANGES AND/OR REPAIR ARE PRESENT. FUNGAL ORGANISMS MORPHOLOGICALLY CONSISTENT WITH CRISTEL SPECIES ARE PRESENT. Source.............Cervical;Vaginal LMP / Prev Treat...[id number]=[id number] Dates / Results....LMP 04/05 No. of containers..01 [facility] Collection Vial SPECIMEN ADEQUACY: Satisfactory for evaluation. Endocervical and/or squamous metaplasticcells (endocervical component) are present. PERFORMED BY: Leni Clay, Sugar Cane Planter Machine Operator (ASCP) ELECTRONICALLY SIGNED BY: Rody Mims MD, Pathologist .: . COMMENT: The Pap smear is a screening test designed to aid in the detection of premalignant and malignant conditions of the uterine cervix. It is not a diagnostic procedure and should not be used as the sole means of detecting cervical cancer. Both false-positive and false-negative reports do occur. HPV-HR APTIMA HPV HR - APTIMA: Negative Reference range: Negative This test detects fourteen high-risk HPV types (16/18/31/33/35/39/45/51/52/56/58/59/66/68) without differentiation.Source.............Cervical;Vaginal LMP / Prev Treat...[id number]=[id number] Dates / Results....LMP 6/18 No. of containers..01 [facility] Collection Vial Screened At [facility], [place] [address]/[place] [address]/[place] [address] Electronically Signed Out 05/01/2014 Rody Mims M.D. Billing Fee Code(s): 1: 93977 us Radha Womack MD CYTOLOGY ORDERABLES Final Result [address] [address], [facility] from Last 3 Months or Most Recently Relevant to Health Maintenance Insurance [employer] [facility] FULL EvocalizeHEALTH LIMITED HEALTH SAF[employer] NET FULL Evocal[employer]HEALTH [employer] HE[employer] S[employer] NET FULL Evocal[employer]HEALTH [employer] HE[employer] NET FULL Evocal[employer]HEALTH [employer] NET FULL [place] [place] [employer] [place] [employer] [place] [employer] [place] [place] Care Teams Motor Tester Relationship Specialty Start Date End Date Nohemi Santa MD PCP - General Family Medicine 08/01/22 Daniel Hinds OD [address] [place] [address] Referring Physician 03/30/20 Additional Source Comments The information contained in this document represents components of the legal health record. It is not the complete legal health record.[facility]
--- OUTSIDE RECORDS SUMMARY | 2025-10-02 21:30 | XMS_ITS | Encounter Summary ---
Author Organization [facility] Address [address] [place] [address] [place] [address] Phone Care Team Providers Care Poultry Hatchery Manager Name Role Phone Kwame Medina MD Primary Care Provider + Kwame Medina MD Primary Care Provider + Daniel Hinds OD Unavailable [phone] Sidra Lockett CNP Primary Care Provider Nohemi Santa MD Primary Care Provider [email or web address] Encounter Details Date Type Department Care Team (Late st Contact Info) Description 02/14/2019 Transcribe Orders [facility] Virtual [address] [place] [phone] Susana Jaime [address] [place] [id number] [email or web address] Less than 8 weeks gestation of (Primary Dx) Social History Tobacco Use Types Packs/Day Years Used Date Smoking Tobacco: Never Smokeless Tobacco: Never Alcohol Use Standard Drinks/Week Comments No 0 (1 standard drink = 0.6 oz pur e alcohol) Comments Yes Sex and Gender Information Value Date Recorded Sex Assigned at Female 05/12/2022 12:02 PM EDT Legal Sex Female 5:44 PM EST Gender Identity Female 05/12/2022 12:02 PM EDT Sexual Orientation Straight 06/22/2022 11 :42 PM EDT documented as of this encounter Plan of Treatment Not on file documented as of this encounter Visit Diagnoses Diagnosis Less than 8 weeks gestation of - Primary documented in this encounter Additional Health Concerns Infection Onset Date Last Indicated Resolved Time COVID-19 10/03/2020 10/03/2020 10/23/2020 1:23 AM EST documented as of this encounter Care Teams Poultry Hatchery Manager Relationship Specialty Start Date End Date Kwame Medina MD [address] [place] [address] PCP - General Family Medicine 07/30/18 08/19/19 Kwame Medina MD [address] [place] [address] PCP - General Family Medicine 08/20/19 07/12/20 Sidra Lockett CNP [address] [place] [email or web address] PCP - General Family Medicine 07/13/20 2 Nohemi Santa MD PCP - General Family Medicine 08/01/22 Daniel Hinds OD [address] [place] [address] Referring Physician 03/30/20 documented as of this encounter Additional Source Comments The information contained in this document represents components of the legal health record. It is not the complete legal health record.[facility]
--- OUTSIDE RECORDS SUMMARY | 2025-10-02 21:30 | XMS_ITS | Encounter Summary ---
Author Organization [facility] Address [address] [place] [address] [place] [address] Phone Care Team Providers Care Refractory Tile Helper Name Role Phone Radha Womack MD Primary Care Provider [phone] Kwame Medina MD Primary Care Provider + Kwame Medina MD Primary Care Provider + Daniel Hinds OD Unavailable Sidra Lockett CNP Primary Care Provider Nohemi Santa MD Primary Care Provider [email or web address] Encounter Details Date Type Department Care Team (Late st Contact Info) Description 02/17/2018 Procedure Pass [address] [address] Social History Tobacco Use Types Packs/Day Years Used Date Smoking Tobacco: Never Comments Unknown Sex and Gender Information Value [...] documented as of this encounter Care Teams Refractory Tile Helper Relationship Specialty Start Date End Date Radha Womack MD [address] [facility] [place] [address] [email or web address] PCP - General 04/18/14 07/29/18 Kwame Medina MD [address] [place] [address] PCP - General Family Medicine 07/30/18 08/19/19 Kwame Medina MD [address] [place] [address] PCP - General Family Medicine 08/20/19 07/12/20 Sidra Lockett CNP [address] [facility] [place] [address] [email or web address] PCP - General Family Medicine 07/13/20 2 Nohemi Santa MD [email or web address] PCP - General Family Medicine 08/01/22 Daniel Hinds OD [address] [place] [address] Referring Physician 03/30/20 documented as of this encounter Additional Source Comments The information contained in this document represents components of the legal health record. It is not the complete legal health record.[facility]
--- OUTSIDE RECORDS SUMMARY | 2025-10-02 21:30 | XMS_ITS | Encounter Summary ---
Author Organization [facility] Address [address] [place] [address] Phone Care Team Providers Care Seamless Hosiery Knitter Name Role Phone Kwame Medina MD Primary Care Provider + Kwame Medina MD Primary Care Provider + Daniel Hinds OD Unavailable [phone] Sidra Lockett CNP Primary Care Provider Nohemi Santa MD Primary Care Provider [email or web address] Encounter Details Date Type Department Care Team (Latest Contact Info) Description 07/30/[address] [facility] Scheduling [address] [address] Lorenzo [facility] [address] [place] [address] [email or web address] Screening breast examination (Primary Dx) Social History Tobacco Use Types [...] on file documented as of this encounter Results * (ABNORMAL) BI MAMMOGRAM SCREENING NO TOMOSYNTHESIS WITH CAD (BILATERAL) (08/18/2018 1:27 PM EDT) Anatomical Region Laterality Modality Breast Left, Breast Right, Breast Bilateral Bila teral Mammography 08/23/2018 8:29 AM EST Impressions 08/23/2018 8:29 AM EST Focal asymmetry within the subareolar left breast. Additional diagnostic imaging is recommended. BI-RADS CATEGORY: 0 - Incomplete. Need additional imaging evaluation. LEFT RECOMMENDATION: Left Additional Imaging At This Time RIGHT RECOMMENDATION: Right Mammography Screening 12 Months Mammography department will contact the patient to arrange for additional imaging. BREAST CANCER RISK ASSESSMENT SUMMARY Risk Assessment results are provided by [employer] Your patient completed a breast cancer risk assessment survey as part of her breast health screening. Based on the information she provided, her calculated risk of developing breast cancer is not increased over the general population risk. Estimated Breast Cancer Risk Calculations: Risk BRCA1/2 Mutation: 1.5% Lifetime Breast Cancer Risk: 8.6% *ACS Guidelines: Patients at high risk will have a >= 10% risk of BRCA mutation and/or >= 20% lifetime risk of breast cancer *This analysis is only as accurate as the data entered or provided by the patient. Date of the Survey Calculations: Aug 18 2018 1:08PM Narrative 08/23/2018 8:29 AM EST REPORT: SITE READ: 2 CLINICAL HISTORY: Screening. Evaluate for occult malignancy. COMPARISON: Mammographic evaluations dating back to 07/23/2004. Technique: Digital craniocaudal and mediolateral oblique views of each breast were performed. Computer assisted detection was used in the interpretation of this examination. The breast tissue is heterogeneously dense, which could obscure a lesion on mammography. There is no evidence of a dominant mass on the right side. There is a focal asymmetry identified within the lower inner quadrant of the subareolar left breast. There are no suspicious microcalcifications, architectural distortions, or skin abnormalities. There are benign-type calcifications identified within the breast tissue. Procedure Note Kenneth Romero MD - 08/23/2018 REPORT: SITE READ: 2 CLINICAL HISTORY: Screening. Evaluate for occult malignancy. COMPARISON: Mammographic evaluations dating back to 07/23/2004. Technique: Digital craniocaudal and mediolateral oblique views of eachbreast were performed. Computer assisted detection was used in theinterpretation of this examination. The breast tissue isheterogeneously dense, which could obscure a lesion on mammography. Thereis no evidence of a dominant mass on the right side. There is a focalasymmetry identified within the lower inner quadrant of the subareolarleft breast. There are no suspicious microcalcifications, architecturaldistortions, or skin abnormalities. There are benign-type calcificationsidentified within the breast tissue. IMPRESSION: Focal asymmetry within the subareolar left breast. Additional diagnosticimaging is recommended. BI-RADS CATEGORY: 0 - Incomplete. Need additional imaging evaluation. LEFT RECOMMENDATION: Left Additional Imaging At This Time RIGHT RECOMMENDATION: Right Mammography Screening 12 Months Mammography department will contact the patient to arrange foradditional imaging. BREAST CANCER RISK ASSESSMENT SUMMARY Risk Assessment results are provided by [employer] Your patient completed a breast cancer risk assessment survey as part ofher breast health screening. Based on the information she provided, hercalculated risk of developing breast cancer is not increased over thegeneral population risk. Estimated Breast Cancer Risk Calculations: Risk BRCA1/2 Mutation: 1.5% Lifetime Breast Cancer Risk: 8.6% *ACS Guidelines: Patients at high risk will have a >= 10% risk of BRCAmutation and/or >= 20% lifetime risk of breast cancer *This analysis is only as accurate as the data entered or provided by thepatient. Date of the Survey Calculations: Aug 18 2018 1:08PM Lorenzo MATT IMG MG EXAMS Final Res ult documented in this encounter Visit Diagnoses Diagnosis Screening breast examination- Primary Other screening breast examination Screening breast examination Other screening breast examination documented in this encounter Additional Health Concerns Infection Onset Date Last Indicated Resolved Time COVID-19 10/03/2020 10/03/2020 10/23/2020 1:23 AM EST documented as of this encounter Care Teams Seamless Hosiery Knitter Relationship Specialty Start Date End Date Kwame Medina MD [address] [place] [address] PCP - General Family Medicine 07/30/18 08/19/19 Kwame Medina MD [address] [place] [address] PCP - General Family Medicine 08/20/19 07/12/20 Sidra Lockett CNP [address] [place] [address] [email or web address] PCP - General Family Medicine 07/13/20 2 Nohemi Santa MD PCP - General Family Medicine 08/01/22 Daniel Hinds OD [address] [place] [address] Referring Physician 03/30/20 documented as of this encounter Additional Source Comments The information contained in this document represents components of the legal health record. It is not the complete legal health record.[facility]
--- OUTSIDE RECORDS SUMMARY | 2025-10-02 21:30 | XMS_ITS | Encounter Summary ---
Author Organization [facility] Address [address] [place] [address] Phone Care Team Providers Care Gluing Machine Operator Electronic Name Role Phone Kwame Medina MD Primary Care Provider + Daniel Hindsael OD Unavailable Sidra Lockett CNP Primary Care Provider Nohemi Santa MD Primary Care Provider [email or web address] Encounter Details Date Type Department Care Team (Late st Contact Info) Description 10/18/2019 Ancillary Orders [facility] at [address] [address] Kwame Medina MD [address] [place], [place] [id number] Visit for screening mammogram Social History Tobacco [...] documented as of this encounter Results * BI MAMMOGRAM SCREENING WITH TOMOSYNTHESIS WITH CAD (BILATERAL) (10/18/2019 2:57 PM EST) Anatomical Region Laterality Modality Breast Left, Breast Right, Breast Bilateral Bila teral Mammography 10/21/2019 10:0 6 AM EST Impressions 10/21/2019 10:20 AM EST No mammographic evidence of malignancy. BI-RADS CATEGORY: 1 - Negative. RECOMMENDATION: Routine annual screening LETTER: Normal A reminder letter will automatically be generated and sent to the patient with the target date for her next screening mammogram. BREAST CANCER RISK ASSESSMENT SUMMARY Risk Assessment results are provided by [employer] The Global Leader in Cancer Risk Assessment Software [employer] Your patient completed a breast cancer risk assessment survey as part of her breast health screening. Based on the information she provided, her calculated risk of developing breast cancer is not increased over the general population risk. Estimated Breast Cancer Risk Calculations: Risk BRCA1/2 Mutation: 1.5% Bety model 5-year risk: 0.4% Patients who have an increased risk of developing breast cancer, defined as Bety model 5-year risk >1.7%, are candidates for chemoprevention. The Bety model was NOT designed to estimate risk for: patient with prior diagnosis of Breast Cancer, lobular carcinoma in situ (LCIS), <35 years old, and/or the patient is male. Lifetime Breast Cancer Risk: 8.6% *ACS Guidelines: Patients at high risk will have a >= 10% risk of BRCA mutation and/or >= 20% lifetime risk of breast cancer *This analysis is only as accurate as the data entered or provided by the patient. Date of the Survey Calculations: Oct 18 2019 2:37PM Narrative 10/21/2019 10:20 AM EST CLINICAL INDICATION: Screening . COMPARISON: Comparison is [...] which could obscure a lesion on mammography. FINDINGS: There are no abnormal masses, suspicious microcalcifications or architectural distortion in either breast. There is no significant change compared to previous examinations. Procedure Note Elizabeth Potter MD - 10/21/2019 CLINICAL INDICATION: Screening . COMPARISON: Comparison is made to prior imaging. TECHNIQUE: Digital craniocaudal and mediolateral oblique views wereobtained of both breasts. Both standard digital mammographic and tomosynthesis imageswere obtained and reviewed as part of this examination. Computer assisteddetection was used in the interpretation of this examination. BREAST COMPOSITION: The breast tissue is heterogeneously dense, whichcould obscure a lesion on mammography. FINDINGS: There are no abnormal masses, suspicious microcalcifications orarchitectural distortion in either breast. There is no significant change compared toprevious examinations. IMPRESSION: No mammographic evidence of malignancy. BI-RADS CATEGORY: 1 - Negative. RECOMMENDATION: Routine annual screening LETTER: Normal A reminder letter will automatically be generated and sent to the patientwith the target date for her next screening mammogram. BREAST CANCER RISK ASSESSMENT SUMMARY Risk Assessment results are provided by [employer]. The [employer] Cancer Risk Assessment Software [employer] Your patient completed a breast cancer risk assessment survey as part ofher breast health screening. Based on the information she provided, hercalculated risk of developing breast cancer is not increased over the generalpopulation risk. Estimated Breast Cancer Risk Calculations: Risk BRCA1/2 Mutation: 1.5% Bety model 5-year risk: 0.4% Patients who have an increased risk of developing breast cancer, definedas Bety model 5-year risk >1.7%, are candidates for chemoprevention. The Bety model was NOT designed to estimate risk for: patient with prior diagnosis of Breast Cancer, lobular carcinoma in situ (LCIS), <35 yearsold, and/or the patient is male. Lifetime Breast Cancer Risk: 8.6% *ACS Guidelines: Patients at high risk will have a >= 10% risk of BRCAmutation and/or >= 20% lifetime risk of breast cancer *This analysis is only as accurate as the data entered or provided bythe patient. Date of the Survey Calculations: Oct 18 2019 2:37PM Kwame Medina MD IMG MG EXAMS Final Re sult documented in this encounter Visit Diagnoses Diagnosis Visit for screening mammogram Visit for screening mammogram documented in this encounter Additional Health Concerns Infection Onset Date Last Indicated Resolved Time COVID-19 10/03/2020 10/03/2020 10/23/2020 1:23 AM EST documented as of this encounter Care Teams Gluing Machine Operator Electronic Relationship Specialty Start Date End Date Kwame Medina MD [address] [place] [address] PCP - General Family Medicine 08/20/19 07/12/20 Sidra Lockett CNP [address] [place] [address] [email or web address] PCP - General Family Medicine 07/13/20 Nohemi Santa MD PCP - General Family Medicine 08/01/22 Daniel Hinds OD [address] [place] [address] Referring Physician 03/30/20 documented as of this encounter Additional Source Comments The information contained in this document represents components of the legal health record. It is not the complete legal health record.[facility]
--- OUTSIDE RECORDS SUMMARY | 2025-10-02 21:30 | XMS_ITS | Encounter Summary ---
Author Organization [facility] Address [address] [place] [address] Phone Care Team Providers Care Motor Generator Set Operator Name Role Phone Kwame Medina MD Primary Care Provider + Kwame Medina MD Primary Care Provider + Daniel Hinds OD Unavailable [phone] Sidra Lockett CNP Primary Care Provider Nohemi Santa MD Primary Care Provider [email or web address] Encounter Details Date Type Department Care Team (Late st Contact Info) Description 11/19/2018 Ancillary Orders [facility] Diagnostic Radiology - [facility] [address] [place] [address] Kwame Medina MD [address] [place] [address] Acute midline thoracic back pain Social History Tobacco Use Types Packs/Day Years Used Date Smoking Tobacco: Never Alcohol Use Standard Drinks/Week Comments [...] documented as of this encounter Results * XR CHEST PA AND LATERAL 2 VIEWS (11/19/2018 11:09 AM EST) Anatomical Region Laterality Modality Chest Radiographic Amanda ging 11/19/2018 11:1 1 AM EST Impressions 11/19/2018 11:11 AM EST No evidence of acute cardiopulmonary process. Narrative 11/19/2018 11:11 AM EST REPORT: SITE READ: 2 Frontal and lateral views of the chest. CLINICAL HISTORY: Chest pain COMPARISON: 10/03/2008, chest CT 10/01/2018 FINDINGS: Lines/tubes: None. Lungs: The lungs demonstrate no focal airspace consolidation. Heart and mediastinum: The cardiomediastinal contour is within normal limits. Pleura: There is no pleural effusion or pneumothorax. Bones and soft tissues: There is no acute osseous abnormality. Minimal multilevel spondylosis. Mild levoconvex curvature of the thoracolumbar spine. Procedure Note Belén Gale MD - 11/19/2018 REPORT: SITE READ: 2 Frontal and lateral views of the chest. CLINICAL HISTORY: Chest pain COMPARISON: 10/03/2008, chest CT 10/01/2018 FINDINGS: Lines/tubes: None. Lungs: The lungs demonstrate no focal airspace consolidation. Heart and mediastinum: The cardiomediastinal contour is within normallimits. Pleura: There is no pleural effusion or pneumothorax. Bones and soft tissues: There is no acute osseous abnormality. Minimalmultilevel spondylosis. Mild levoconvex curvature of the thoracolumbarspine. IMPRESSION: No evidence of acute cardiopulmonary process. Kwame Medina MD IMG XR CHEST Final Re sult documented in this encounter Visit Diagnoses Diagnosis Acute midline thoracic back pain Acute midline thoracic back pain documented in this encounter Additional Health Concerns Infection Onset Date Last Indicated Resolved Time COVID-19 10/03/2020 10/03/2020 10/23/2020 1:23 AM EST documented as of this encounter Care Teams Motor Generator Set Operator Relationship Specialty Start Date End Date Kwame Medina MD [address] [place] [address] PCP - General Family Medicine 07/30/18 08/19/19 Kwame Medina MD [address] [place] [address] PCP - General Family Medicine 08/20/19 07/12/20 iSdra Lockett CNP [address] [place] [email or web address] PCP - General Family Medicine 07/13/20 Nohemi Santa MD PCP - General Family Medicine 08/01/22 Daniel Hinds OD [address] [place] [address] Referring Physician 03/30/20 documented as of this encounter Additional Source Comments The information contained in this document represents components of the legal health record. It is not the complete legal health record.[facility]
--- OUTSIDE RECORDS SUMMARY | 2025-10-02 21:30 | XMS_ITS | Encounter Summary ---
Author Organization [facility] Address [address] [place] [address] [place] [address] Phone Care Team Providers Care Dust Control Engineer Name Role Phone Kwame Medina MD Primary Care Provider + Daniel Hinds OD Unavailable [phone] Sidra Lockett CNP Primary Care Provider Nohemi Santa MD Primary Care Provider [email or web address] Encounter Details Date Type Department Care Team (Late st Contact Info) Description 12/20/2019 Transcribe [facility] Specimen Processing [address] [place] [address] [place] [email or web address] Social History Tobacco Use [...] documented as of this encounter Care Teams Dust Control Engineer Relationship Specialty Start Date End Date Kwame Medina MD [address] [place] [address] PCP - General Family Medicine 08/20/19 07/12/20 Sidra Lockett CNP [address] [place] [address] [email or web address] PCP - General Family Medicine 07/13/20 Nohemi Santa MD PCP - General Family Medicine 08/01/22 Daniel Hinds OD [address] [place] [address] Referring Physician 03/30/20 documented as of this encounter Additional Source Comments The information contained in this document represents components of the legal health record. It is not the complete legal health record.[facility]
--- OUTSIDE RECORDS SUMMARY | 2025-10-02 21:30 | XMS_ITS | Patient Health Record ---
Author Organization [facility] Address [address] [place] [address] Care Team Providers Care Console Assembler Name Role Phone Terry Vasquez Primary Care Provider [facility], Nursing Unavailable [phone] CardonaZayda holloway Unavailable [phone] Migration, Provider Unavailable Unavailable Allergies No Known Allergies Results Component Value Reference Range Notes Rapid Strep OSOM A Reviewed date:09/19/2025 02:57:26 PM Interpretation:Negative Performing Lab: Notes/Report: Negative COMPREHENSIVE METABOLIC PANE L Reviewed date:02/17/2025 09:32:26 [...] Absolute 0.00 <0.10 K/mcL Reason For Referral Reason [facility] enter Opthalmology, [address], [place] [address], 3rd floor, [facility] P: [phone] F: [phone] Has keratoconus and needs CORNEA specialist for her care Diagnosis 1 Keratoconus, stable, 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) Referral Organization [facility] Referring Provider First Name Terry Referring Provider Last Name Pedro Referring Provider Speciality Internal M edicine Referred Provider Specialty Ophthalmolog y General Notes Lorraine Robles 08/23/2025 09:59:30 AM > pt has Blottr I don't know of a provider that will tx her, message sent to Rebecca granados [place] 08/25/2025 04:04:36 PM > Efaxed to [facility] who states they will see her with limited insurance Referral Priority Routine Medications Medication SIG (Take, Route, Frequency, Duration) Notes Start Date End Date Status Linzess 145 MCG 1 cap(s) orally once a day Active Omeprazole 40 MG 1 cap(s) orally once a day Active Vitamin D3 10 MCG 1 TAB(S) ORALLY ONCE A DAY for 90 days *Please review and pick correct strength-formula tion from Exch[employer] options. If intended option is not shown, discontinue and re-order from Quick Search* Active Amitriptyline HCl 10 MG 1 tablet at bedtime Orally Once a day for 14 days 09/19/2025 Active Amitriptyline HCl 25 MG 1 tablet at bedtime Orally Once a day for 30 days start when 10 mg finished 09/19/2025 Active medroxyPROGESTERone Acetate 10 MG 1 tab(s) orally once a day Not-Taking Naproxen 375 MG TAKE 1 TABLET ORALLY 2 TIMES A DAY Orally twice a day for 30 days Active Ofloxacin 0.3 % 1 gtt in left eye 4 times a day for 5 days 09/20/2024 Not-Taking Immunizations Vaccine Route Administration Date Status Comme [...] IM Intramuscular 02/02/2024 Administered [facility] [id number] Tdap Unknown 03/27/2010 Administered H1N1 Influenza Unknown 10/26/2009 Administered Influenza Unknown 02/11/2018 Administered Afluria Unknown 02/07/2019 Administered Flu-IIV4, p-free Unknown 07/25/2022 Administered Influenza IM Intramuscular 09/22/2024 Administered Problems Problem Type SNOMED Code ICD Code Onset Dates Problem Status W/U Status Risk Notes Problem Keratoconus, stable condition (800750113) Keratoconus, stable, 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) Active confirmed Problem Conductive hearing loss, bilateral (186169384) Conductive hearing loss, bilateral (H90.0) Active confirmed Problem Slow transit constipation (50217132) Slow transit constipation (K59.01) Active confirmed Problem Fatty liver (090749074) Fatty (change of) liver, not elsewhere classified (K76.0) Active confirmed Problem Localized, primary osteoarthritis of the ankle and/or foot (861252209) Primary osteoarthritis, left ankle and foot (M19.072) Active confirmed Problem Fibromyalgia (760550355) Fibromyalgia (M79.7) Active confirmed Problem Hormone abnormality (44952593) Abnormal level of hormones in specimens from other organs, systems and tissues (R89.1) Active confirmed Problem Abnormal vision (7603989) Presence of spectacles and contact lenses (Z97.3) Active confirmed Problem Body mass index 25-29 - overweight (079233189) Body mass index [BMI] 28.0-28.9, adult (Z68.28) Active confirmed Vital Signs Temperature 97.8 degrees Fahrenheit 09/19/2025 Blood pressure diastolic 77 09/19/2025 Oximetry 97 09/19/2025 Height 60 in 09/19/2025 Blood pressure systolic 133 09/19/2025 Weight 146.8 lbs 09/19/2025 BMI 28.67 kg/m2 09/19/2025 Encounters Encounter Location Date Provider Diagnosis [address] [address] 07/01/2025 Provider Migration [address] [address] 02/14/2025 Terry Vasquez Encounter for screening for COVID-19 Z11.52 ; Primary osteoarthritis, left ankle and foot M19.072 ; Keratoconus, stable, bilateral H18.613 and Abnormal level of hormones in specimens from other organs, systems and tissues R89.[address] [address] 02/17/2025 Nursing [facility] Encounter for screening, unspecified Z13.[address] [address] 08/22/2025 Terry Vasquez Encounter for screening for COVID-19 Z11.52 ; Enthesopathy, unspecified M77.9 ; Primary osteoarthritis, left ankle and foot M19.072 ; Keratoconus, stable, bilateral H18.613 ; Fatty (change of) liver, not elsewhere classified K76.0 and Slow transit constipation K59.[address] [address] 09/19/2025 Terry Vasquez Encounter for screening for COVID-19 Z11.52 ; Fibromyalgia M79.7 ; Acute pharyngitis, unspecified J02.9 and Keratoconus, stable, bilateral H18.[address] 02/2025 Zayda Cardona [address] [address] 11/11/2024 Terry Vasquez [address] [address] 02/15/2025 Terry Vasquez [address] [address] 02/17/2025 Terry Vasquez [address] [address] 07/28/2025 Terry Vasquez Other bursitis, not elsewhere classified, left ankle and foot M71.[address] 08/23/2025 Terry Vasquez [address] [address] 09/19/2025 Terry Vaqsuez Assessments Encounter Date Diagnosis (ICD Code) Assessment Notes Treatment Notes Treatment Clinical Notes Section Notes 02/14/2025 Primary osteoarthritis, left ankle and foot [...] to lab, pt to [facility] for f/u 08/22/2025 Enthesopathy, unspecified (ICD-10 - M77.9) I sunny at this as enthesisits and noit arthritis and not fibromyalgia. For the start get NSAID to full strength for one month. if not chnage, then pursue syystemic process 08/22/2025 Encounter for screening for COVID-19 (ICD-10 - [...] you are having concerning symptoms for COVID-19. 09/19/2025 Fibromyalgia (ICD-10 - M79.7) Looks ore like fibro. We viewed stretching video and I gave er the link Also handout with stretches Start TCA-side effects reviewed 09/19/2025 Encounter for screening for COVID-19 (ICD-10 - [...] you are having concerning symptoms for COVID-19. 07/28/2025 Other bursitis, not elsewhere classified, left ankle and foot (ICD-10 - M71.572) 02/14/2025 Keratoconus, stable, bilateral (ICD-10 - H18.613) Doing well right now but waiting for [facility] appt 08/22/2025 Primary osteoarthritis, left ankle and foot (ICD-10 - M19.072) This i=tslf is improved 09/19/2025 Acute pharyngitis, unspecified (ICD-10 - J02.9) Rapid strep neg. URI-works at [employer]; off work tomorrow note 02/14/2025 Abnormal level of hormones in specimens from other organs, systems and tissues (ICD-10 - R89.1) Followed well by regulatory submissions associate-records reviewed. On prvera 10 days amionth; PAP up todate 08/22/2025 Keratoconus, stable, bilateral (ICD-10 - H18.613) I am karla to try to refer to cornea at [facility] 09/19/2025 Keratoconus, stable, bilateral (ICD-10 - H18.613) she ahs eyeand lasik appt but may interfere with work. She has to callthem to rebook with their cornea specializt 08/22/2025 Fatty (change of) liver, not elsewhere classified (ICD-10 - K76.0) labs loked good. 08/22/2025 Slow transit constipation (ICD-10 - K59.01) Inmproved on Linzess 11/11/2024 Other 12/06/2024 Other 12/30/2024 Other 02/14/2025 Other 08/22/2025 Other 09/19/2025 Other Plan Of Treatment Next Appt Details Provider Name:Terry Vasquez, 11/21/2025 02:20:00 PM, [address] [place] [address], [place], [address], Insurance Providers Payer Name Payer Address Payer Phone Subscriber Number Group Number Insured Name Patient Relationship to Insured Coverage Start Date Coverage End Date [place] Medicaid Limited [address] [place], [place] [id number] MITRA ALANIS Self - patient is the insured 3 Medical (General) History Surgical History Surgery Date(Month/Year) appendectomy 06/2009
--- OUTSIDE RECORDS SUMMARY | 2025-10-02 21:30 | XMS_ITS | Encounter Summary ---
Author Organization [facility] Address [address] [place] [address] [place] [phone] Phone Care Team Providers Care Airline Hostess Name Role Phone Daniel Hinds OD Unavailable [phone] Sidra Lockett CNP Primary Care Provider Nohemi Santa MD Primary Care Provider [email or web address] Encounter Details Date Type Department Care Team (Late st Contact Info) Description 11/28/2020 Transcribe Orders [facility] [address] [place] [address] Marsha Dennison [address] [place] [phone] [email or web address] Social History Tobacco Use Types Packs/Day Years [...] on filedocumented in this encounter Care Teams Airline Hostess Relationship Specialty Start Date End Date Sidra Lockett CNP [address] [place] [address] [email or web address] PCP - General Family Medicine 07/13/20 2 Nohemi Sanat MD [email or web address] PCP - General Family Medicine 08/01/22 Daniel Hinds OD [address] [place] [address] Referring Physician 03/30/20 documented as of this encounter Additional Source Comments The information contained in this document represents components of the legal health record. It is not the complete legal health record.[facility]
--- OUTSIDE RECORDS SUMMARY | 2025-10-02 21:30 | XMS_ITS | Encounter Summary ---
Author Organization [facility] Address [address] [place] [address] Phone Care Team Providers Care Slab Off Mill Tender Name Role Phone Radha Womack MD Primary Care Provider [phone] Kwame Galvni MD Primary Care Provider + Kwame Galvin MD Primary Care Provider + Daniel Hinds OD Unavailable Sidra Lockett CNP Primary Care Provider Nohemi Santa MD Primary Care Provider [email or web address] Reason for Referral * MRI/CAT Scan - Closed Specialty Diagnoses / Procedures Referred By Sony ruggiero Referred To Contact Radiology Diagnoses Kidney stones Procedures CT Abdomen/Pelvis Kwame Galvin MD Phone: tel: Referral ID Status Reason Start Date Expiration Date Visits Re quested Visits Authorized [id number] Closed 02/17/2018 04/18/2018 1 1 Encounter Details Date Type Department Care Team (Latest Contact Info) Description 02/17/2018 Transcribe Orders [facility] Central Scheduling Virtual [address] [place] [address] Kwame Galvin MD [address] [place] [address] Kidney stones (Primary Dx) Social History Tobacco Use Types [...] documented as of this encounter Results * CT ABDOMEN/PELVIS WITHOUT CONTRAST (02/22/2018 9:23 AM EDT) Anatomical Region Laterality Modality Abdomen, Pelvis Computed Tomogra phy 02/22/2018 9:34 AM EDT Impressions 02/22/2018 9:34 AM EDT No evidence for urinary tract calculi. Apparent mural thickening involving the lateral aspect of the gastric fundus and gastric body. Recommend further evaluation with upper endoscopy or double contrast upper GI series. 10 mm hypodensity lateral left hepatic lobe may represent cyst but is not further characterized on this unenhanced exam. Fragment of an IUD embedded within the uterine myometrium. A Yellow message has been communicated to KWAME GALVIN via the [employer] Critical Result system on 02/22/2018 9:46 AM, Message ID [id number]. Narrative 02/22/2018 9:34 AM EDT REPORT: SITE READ: 1 CLINICAL HISTORY: 42 year-old Female with pain, pyelonephritis, question urinary tract calculi. TECHNIQUE: Helical CT scan performed through the abdomen and pelvis without oral and without intravenous contrast. Sagittal and coronal reconstruction imaging reviewed on the workstation. Dose reduction techniques including automated exposure control and adjustment of the mA and/or kV according to patient size were utilized. COMPARISON: CT 04/25/2015. Ultrasound 10/20/2017. FINDINGS: LOWER THORAX: Unremarkable. HEPATOBILIARY: 10 mm hypodensity at the lateral left hepatic lobe probably represents a cyst but not further characterized on this unenhanced exam. No biliary dilatation. SPLEEN: No splenomegaly. PANCREAS: No focal masses or ductal dilatation. ADRENALS: No adrenal nodules. KIDNEY/URETERS: No hydronephrosis, stones or solid lesions. PELVIC ORGANS/BLADDER: Urinary bladder is unremarkable. There is a fragment of IUD is embedded within the posterior superior uterine myometrium. PERITONEUM/RETROPERITONEUM: No free air or fluid. LYMPH NODES: No lymphadenopathy. VESSELS: Unremarkable. GI TRACT: There is apparent mural thickening involving the lateral aspect of the gastric fundus and body and recommend further evaluation with upper endoscopy or double contrast upper GI series. Small bowel loops and large bowel loops appear unremarkable. The appendix is surgically absent. BONES/SOFT TISSUES: No focal lytic or blastic lesions. There is L4-L5 degenerative disc disease. Procedure Note Garcia Cheek MD - 02/22/2018 REPORT: SITE READ: 1 CLINICAL HISTORY: 42 year-old Female with pain, pyelonephritis, questionurinary tract calculi. TECHNIQUE: Helical CT scan performed through the abdomen and pelviswithout oral and without intravenous contrast. Sagittal and coronalreconstruction imaging reviewed on the workstation. Dose reductiontechniques including automated exposure control and adjustment of the mAand/or kV according to patient size were utilized. COMPARISON: CT 04/25/2015. Ultrasound 10/20/2017. FINDINGS: LOWER THORAX: Unremarkable. HEPATOBILIARY: 10 mm hypodensity at the lateral left hepatic lobe probablyrepresents a cyst but not further characterized on this unenhanced exam.No biliary dilatation. SPLEEN: No splenomegaly. PANCREAS: No focal masses or ductal dilatation. ADRENALS: No adrenal nodules. KIDNEY/URETERS: No hydronephrosis, stones or solid lesions. PELVIC ORGANS/BLADDER: Urinary bladder is unremarkable. There is afragment of IUD is embedded within the posterior superior uterinemyometrium. PERITONEUM/RETROPERITONEUM: No free air or fluid. LYMPH NODES: No lymphadenopathy. VESSELS: Unremarkable. GI TRACT: There is apparent mural thickening involving the lateral aspectof the gastric fundus and body and recommend further evaluation with upperendoscopy or double contrast upper GI series. Small bowel loops and largebowel loops appear unremarkable. The appendix is surgically absent. BONES/SOFT TISSUES: No focal lytic or blastic lesions. There is L4- X8wwofvmefbiyz disc disease. IMPRESSION: No evidence for urinary tract calculi. Apparent mural thickening involving the lateral aspect of the gastricfundus and gastric body. Recommend further evaluation with upper endoscopyor double contrast upper GI series. 10 mm hypodensity lateral left hepatic lobe may represent cyst but is notfurther characterized on this unenhanced exam. Fragment of an IUD embedded within the uterine myometrium. A Yellow message has been communicated to KWAME GALVIN via [employer] Critical Result system on 02/22/2018 9:46 AM, Message [id number]. Kwame Galvin MD IMG CT ABD/PELVIS Final Result documented in this encounter Visit Diagnoses Diagnosis Kidney stones- Primary Calculus of kidney Kidney stones Calculus of kidney documented in this encounter Additional Health Concerns Infection Onset Date Last Indicated Resolved Time COVID-19 10/03/2020 10/03/2020 10/23/2020 1:23 AM EST documented as of this encounter Care Teams Slab Off Mill Tender Relationship Specialty Start Date End Date Radha Womack MD [address] [place] [address] [email or web address] PCP - General 04/18/14 07/29/18 Kwame Galvin MD [address] [place] [address] PCP - General Family Medicine 07/30/18 08/19/19 Kwame Galvin MD [address] [place] [address] PCP - General Family Medicine 08/20/19 07/12/20 Sidra Lockett CNP [address] [place] [address] [email or web address] PCP - General Family Medicine 07/13/20 2 Nohemi Santa MD PCP - General Family Medicine 08/01/22 Daniel Hinds OD [address] [place] [address] Referring Physician 03/30/20 documented as of this encounter Additional Source Comments The information contained in this document represents components of the legal health record. It is not the complete legal health record.[facility]
--- OUTSIDE RECORDS SUMMARY | 2025-10-02 21:30 | XMS_ITS | Encounter Summary ---
Author Organization [facility] Address [address] [place] [address] Phone Care Team Providers Care Feed And Farm Management Adviser Name Role Phone Radha Woamck MD Primary Care Provider [phone] Kwame Medina MD Primary Care Provider + Kwame Medina MD Primary Care Provider + Daniel Hinds OD Unavailable Sidra Lockett CNP Primary Care Provider Nohemi Santa MD Primary Care Provider [email or web address] Encounter Details Date Type Department Care Team (Late st Contact Info) Description 10/07/2017 Transcribe Orders [facility] Central Scheduling Virtual [address] [place] [address] Vernell [place] MD [address] [place] [address] Pelvic pain (Primary Dx) Social History Tobacco Use [...] documented as of this encounter Results * US PELVIS TRANSVAGINAL ONLY (10/20/2017 3:34 PM EST) Anatomical Region Laterality Modality Pelvis, Uterus/Adnexa Ultrasound 10/20/2017 6:06 PM EST Impressions 10/20/2017 6:06 PM EST Echogenic, linear focus identified within the uterine myometrium, within the lower body along the anterior uterus likely represents a retained arm of a previously removed intrauterine device. Correlation with clinical history is recommended. Normal thickness endometrial stripe complex. No focal masses. No evidence of ovarian torsion. Small bilateral follicles. A Yellow message has been communicated to VERNELL [place] via the [employer] Critical Result system on 10/20/2017 6:13 PM, Message ID [id number]. Narrative 10/20/2017 6:06 PM EST REPORT: SITE READ: 1 Clinical History: History of pelvic pain. Comparison Study: Ultrasound pelvis dated August 02, 2015. Ultrasound pelvis dated December 11, 2006. Reported LMP: 10/09/2017. Technique: Serial longitudinal and transverse grayscale images were acquired utilizing a transabdominal and transvaginal approaches. The transvaginal approach was used for better delineation of the endometrium and adnexa. Color and Duplex Doppler images were utilized to assess vascularity. Findings: Uterus: The uterus measures 8.0 x 4.6 x 3.7 cm. The uterine myometrial echotexture is homogeneous. There are no solid myometrial lesions. There is echogenic shadowing, linear focus identified along the lower uterine segment, within the myometrium measuring 16 mm. This likely represents a retained portion of a previously partially removed intrauterine device. Small nabothian cysts are noted. Endometrium: The endometrium measures 10 mm in thickness. There are no endometrial masses. No endometrial canal fluid is present. Ovaries: The right ovary measures 2.4 x 2.9 x 1.8 cm. The left ovary measures 2.7 x 2.8 x 2.0 cm. No abnormal ovarian cystic or solid lesions. Multiple small follicles are noted bilaterally. These measure up to 17 mm on the right and 11 mm on the left. Vascularity: There is normal color Doppler signal and arterial venous spectral/Duplex waveforms to both ovaries. Free Fluid: No free fluid is present in the cul de sac. Procedure Note NineKenneth MD - 10/20/2017 REPORT: SITE READ: 1 Clinical History: History of pelvic pain. Comparison Study: Ultrasound pelvis dated August 02, 2015. Ultrasoundpelvis dated December 11, 2006. Reported LMP: 10/09/2017. Technique: Serial longitudinal and transverse grayscale images wereacquired utilizing a transabdominal and transvaginal approaches. Thetransvaginal approach was used for better delineation of the endometriumand adnexa. Color and Duplex Doppler images were utilized to assessvascularity. Findings: Uterus: The uterus measures 8.0 x 4.6 x 3.7 cm. The uterine myometrialechotexture is homogeneous. There are no solid myometrial lesions. Thereis echogenic shadowing, linear focus identified along the lower uterinesegment, within the myometrium measuring 16 mm. This likely represents aretained portion of a previously partially removed intrauterine device.Small nabothian cysts are noted. Endometrium: The endometrium measures 10 mm in thickness. There are noendometrial masses. No endometrial canal fluid is present. Ovaries: The right ovary measures 2.4 x 2.9 x 1.8 cm. The left ovarymeasures 2.7 x 2.8 x 2.0 cm. No abnormal ovarian cystic or solid lesions.Multiple small follicles are noted bilaterally. These measure up to 17mm on the right and 11 mm on the left. Vascularity: There is normal color Doppler signal and arterial venousspectral/Duplex waveforms to both ovaries. Free Fluid: No free fluid is present in the cul de sac. IMPRESSION: Echogenic, linear focus identified within the uterine myometrium, withinthe lower body along the anterior uterus likely represents a retained armof a previously removed intrauterine device. Correlation with clinicalhistory is recommended. Normal thickness endometrial stripe complex. No focal masses. No evidence of ovarian torsion. Small bilateral follicles. A Yellow message has been communicated to VERNELL [place] via [employer] Critical Result system on 10/20/2017 6:13 PM, Message [id number]. Vernell [place] MD [facility] PELVIS Final Result documented in this encounter Visit Diagnoses Diagnosis Pelvic pain- Primary Pelvic pain documented in this encounter Additional Health Concerns Infection Onset Date Last Indicated Resolved Time COVID-19 10/03/2020 10/03/2020 10/23/2020 1:23 AM EST documented as of this encounter Care Teams Feed And Farm Management Adviser Relationship Specialty Start Date End Date Radha Womack MD [address] [facility] [place] [address] [email or web address] PCP - General 04/18/14 07/29/18 Kwame Medina MD [address] [place] [address] PCP - General Family Medicine 07/30/18 08/19/19 Kwame Medina MD [address] [place] [address] PCP - General Family Medicine 08/20/19 07/12/20 Sidra Lockett CNP [address] [facility] [place] [address] [email or web address] PCP - General Family Medicine 07/13/20 2 Nohemi Santa MD PCP - General Family Medicine 08/01/22 Daniel Hinds OD [address] [place] [address] Referring Physician 03/30/20 documented as of this encounter Additional Source Comments The information contained in this document represents components of the legal health record. It is not the complete legal health record.[facility]
--- OUTSIDE RECORDS SUMMARY | 2025-10-02 21:30 | XMS_ITS | Encounter Summary ---
Author Organization [facility] Address [address] [place] [address] [place] [address] Phone Care Team Providers Care Printing Press Machinist Name Role Phone Kwame Medina MD Primary Care Provider + Daniel Hinds OD Unavailable [phone] Sidra Lockett CNP Primary Care Provider Nohemi Santa MD Primary Care Provider [email or web address] Encounter Details Date Type Department Care Team (Late st Contact Info) Description 02/29/2020 Transcribe [facility] Specimen Processing [address] [place] [address] Yaritza Social History Tobacco Use Types Packs/Day Years [...] documented as of this encounter Care Teams Printing Press Machinist Relationship Specialty Start Date End Date Kwame Medina MD [address] [place] [address] PCP - General Family Medicine 08/20/19 07/12/20 Sidra Lockett CNP [address] [place] [email or web address] PCP - General Family Medicine 07/13/20 Nohemi Santa MD PCP - General Family Medicine 08/01/22 Daniel Hinds OD [address] [place] [address] Referring Physician 03/30/20 documented as of this encounter Additional Source Comments The information contained in this document represents components of the legal health record. It is not the complete legal health record.[facility]
--- OUTSIDE RECORDS SUMMARY | 2025-10-02 21:30 | XMS_ITS | Encounter Summary ---
Author Organization [facility] Address [address] [place] [address] Phone Care Team Providers Care Truck Bench Mechanic Name Role Phone Radha Womack MD Primary Care Provider [phone] Kwame Medina MD Primary Care Provider + Kwame Medina MD Primary Care Provider + Daniel Hinds OD Unavailable Sidra Lockett CNP Primary Care Provider Nohemi Santa MD Primary Care Provider [email or web address] Encounter Details Date Type Department Care Team (Late st Contact Info) Description 10/20/2017 Ancillary Orders [facility] Central Scheduling Virtual [address] [place] [address] Vernell Jean MD [address] [place] [address] Pelvic pain Social History Tobacco Use Types Packs/Day [...] of this encounter Results * US PELVIS LIMITED WITH VASCULATURE (DOPPLER) (10/20/2017 3:34 PM EST) Anatomical Region Laterality [...] been communicated to VERNELL JEAN via the InterviewBest system on 10/20/2017 6:13 PM, Message ID [id number]. Narrative 10/20/2017 6:06 PM EST REPORT: SITE [...] in the [place]. Procedure Note Nine, Kenneth Dahl MD - 10/20/2017 REPORT: SITE READ: 1 [...] has been communicated to VERNELL JEAN via AddonTV Critical Result system on 10/20/2017 6:13 PM, Message [id number]. Vernell Jean MD G PELVIS Final Result documented in this encounter Visit Diagnoses Diagnosis Pelvic pain Pelvic pain documented in this encounter Additional Health Concerns Infection Onset Date Last Indicated Resolved Time COVID-19 10/03/2020 10/03/2020 10/23/2020 1:23 AM EST documented as of this encounter Care Teams Truck Bench Mechanic Relationship Specialty Start Date End Date Radha Womack MD [address] [place] [address] [email or web address] PCP - General 04/18/14 07/29/18 Kwame Medina MD [address] [place] [address] PCP - General Family Medicine 07/30/18 08/19/19 Kwame Medina MD [address] [place] [address] PCP - General Family Medicine 08/20/19 07/12/20 Sidra Lockett CNP [address] [place] [address] [email or web address] PCP - General Family Medicine 07/13/20 2 Nohemi Santa MD [email or web address] PCP - General Family Medicine 08/01/22 Daniel Hinds OD [address] [place] [address] Referring Physician 03/30/20 documented as of this encounter Additional Source Comments The information contained in this document represents components of the legal health record. It is not the complete legal health record.[facility]
--- OUTSIDE RECORDS SUMMARY | 2025-10-02 21:30 | XMS_ITS | Encounter Summary ---
Author Organization [facility] Address [address] [place] [address] [place] [address] Phone Care Team Providers Care Assistant Professor Surgical Technology Name Role Phone Kwame Medina MD Primary Care Provider + Daniel Hinds OD Unavailable [phone] Sidra Lockett CNP Primary Care Provider Nohemi Santa MD Primary Care Provider [email or web address] Encounter Details Date Type Department Care Team (Late st Contact Info) Description 12/27/2019 Transcribe [facility] Specimen Processing [address] [place] [address] [email or web address] [email or web address] Social History Tobacco Use Types Packs/Day Years [...] documented as of this encounter Care Teams Assistant Professor Surgical Technology Relationship Specialty Start Date End Date Kwame Medina MD [address] [place] [address] PCP - General Family Medicine 08/20/19 07/12/20 Sidra Lockett CNP [address] [place] [email or web address] PCP - General Family Medicine 07/13/20 Nohemi Santa MD PCP - General Family Medicine 08/01/22 Daniel Hinds OD [address] [place] [address] Referring Physician 03/30/20 documented as of this encounter Additional Source Comments The information contained in this document represents components of the legal health record. It is not the complete legal health record.[facility]
--- OUTSIDE RECORDS SUMMARY | 2025-10-02 21:30 | XMS_ITS | Encounter Summary ---
Author Organization [facility] Address [address] [place] [address] Phone Care Team Providers Care Hand Mounter Name Role Phone Kwame Medina MD Primary Care Provider + Daniel Hinds OD Unavailable [phone] Sidra Lockett CNP Primary Care Provider Nohemi Santa MD Primary Care Provider [email or web address] Encounter Details Date Type Department Care Team (Late st Contact Info) Description 06/15/2020 Ancillary Orders [facility] Diagnostic Radiology - [facility] [address] [place] [address] Chantelle Ortiz PA [address] [place] [address] Chronic right shoulder pain Social History Tobacco Use Types Packs/Day [...] as of this encounter Results * XR SHOULDER 2 VIEWS (RIGHT) (06/15/2020 8:59 AM EDT) Anatomical Region Laterality Modality Shoulder Right Radiographic Amanda ging 06/15/2020 9:03 AM EDT Impressions 06/15/2020 9:09 AM EDT Impression: No acute fracture or dislocation. Narrative 06/15/2020 9:09 AM EDT Procedure: XR SHOULDER 2 OR MORE VIEWS (RIGHT) 06/15/2020 8:51 AM Indications: 45 years old Female patient with - PAIN [SIGN/SX]; chronic right shoulder pain Comparison: None Findings: No acute fracture or dislocation. Right humeral head is well situated within the glenoid fossa. Right acromioclavicular joint is intact. Visualized right upper lung is clear. No displaced rib fracture identified. Procedure Note Joe Willis MD, EMILY - 06/15/2020 Procedure: XR SHOULDER 2 OR MORE VIEWS (RIGHT) 06/15/2020 8:51 AM Indications: 45 years old Female patient with - PAIN [SIGN/SX]; chronicright shoulder pain Comparison: None Findings: No acute fracture or dislocation. Right humeral head is well situatedwithin the glenoid fossa. Right acromioclavicular joint is intact.Visualized right upper lung is clear. No displaced rib fractureidentified. IMPRESSION: Impression: No acute fracture or dislocation. Chantelle CORNELL IMG XR UPPER EXTREMITY Final Res ult documented in this encounter Visit Diagnoses Diagnosis Chronic right shoulder pain Pain in joint, shoulder region Chronic right shoulder pain Pain in joint, shoulder region documented in this encounter Additional Health Concerns Infection Onset Date Last Indicated Resolved Time COVID-19 10/03/2020 10/03/2020 10/23/2020 1:23 AM EST documented as of this encounter Care Teams Hand Mounter Relationship Specialty Start Date End Date Kwame Medina MD [address] [place] [address] PCP - General Family Medicine 08/20/19 07/12/20 Sidra Lockett CNP [address] [place] [address] [email or web address] PCP - General Family Medicine 07/13/20 2 Nohemi Santa MD [email or web address] PCP - General Family Medicine 08/01/22 Daniel Hinds OD [address] [place] [address] Referring Physician 03/30/20 documented as of this encounter Additional Source Comments The information contained in this document represents components of the legal health record. It is not the complete legal health record.[facility]
--- OUTSIDE RECORDS SUMMARY | 2025-10-02 21:30 | XMS_ITS | Encounter Summary ---
Author Organization [facility] Address [address] [place] [address] [place] [address] Phone Care Team Providers Care Transmission Specialist Name Role Phone Kwame Medina MD Primary Care Provider + Daniel Hinds OD Unavailable [phone] Sidra Lockett CNP Primary Care Provider Nohemi Santa MD Primary Care Provider [email or web address] Encounter Details Date Type Department Care Team (Latest Contact Info) Description 12/21/2019 Transcribe Orders [facility] Central Scheduling Virtual [address] [place] [address] Sidra Lockett, [address] [address] [email or web address] Encounter for well adult exam without abnormal findings (Primary Dx); Pelvic pain in female Social History Tobacco Use Types Packs/Day Years [...] of this encounter Results * US PELVIS TRANSABDOMINAL PLUS TRANSVAGINAL WITH DOPPLER (01/04/2020 9:39 AM EDT) Anatomical Region Laterality Modality Pelvis, Uterus/Adnexa Ultrasound 01/04/2020 9:47 AM EDT Impressions 01/04/2020 10:01 AM EDT No acute pelvic findings. Normal ovaries. Fragment of an echogenic IUD embedded within the posterior uterine myometrial wall. Narrative 01/04/2020 10:01 AM EDT Procedure: US PELVIS TRANSABDOMINAL PLUS TRANSVAGINAL WITH LIMITED DOPPLER 01/04/2020 8:40 AM US Indications: Lower abdominal and pelvic pain, increasing cramps with menstrual cycle. Partially retained IUD. Comparison: CT 02/22/2018, ultrasound 10/20/2017. Technique: Transabdominal sonography of the pelvis was performed. In addition, transvaginal imaging was performed to better evaluate the adnexae and ovaries. Color Doppler and Spectral Duplex imaging was performed to assess vascularity. 3-D images were acquired and evaluated during image interpretation. Reported LMP: 12/30/2019. FINDINGS: Uterus: The uterus measures 9.1 x 6.0 x 4.9 cm. The myometrium is homogeneous. The uterus is anteverted in its positioning. No focal cervical masses. There is a fragment of an echogenic IUD seen embedded within the posterior uterine myometrium. Endometrium: The endometrium measures 11 mm and appears homogeneous. No endometrial masses. No fluid is identified within the endometrial canal. Ovaries: The right ovary measures 2.8 x 2.3 x 1.9 cm transvaginally. The right ovary measures 3.7 x 2.5 x 2.0cm transabdominally. No evidence of solid mass or cyst greater than 3 cm. Vascularity Right Ovary: There is normal color Doppler flow to the ovary. There are normal arterial and venous Spectral Duplex waveforms/flow present. The left ovary measures 2.2 x 2.2 x 1.1 cm transvaginally. The left ovary measures 2.9 x 1.5 x 1.8 cm transabdominally. No evidence of solid mass or cyst greater than 3 cm. Vascularity Left Ovary: There is normal color Doppler flow to the ovary. There are normal arterial and venous Spectral Duplex waveforms/flow present. Fluid: There is no evidence of free pelvic fluid. Procedure Note Garcia Cheek MD - 01/04/2020 Procedure: US PELVIS TRANSABDOMINAL PLUS TRANSVAGINAL WITH LIMITED DOPPLER 01/04/2020 8:40 AM US Indications: Lower abdominal and pelvic pain, increasing cramps with menstrual cycle. Partially retained IUD. Comparison: CT 02/22/2018, ultrasound 10/20/2017. Technique: Transabdominal sonography of the pelvis was performed. Inaddition, transvaginal imaging was performed to better evaluate the adnexae andovaries. Color Doppler and Spectral Duplex imaging was performed to assessvascularity. 3-D images were acquired and evaluated during image interpretation. Reported LMP: 12/30/2019. FINDINGS: Uterus: The uterus measures 9.1 x 6.0 x 4.9 cm. The myometrium is homogeneous.The uterus is anteverted in its positioning. No focal cervical masses. Thereis a fragment of an echogenic IUD seen embedded within the posterior uterine myometrium. Endometrium: The endometrium measures 11 mm and appears homogeneous. No endometrialmasses. No fluid is identified within the endometrial canal. Ovaries: The right ovary measures 2.8 x 2.3 x 1.9 cm transvaginally. The rightovary measures 3.7 x 2.5 x 2.0cm transabdominally. No evidence of solid mass or cyst greater than 3 cm. Vascularity Right Ovary: There is normal color Doppler flow to the ovary.There are normal arterial and venous Spectral Duplex waveforms/flow present. The left ovary measures 2.2 x 2.2 x 1.1 cm transvaginally. The leftovary measures 2.9 x 1.5 x 1.8 cm transabdominally. No evidence of solid mass or cyst greater than 3 cm. Vascularity Left Ovary: There is normal color Doppler flow to the ovary.There are normal arterial and venous Spectral Duplex waveforms/flow present. Fluid: There is no evidence of free pelvic fluid. IMPRESSION: No acute pelvic findings. Normal ovaries. Fragment of an echogenic IUD embedded within the posterior uterinemyometrial wall. us Sidra Lockett CNP IMG US PELVIS Final R esult documented in this encounter Visit Diagnoses Diagnosis Encounter for well adult exam without abnormal findings- Primary Pelvic pain in female Unspecified symptom associated with female genital organs Encounter for well adult exam without abnormal findings Pelvic pain in female Unspecified symptom associated with female genital organs documented in this encounter Additional Health Concerns Infection Onset Date Last Indicated Resolved Time COVID-19 10/03/2020 10/03/2020 10/23/2020 1:23 AM EST documented as of this encounter Care Teams Transmission Specialist Relationship Specialty Start Date End Date Kwame Medina MD [address] [place] [address] PCP - General Family Medicine 08/20/19 07/12/20 Sidra Lockett CNP [address] [place] [address] [email or web address] PCP - General Family Medicine 07/13/20 2 Nohemi Santa MD PCP - General Family Medicine 08/01/22 Daniel Hinds OD [address] [place] [address] Referring Physician 03/30/20 documented as of this encounter Additional Source Comments The information contained in this document represents components of the legal health record. It is not the complete legal health record.[facility]
--- OUTSIDE RECORDS SUMMARY | 2025-10-02 21:31 | XMS_ITS | Encounter Summary ---
Author Organization [facility] Address [address] [place] [address] [place] [address] Phone Care Team Providers Care Attendance Clerk Name Role Phone Daniel Hinds OD Unavailable [phone] Sidra Lockett CNP Primary Care Provider Nohemi Santa MD Primary Care Provider [email or web address] Encounter Details Date Type Department Care Team (Late st Contact Info) Description 07/31/2021 Transcribe Orders [facility] [address] [place] [address] Marsha Dennison [address] [place] [phone] [email or web address] Social History Tobacco Use Types Packs/Day Years [...] on filedocumented in this encounter Care Teams Attendance Clerk Relationship Specialty Start Date End Date Sidra Lockett CNP [address] [place] [address] [email or web address] PCP - General Family Medicine 07/13/20 2 Nohemi Santa MD [email or web address] PCP - General Family Medicine 08/01/22 Daniel Hinds OD [address] [place] [address] Referring Physician 03/30/20 documented as of this encounter Additional Source Comments The information contained in this document represents components of the legal health record. It is not the complete legal health record.[facility]
--- OUTSIDE RECORDS SUMMARY | 2025-10-02 21:31 | XMS_ITS | Encounter Summary ---
Author Organization [facility] Address [address] [place] [address] [place] [address] Phone Care Team Providers Care Section Beamer Name Role Phone Daniel Hinds OD Unavailable Sidra Lockett CNP Primary Care Provider Nohemi Santa MD Primary Care Provider [email or web address] Encounter Details Date Type Department Care Team (Late st Contact Info) Description 07/11/2021 Procedure Pass [facility] CT Scan [address] [place] [address] Social History Tobacco Use Types Packs/Day Years [...] on filedocumented in this encounter Care Teams Section Beamer Relationship Specialty Start Date End Date Sidra Lockett CNP [address] [place] [address] [email or web address] PCP - General Family Medicine 07/13/20 2 Nohemi Santa MD [email or web address] PCP - General Family Medicine 08/01/22 Daniel Hinds OD [address] [place] [address] Referring Physician 03/30/20 documented as of this encounter Additional Source Comments The information contained in this document represents components of the legal health record. It is not the complete legal health record.[facility]
--- OUTSIDE RECORDS SUMMARY | 2025-10-02 21:31 | XMS_ITS | Encounter Summary ---
Author Organization [facility] Address [address] [place] [address] [place] [address] Phone Care Team Providers Care Undercar Specialist Name Role Phone Daniel Hinds OD Unavailable Sidra Lockett CNP Primary Care Provider Nohemi Santa MD Primary Care Provider [email or web address] Encounter Details Date Type Department Care Team (Late st Contact Info) Description 01/25/2022 Transcribe Orders [facility] [address] [place] [address] [email or web address] Social History Tobacco Use Types Packs/Day Years [...] on filedocumented in this encounter Care Teams Undercar Specialist Relationship Specialty Start Date End Date Sidra Lockett CNP [address] [place] [address] [email or web address] PCP - General Family Medicine 07/13/20 2 Nohemi Santa MD [email or web address] PCP - General Family Medicine 08/01/22 Daniel Hinds OD [address] [place] [address] Referring Physician 03/30/20 documented as of this encounter Additional Source Comments The information contained in this document represents components of the legal health record. It is not the complete legal health record.[facility]
--- OUTSIDE RECORDS SUMMARY | 2025-10-02 21:31 | XMS_ITS | Encounter Summary ---
Author Organization [facility] Address [address] [place] [address] [place] [address] Phone Care Team Providers Care Coremaking Machine Setter Name Role Phone Daniel Hinds OD Unavailable [phone] Sidra Lockett CNP Primary Care Provider Nohemi Santa MD Primary Care Provider [email or web address] Reason for Referral * MRI/CAT Scan - Closed Specialty Diagnoses / Procedures Referred By Sony ruggiero Referred To Contact Radiology Diagnoses Nonintractable episodic headache, unspecified headache type Procedures CT Head Jose Bob MD Phone: tel: [email or web address] Referral ID Status Reason Start Date Expiration Date Visits Re quested Visits Authorized [id number] Closed 07/11/2021 01/07/2022 1 1 Encounter Details Date Type Department Care Team (Latest Contact Info) Description 07/11/2021 Transcribe Orders [facility] Central Scheduling [address] [address] Jose Bob MD [address] [place] [address] [email or web address] Nonintractable episodic headache, unspecified headache type (Primary Dx) Social History Tobacco Use Types [...] as of this encounter Results * CT HEAD WITHOUT CONTRAST (07/29/2021 9:42 AM EDT) Anatomical Region Laterality Modality Head Computed Tomogra phy 07/30/2021 8:35 AM EDT Impressions 07/30/2021 8:39 AM EDT 1. No acute intracranial findings. Narrative 07/30/2021 8:[address] HEAD WITHOUT CONTRAST TECHNIQUE: Multidetector-row CT of the head was performed without intravenous contrast using tailored dose modulation techniques. Images were reconstructed in the axial, coronal, and sagittal planes. COMPARISON: October 01, 2018 FINDINGS: Brain Parenchyma: No midline shift, mass effect, parenchymal hemorrhage, or evidence of acute territorial infarct. Ventricular System and Extra-Axial Spaces: Normal. No extra-axial fluid collections. Basal cisterns are patent. No hydrocephalus. Osseous and Extracranial Structures: No significant paranasal sinus disease. No orbital abnormality. Note is made of bilateral ocular lens replacement surgery changes. Procedure Note Shree Kasper MD - 07/30/2021 CT HEAD WITHOUT CONTRAST TECHNIQUE: Multidetector-row CT of the head was performed withoutintravenous contrast using tailored dose modulation techniques. Imageswere reconstructed in the axial, coronal, and sagittal planes. COMPARISON: October 01, 2018 FINDINGS: Brain Parenchyma: No midline shift, mass effect, parenchymal hemorrhage,or evidence of acute territorial infarct. Ventricular System and Extra-Axial Spaces: Normal. No extra-axial fluidcollections. Basal cisterns are patent. No hydrocephalus. Osseous and Extracranial Structures: No significant paranasal sinusdisease. No orbital abnormality. Note is made of bilateral ocular lensreplacement surgery changes. IMPRESSION: 1. No acute intracranial findings. Jose Bob MD IMG CT HEAD/NECK Final Result documented in this encounter Visit Diagnoses Diagnosis Nonintractable episodic headache, unspecified headache type- Primary Nonintractable episodic headache, unspecified headache type documented in this encounter Care Teams Coremaking Machine Setter Relationship Specialty Start Date End Date Sidra Lockett CNP [address] [place] [address] [email or web address] PCP - General Family Medicine 07/13/20 2 Nohemi Santa MD PCP - General Family Medicine 08/01/22 Daniel Hinds OD [address] [place] [address] Referring Physician 03/30/20 documented as of this encounter Additional Source Comments The information contained in this document represents components of the legal health record. It is not the complete legal health record.[facility]
--- OUTSIDE RECORDS SUMMARY | 2025-10-02 21:31 | XMS_ITS | Encounter Summary ---
Author Organization [facility] Address [address] [place] [address] [place] [address] Phone Care Team Providers Care Mc Kay Stitcher Name Role Phone Daniel Hinds OD Unavailable Sidra Lockett CNP Primary Care Provider Nohemi Santa MD Primary Care Provider [email or web address] Encounter Details Date Type Department Care Team (Late st Contact Info) Description 03/31/2022 Procedure Pass [facility] at [address] [address] Social History Tobacco Use Types Packs/Day Years [...] on filedocumented in this encounter Care Teams Mc Kay Stitcher Relationship Specialty Start Date End Date Sidra Lockett CNP [address] [place] [phone] [email or web address] PCP - General Family Medicine 07/13/20 2 Nohemi Santa MD [email or web address] PCP - General Family Medicine 08/01/22 Daniel Hinds OD [address] [place] [address] Referring Physician 03/30/20 documented as of this encounter Additional Source Comments The information contained in this document represents components of the legal health record. It is not the complete legal health record.[facility]
--- OUTSIDE RECORDS SUMMARY | 2025-10-02 21:31 | XMS_ITS | Encounter Summary ---
Author Organization [facility] Address [address] [place] [address] [place] [address] Phone Care Team Providers Care Entry Analyst Name Role Phone Daniel Hinds OD Unavailable [phone] Sidra Lockett CNP Primary Care Provider Nohemi Santa MD Primary Care Provider [email or web address] Encounter Details Date Type Department Care Team (Late st Contact Info) Description 04/29/2022 Ancillary Orders [facility] at [address] [address] Sidra Lockett CNP [address] [place] [address] [email or web address] Breast asymmetry Social History Tobacco Use Types Packs/Day Years [...] as of this encounter Visit Diagnoses Diagnosis Breast asymmetry documented in this encounter Care Teams Entry Analyst Relationship Specialty Start Date End Date Sidra Lockett CNP [address] [place], [place] [address] [place] [address] [email or web address] PCP - General Family Medicine 07/13/20 Nohemi Santa MD PCP - General Family Medicine 08/01/22 Daniel Hinds OD [address] [place] [address] Referring Physician 03/30/20 documented as of this encounter Additional Source Comments The information contained in this document represents components of the legal health record. It is not the complete legal health record.[facility]
--- OUTSIDE RECORDS SUMMARY | 2025-10-02 21:31 | XMS_ITS | Encounter Summary ---
Author Organization [facility] Address [address] [place] [address] [place] [address] Phone Care Team Providers Care Bakery And Deli Sales Manager Name Role Phone Daniel Hinds OD Unavailable Sidra Lockett CNP Primary Care Provider Nohemi Santa MD Primary Care Provider [email or web address] Encounter Details Date Type Department Care Team (Late st Contact Info) Description 03/31/2022 Ancillary Orders [facility] at [address] [address] Sidra Lockett, SPINNING MULE TENDER [address] [place] [address] [email or web address] Breast asymmetry Social History Tobacco Use [...] this encounter Results * (ABNORMAL) BI MAMMOGRAM DIAGNOSTIC WITH TOMOSYNTHESIS WITH CAD (LEFT) (04/29/2022 2:49 PM EDT) MGB IMG DIGITAL MARKETING INTERN COMMENT IMPRESSION: .2:00-3:00 LEFT breast mass is thought to correspond to the developing asymmetry on the mammogram and is suspicious. Ultrasound-guided core needle biopsy is recommended at this time. These findings and recommendations were explained to the patient by way of a Togolese-speaking airport clerk available the airport clerk phone. [facility] Anatomical Region Laterality Modality Breast Left, Breast Bilateral Left Ma mmography 04/29/2022 3:37 PM EDT Impressions 04/29/2022 3:42 PM EDT 2:00-3:00 LEFT breast mass is thought to correspond to the developing asymmetry on the mammogram and is suspicious. Ultrasound-guided core needle biopsy is recommended at this time. These findings and recommendations were explained to the patient by way of a Togolese-speaking airport clerk available the airport clerk phone. BI-RADS CATEGORY: 4 - Suspicious abnormality. Biopsy should be considered. LEFT RECOMMENDATION: Left Ultrasound Biopsy At This Time The patient was informed of their results before leaving the department. Appropriate follow up has been arranged. A clinically significant result was communicated and documented via a closed loop communication system on 04/29/2022 3:42 PM, Message ID [id number]. Narrative 04/29/2022 3:42 PM EDT Exam: BI MAMMOGRAM DIAGNOSTIC WITH TOMOSYNTHESIS WITH CAD (LEFT), BI US BREAST LIMITED (LEFT) CLINICAL INDICATION: 47 years old Female. Recall from screening - left breast focal asymmetry. On exam, there is a focal firm mass-like area that is palpable in the upper outer left breast. COMPARISON: Comparison is made to relevant prior imaging. MAMMOGRAM TECHNIQUE: Digital mammographic imaging with tomosynthesis is performed of the left breast. Computer assisted detection was used in the interpretation of this examination. BREAST COMPOSITION: The breast tissue is heterogeneously dense, which could obscure a lesion on mammography. LEFT MAMMOGRAM FINDINGS: Additional imaging was performed to further evaluate a developing some asymmetry in the upper outer left breast at posterior depth seen on screening mammogram. On today's exam, there is a persistent developing asymmetry in the slightly upper outer left breast at posterior depth spanning up to 5.5 cm. Left BREAST ULTRASOUND: Targeted sonographic evaluation of the left breast was performed in the upper outer quadrant in the area of mammographic concern. Real-time scanning is performed by both the finish painter and radiologist. In the left breast at 2:00 to 3:00, 5-8 cm from the nipple, there is a 5 x 1.6 x 3.8-cm heterogeneous mass that has an area of demonstrable internal vascularity on color Doppler. This is thought to correspond to the mammographic finding. Procedure Note Trudy Wood MD, PhD / System, Provider Not In, PhD - 04/29/2022 Exam: BI MAMMOGRAM DIAGNOSTIC WITH TOMOSYNTHESIS WITH CAD (LEFT), BI USBREAST LIMITED (LEFT) CLINICAL INDICATION: 47 years old Female. Recall from screening - leftbreast focal asymmetry. On exam, there is a focal firm mass-like area that is palpable in theupper outer left breast. COMPARISON: Comparison is made to relevant prior imaging. MAMMOGRAM TECHNIQUE: Digital mammographic imaging with tomosynthesis isperformed of the left breast. Computer assisted detection was used in theinterpretation of this examination. BREAST COMPOSITION: The breast tissue is heterogeneously dense, whichcould obscure a lesion on mammography. LEFT MAMMOGRAM FINDINGS: Additional imaging was performed to further evaluate a developing someasymmetry in the upper outer left breast at posterior depth seen onscreening mammogram. On today's exam, there is a persistent developingasymmetry in the slightly upper outer left breast at posterior depthspanning up to 5.5 cm. Left BREAST ULTRASOUND: Targeted sonographic evaluation of the left breast was performed in theupper outer quadrant in the area of mammographic concern. Real-timescanning is performed by both the finish painter and radiologist. In the left breast at 2:00 to 3:00, 5-8 cm from the nipple, there is a 5 x1.6 x 3.8-cm heterogeneous mass that has an area of demonstrable internalvascularity on color Doppler. This is thought to correspond to themammographic finding. IMPRESSION: 2:00-3:00 LEFT breast mass is thought to correspond to the developingasymmetry on the mammogram and is suspicious. Ultrasound-guided coreneedle biopsy is recommended at this time. These findings andrecommendations were explained to the patient by way of a Togolese-speakinginterpreter available the airport clerk phone. BI-RADS CATEGORY: 4 - Suspicious abnormality. Biopsy should beconsidered. LEFT RECOMMENDATION: Left Ultrasound Biopsy At This Time The patient was informed of their results before leaving the department.Appropriate follow up has been arranged. A clinically significant result was communicated and documented via [employer] communication system on 04/29/2022 3:42 PM, Message [id number]. Sidra Lockett CNP IM MG EXAMS Edited Result - Final documented in this encounter Visit Diagnoses Diagnosis Breast asymmetry Breast asymmetry documented in this encounter Care Teams Bakery And Deli Sales Manager Relationship Specialty Start Date End Date Sidra Lockett CNP [address] [place] [address] [email or web address] PCP - General Family Medicine 07/13/20 2 Nohemi Santa MD PCP - General Family Medicine 08/01/22 Daniel Hinds OD [address] [place] [address] Referring Physician 03/30/20 documented as of this encounter Additional Source Comments The information contained in this document represents components of the legal health record. It is not the complete legal health record.[facility]
--- OUTSIDE RECORDS SUMMARY | 2025-10-02 21:31 | XMS_ITS | Encounter Summary ---
Author Organization [facility] Address [address] [place] [phone] Phone Care Team Providers Care Lead Shop Operator Name Role Phone Daniel Hinds OD Unavailable Sidra Lockett CNP Primary Care Provider Nohemi Santa MD Primary Care Provider [email or web address] Encounter Details Date Type Department Care Team (Late st Contact Info) Description 03/28/2022 Ancillary Orders [facility] - [address] [address] Sidra Lockett CNP [address] [place] [phone] @[email or web address] Annual physical exam Social History Tobacco Use Types Packs/Day Years [...] encounter Results * (ABNORMAL) BI MAMMOGRAM SCREENING WITH TOMOSYNTHESIS [...] CNP IMG MG EXAMS Final R esult documented in this encounter Visit Diagnoses Diagnosis Annual physical exam Routine general medical examination at a health care facility Annual physical exam Routine general medical examination at a health care facility documented in this encounter Care Teams Lead Shop Operator Relationship Specialty Start Date End Date Sidra Lockett CNP [address] [place] [phone] [email or web address] PCP - General Family Medicine 07/13/20 2 Nohemi Santa MD PCP - General Family Medicine 08/01/22 Daniel Hinds OD [address] [place] [address] Referring Physician 03/30/20 documented as of this encounter Additional Source Comments The information contained in this document represents components of the legal health record. It is not the complete legal health record.[facility]
--- OUTSIDE RECORDS SUMMARY | 2025-10-02 21:31 | XMS_ITS | Encounter Summary ---
Author Organization [facility] Address [address] [place] [address] [place] [phone] Phone Care Team Providers Care Electrical Assembly Supervisor Name Role Phone Daniel Hinds OD Unavailable Sidra Lockett CNP Primary Care Provider Nohemi Santa MD Primary Care Provider [email or web address] Encounter Details Date Type Department Care Team (Latest Contact Info) Description 08/02/2021 Transcribe Orders [facility] Central Scheduling Virtual [address] [place] [address] Sidra Lockett, SENIOR MARKETING MANAGER [address] [place] [address] [email or web address] Visit for screening mammogram (Primary Dx) Social History Tobacco Use Types [...] encounter Visit Diagnoses Diagnosis Visit for screening mammogram- Primary documented in this encounter Care Teams Electrical Assembly Supervisor Relationship Specialty Start Date End Date Sidra Lockett CNP [address] [place] [address] [place] [phone] [email or web address] PCP - General Family Medicine 07/13/20 2 Nohemi Santa MD PCP - General Family Medicine 08/01/22 Daniel Hinds OD [address] [place] [address] Referring Physician 03/30/20 documented as of this encounter Additional Source Comments The information contained in this document represents components of the legal health record. It is not the complete legal health record.[facility]
--- OUTSIDE RECORDS SUMMARY | 2025-10-02 21:31 | XMS_ITS | Encounter Summary ---
Author Organization [facility] Address [address] [place] [address] [place] [phone] Phone Care Team Providers Care Punch Box Tender Name Role Phone Daniel Hinds OD Unavailable Sidra Lockett CNP Primary Care Provider Nohemi Santa MD Primary Care Provider [email or web address] Encounter Details Date Type Department Care Team (Late st Contact Info) Description 07/11/2021 Transcribe Orders [facility] [address] [place] [address] French [email or web address] Social History Tobacco Use [...] on filedocumented in this encounter Care Teams Punch Box Tender Relationship Specialty Start Date End Date Sidra Lockett CNP [address] [place] [address] [email or web address] PCP - General Family Medicine 07/13/20 2 Nohemi Santa MD [email or web address] PCP - General Family Medicine 08/01/22 Daniel Hinds OD [address] [place] [address] Referring Physician 03/30/20 documented as of this encounter Additional Source Comments The information contained in this document represents components of the legal health record. It is not the complete legal health record.[facility]
--- OUTSIDE RECORDS SUMMARY | 2025-10-02 21:31 | XMS_ITS | Encounter Summary ---
Author Organization [facility] [place] [address] Care Team Providers Care Nurse Companion Name Role Phone Physician, Pcp Unknown Primary Care Provider Sonya vailable Encounter Details Date Type Department Care Team (Late st Contact Info) Description 09/22/[address] [facility] - [facility] Lab [address] [facility] [place] [phone] Terry Vasquez MD [address] [place] [address] Abnormal level of hormones in specimens from [...] ng/mL LAB CHEMISTRY METHOD 09/22/2024 5:22 PM [facility] Blood Venous blood specimen / Unknown 09/22/2024 11:37 AM EST 09/22/2024 4:24 PM EST us Terry Vasquez MD LAB BLOOD ORDERABLES Final Re sult [facility] [address] [place] [address], [place] [phone] * (ABNORMAL) Basic metabolic panel (09/22/2024 11:37 AM EST) Sodium 139 133 - 145 mmol/L LAB CHEMISTRY METHOD 09/22/2024 5:12 PM [facility] Potassium 4.3 3.5 - 5.5 mmol/L LAB CHEMISTRY METHOD 09/22/2024 5:12 PM [facility] Chloride 109 96 - 110 mmol/L LAB CHEMISTRY METHOD 09/22/2024 5:12 PM [facility] CO2 26 21 - 32 mmol/L LAB CHEMISTRY METHOD 09/22/2024 5:12 PM [facility] Anion Gap 4 3 - 11 LAB CHEMISTRY METHOD 09/22/2024 5:12 PM [facility] Glucose 120(H) 70 - 100 mg/dL LAB CHEMISTRY METHOD 09/22/2024 5:12 PM [facility] BUN 10 5 - 25 mg/dL LAB CHEMISTRY METHOD 09/22/2024 5:12 PM [facility] Creatinine 0.72 0.50 - 1.10 mg/dL LAB CHEMISTRY METHOD 09/22/2024 5:12 PM [facility] eGFR 103 >=60 mL/min/1. 73m2 LAB CHEMISTRY METHOD 09/22/2024 5:12 PM [facility] Comment:Calculation based on the Chronic Kidney Disease Epidemiology Collaboration (CKD-EPI) equation refit without adjustment for race. BUN/Creatinine Ratio 13.9 LAB CHEMISTRY METHOD 09/22/2024 5:12 PM EST [facility] Calcium 9.2 8.5 - 10.5 mg/dL LAB CHEMISTRY METHOD 09/22/2024 5:12 PM EST [facility] Blood Venous blood specimen / Unknown 09/22/2024 11:37 AM EST 09/22/2024 4:24 PM EST us Terry Vasquez MD LAB BLOOD ORDERABLES Final Re sult [facility] [address] [place] [address], documented in this encounter Visit Diagnoses Diagnosis Abnormal level of hormones in specimens from other organs, systems and tissues documented in this encounter Care Teams Nurse Companion Relationship Specialty Start Date End Date Physician, Pcp Unknown PCP - General 12/16/24 documented as of this encounter
--- OUTSIDE RECORDS SUMMARY | 2025-10-02 21:31 | XMS_ITS | Encounter Summary ---
Author Organization [facility] Address [address] [place] [address] [place] [address] Phone Care Team Providers Care Condominium Property Manager Name Role Phone Daniel Hinds OD Unavailable Sidra Lockett CNP Primary Care Provider Nohemi Santa MD Primary Care Provider [email or web address] Encounter Details Date Type Department Care Team (Late st Contact Info) Description 04/29/2022 Ancillary Orders [facility] at [address] [address] Sidra Lockett, HAND ORNAMENT MAKER [address] [place] [address] [email or web address] Breast asymmetry Social History Tobacco Use [...] of this encounter Results * (ABNORMAL) BI US BREAST LIMITED (LEFT) (04/29/2022 3:12 PM EDT) MGB IMG MACHINE PULLER AND LASTER COMMENT IMPRESSION: .2:00-3:00 LEFT breast mass is thought to correspond to the developing asymmetry on the mammogram and is suspicious. Ultrasound-guided core needle biopsy is recommended at this time. These findings and recommendations were explained to the patient by way of a Belarusian-speaking special needs librarian available the special needs librarian phone. [facility] Anatomical Region Laterality Modality Breast Left, Breast Bilateral Left Ul trasound 04/29/2022 3:37 PM EDT Impressions 04/29/2022 3:42 PM EDT 2:00-3:00 LEFT breast mass is thought to correspond to the developing asymmetry on the mammogram and is suspicious. Ultrasound-guided core needle biopsy is recommended at this time. These findings and recommendations were explained to the patient by way of a Belarusian-speaking special needs librarian available the special needs librarian phone. BI-RADS CATEGORY: 4 - Suspicious abnormality. Biopsy should be considered. LEFT RECOMMENDATION: Left Ultrasound Biopsy At This Time The patient was informed of their results before leaving the department. Appropriate follow up has been arranged. A clinically significant result was communicated and documented via a closed loop communication system on 04/29/2022 3:42 PM, Message ID [id number]. Narrative 04/29/2022 3:42 PM EDT Exam: BI [...] Real-time scanning is performed by both the process analyst and radiologist. In the left breast at [...] concern. Real-timescanning is performed by both the process analyst and radiologist. In the left breast at [...] to the patient by way of a Belarusian-speakinginterpreter available the special needs librarian phone. BI-RADS CATEGORY: 4 - Suspicious abnormality. Biopsy should beconsidered. LEFT RECOMMENDATION: Left Ultrasound Biopsy At This Time The patient was informed of their results before leaving the department.Appropriate follow up has been arranged. A clinically significant result was communicated and documented via [employer] communication system on 04/29/2022 3:42 PM, Message [id number]. us Sidra Lockett CNP IMG US BREAST Edited Result - Final documented in this encounter Visit Diagnoses Diagnosis Breast asymmetry Breast asymmetry documented in this encounter Care Teams Condominium Property Manager Relationship Specialty Start Date End Date Sidra Lockett CNP [address] [place] [address] [email or web address] PCP - General Family Medicine 07/13/20 2 Nohemi Santa MD PCP - General Family Medicine 08/01/22 Daniel Hinds OD [address] [place] [address] Referring Physician 03/30/20 documented as of this encounter Additional Source Comments The information contained in this document represents components of the legal health record. It is not the complete legal health record.[facility]
--- OUTSIDE RECORDS SUMMARY | 2025-10-02 21:31 | XMS_ITS | Encounter Summary ---
Author Organization [facility] Address [address] [place] [phone] Phone Care Team Providers Care Business Integration Manager Name Role Phone Daniel Hinds OD Unavailable [phone] Sidra Lockett CNP Primary Care Provider Nohemi Santa MD Primary Care Provider [email or web address] Reason for Referral * Outpatient Procedure - Closed Specialty Diagnoses / Procedures Referred By Contac t Referred To Contact Radiology Diagnoses Breast asymmetry S/P breast biopsy Procedures Mammogram Diagnostic Post Procedure (Left) Gabriella Turner MD Phone: tel: fax: mailto:[email or web address] Referral ID Status Reason Start Date Expiration Date Visits Re quested Visits Authorized [id number] Closed 04/29/2022 04/29/2023 1 1 * Outpatient Procedure - Closed Specialty Diagnoses / Procedures Referred By Contac t Referred To Contact Radiology Diagnoses Breast asymmetry Procedures RESIDENTIAL Biopsy of Breast (Left) Gabriella Turner MD Phone: tel: fax: mailto:[email or web address] Referral ID Status Reason Start Date Expiration Date Visits Re quested Visits Authorized [id number] Closed 04/29/2022 04/29/2023 1 1 Encounter Details Date Type Department Care Team (Late st Contact Info) Description 04/29/2022 Ancillary Orders [facility] at [address] [place] [address] Gabriella Turner MD [address] [place] [address] [email or web address] Breast asymmetry; S/P breast biopsy Social History Tobacco Use Types Packs/Day Years [...] of this encounter Results * BI MAMMOGRAM DIAGNOSTIC POST PROCEDURE WITH TOMOSYNTHESIS WITH CAD (LEFT) (05/13/2022 1:51 PM EDT) Anatomical Region Laterality Modality Breast Left Left Mammography 05/13/2022 2:26 PM EDT Addenda Addendum by Elizabeth Potter MD on 05/18/2022 7:18 PM EDT ADDENDUM: PATHOLOGY RESULTS LEFT breast: (Upper quadrant, 2-3 o'clock, 5 to 8 cm from the nipple, Focal asymmetry, Open lock clip. 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 No malignancy is identified. Radiologist comments: Pathologic diagnosis is concordant with imaging findings. Recommendation: Annual screening mammography. The patient has been notified by the [facility] breast health navigator and has been advised to continue annual screening mammography. Impressions 05/13/2022 2:36 PM EDT Successful ultrasound-guided core biopsy of the left breast as described above. Please see addendum report for pathology results, to be dictated subsequently. Narrative 05/13/2022 2:36 PM EDT Exam: BI RESIDENTIAL BIOPSY OF BREAST (LEFT), BI MAMMOGRAM DIAGNOSTIC POST PROCEDURE WITH TOMOSYNTHESIS WITH CAD (LEFT) CLINICAL INDICATION: 47 years old Female presents for ultrasound-guided biopsy of the left breast. COMPARISON: Comparison is made to relevant prior imaging. FINDINGS: The procedure and its risks were explained to the patient. Written informed consent was obtained. Using ultrasound guidance, the 5.0 cm asymmetry in the upper outer left breast was localized. The skin was prepped and draped in the usual sterile fashion and local anesthesia was obtained with 2% lidocaine. A 13-gauge trocar was advanced to the lesion under ultrasound guidance. Using coaxial technique, a 14-gauge core biopsy needle was advanced to the lesion and multiple core biopsy specimens were obtained. A open lock shaped clip was placed at the biopsy site. A postprocedure mammogram was obtained, demonstrating satisfactory deployment of the clip. The patient tolerated the procedure and there were no immediate complications. Procedure Note Elizabeth Potter MD - 05/13/2022 Exam: BI RESIDENTIAL BIOPSY OF BREAST (LEFT), BI MAMMOGRAM DIAGNOSTIC POSTPROCEDURE WITH TOMOSYNTHESIS WITH CAD (LEFT) CLINICAL INDICATION: 47 years old Female presents for ultrasound-guidedbiopsy of the left breast. COMPARISON: Comparison is made to relevant prior imaging. FINDINGS: The procedure and its risks were explained to the patient. Writteninformed consent was obtained. Using ultrasound guidance, the 5.0 cm asymmetry in the upper outer leftbreast was localized. The skin was prepped and draped in the usual sterilefashion and local anesthesia was obtained with 2% lidocaine. A 13-gaugetrocar was advanced to the lesion under ultrasound guidance. Using coaxialtechnique, a 14-gauge core biopsy needle was advanced to the lesion andmultiple core biopsy specimens were obtained. A open lock shaped clip was placed at the biopsy site. A postprocedure mammogram was obtained, demonstrating satisfactorydeployment of the clip. The patient tolerated the procedure and there were no immediatecomplications. IMPRESSION: Successful ultrasound-guided core biopsy of the left breast as describedabove. Please see addendum report for pathology results, to be dictatedsubsequently. us Gabriella Turner MD IMG MG EXAMS Edited Result - Final * RESIDENTIAL Biopsy of Breast (Left) (05/13/2022 1:46 PM EDT) Anatomical Region Laterality Modality Breast Left, Breast Bilateral Left Ul trasound 05/13/2022 2:26 PM EDT Addenda Addendum by Elizabeth Potter MD on 05/18/2022 7:18 PM EDT ADDENDUM: PATHOLOGY RESULTS LEFT breast: (Upper quadrant, 2-3 o'clock, 5 to 8 cm from the nipple, Focal asymmetry, Open lock clip. 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 No malignancy is identified. Radiologist comments: Pathologic diagnosis is concordant with imaging findings. Recommendation: Annual screening mammography. The patient has been notified by the [facility] breast health navigator and has been advised to continue annual screening mammography. Impressions 05/13/2022 2:36 PM EDT Successful ultrasound-guided core biopsy of the left breast as described above. Please see addendum report for pathology results, to be dictated subsequently. Narrative 05/13/2022 2:36 PM EDT Exam: BI RESIDENTIAL BIOPSY OF BREAST (LEFT), BI MAMMOGRAM DIAGNOSTIC POST PROCEDURE WITH TOMOSYNTHESIS WITH CAD (LEFT) CLINICAL INDICATION: 47 years old Female presents for ultrasound-guided biopsy of the left breast. COMPARISON: Comparison is made to relevant prior imaging. FINDINGS: The procedure and its risks were explained to the patient. Written informed consent was obtained. Using ultrasound guidance, the 5.0 cm asymmetry in the upper outer left breast was localized. The skin was prepped and draped in the usual sterile fashion and local anesthesia was obtained with 2% lidocaine. A 13-gauge trocar was advanced to the lesion under ultrasound guidance. Using coaxial technique, a 14-gauge core biopsy needle was advanced to the lesion and multiple core biopsy specimens were obtained. A open lock shaped clip was placed at the biopsy site. A postprocedure mammogram was obtained, demonstrating satisfactory deployment of the clip. The patient tolerated the procedure and there were no immediate complications. Procedure Note Elizabeth Potter MD - 05/13/2022 Exam: BI RESIDENTIAL BIOPSY OF BREAST (LEFT), BI MAMMOGRAM DIAGNOSTIC POSTPROCEDURE WITH TOMOSYNTHESIS WITH CAD (LEFT) CLINICAL INDICATION: 47 years old Female presents for ultrasound-guidedbiopsy of the left breast. COMPARISON: Comparison is made to relevant prior imaging. FINDINGS: The procedure and its risks were explained to the patient. Writteninformed consent was obtained. Using ultrasound guidance, the 5.0 cm asymmetry in the upper outer leftbreast was localized. The skin was prepped and draped in the usual sterilefashion and local anesthesia was obtained with 2% lidocaine. A 13-gaugetrocar was advanced to the lesion under ultrasound guidance. Using coaxialtechnique, a 14-gauge core biopsy needle was advanced to the lesion andmultiple core biopsy specimens were obtained. A open lock shaped clip was placed at the biopsy site. A postprocedure mammogram was obtained, demonstrating satisfactorydeployment of the clip. The patient tolerated the procedure and there were no immediatecomplications. IMPRESSION: Successful ultrasound-guided core biopsy of the left breast as describedabove. Please see addendum report for pathology results, to be dictatedsubsequently. us Gabriella Turner MD IMG IRP GUIDED BREAST PROC E dited Result - Final documented in this encounter Visit Diagnoses Diagnosis Breast asymmetry S/P breast biopsy Other postprocedural status Breast asymmetry Breast asymmetry S/P breast biopsy Other postprocedural status documented in this encounter Care Teams Business Integration Manager Relationship Specialty Start Date End Date Lockett Sidrachristian Johnson CNP [address] [place] [phone] [email or web address] PCP - General Family Medicine 07/13/20 2 Nohemi Santa MD PCP - General Family Medicine 08/01/22 Daniel Hinds OD [address] [place] [address] Referring Physician 03/30/20 documented as of this encounter Additional Source Comments The information contained in this document represents components of the legal health record. It is not the complete legal health record.[facility]
--- OUTSIDE RECORDS SUMMARY | 2025-10-02 21:31 | XMS_ITS | Encounter Summary ---
Author Organization [facility] Address [address] [place] [address] [place] [phone] Phone Care Team Providers Care Pbx Teacher Name Role Phone Daniel Hinds OD Unavailable [phone] Sidra Lockett CNP Primary Care Provider Nohemi Santa MD Primary Care Provider [email or web address] Encounter Details Date Type Department Care Team (Late st Contact Info) Description 03/28/2022 Procedure Pass [facility] - [address] [address] Social History Tobacco Use Types Packs/Day Years [...] on filedocumented in this encounter Care Teams Pbx Teacher Relationship Specialty Start Date End Date Sidra Lockett CNP [address] [place] [phone] [email or web address] PCP - General Family Medicine 9/25/20 10/13/2 2 Nohemi Santa MD [email or web address] PCP - General Family Medicine 08/01/22 Daniel Hinds OD [address] [place] [address] Referring Physician 03/30/20 documented as of this encounter Additional Source Comments The information contained in this document represents components of the legal health record. It is not the complete legal health record.[facility]
--- OUTSIDE RECORDS SUMMARY | 2025-10-02 21:31 | XMS_ITS | Encounter Summary ---
Author Organization [facility] Address [address] [place] [address] Phone Care Team Providers Care Mate Fishing Vessel Name Role Phone Kwame Medina MD Primary Care Provider + Daniel Hinds OD Unavailable [phone] Sidra Lockett CNP Primary Care Provider Nohemi Santa MD Primary Care Provider [email or web address] Encounter Details Date Type Department Care Team (Late st Contact Info) Description 08/20/2019 Ancillary Orders [facility] at [address] [address] Lorenzo Adames, [facility] [address] [place] [address] [email or web address] Visit for screening mammogram Social History Tobacco [...] documented as of this encounter Care Teams Mate Fishing Vessel Relationship Specialty Start Date End Date Kwame Medina MD [address] [place] [id number] PCP - General Family Medicine 08/20/19 07/12/20 Sidra Lockett CNP [address] [place] [phone] [email or web address] PCP - General Family Medicine 07/13/20 Nohemi Santa MD PCP - General Family Medicine 08/01/22 Daniel Hinds OD [address] [place] [address] Referring Physician 03/30/20 documented as of this encounter Additional Source Comments The information contained in this document represents components of the legal health record. It is not the complete legal health record.[facility]
--- OUTSIDE RECORDS SUMMARY | 2025-10-02 21:31 | XMS_ITS | Encounter Summary ---
Author Organization [facility] Address [address] [place] [address] [place] [address] Phone Care Team Providers Care Tmr Teacher Name Role Phone Daniel Hinds OD Unavailable Sidra Lockett CNP Primary Care Provider Nohemi Santa MD Primary Care Provider [email or web address] Encounter Details Date Type Department Care Team (Late st Contact Info) Description 04/29/2022 Procedure Pass [facility] at [address] [address] Social History Tobacco Use Types Packs/Day Years [...] on filedocumented in this encounter Care Teams Tmr Teacher Relationship Specialty Start Date End Date Sidra Lockett CNP [address] [place] [address] [email or web address] PCP - General Family Medicine 07/13/20 2 Nohemi Santa MD [email or web address] PCP - General Family Medicine 08/01/22 Daniel Hinds OD [address] [place] [address] Referring Physician 03/30/20 documented as of this encounter Additional Source Comments The information contained in this document represents components of the legal health record. It is not the complete legal health record.[facility]
--- OUTSIDE RECORDS SUMMARY | 2025-10-02 21:31 | XMS_ITS | Clinical Summary ---
Author Organization [address] [facility] Address [address] [place] [address] Phone Care Team Providers Care Social Work Supervisor Name Role Phone Physician, Pcp Unknown Primary [...] Last Done Comments Breast Cancer Screening 1975 Colorectal Cancer Screening: Colonoscopy 1975 DTaP,Tdap,and Td Vaccines (1 - Tdap) 1994 Hepatitis B Vaccines (1 of 3 - 19+ 3-dose series) 1994 Cervical Cancer Screening: P ap Smear 1996 HIV Screening 11/13/2023 Hepatitis C Screening 11/13/2023 Social Influencers of Health Screening 11/13/2023 Depression Screening 10/19/2024 Pneumococcal Vaccine: 50+ Ye ars (1 of 1 - PCV) 2025 Zoster Vaccines (1 of 2) 2025 COVID-19 Vaccine ( - 2024-2 6 season) 2025 Influenza Vaccine (#1) 2025 RSV Immunization Adult Patie nts (1 - 1-dose 75+ series) 2050 HIB [...] to complete this topic Insurance [place] - [place] [facility] Care Teams Social Work Supervisor Relationship Specialty Start Date End Date Physician, Pcp Unknown PCP - General 12/16/24
== END 2025-10-02 15:25 | disposition home or self-care (01) ==
LOC: HO.HGI 14:57
PROVIDERS: Visit Provider Nurse Practitioner Family
DX: R14.0 Abdominal distension (gaseous) (principal); Z86.19 Personal history of other infectious and parasitic diseases; K21.9 Gastro-esophageal reflux disease without esophagitis; K59.01 Slow transit constipation
CPT/HCPCS: 99214

== ENCOUNTER → 2025-10-02 14:56 | Outpatient (BNVA) | payer OTHER, SELFPAY | PROVIDERS: Visit Provider Nurse Practitioner Family | DX: R14.0 Abdominal distension (gaseous) (principal); Z86.19 Personal history of other infectious and parasitic diseases; K21.9 Gastro-esophageal reflux disease without esophagitis; K59.01 Slow transit constipation; Z79.899 Other long term (current) drug therapy | CPT/HCPCS: 99212 ==